=== PATIENT | female | born 1950 | race Caucasian/White ===

== ENCOUNTER 2022-08-17 15:47 | Emergency (ER) | payer MEDICARE, OTHER, SELFPAY ==
--- NOTE | 2022-08-17 15:49 | ED.RN ---
Pt accompanied by daughter to er triage. Pt repeating just listen to me. Got pt into computer system with assistance of daughter. Pt not willing to answer any questions or cooperate for any vitals. Pt daughter stating she has a history of this confusion and its usually the beginning of my mom being septic attempted to ask questions what pt was septic from and daughter was unsure. Pt taken back to right away and Dr. Amado notified. NNO
[2022-08-17 15:56] VITALS: TEMP 36.6; BMI 19.3
[2022-08-17 16:04] VITALS: BP 220/115; PULSE 81; RESP 12; O2SAT 98
--- NOTE | 2022-08-17 16:10 | CT_ITS ---
STUDY: CT BRAIN WITHOUT CONTRAST REASON FOR EXAM: Female, 72 years old. Confusion. RADIATION DOSAGE (If Supplied By Facility): CTDIvol = ( 44.99 ) mGy, DLP = ( 745.49 ) mGycm TECHNIQUE: Transaxial CT imaging of the brain was performed without administration of intravenous contrast material. Individualized dose optimization techniques were used for this CT. COMPARISON: No relevant priors. FINDINGS: Normal soft tissue structures. Normal calvarium. Normal size ventricles and extra-axial spaces for the patient''s age. There are areas of decreased attenuation within the white matter tracts of the supratentorial brain, consistent with microvascular disease changes. Normal basal ganglia and thalami. Normal brainstem. Normal cerebellum. There is no intracranial hemorrhage. There are no findings of an acute ischemic infarction. Normal visualized paranasal sinuses. CT/Brain/Head without Contrast IMPRESSION: Mild microvascular white matter disease without acute intracranial or calvarial abnormality. AIDOC was utilized to assist in identifying pertinent positive findings in this case. Electronically Signed: Barrera Moe DO at 17:09 EDT Reading Location ID and State: [address] [place] [address] Tel [phone], Service support ,
--- NOTE | 2022-08-17 16:10 | EKG12_ITS ---
Test Reason : CONFUSION Blood Pressure : / mmHG Vent. Rate : 078 BPM Atrial Rate : 078 BPM P-R Int : 164 ms QRS Dur : 090 ms QT Int : 410 ms P-R-T Axes : 061 049 083 degrees QTc Int : 467 ms Normal sinus rhythm Minimal voltage criteria for LVH, may be normal variant ( Sokolow-Hassan ) Nonspecific T wave abnormality Abnormal ECG Confirmed by ROXANA WYNN, SHALINI ([id number]), business editor MICHELE WELDON ([id number]) on 08/20/2022 10:55:03 A M Referred By: Confirmed By:JR SCHMIDT MD
--- NOTE | 2022-08-17 16:12 | EX.ED.DYSGE1 ---
HPI History of Present Illness Chief Complaint: Confusion Informant: patient and family Narrative Narrative: Patient's brought in by family because of concern for sepsis. History is really through daughter. Patient states she has no complaints but really cannot answer any questions for me. She tells me she is in the hospital but I cannot get any other details of her past medical history medications or anything from her. The daughter states that this patient is has sepsis several times before and every time she acts exactly like this. She will get confused quickly. She will get a little bit aggressive. She thinks she has had sepsis from urine infections but may be other items have caused this. Evidently the patient was pretty normal this morning about 930. She is now confused. We do not have a list of medications but the daughter is trying to get somebody to get that list from home. We know she has a history of high blood pressure and is on a list of medicines. Because of the patient unable to give a history and no medication history we are at somewhat of a limited at this time but are trying to gain more information. We have almost no information available in our system here. [facility] Medical History HTN (hypertension) Allergy/AdvReac Type Severity Reaction Status Date / Time No Known Allergies Allergy Verified 08/17/22 15:56 Social History Smoking Status: Never smoker ROS ROS ED ROS Narrative Extremely limited for the reasons stated in the history of present illness. Neurologic Neurologic: Reports other Details: Confusion EXAM Physical Exam Narrative Exam Narrative: Patient is awake and alert. She is coordinated. She does answer that she is in the hospital. She speaks clearly but does not give me any information. She looks comfortable. She is not having any dyspnea. I do note that her blood pressure is up a bit here bringing into question if she has been taking her meds. HEENT shows no trauma. Mucous membranes are minimally dry. Eyes show normal range of motion. Pupils are about 3 mm and reactive bilaterally and equal. Neck is supple without any meningismus. No JVD. Lungs are clear bilaterally and saturations are normal at 98% on room air showing no hypoxia. Her breathing is easy and unlabored. There is no coughing. Heart is regular with a rate about 80. It appears to be a normal sinus rhythm at 80 on the monitor in the room. I hear no murmur. Abdomen is thin soft and nontender No tenderness or pain with motion of her spine. Extremities show no edema cords or tenderness. Skin shows no rashes. She does not feel febrile or warm. Const Vital Signs: 08/17/22 15:56 08/17/22 16:04 08/17/22 18:28 Temperature 98 F 98 F Temperature Source Temporal Temporal Pulse Rate 81 75 Respiratory Rate 12 14 Blood Pressure 220/115 H 190/107 H Blood Pressure Mean 150 134 Pulse Ox 98 98 Oxygen Delivery Method Room Air Room Air MDM MDM MDM Narrative Medical decision making narrative: Patient CBC shows minimal anemia but normal white count. Platelets are normal. INR is normal. Electrolytes showed elevated creatinine but the BUN has not markedly abnormal for this level. I do not have any information that this is acute or not. She has been eating or drinking. We did give her some fluids also. Lactic acid is normal Liver function test are normal TSH is normal. My independent interpretation of the patient's chest x-ray shows no acute process or sign of infiltrate final is similar. Final reading by CT shows chronic changes but no acute. I talked with the patient and her daughter. Patient is back to normal now. They are thinking that this is due to lack of sleep and stress. Evidently there is a huge amount of family stress recently. They lost her grandmother. [place] room in town. She has not been sleeping well. She states she might have messed up some of her depression meds this morning but is not sure. This does not fit the picture of a temporary or transient global amnesia. This was not any expressive or receptive aphasia. No indication of strokes. They want to go home. Patient will be with her daughter and family continuously and if there is any further issues they will come back. Lab Data Attestation: I reviewed the patient's lab results. Labs: Laboratory Results - last 24 hr 08/17/22 08/17/22 08/17/22 16:08 16:15 16:15 WBC 6.8 RBC 3.75 L Hgb 11.8 L Hct 36.7 L MCV 97.9 MCH 31.5 MCHC 32.2 RDW Std Deviation 44.8 H RDW Coeff of [place] 12.4 Plt Count 159 MPV 11.2 Immature Gran % (Auto) 0.100 Neut % (Auto) 64.3 Lymph % (Auto) 29.0 [place] % (Auto) 5.3 Eos % (Auto) 1.0 Baso % (Auto) 0.3 Absolute Neuts (auto) 4.4 Absolute Lymphs (auto) 1.96 Nucleated RBC % 0 PT 12.4 INR 0.9 Sodium Potassium Chloride Carbon Dioxide Anion Gap BUN Creatinine Estim Creat Clear Calc Est GFR (MDRD) Af Amer Est GFR (MDRD) Non-Af BUN/Creatinine Ratio Glucose Lactic Acid Calcium Total Bilirubin AST ALT Alkaline Phosphatase Troponin I High Sens Total Protein Albumin Globulin Albumin/Globulin Ratio TSH Urine Color Urine Clarity Urine pH Ur Specific [place] Urine Protein Urine Glucose (UA) Urine Ketones Urine Occult Blood Urine Nitrite Urine Bilirubin Urine Urobilinogen Ur Leukocyte Esterase Urine RBC Urine WBC Ur Squamous Epith Cells Amorphous Sediment Urine Bacteria Urine Mucus POC Glucose 100 08/17/22 08/17/22 08/17/22 16:15 16:15 16:15 WBC RBC Hgb Hct MCV MCH MCHC RDW Std Deviation RDW Coeff of [place] Plt Count MPV Immature Gran % (Auto) Neut % (Auto) Lymph % (Auto) [place] % (Auto) Eos % (Auto) Baso % (Auto) Absolute Neuts (auto) Absolute Lymphs (auto) Nucleated RBC % PT INR Sodium 140 Potassium 4.5 Chloride 107 Carbon Dioxide 26.0 Anion Gap 7 BUN 27 H Creatinine 2.34 H Estim Creat Clear Calc 18.08 Est GFR (MDRD) Af Amer 26 L Est GFR (MDRD) Non-Af 22 L BUN/Creatinine Ratio 11.5 Glucose 99 Lactic Acid 0.7 Calcium 9.8 Total Bilirubin 0.30 AST 25 ALT 36 Alkaline Phosphatase 66 Troponin I High Sens 12 Total Protein 6.7 Albumin 3.2 Globulin 3.5 Albumin/Globulin Ratio 0.9 TSH 3.51 Urine Color Urine Clarity Urine pH Ur Specific [place] Urine Protein Urine Glucose (UA) Urine Ketones Urine Occult Blood Urine Nitrite Urine Bilirubin Urine Urobilinogen Ur Leukocyte Esterase Urine RBC Urine WBC Ur Squamous Epith Cells Amorphous Sediment Urine Bacteria Urine Mucus POC Glucose 08/17/22 20:00 WBC RBC Hgb Hct MCV MCH MCHC RDW Std Deviation RDW Coeff of [place] Plt Count MPV Immature Gran % (Auto) Neut % (Auto) Lymph % (Auto) [place] % (Auto) Eos % (Auto) Baso % (Auto) Absolute Neuts (auto) Absolute Lymphs (auto) Nucleated RBC % PT INR Sodium Potassium Chloride Carbon Dioxide Anion Gap BUN Creatinine Estim Creat Clear Calc Est GFR (MDRD) Af Amer Est GFR (MDRD) Non-Af BUN/Creatinine Ratio Glucose Lactic Acid Calcium Total Bilirubin AST ALT Alkaline Phosphatase Troponin I High Sens Total Protein Albumin Globulin Albumin/Globulin Ratio TSH Urine Color Yellow Urine Clarity Sl. Cloudy Urine pH 7.0 Ur Specific [place] 1.010 Urine Protein 500 H Urine Glucose (UA) Normal Urine Ketones Negative Urine Occult Blood 25 H Urine Nitrite Negative Urine Bilirubin Negative Urine Urobilinogen Normal Ur Leukocyte Esterase 25 H Urine RBC 0-5 SEEN Urine WBC 0-5 SEEN Ur Squamous Epith Cells 0-5 SEEN Amorphous Sediment 2+ PHOS Urine Bacteria 2+ Urine Mucus 0 SEEN POC Glucose Radiography Diagnostic Testing: Clinical Impression(s) from Imaging Studies Brain CT 08/17/22 16:10 IMPRESSION: Mild microvascular white matter disease without acute intracranial or calvarial abnormality. AIDOC was utilized to assist in identifying pertinent positive findings in this case. Electronically Signed: Barrera Moe DO at 17:09 EDT , Chest X-Ray 08/17/22 16:42 IMPRESSION: No acute cardiopulmonary disease. Electronically Signed: Barrera Moe DO at 17:10 EDT , Discharge Plan Triage Chief Complaint: Confusion ED Provider: Geraldo Amado Dx/Rx/DC Orders Clinical Impression: Transient confusion, Creatinine elevation Instructions: ED Confusion Primary Care Provider: Kody Fonseca Referrals: Kody Fonseca MD [Primary Care Provider] - 3-5 Days Disposition Disposition: Home, Self Care
[2022-08-17 16:26] LABS: Bedside Glucose 100 mg/dL (74-106)
--- NOTE | 2022-08-17 16:42 | RAD_ITS ---
STUDY: X-RAY CHEST REASON FOR EXAM: Female, 72 years old. Question pneumonia. TECHNIQUE: Single AP portable view of the chest. COMPARISON: None. FINDINGS: The lungs are clear and expanded. There is no demonstrated pleural abnormality. Normal size heart. Normal mediastinum and corinne. Normal visualized pulmonary arteries. There is atherosclerotic calcification of the aortic arch with tortuosity. Mild dextroscoliosis of the thoracic spine. 2 There is no demonstrated abnormality of the visualized soft tissue structures of the upper abdomen. RAD/Chest 1 View (Portable) IMPRESSION: No acute cardiopulmonary disease. Electronically Signed: Barrera Moe DO at 17:10 EDT ,
[2022-08-17 16:43] LABS: Absolute Lymphocyte Count 1.96 X10^3/uL (0.83-4.51); Absolute Neutrophil Count 4.4 X10^3/uL (2.0-7.7); Basophil# 0.02 X10^3/uL; Basophil% 0.3 % (0-1); Eosinophil# 0.07 X10^3/uL; Hematocrit 36.7 % (37-47); Hemoglobin 11.8 g/dL (12.0-15.0); Lymphocyte # 1.96 X10^3/ul (0.83-4.51); Mean Corp Hgb Conc 32.2 g/dL (32-36); Mean Corpuscular Hgb 31.5 pg (27.0-32.0); Mean Corpuscular Volume 97.9 fL (81-99); Mean Platelet Vol. 11.2 fl (6.2-12.0); Monocyte# 0.36 X10^3/uL; Monocyte% 5.3 % (0-10); NRBC Flagged by Analyzer 0 % (0-5); Neutrophil # 4.35 X10^3/uL (2.7-7.7); Neutrophil % 64.3 % (47-70); Platelet Count 159 K/mm3 (150-450); RBC Distribution Width CV 12.4 % (11.6-14.6); RBC Distribution Width SD 44.8 fl (35.1-43.9); Red Blood Count 3.75 M/mm3 (4.2-5.4); White Blood Count 6.8 K/mm3 (4.4-11.0)
[2022-08-17 17:00] LABS: International Normalized Ratio 0.9; Prothrombin Time (Protime)PT. 12.4 SECONDS (11.7-14.9)
[2022-08-17 17:13] LABS: ALB/GLOB Ratio 0.9 RATIO (0.9-2.4); AST(SGOT) 25 U/L (15-37); Alanine Aminotransfer ALT/SGPT 36 U/L (13-56); Albumin, Serum 3.2 g/dL (3.2-5.0); Alkaline Phosphatase 66 U/L (45-117); Anion Gap 7 (5-15); BUN 27 mg/dL (7-18); BUN/Creat Ratio 11.5 RATIO (10-20); Calcium,Total 9.8 mg/dL (8.5-10.1); Chloride 107 mmol/L (98-107); Creatinine, Serum 2.34 mg/dL (0.55-1.02); EST Glomerular Filtration Rate 22 mL/min (>60); Est Glom Filt Rate - Afr Amer 26 mL/min (>60); Estimated Creatinine Clearance 18.08 ml/min; Globulin 3.5 g/dL (2.2-4.2); Glucose 99 mg/dL (74-106); Potassium 4.5 mmol/L (3.5-5.1); Protein, Total 6.7 g/dL (6.4-8.2); Sodium Level 140 mmol/L (136-145); Troponin-I HS 12 pg/mL (3.0-54.0)
[2022-08-17 17:19] LABS: Lactic Acid 0.7 mmol/L (0.4-1.9)
[2022-08-17 18:28] VITALS: BP 190/107; PULSE 75; RESP 14; TEMP 36.6; O2SAT 98
[2022-08-17] MEDS: 0.9% Normal Saline 1,000 ML 999 ML IV (19:25)
[2022-08-17 20:14] LABS: Thyroid Stim Hormone (TSH) 3.51 uIU/mL (0.358-3.74)
[2022-08-17 20:17] LABS: Mucous, Urine 0 SEEN /hpf (<or=2+)
[2022-08-17 20:20] LABS: Color, Urine Yellow (Yellow); Glucose, Dipstick Normal (Normal); Ketone-Dipstick Negative (Negative); Leukocyte Esterase-Dipstick 25 /ul (Negative); Nitrite-Dipstick Negative (Negative); Occult Blood-Urine 25 /ul (Negative); Protein-Dipstick 500 mg/dl (Negative); Urine Bilirubin Dipstick Negative (Negative); Urine Clarity Sl. Cloudy (Clear); Urine Urobilinogen Normal (Normal)
--- NOTE | 2022-08-17 20:29 | ED.RN ---
physician's office never faxed med list. printed list from external med history for Dr. Amado
[2022-08-17 20:33] LABS: Red Blood Cells-Urine 0-5 SEEN /hpf (0-5); Squamous Epithelial Cells - UA 0-5 SEEN /hpf (5-10); White Blood Cells 0-5 SEEN /hpf (0-5)
[2022-08-17 20:34] LABS: Amorphous Sediment 2+ PHOS; Bacteria 2+ /hpf (None Seen)
== END 2022-08-17 21:17 | disposition home or self-care (01) ==
PROVIDERS: Emergency Provider Emergency Medicine; PCP Internal Medicine; Visit Provider Emergency Medicine
DX: R41.0 Disorientation, unspecified (principal); I10 Essential (primary) hypertension; R79.89 Other specified abnormal findings of blood chemistry
CPT/HCPCS: 70450; 71045; 80053; 81001; 82962; 83605; 84443; 84484; 85025; 85610; 87040; 87077; 87086; 87088; 87186; 93005; 96360; 99283; J7030; A4216

== ENCOUNTER → 2023-11-20 | Outpatient (CLI) | payer MEDICARE, OTHER, SELFPAY ==
--- NOTE | 2023-11-20 08:34 | ECHOD_ITS ---
Reason For Study: PERICARDIAL EFFUSION Procedure This was a 2D Doppler, Color Flow transthoracic echocardiogram. Exam performed in department. Left Ventricle Normal size and thickness. The left ventricular ejection fraction is 60 %. Diastolic function is indeterminate. Right Ventricle Normal right ventricle. Atria The left atrium is mildly enlarged. Normal right atrium. Mitral Valve Mild diffuse mitral valve thickening with mild calcification of the anterior leaflet. Mild (1+) mitral valve insufficiency. Tricuspid Valve Normal tricuspid valve. Aortic Valve Trisinus/trileaflet aortic valve. Pulmonic Valve The pulmonic valve is not well visualized. Pericardium/Pleural Small anterior pericardial effusion. No echo evidence of tamponade. MMode/2D Measurements & Calculations LVIDd: 4.3 cm IVSd: 0.84 cm Ao root diam: 2.8 cm LVIDs: 2.5 cm LVPWd: 0.99 cm RVDd: 2.5 cm FS: 42.3 % LAV(MOD-bp): 54.7 ml LVAd ap4: 24.8 cm2 LVAd ap2: 22.1 cm2 LAV(MOD-bp) Indexed: 34.3 ml/m2 LVLd ap4: 7.9 cm LVLd ap2: 7.2 cm LAV(MOD-sp2): 54.2 ml EDV(MOD-sp4): 65.1 ml EDV(MOD-sp2): 57.6 ml LAV(MOD-sp4): 53.4 ml EDV(sp4-el): 66.3 ml EDV(sp2-el): 57.4 ml LVAs ap4: 15.1 cm2 LVAs ap2: 13.7 cm2 LVLs ap4: 6.5 cm LVLs ap2: 6.0 cm ESV(MOD-sp4): 30.8 ml ESV(MOD-sp2): 27.5 ml ESV(sp4-el): 29.9 ml ESV(sp2-el): 26.5 ml EF(MOD-sp4): 52.7 % EF(MOD-sp2): 52.3 % EF(sp4-el): 54.8 % SV(MOD-sp4): 34.3 ml SV(MOD-sp2): 30.1 ml SV(sp4-el): 36.3 ml LA dimension(2D): 3.8 cm TAPSE: 2.3 cm LA A4 area: 17.5 cm2 Time Measurements MV dec time: 0.13 sec Doppler Measurements & Calculations MV E max kush: 114.8 cm/sec Lat Peak E' Kush: 7.3 cm/sec Med Peak E' Kush: 4.5 cm/sec MV A max kush: 136.9 cm/sec E/E' lat: 15.8 E/E' med: 25.5 MV E/A: 0.84 MV V2 max: 142.3 cm/sec MV P1/2t max kush: 107.1 cm/sec Ao V2 max: 147.9 cm/sec MV max P.1 mmHg MV P1/2t: 40.1 msec Ao max P.8 mmHg MV V2 mean: 82.2 cm/sec MV dec slope: 782.3 cm/sec2 Ao V2 mean: 106.6 cm/sec MV mean P.0 mmHg Ao mean P.9 mmHg MV V2 VTI: 22.8 cm MVA(P1/2t): 5.5 cm2 Ao V2 VTI: 35.5 cm AV (velocity ratio): 0.60 LV V1 max: 96.2 cm/sec PA V2 max: 119.0 cm/sec LV V1 max P.7 mmHg PA V2 mean: 77.9 cm/sec LV V1 mean P.1 mmHg LV V1 mean: 70.2 cm/sec LV V1 VTI: 21.2 cm ECHO/Echo Complete Interpretation Summary The left ventricular ejection fraction is 60 %. Diastolic function is indeterminate. The left atrium is mildly enlarged. Mild (1+) mitral valve insufficiency. Mild diffuse mitral valve thickening with mild calcification of the anterior le aflet. Small anterior pericardial effusion. No echo evidence of tamponade. Ordering Physician: GIOVANNA KAISER Referring Physician: Kody Fonseca Performed By: Shira Carson, ARAMCS, RVT
== END | disposition home or self-care (01) ==
LOC: CVS 08:32
PROVIDERS: PCP Internal Medicine
DX: I31.39 Other pericardial effusion (noninflammatory) (principal)
CPT/HCPCS: 93306

== ENCOUNTER → 2024-02-10 | Outpatient (CLI) | payer MEDICARE, OTHER, SELFPAY ==
--- NOTE | 2024-02-10 13:55 | VDUE_ITS ---
Reason For Study: Pre op Right Arm Left Arm Cephalic Vein at distal forearm measures Cephalic Vein at distal forearm measures 0.07 x 0.08 cm. 0.13 x 0.13 cm. Cephalic Vein at mid forearm measures 0.06 x Cephalic Vein at mid forearm measures 0.14 x 0.08 cm. 0.16 cm. Cephalic Vein proximal forearm measures 0.04 Cephalic Vein proximal forearm measures 0.12 x 0.05 cm. x 0.14 cm. Cephalic Vein distal upper arm measures 0.15 Cephalic Vein distal upper arm measures 0.06 x 0.16 cm. x 0.07 cm. Cephalic Vein at mid upper arm measures 0.23 Cephalic Vein at mid upper arm measures 0.09 x 0.22 cm. x 0.09 cm. Cephalic Vein at proximal upper arm measures Cephalic Vein at proximal upper arm measures 0.30 x 0.30 cm. 0.13 x 0.17 cm. Proximal Basilic vein measures 0.35 x 0.36 Proximal Basilic vein measures 0.40 x 0.40 cm. cm. Mid Basilic vein measures 0.30 x 0.30 cm. Mid Basilic vein measures 0.34 x 0.33 cm. Distal Basilic vein measures 0.28 x 0.27 cm. Distal Basilic vein measures 0.29 x 0.32 cm. Brachial artery 1 measures 0.39 x 0.39 cm Brachial artery measures 0.44 x 0.45 cm with with a velocity of 91.4 cm/sec. a velocity of 37 cm/sec. Brachial artery 2 measures 0.20 x 0.21 cm Radial artery measures 0.24 x 0.22 cm with a with a velocity of 67.2 cm/sec. velocity of 37 cm/sec. Radial artery measures 0.21 x 0.23 cm with a velocity of 38.8 cm/sec. VL/Dialysis Vein Map PRE-OP BILAT Interpretation Summary Bilateral upper extremity arteries patent with normal waveforms/velocities and measurements above. Bilateral upper extremity veins patent with measurements above. Ordering Physician: Ernie De Jesus Referring Physician: Kody Fonseca Performed By: Cecilia Nix [facility] ???
== END | disposition home or self-care (01) ==
LOC: CVS 13:48
PROVIDERS: PCP Internal Medicine; Referring Provider Surgery Trauma Surgery; Visit Provider Surgery Trauma Surgery
DX: Z01.818 Encounter for other preprocedural examination (principal); N18.6 End stage renal disease; Z99.2 Dependence on renal dialysis
CPT/HCPCS: 93985

== ENCOUNTER 2024-03-16 05:41 | Day surgery (SDC) | payer MEDICARE, OTHER, SELFPAY ==
[2024-03-09 16:16] LABS: Hematocrit 36.1 % (37-47); Hemoglobin 11.2 g/dL (12.0-15.0); Mean Corpuscular Hgb 30.9 pg (27.0-32.0); Mean Corpuscular Volume 99.7 fL (81-99); Mean Platelet Vol. 10.9 fl (6.2-12.0); Platelet Count 130 K/mm3 (150-450); RBC Distribution Width CV 14.1 % (11.6-14.6); RBC Distribution Width SD 51.6 fl (35.1-43.9); Red Blood Count 3.62 M/mm3 (4.2-5.4); White Blood Count 6.9 K/mm3 (4.4-11.0)
[2024-03-09 16:36] LABS: Anion Gap 7 (5-15); BUN 59 mg/dL (7-18); BUN/Creat Ratio 11.5 RATIO (10-20); Calcium,Total 9.9 mg/dL (8.5-10.1); Chloride 110 mmol/L (98-107); Creatinine, Serum 5.11 mg/dL (0.55-1.02); EST Glomerular Filtration Rate 9 mL/min (>60); Est Glom Filt Rate - Afr Amer 11 mL/min (>60); Glucose 75 mg/dL (74-106); Potassium 4.7 mmol/L (3.5-5.1); Sodium Level 142 mmol/L (136-145)
--- NOTE | 2024-03-10 19:35 | PAT.ANE_ITS ---
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 When Was Last Pacemaker Check QUESTION #4 FULL TEXT: You/Your Family Experience fever (hyperthermia) with Anesthesia Last Oral Intake Last Oral intake: Last Oral Intake NPO since Meds taken in AM with sips of water? 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 Female Yes 03/09/24 13:55 HX of Motion Sickness No 03/09/24 13:55 HX of N/V After Surgery No 03/09/24 13:55 Non-Smoker Yes 03/09/24 13:55 Duration of Surgery greater Yes 03/09/24 13:55 than 60 minutes Number of Risk Factors 3 03/09/24 13:55 PONV Score Moderate Risk 03/09/24 13:55 Height & Weight Height & Weight: Anesthesia: Height & Weight Height 5 ft 4 in 02/11/24 11:25 Respiratory Assessment Respiratory Assessment - carnallite plant operator: Respiratory Tract Infection Hx - 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 Has anyone observed you stop No 03/09/24 13:55 breathing during sleep? STOP Results Negative 03/09/24 13:55 QUESTION #5 FULL TEXT : Do you snore loudly (louder than talking or can be heard through closed doors)? 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 Specify any problems Hx of Preganancy in last 3 No 03/09/24 13:55 Months Nurse Filling Out Transfusion DSCHRIBER 03/09/24 13:55 & Questions: Date: 03/09/24 03/09/24 13:55 Time: 13:59 03/09/24 13:55 Patient unable to answer at this time (ie. 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 plant operator: /Reproductive Hx- carnallite plant operator Hx Now No 03/09/24 13:55 Gestational Age (in weeks): EDC: Hx Hx Para Hx Section SAB No 03/09/24 13:55 PFSH Medical History (Updated 03/09/24 @ 14:19 by Marquita Wright) Loss of hearing Wears glasses Hx of sepsis MRSA infection Depression Anxiety Thyroid disease History of renal dialysis Hemodialysis catheter malfunction History of renal disease Anemia High cholesterol Easy bruising Restless legs Injury of head and neck Syncope Dietary restriction Gastric reflux Former smoker Leg cramps History of pain when walking PVD (peripheral vascular disease) History of edema Typhoid fever History of rheumatic fever History of echocardiogram History of stress test Cardiology follow-up encounter History of cardiac murmur Seizures HTN (hypertension) Home Medications ?Medication ?Instructions ?Recorded ?Last Taken ?Type acetaminophen 500 mg capsule 500 mg PO Q6H PRN pain 02/03/24 Unknown History alendronate 70 mg tablet 70 mg PO QWEEK 02/03/24 Unknown History ascorbic acid 125 mg-collagen, 1 cap PO DAILY 02/03/24 Unknown History hydrolyzed 740 mg capsule (Collagen Plus Vitamin C) aspirin 81 mg tablet,delayed 81 mg PO QDAY 02/03/24 Unknown History release bupropion HCl 300 mg 24 hr tablet, 300 mg PO QAM 02/03/24 Unknown History extended release calcium 600 mg (as 1 tab PO BID 02/03/24 Unknown History carbonate)-vitamin D3 10 mcg (400 unit) tablet (Calcium 600 + D(3)) carvedilol 3.125 mg tablet 3.125 mg PO BID 02/03/24 Unknown History cholecalciferol (vitamin D3) 125 125 mcg PO QDAY 02/03/24 Unknown History mcg (5,000 unit) capsule cilostazol 50 mg tablet 100 mg PO BID 02/03/24 Unknown History evolocumab 140 mg/mL subcutaneous 140 mg subcut Q2W 02/03/24 Unknown History syringe ezetimibe 10 mg tablet 10 mg PO QDAY 02/03/24 Unknown History gabapentin 300 mg capsule 300 mg PO QHS PRN PRN restless 02/03/24 Unknown History leg(s) isosorbide mononitrate 30 mg 30 mg PO QDAY 02/03/24 Unknown History tablet,extended release 24 hr levetiracetam 500 mg tablet 500 mg PO BID 02/03/24 Unknown History levothyroxine 75 mcg capsule 75 mcg PO QDAY 02/03/24 Unknown History lisinopril 5 mg tablet 5 mg PO QDAY 02/03/24 Unknown History magnesium oxide 400 mg PO TID 02/03/24 Unknown History multivitamin (Daily Multi-Vitamin 1 tab PO QDAY 02/03/24 Unknown History tablet) omeprazole 20 mg capsule,delayed 20 mg PO QDAY 02/03/24 Unknown History release ondansetron HCl 4 mg tablet 4 mg PO Q8H PRN PRN nausea and 02/03/24 Unknown History vomiting rosuvastatin 40 mg tablet 40 mg PO QHS 02/03/24 Unknown History Allergy/AdvReac Type Severity Reaction Status Date / Time fentanyl Allergy Severe Other Verified 03/09/24 13:46 amlodipine (From Norvasc) Allergy Other Verified 03/09/24 13:46 hydromorphone (From Dilaudid) Allergy Other Verified 03/09/24 13:46 Family History Other CVA (cerebral vascular accident) Diabetes Heart disease Hypertension Thyroid disorder Surgical History (Updated 03/09/24 @ 14:19 by Marquita Wright) Hx of tonsillectomy Hx of arterial bypass of lower limb Hx of foot surgery Social History Smoking Status: Former smoker Tobacco: How many years used: 20 how long ago did patient quit smokin yrs ago Audit: Pertinent Findings Pertinent Findings EKG Perinent findings: August 17, 2022. Normal sinus rhythm. Minimal voltage criteria for LVH. Nonspecific T wave abnormality. Stress test pertinent findings: October 26, 2021. Ejection fraction 66%. No ischemia or infarct seen. Echo (EF%) pertinent findings: November 20, 2023. Ejection fraction is 60%. No aortic stenosis is noted. Consult pertinent findings: May 16, 2022. Dr. Ellington. 1. Coronary artery disease. Status post PCI in 2015. Stress test in 2021 showed no ischemia. Patient denies angina. Continue meds. 2. Hypertension controlled at home. Continue current meds. Has left ventricular hypertrophy on echo most likely blood pressure related. No edema or signs of heart failure noted. 3. Chronic kidney disease. Followed by renal - Dr. Reno. Recommendation Anesthesia Recommendation Anesthesia recommendation: OPTIMIZED for anesthesia
[2024-03-16] VITALS (9 sets, daily range): BP systolic 104–176; BP diastolic 66–115; PULSE 81–91; RESP 12–18; TEMP 36.1–36.8; O2SAT 95–100; BMI 22.3
--- NOTE | 2024-03-16 06:52 | SUR.PREOP ---
DR. SUAZO WAS MADE AWARE OF PATIENT'S HIGH BLOOD PRESSURES IN PREOP. LAST WAS 216/86. PER DR. SUAZO WE CAN PROCEED BECAUSE PATIENT IS A DIALYSIS PATIENT AND SINCE THE PATIENT IS GOING TO BE A MAC ANESTHESIA IT SHOULD BE FINE.
--- NOTE | 2024-03-16 07:39 | PCM.PRE.AN2 ---
ASA Classification* ASA Classification ASA Classification: 3 Assessment & Plan Anesthesia* Anesthesia Assessment Anesthesia Assessment: Discussed sedation and/or anesthesia options, risks, benefits, and alternatives with patient/parents/legal guardian/POA. Questions invited. The patient/parents/legal guardian/POA seems to understand and agrees to proceed with anesthesia plan. Reviewed the physical assessment, medical history, allergy history and patient home medications list prior to surgery/procedure/anesthetic and documented any changes. Performed airway and anesthesia risk assessments. Anesthesia Type Anesthesia Type: MAC Anesthesia Focused Assessment* Temperature: 98.0 F Pulse Rate: 81 Blood Pressure: 164/115 Respiratory Rate: 16 Pulse Ox: 97 Airway Assessment Mouth opens: >3 cm Mallampati Score: II Focused Labs Anesthesia Preop lab: CBC WBC 6.9 K/mm3 (4.4-11.0) 03/09/24 14:36 RBC 3.62 M/mm3 (4.2-5.4) L 03/09/24 14:36 Hgb 11.2 g/dL (12.0-15.0) L 03/09/24 14:36 Hct 36.1 % (37-47) L 03/09/24 14:36 Plt Count 130 K/mm3 (150-450) L 03/09/24 14:36 CHEMISTRY Potassium 4.7 mmol/L (3.5-5.1) 03/09/24 14:36 Sodium 142 mmol/L (136-145) 03/09/24 14:36 BUN 59 mg/dL (7-18) H 03/09/24 14:36 Creatinine 5.11 mg/dL (0.55-1.02) H 03/09/24 14:36 Glucose 75 mg/dL (74-106) 03/09/24 14:36 POC Glucose 100 mg/dL (74-106) 08/17/22 16:08 TSH 3.51 uIU/mL (0.358-3.74) 08/17/22 16:15 COAG PT 12.4 SECONDS (11.7-14.9) 08/17/22 16:15 Pre-Assessment Diagnosis/Proposed Procedure Planned Operative Procedure(s): LEFT UPPER EXTREMITY AVF CREATION Anesthesia History 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 When Was Last Pacemaker Check QUESTION #4 FULL TEXT: You/Your Family Experience fever (hyperthermia) with Anesthesia Last Oral Intake Last Oral intake: Last Oral Intake NPO since 20:00 03/16/24 06:31 Meds taken in AM with sips of Yes 03/16/24 06:31 water? 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 - olive grower: PONV - olive grower Female Yes 03/09/24 13:55 HX of Motion Sickness No 03/09/24 13:55 HX of N/V After Surgery No 03/09/24 13:55 Non-Smoker Yes 03/09/24 13:55 Duration of Surgery greater Yes 03/09/24 13:55 than 60 minutes Number of Risk Factors 3 03/09/24 13:55 PONV Score Moderate Risk 03/09/24 13:55 Height & Weight Height & Weight: Anesthesia: Height & Weight Height 5 ft 4 in 03/16/24 06:31 Weight: 59 kg 03/16/24 06:31 Body Mass Index (BMI) 22.3 03/16/24 06:31 Respiratory Assessment Respiratory Assessment - olive grower: Respiratory Tract Infection Hx - olive grower Hx Respiratory Tract Infection No 03/09/24 13:55 STOP Sleep Apnea STOP Sleep Apnea - olive grower: STOP Sleep Apnea - olive grower Hx Hypertension Yes: BP NOT ALWAYS WELL 03/09/24 13:55 CONTROLLED WITH MED Hx Sleep Apnea No 03/09/24 13:55 CPAP BIPAP Do you snore loudly (louder No 03/09/24 13:55 than talking or can be heard Do you often feel tired/ No 03/09/24 13:55 fatigued/ sleepy during daytime? Has anyone observed you stop No 03/09/24 13:55 breathing during sleep? STOP Results Negative 03/09/24 13:55 QUESTION #5 FULL TEXT : Do you snore loudly (louder than talking or can be heard through closed doors)? 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 Specify any problems Hx of Preganancy in last 3 No 03/09/24 13:55 Months Nurse Filling Out Transfusion DSCHRIBER 03/09/24 13:55 & Questions: Date: 03/09/24 03/09/24 13:55 Time: 13:59 03/09/24 13:55 Patient unable to answer at this time (ie. confused, unrespo /Reproduction History /Reproductive History - olive grower: /Reproductive Hx- olive grower Hx Now No 03/09/24 13:55 Gestational Age (in weeks): EDC: Hx Hx Para Hx Section SAB No 03/09/24 13:55 PFSH Medical History Loss of hearing Wears glasses Hx of sepsis MRSA infection Depression Anxiety Thyroid disease History of renal dialysis Hemodialysis catheter malfunction History of renal disease Anemia High cholesterol Easy bruising Restless legs Injury of head and neck Syncope Dietary restriction Gastric reflux Former smoker Leg cramps History of pain when walking PVD (peripheral vascular disease) History of edema Typhoid fever History of rheumatic fever History of echocardiogram History of stress test Cardiology follow-up encounter History of cardiac murmur Seizures HTN (hypertension) Home Medications ?Medication ?Instructions ?Recorded ?Last Taken ?Type acetaminophen 500 mg capsule 500 mg PO Q6H PRN pain 02/03/24 03/15/24 History alendronate 70 mg tablet 70 mg PO QWEEK 02/03/24 Unknown History ascorbic acid 125 mg-collagen, 1 cap PO DAILY 02/03/24 03/15/24 History hydrolyzed 740 mg capsule (Collagen Plus Vitamin C) aspirin 81 mg tablet,delayed 81 mg PO QDAY 02/03/24 03/15/24 History release bupropion HCl 300 mg 24 hr tablet, 300 mg PO QAM 02/03/24 03/16/24 History extended release calcium 600 mg (as 1 tab PO BID 02/03/24 03/15/24 History carbonate)-vitamin D3 10 mcg (400 unit) tablet (Calcium 600 + D(3)) carvedilol 3.125 mg tablet 3.125 mg PO BID 02/03/24 03/16/24 History cholecalciferol (vitamin D3) 125 125 mcg PO QDAY 02/03/24 03/15/24 History mcg (5,000 unit) capsule cilostazol 50 mg tablet 100 mg PO BID 02/03/24 03/15/24 History evolocumab 140 mg/mL subcutaneous 140 mg subcut Q2W 02/03/24 Unknown History syringe ezetimibe 10 mg tablet 10 mg PO QDAY 02/03/24 Unknown History gabapentin 300 mg capsule 300 mg PO QHS PRN PRN restless 02/03/24 Unknown History leg(s) isosorbide mononitrate 30 mg 30 mg PO QDAY 02/03/24 03/16/24 History tablet,extended release 24 hr levetiracetam 500 mg tablet 500 mg PO BID 02/03/24 Unknown History levothyroxine 75 mcg capsule 75 mcg PO QDAY 02/03/24 03/16/24 History lisinopril 5 mg tablet 5 mg PO QDAY 02/03/24 03/16/24 History magnesium oxide 400 mg PO TID 02/03/24 Unknown History multivitamin (Daily Multi-Vitamin 1 tab PO QDAY 02/03/24 Unknown History tablet) omeprazole 20 mg capsule,delayed 20 mg PO QDAY 02/03/24 03/16/24 History release ondansetron HCl 4 mg tablet 4 mg PO Q8H PRN PRN nausea and 02/03/24 Unknown History vomiting rosuvastatin 40 mg tablet 40 mg PO QHS 12/02/24 Unknown History Allergy/AdvReac Type Severity Reaction Status Date / Time fentanyl Allergy Severe Other Verified 03/16/24 06:27 amlodipine (From Norvasc) Allergy Other Verified 03/16/24 06:27 hydromorphone (From Dilaudid) Allergy Other Verified 03/16/24 06:27 Family History Other CVA (cerebral vascular accident) Diabetes Heart disease Hypertension Thyroid disorder Surgical History Hx of tonsillectomy Hx of arterial bypass of lower limb Hx of foot surgery Social History Smoking Status: Former smoker Tobacco: How many years used: 20 how long ago did patient quit smokin yrs ago Review of Systems (Anesthesia) ROS Narrative System reviewed and no additional complaints, except as documented.
--- NOTE | 2024-03-16 07:41 | HP.PCM_ITS ---
History and Physical Allergies fentanyl Allergy (Severe, Verified 03/09/24 13:02) Otheramlodipine (From Norvasc) Allergy (Verified 03/09/24 13:02) Otherhydromorphone (From Dilaudid) Allergy (Verified 03/09/24 13:02) Other Medications ?Medication ?Instructions ?Recorded ?Confirmed ?Type acetaminophen 500 mg capsule 500 mg PO Q6H PRN 02/03/24 03/09/24 History alendronate 70 mg tablet 70 mg PO QWEEK 02/03/24 03/09/24 History ascorbic acid 125 mg-collagen, cap PO 02/03/24 03/09/24 History hydrolyzed 740 mg capsule (Collagen Plus Vitamin C) aspirin 81 mg tablet,delayed 81 mg PO QDAY 02/03/24 03/09/24 History release bupropion HCl 300 mg 24 hr tablet, 300 mg PO QAM 02/03/24 03/09/24 History extended release calcium 600 mg (as 1 tab PO BID 02/03/24 03/09/24 History carbonate)-vitamin D3 10 mcg (400 unit) tablet (Calcium 600 + D(3)) carvedilol 3.125 mg tablet 3.125 mg PO BID 02/03/24 03/09/24 History cholecalciferol (vitamin D3) 125 125 mcg PO QDAY 02/03/24 03/09/24 History mcg (5,000 unit) capsule cilostazol 50 mg tablet 100 mg PO BID 02/03/24 03/09/24 History evolocumab 140 mg/mL subcutaneous 140 mg subcut Q2W 02/03/24 03/09/24 History syringe ezetimibe 10 mg tablet 10 mg PO QDAY 02/03/24 03/09/24 History gabapentin 300 mg capsule 300 mg PO QHS 02/03/24 03/09/24 History isosorbide mononitrate 30 mg 30 mg PO QDAY 02/03/24 03/09/24 History tablet,extended release 24 hr levetiracetam 500 mg tablet 500 mg PO BID 02/03/24 03/09/24 History levothyroxine 75 mcg capsule 75 mcg PO QDAY 02/03/24 03/09/24 History lisinopril 5 mg tablet 5 mg PO QDAY 02/03/24 03/09/24 History magnesium oxide 400 mg PO TID 02/03/24 03/09/24 History multivitamin (Daily Multi-Vitamin 1 tab PO QDAY 02/03/24 03/09/24 History tablet) omeprazole 20 mg capsule,delayed 20 mg PO QDAY 02/03/24 03/09/24 History release ondansetron HCl 4 mg tablet 4 mg PO Q8H 02/03/24 03/09/24 History rosuvastatin 40 mg tablet 40 mg PO QDAY 02/03/24 03/09/24 History Is last menstrual period known: No Post menopausal: Yes Patient : No Have you fallen in the past year?: No PFSH Medical History HTN (hypertension) Family History Other CVA (cerebral vascular accident) Diabetes Heart disease Hypertension Thyroid disorder Social History Smoking Status: Former smoker Tobacco: How many years used: 20 how long ago did patient quit smokin yrs ago HPI HPI HPI: ANGELA REID, is a 73 F who presents to the office today for further discussion of dialysis access. She had completed upper extremity mapping. Currently using right IJ catheter without issues. ROS General General: Yes weight change, appetite and weakness; No fatigue, colon cancer or breast cancer HEENT HEENT: No difficulty swallowing, eye injury, eye surgery, swollen glands or hoarseness Endo Endocrine: Yes thyroid disease; No diabetes mellitus, thyroid cancer, Hair loss, heat intolerance or cold in tolerance Skin Skin: No rash or changing moles Musc Musculoskeletal: No back problems, arthritis, rheumatoid arthritis, gout or joint pain Cardio Cardiovascular: Yes murmur, heart disease, high blood pressure, heart attack and heart stent; No pacemaker, atrial fibrillation, palpitations, shortness of breat with exertion or chest pain Psych Psychiatric: Yes anxiety; No depression or hearing voices Resp Respiratory: No shortness of breath, Yes sleep apnea, No cough, No COPD, No asthma, No emphysema and No wheezing Gastro Gastrointestinal: No abdominal pain, Yes nausea or vomiting, No diarrhea, No constipation, No blood in stool, Yes acid reflux, No hemorrhoids, No ulcers, No gallbladder problem and No black,tarry stools [place] Hematologic: Yes blood thinners, No blood disorders, No bleeding, Yes anemia and No blood clots Neuro Neurologic: No system reviewed and no additional complaints, except as documented, No as per HPI, No abnormal gait, Yes abnormal hearing, No abnormal movements, No abnormal speech, No behavioral changes, No burning sensations, No confusion, No convulsions, No disequilibrium, No dizziness, No localized weakness, No frequent falls, Yes headache(s), No lack of coordination, No loss of vision, No memory loss, No numbness, No other visual disturbances, No radicular pain, Yes restless legs, No sensory deficit, No syncope, No tingling, Yes tremor(s), Yes weakness and No other Exam Const General: cooperative, healthy appearing, comfortable, no acute distress and well developed Nutritional Appearance: well nourished Orientation: alert, awake and oriented x3 HENMT Head: normocephalic and atraumatic Ears: hearing grossly normal bilaterally Nose: external nose normal Eyes General: appearance normal, both eyes and all related structures EOM: EOM intact bilaterally Neck Neck: normal visual inspection, full ROM and trachea midline Resp Effort & Inspection: normal respiratory effort, able to speak in complete sentences, symmetric chest movement, no audible wheezes, not labored, no stridor and no use of accessory muscles Cardio Rate: regular rate Rhythm: regular rhythm Pulses: brachial pulses present and radial pulses present Skin General: no rashes or lesions noted and no erythema Wounds: no wounds Neuro Cranial Nerves: CN's II-XI intact bilaterally and EOM intact bilaterally Speech: speech normal Gait: normal gait Motor: strength 5/5 throughout Sensory Exam: no sensory deficits noted Psych Appearance: grossly normal and well kempt Mental Status: mental status grossly normal Mood: congruent mood Speech and Movement: speech and movement normal Thought Content: normal Judgment: judgment good Coding Level of Care Code Off vis,est,level 3 Diagnoses ESRD (end stage renal disease) on dialysis N18.6; Z99.2 Assessment and Plan Assessment and Plan (1) ESRD (end stage renal disease) on dialysis: Status: Chronic Plan: -left stage I basilic fistula
[2024-03-16] MEDS: Cefazolin 2 GM in Syringe IV (07:53)
[2024-03-16] MEDS: Bupivacaine 0.25% 30 ML Vial (09:31)
[2024-03-16] MEDS: Lidocaine 1% (30 ml sdv) 30 ML Vial (09:31)
--- NOTE | 2024-03-16 09:44 | DCINST_ITS ---
Discharge Instructions Diet Discharge Diet: No restrictions Activity Lifting Restrictions: do not lift > 20 lbs with left arm for 14 days Additional Activity Instructions:: do not submerge incision for 14 days Dressing / Incision Call your doctor if your incision/area has: Sudden Increased Bleeding, Increased Pain/ Swelling, Increased Redness and Foul Smelling Discharge Call your doctor if you observe: Fever of 101 or Higher, Coldness, Increased Pain and Numbness or Tingling Remove Dressing in: 2 days Cleanse incision/area with: Soap & Water Follow Up Care Test Results: Test results from this visit will be discussed in further detail at your follow- up appointment, if applicable. Discharge Plan Admission Attending Provider: Ernie De Jesus Primary Care Provider: Kody Fonseca Instructions Print Language: Maori Discharge Orders/Prescriptions Prescriptions: New oxycodone 5 mg tablet 5 mg PO Q8H PRN (Reason: pain) 1 Days Qty: 3 0RF Continued acetaminophen 500 mg capsule 500 mg PO Q6H PRN (Reason: pain) evolocumab 140 mg/mL syringe 140 mg subcut Q2W lisinopril 5 mg tablet 5 mg PO QDAY multivitamin [Daily Multi-Vitamin] Tablet 1 tab PO QDAY levothyroxine 75 mcg capsule 75 mcg PO QDAY aspirin 81 mg tablet,delayed release (DR/EC) 81 mg PO QDAY alendronate 70 mg tablet 70 mg PO QWEEK magnesium oxide 400 mg magnesium tablet 400 mg PO TID levetiracetam 500 mg tablet 500 mg PO BID calcium carbonate-vitamin D3 [Calcium 600 + D(3)] 600 mg-10 mcg (400 unit) tablet 1 tab PO BID isosorbide mononitrate 30 mg tablet extended release 24 hr 30 mg PO QDAY rosuvastatin 40 mg tablet 40 mg PO QHS omeprazole 20 mg capsule,delayed release(DR/EC) 20 mg PO QDAY gabapentin 300 mg capsule 300 mg PO QHS PRN PRN (Reason: restless leg(s)) ondansetron HCl 4 mg tablet 4 mg PO Q8H PRN PRN (Reason: nausea and vomiting) cilostazol 50 mg tablet 100 mg PO BID carvedilol 3.125 mg tablet 3.125 mg PO BID Rx Instructions: must administer with a meal/food bupropion HCl 300 mg tablet extended release 24 hr 300 mg PO QAM ezetimibe 10 mg tablet 10 mg PO QDAY cholecalciferol (vitamin D3) 125 mcg (5,000 unit) capsule 125 mcg PO QDAY Collagen Plus Vitamin C 125-740 mg capsule 1 cap PO DAILY Referrals / Follow Up: Kody Fonseca MD [Primary Care Provider] - Disposition Disposition (needs filled in before D/C Order can be placed): Home, Self Care
--- NOTE | 2024-03-16 10:20 | PCM.POST.ANE ---
Anesthesia: Postop Eval I Current Vital Signs Temperature: 97 F Pulse Rate: 82 Blood Pressure: 159/84 Respiratory Rate: 18 Pulse Ox: 100 Oxygen Delivery Method: Room Air Assessment Airway patent: Yes Spontaneous unlabored respirations: Yes Mental status: Awake nausea: No Vomiting: Yes Anesthesia Complication: No Fluid Hydration Crystalloid volume administer (ml): 20 Total IV fluid infused: 20 Progress Note Anesthesia document: Postop Eval 1 completed: Yes
--- NOTE | 2024-03-16 10:29 | PCM.POSTANE2 ---
Anesthesia Postop Eval I Sum Postop Eval Completion status Anesthesia document: Postop Eval 1 completed: Yes Anesthesia Postop Eval I Summary Anesthesia Postop Eval I Summary: Anesthesia Postop Eval I: Assessment Summary Airway patent Yes 03/16/24 10:29 Spontaneous unlabored Yes 03/16/24 10:29 respirations Mental status Awake 03/16/24 10:29 nausea No 03/16/24 10:29 Vomiting Yes 03/16/24 10:29 Anesthesia Postop Eval I: Fluid Summary Crystalloid volume administer 20 03/16/24 10:29 (ml) Colloids volume administered ( ml) Blood Product volume administered (ml) Total IV fluid infused 20 03/16/24 10:29 Anesthesia Postop Eval I: Summary Notes Anesthesia Complication No 03/16/24 10:29 Anesthesia Complication Comment: Post-operative progress note Anesthesia: Postop Eval II Evaluation Mental status: Awake Pain Level: 0 nausea: No Vomiting: No
--- NOTE | 2024-03-16 10:38 | PCM.POST.ANE ---
Anesthesia: Postop Eval I Current Vital Signs Temperature: 97 F Pulse Rate: 87 Blood Pressure: 117/71 Respiratory Rate: 18 Pulse Ox: 98 Oxygen Delivery Method: Room Air Assessment Airway patent: Yes Spontaneous unlabored respirations: Yes Mental status: Awake and Calm nausea: No Vomiting: No Anesthesia Complication: No Fluid Hydration Crystalloid volume administer (ml): 400 Total IV fluid infused: 400 Progress Note Anesthesia document: Postop Eval 1 completed: Yes
--- NOTE | 2024-03-16 11:08 | SUR.PHASEII ---
t/c to [facility] order dispatcher to dc iv fluid. He is tied up with another patient at this time and cannot come to ac.
[2024-03-16] MEDS: Heparin 10,000 UNITS/10 ML Vial 1600 UNITS IV (11:54)
--- NOTE | 2024-03-16 17:54 | PCM.OPRPT ---
Operative Report (Standard) Operative Information Date of Procedure: 03/16/24 Pre-Operative Diagnosis: End-stage renal disease Post-Operative Diagnosis: Same Surgery/Procedure Performed: Left stage I basilic fistula creation design director: Yes Certified Composites Technician: Mc Sen Tasks completed by volleyball assistant coach: Opening, Closing, Opening & closing, Altering tissue, Hemostasis: Tie, Hemostasis: Electrocautery and Retracting Type of Anesthesia: Local MAC, Local and MAC RN Documented Start/Stop Times: Operation Date: 03/16/24 07:30 Case Time Into Pre-Op 03/16/24 06:05 Out of Pre-Op 03/16/24 07:42 Anesthesia Start 03/16/24 07:46 Into Room 03/16/24 07:46 Procedure Start 03/16/24 08:14 Procedure End 03/16/24 09:40 Anesthesia End 03/16/24 09:46 Out of Room 03/16/24 09:46 Into Recovery 03/16/24 09:53 Into Phase II Recovery 03/16/24 10:24 Out of Recovery 03/16/24 10:24 Out of Phase II 03/16/24 12:22 Procedure Start Time: 08:15 Procedure Stop Time: 09:45 Select all DRAINS/GRAFTS/IMPLANTS that apply: None Estimated Blood Loss: 6 Specimen collected: No Description of surgery: HPI: Patient is a 73-year-old female with end-stage renal disease currently on dialysis. She had vein mapping which revealed adequate left upper arm basilic vein. She presents now for stage I fistula creation. Description of procedure: Upon obtaining form consent and verification correct patient procedure site the patient was taken to the operating where she was positioned prepped and draped in usual sterile fashion. Timeout was performed and moderate sedation administered by anesthesia. Ultrasound used to evaluate the basilic vein and its proximity to the brachial artery. There was no median cubital branch of adequate size for fistula creation in the basilic vein diverged from the brachial artery as it approaches the antecubital crease. It was felt that an oblique incision originating over the brachial artery more proximally in the basilic vein at the antecubital crease would give us adequate exposure to obtain basilic vein distal enough to reach the brachial artery. Skin overlying was anesthetized with 1% lidocaine with half percent Marcaine and an oblique incision made with a 15 blade. Bovie electrocautery was dissect down through subcutaneous tissue and self-retaining retractors put in position. Sharp dissection used to dissect down until the basilic vein was identified. This was then dissected free with sidebranches ligated with silk ties and divided. Once the vein was mobilized distal enough and the incision to obtain adequate length we then turned our attention to the brachial artery. Both electrocautery was dissect down to the level the fascia and self-retaining retractors were repositioned. Once the brachial artery was visualized sharp dissection used to dissect free proximal and distal with care taken to identify and protect adjacent nerve and vein structures. Writing was used to place vessel proximal and distal and the patient was in heparinized allowed to circulate for 3 minutes. The basilic vein was then ligated distally in the field and divided. It was marked to maintain orientation and the brachial artery was then occluded with Vesseloops. A longitudinal arteriotomy was created with 11 blade and extended with Wall scissors. The vein was then beveled to match the arteriotomy and anastomosis performed with a 6-0 Prolene in a running fashion. Prior to completing suture line vessels were backbled and the lumen flushed with heparinized saline. After completing the suture line clamps removed and satisfactory stasis was noted. There is a palpable thrill in the fistula to the mid upper arm and low resistant Doppler signal. The radial artery was not palpable prior to the case and when assessed with Doppler it did not significantly augment with compression of the fistula. Heparin was then reversed with protamine and incision inspected for hemostasis. The incision was then closed with 3-0 Vicryl followed by 4 Monocryl and Dermabond for the skin. The patient was then taken the recovery room with plan discharged to home Surgical Findings: See above Complications Complications: No
== END 2024-03-16 12:22 | disposition home or self-care (01) ==
LOC: SDC 05:41 → AC 05:41
PROVIDERS: PCP Internal Medicine; Referring Provider Surgery Trauma Surgery; Visit Provider Surgery Trauma Surgery
PROC: (CPT 36821; principal; 2024-03-16 07:15)
DX: I12.0 Hypertensive chronic kidney disease with stage 5 chronic kidney disease or end stage renal disease (principal); N18.6 End stage renal disease; Z82.3 Family history of stroke; Z99.2 Dependence on renal dialysis; Z87.891 Personal history of nicotine dependence
CPT/HCPCS: 36821; 01844; 36415; 80048; 85027; 86850; 86900; 86901; A4648; A4216; J2405

== ENCOUNTER 2024-03-26 11:20 | Day surgery (SDC) | payer MEDICARE, OTHER, SELFPAY ==
--- NOTE | 2024-03-25 12:08 | PAT.ANE_ITS ---
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 When Was Last Pacemaker Check QUESTION #4 FULL TEXT: You/Your Family Experience fever (hyperthermia) with Anesthesia Last Oral Intake Last Oral intake: Last Oral Intake NPO since Meds taken in AM with sips of water? 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 professor Female Yes 03/25/24 11:32 HX of Motion Sickness No 03/25/24 11:32 HX of N/V After Surgery No 03/25/24 11:32 Non-Smoker Yes 03/25/24 11:32 Duration of Surgery greater Yes 03/25/24 11:32 than 60 minutes Number of Risk Factors 3 03/25/24 11:32 PONV Score Moderate Risk 03/25/24 11:32 Height & Weight Height & Weight: Anesthesia: Height & Weight Height 5 ft 4 in 03/24/24 14:47 Respiratory Assessment Respiratory Assessment - spanish literature professor: Respiratory Tract Infection Hx - spanish literature professor Hx Respiratory Tract Infection No 03/25/24 11:32 STOP Sleep Apnea STOP Sleep Apnea - spanish literature professor: STOP Sleep Apnea - spanish literature professor Hx Hypertension Yes: UP AND DOWN 03/25/24 11:32 Hx Sleep Apnea No 03/25/24 11:32 CPAP BIPAP Do you snore loudly (louder No 03/25/24 11:32 than talking or can be heard Do you often feel tired/ No 03/25/24 11:32 fatigued/ sleepy during daytime? Has anyone observed you stop No 03/25/24 11:32 breathing during sleep? STOP Results Negative 03/25/24 11:32 QUESTION #5 FULL TEXT : Do you snore loudly (louder than talking or can be heard through closed doors)? 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 Specify any problems Hx of Preganancy in last 3 No 03/25/24 11:32 Months Nurse Filling Out Transfusion DSCHRIBER 03/25/24 11:32 & Questions: Date: 03/25/24 03/25/24 11:32 Time: 11:34 03/25/24 11:32 Patient unable to answer at this time (ie. confused, unrespo /Reproduction History /Reproductive History - spanish literature professor: /Reproductive Hx- spanish literature professor Hx Now Gestational Age (in weeks): EDC: Hx Hx Para Hx Section SAB No 03/25/24 11:32 PFSH Medical History (Updated 03/25/24 @ 11:41 by Marquita Wright) Loss of hearing Wears glasses Hx of sepsis MRSA infection Depression Anxiety Thyroid disease History of renal dialysis Hemodialysis catheter malfunction History of renal disease Anemia High cholesterol Easy bruising Restless legs Injury of head and neck Syncope Dietary restriction Gastric reflux Former smoker Leg cramps History of pain when walking PVD (peripheral vascular disease) History of edema Typhoid fever History of rheumatic fever History of echocardiogram History of stress test Cardiology follow-up encounter History of cardiac murmur Seizures HTN (hypertension) Home Medications ?Medication ?Instructions ?Recorded ?Last Taken ?Type acetaminophen 500 mg capsule 500 mg PO Q6H PRN pain 02/03/24 03/15/24 History alendronate 70 mg tablet 70 mg PO QWEEK 02/03/24 Unknown History ascorbic acid 125 mg-collagen, 1 cap PO DAILY 02/03/24 03/15/24 History hydrolyzed 740 mg capsule (Collagen Plus Vitamin C) aspirin 81 mg tablet,delayed 81 mg PO QDAY 02/03/24 03/15/24 History release bupropion HCl 300 mg 24 hr tablet, 300 mg PO QAM 02/03/24 03/16/24 History extended release calcium 600 mg (as 1 tab PO BID 02/03/24 03/15/24 History carbonate)-vitamin D3 10 mcg (400 unit) tablet (Calcium 600 + D(3)) carvedilol 3.125 mg tablet 3.125 mg PO BID 02/03/24 03/16/24 History cholecalciferol (vitamin D3) 125 125 mcg PO QDAY 02/03/24 03/15/24 History mcg (5,000 unit) capsule cilostazol 50 mg tablet 100 mg PO BID 02/03/24 03/15/24 History evolocumab 140 mg/mL subcutaneous 140 mg subcut Q2W 02/03/24 Unknown History syringe ezetimibe 10 mg tablet 10 mg PO QDAY 02/03/24 Unknown History gabapentin 300 mg capsule 300 mg PO QHS PRN PRN restless 02/03/24 Unknown History leg(s) isosorbide mononitrate 30 mg 30 mg PO QDAY 02/03/24 03/16/24 History tablet,extended release 24 hr levetiracetam 500 mg tablet 500 mg PO BID 02/03/24 Unknown History levothyroxine 75 mcg capsule 75 mcg PO QDAY 02/03/24 03/16/24 History lisinopril 5 mg tablet 5 mg PO QDAY 02/03/24 03/16/24 History magnesium oxide 400 mg PO TID 02/03/24 Unknown History multivitamin (Daily Multi-Vitamin 1 tab PO QDAY 02/03/24 Unknown History tablet) omeprazole 20 mg capsule,delayed 20 mg PO QDAY 02/03/24 03/16/24 History release ondansetron HCl 4 mg tablet 4 mg PO Q8H PRN PRN nausea and 02/03/24 Unknown History vomiting rosuvastatin 40 mg tablet 40 mg PO QHS 02/03/24 Unknown History oxycodone 5 mg tablet 5 mg PO Q8H PRN pain 1 day #3 tabs 03/16/24 Unknown Rx nitroglycerin 2 % transdermal 1 inch transdermal BID #30 grams 03/18/24 Unknown Rx ointment (Nitro-Bid) Allergy/AdvReac Type Severity Reaction Status Date / Time fentanyl Allergy Severe Other Verified 03/25/24 11:26 amlodipine (From Norvasc) Allergy Other Verified 03/25/24 11:26 hydromorphone (From Dilaudid) Allergy Other Verified 03/25/24 11:26 Family History Other CVA (cerebral vascular accident) Diabetes Heart disease Hypertension Thyroid disorder Surgical History (Updated 03/25/24 @ 11:41 by Marquita Wright) Hx of vascular surgery Hx of tonsillectomy Hx of arterial bypass of lower limb Hx of foot surgery Social History Smoking Status: Former smoker Tobacco: How many years used: 20 how long ago did patient quit smokin yrs ago Prior Cardiac Testing/Procedures Prior Cardiac Testing/Procedures: Echocardiogram (EF 55-60%; Mild MR; 11/25) Addt'l Information Additional Findings: Patient is able to preform 4 METS Audit: Pertinent Findings Pertinent Findings EKG Perinent findings: NSR Echo (EF%) pertinent findings: EF 60 % Mild MR Recommendation Anesthesia Recommendation Anesthesia recommendation: OPTIMIZED for anesthesia (Patient Appears to be on Dialysis. Should undergo routine dialysis the day prior to surgery with repeat labs. Able to preform 4 METS. Can proceed)
[2024-03-26] VITALS (9 sets, daily range): BP systolic 123–215; BP diastolic 61–96; PULSE 74–85; RESP 16–20; TEMP 36.1–36.9; O2SAT 94–98; BMI 21.5
--- NOTE | 2024-03-26 12:37 | PRE.ANES_ITS ---
ASA Classification* ASA Classification ASA Classification: 3 Assessment & Plan Anesthesia* Anesthesia Assessment Anesthesia Assessment: Discussed sedation and/or anesthesia options, risks, benefits, and alternatives with patient/parents/legal guardian/POA. Questions invited. The patient/parents/legal guardian/POA seems to understand and agrees to proceed with anesthesia plan. Reviewed the physical assessment, medical history, allergy history and patient home medications list prior to surgery/procedure/anesthetic and documented any changes. Performed airway and anesthesia risk assessments. Anesthesia Type Anesthesia Type: MAC History Source History Obtained from:: Patient and Chart Anesthesia Focused Assessment* Temperature: 98.5 F Pulse Rate: 85 Blood Pressure: 205/95 Respiratory Rate: 16 Pulse Ox: 98 Oxygen Delivery Method: Room Air Airway Assessment Mouth opens: >3 cm Mallampati Score: IV Teeth Condition: Missing (Patient has several missing teeth. Rest are tight.) Neck Range of motion (ROM): Limited ROM (Slight decrease in extension) Focused Labs Anesthesia Preop lab: CBC WBC 6.9 K/mm3 (4.4-11.0) 03/09/24 14:36 RBC 3.62 M/mm3 (4.2-5.4) L 03/09/24 14:36 Hgb 11.2 g/dL (12.0-15.0) L 03/09/24 14:36 Hct 36.1 % (37-47) L 03/09/24 14:36 Plt Count 130 K/mm3 (150-450) L 03/09/24 14:36 CHEMISTRY Potassium 4.7 mmol/L (3.5-5.1) 03/09/24 14:36 Sodium 142 mmol/L (136-145) 03/09/24 14:36 BUN 59 mg/dL (7-18) H 03/09/24 14:36 Creatinine 5.11 mg/dL (0.55-1.02) H 03/09/24 14:36 Glucose 75 mg/dL (74-106) 03/09/24 14:36 POC Glucose 100 mg/dL (74-106) 08/17/22 16:08 TSH 3.51 uIU/mL (0.358-3.74) 08/17/22 16:15 COAG PT 12.4 SECONDS (11.7-14.9) 08/17/22 16:15 Pre-Assessment Diagnosis/Proposed Procedure Planned Operative Procedure(s): AV FISTULA LIGATION LUE Anesthesia History 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 When Was Last Pacemaker Check QUESTION #4 FULL TEXT: You/Your Family Experience fever (hyperthermia) with Anesthesia Last Oral Intake Last Oral intake: Last Oral Intake NPO since 00:00 03/26/24 12:08 Meds taken in AM with sips of Yes 03/26/24 12:08 water? 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 Female Yes 03/25/24 11:32 HX of Motion Sickness No 03/25/24 11:32 HX of N/V After Surgery No 03/25/24 11:32 Non-Smoker Yes 03/25/24 11:32 Duration of Surgery greater Yes 03/25/24 11:32 than 60 minutes Number of Risk Factors 3 03/25/24 11:32 PONV Score Moderate Risk 03/25/24 11:32 Height & Weight Height & Weight: Anesthesia: Height & Weight Height 5 ft 4 in 03/26/24 12:08 Weight: 57 kg 03/26/24 12:08 Body Mass Index (BMI) 21.5 03/26/24 12:08 Respiratory Assessment Respiratory Assessment - liquid waste treatment plant operator: Respiratory Tract Infection Hx - 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 Has anyone observed you stop No 03/25/24 11:32 breathing during sleep? STOP Results Negative 03/25/24 11:32 QUESTION #5 FULL TEXT : Do you snore loudly (louder than talking or can be heard through closed doors)? 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 Specify any problems Hx of Preganancy in last 3 No 03/25/24 11:32 Months Nurse Filling Out Transfusion DSCHRIBER 03/25/24 11:32 & Questions: Date: 03/25/24 03/25/24 11:32 Time: 11:34 03/25/24 11:32 Patient unable to answer at this time (ie. 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 Hx Now Gestational Age (in weeks): EDC: Hx Hx Para Hx Section SAB No 03/25/24 11:32 PFSH Medical History Loss of hearing Wears glasses Hx of sepsis MRSA infection Depression Anxiety Thyroid disease History of renal dialysis Hemodialysis catheter malfunction History of renal disease Anemia High cholesterol Easy bruising Restless legs Injury of head and neck Syncope Dietary restriction Gastric reflux Former smoker Leg cramps History of pain when walking PVD (peripheral vascular disease) History of edema Typhoid fever History of rheumatic fever History of echocardiogram History of stress test Cardiology follow-up encounter History of cardiac murmur Seizures HTN (hypertension) Home Medications ?Medication ?Instructions ?Recorded ?Last Taken ?Type acetaminophen 500 mg capsule 500 mg PO Q6H PRN pain 02/03/24 03/15/24 History alendronate 70 mg tablet 70 mg PO QWEEK 02/03/24 Unknown History ascorbic acid 125 mg-collagen, 1 cap PO DAILY 02/03/24 03/15/24 History hydrolyzed 740 mg capsule (Collagen Plus Vitamin C) aspirin 81 mg tablet,delayed 81 mg PO QDAY 02/03/24 03/25/24 History release bupropion HCl 300 mg 24 hr tablet, 300 mg PO QAM 02/03/24 03/26/24 History extended release calcium 600 mg (as 1 tab PO BID 02/03/24 03/15/24 History carbonate)-vitamin D3 10 mcg (400 unit) tablet (Calcium 600 + D(3)) carvedilol 3.125 mg tablet 3.125 mg PO BID 02/03/24 03/26/24 History cholecalciferol (vitamin D3) 125 125 mcg PO QDAY 02/03/24 03/15/24 History mcg (5,000 unit) capsule cilostazol 50 mg tablet 100 mg PO BID 02/03/24 03/15/24 History evolocumab 140 mg/mL subcutaneous 140 mg subcut Q2W 02/03/24 Unknown History syringe ezetimibe 10 mg tablet 10 mg PO QDAY 02/03/24 Unknown History gabapentin 300 mg capsule 300 mg PO QHS PRN PRN restless 02/03/24 Unknown History leg(s) isosorbide mononitrate 30 mg 30 mg PO QDAY 02/03/24 03/26/24 History tablet,extended release 24 hr levetiracetam 500 mg tablet 500 mg PO BID 02/03/24 03/26/24 History levothyroxine 75 mcg capsule 75 mcg PO QDAY 02/03/24 03/26/24 History lisinopril 5 mg tablet 5 mg PO QDAY 02/03/24 03/16/24 History magnesium oxide 400 mg PO TID 02/03/24 Unknown History multivitamin (Daily Multi-Vitamin 1 tab PO QDAY 02/03/24 Unknown History tablet) omeprazole 20 mg capsule,delayed 20 mg PO QDAY 02/03/24 03/26/24 History release ondansetron HCl 4 mg tablet 4 mg PO Q8H PRN PRN nausea and 02/03/24 Unknown History vomiting rosuvastatin 40 mg tablet 40 mg PO QHS 02/03/24 Unknown History oxycodone 5 mg tablet 5 mg PO Q8H PRN pain 1 day #3 tabs 03/16/24 Unknown Rx nitroglycerin 2 % transdermal 1 inch transdermal BID #30 grams 03/18/24 Unknown Rx ointment (Nitro-Bid) Allergy/AdvReac Type Severity Reaction Status Date / Time fentanyl Allergy Severe Other Verified 03/26/24 11:45 amlodipine (From Norvasc) Allergy Other Verified 03/26/24 11:45 hydromorphone (From Dilaudid) Allergy Other Verified 03/26/24 11:45 Family History Other CVA (cerebral vascular accident) Diabetes Heart disease Hypertension Thyroid disorder Surgical History Hx of vascular surgery Hx of tonsillectomy Hx of arterial bypass of lower limb Hx of foot surgery Social History Smoking Status: Former smoker Tobacco: How many years used: 20 how long ago did patient quit smokin yrs ago Review of Systems (Anesthesia) ROS Narrative System reviewed and no additional complaints, except as documented.
--- NOTE | 2024-03-26 12:55 | HP.PCM_ITS ---
History and Physical Allergies fentanyl Allergy (Severe, Verified 03/18/24 13:08) Otheramlodipine (From Norvasc) Allergy (Verified 03/18/24 13:08) Otherhydromorphone (From Dilaudid) Allergy (Verified 03/18/24 13:08) Other Medications ?Medication ?Instructions ?Recorded ?Confirmed ?Type acetaminophen 500 mg capsule 500 mg PO Q6H PRN pain 02/03/24 03/24/24 History alendronate 70 mg tablet 70 mg PO QWEEK 02/03/24 03/24/24 History ascorbic acid 125 mg-collagen, 1 cap PO DAILY 02/03/24 03/24/24 History hydrolyzed 740 mg capsule (Collagen Plus Vitamin C) aspirin 81 mg tablet,delayed 81 mg PO QDAY 02/03/24 03/24/24 History release bupropion HCl 300 mg 24 hr tablet, 300 mg PO QAM 02/03/24 03/24/24 History extended release calcium 600 mg (as 1 tab PO BID 02/03/24 03/24/24 History carbonate)-vitamin D3 10 mcg (400 unit) tablet (Calcium 600 + D(3)) carvedilol 3.125 mg tablet 3.125 mg PO BID 02/03/24 03/24/24 History cholecalciferol (vitamin D3) 125 125 mcg PO QDAY 02/03/24 03/24/24 History mcg (5,000 unit) capsule cilostazol 50 mg tablet 100 mg PO BID 02/03/24 03/24/24 History evolocumab 140 mg/mL subcutaneous 140 mg subcut Q2W 02/03/24 03/24/24 History syringe ezetimibe 10 mg tablet 10 mg PO QDAY 02/03/24 03/24/24 History gabapentin 300 mg capsule 300 mg PO QHS PRN PRN restless 02/03/24 03/24/24 History leg(s) isosorbide mononitrate 30 mg 30 mg PO QDAY 02/03/24 03/24/24 History tablet,extended release 24 hr levetiracetam 500 mg tablet 500 mg PO BID 02/03/24 03/24/24 History levothyroxine 75 mcg capsule 75 mcg PO QDAY 02/03/24 03/24/24 History lisinopril 5 mg tablet 5 mg PO QDAY 02/03/24 03/24/24 History magnesium oxide 400 mg PO TID 02/03/24 03/24/24 History multivitamin (Daily Multi-Vitamin 1 tab PO QDAY 02/03/24 03/24/24 History tablet) omeprazole 20 mg capsule,delayed 20 mg PO QDAY 02/03/24 03/24/24 History release ondansetron HCl 4 mg tablet 4 mg PO Q8H PRN PRN nausea and 02/03/24 03/24/24 History vomiting rosuvastatin 40 mg tablet 40 mg PO QHS 02/03/24 03/24/24 History oxycodone 5 mg tablet 5 mg PO Q8H PRN pain 1 day #3 tabs 03/16/24 03/24/24 Rx nitroglycerin 2 % transdermal 1 inch transdermal BID #30 grams 03/18/24 03/24/24 Rx ointment (Nitro-Bid) Is last menstrual period known: No Post menopausal: Yes Patient : No Have you fallen in the past year?: No Subjective Details: Iliana Gutierrez is a 73 y/o female who returns today for re-evaluation s/p L stage I basilic fistula creation on 03/16/24 with progressively worsening L forearm/hand pain, particularly worse with dialysis today to the point of barely being able to tolerate to completion and she does not think she could tolerate again. She reports increasing numbness and now noticing some weakness in her L hand as well. She does not have any wounds or areas of skin breakdown/necrosis. Objective Details: Left fingers are noticeable cool compared to R hand, more cyanotic discoloration, sluggish cap refill; reporting numbness, some weakness in surgical asst strength compared to the R hand. No wounds, skin integrity intact throughout. L radial pulse able to be auscultated, but nonpalpable (stable from prior). Coding Level of Care Code Global Post Op Diagnoses Steal syndrome as complication of dialysis access T82.898A S/P arteriovenous (AV) fistula creation Z98.890 [facility] Medical History Loss of hearing Wears glasses Hx of sepsis MRSA infection Depression Anxiety Thyroid disease History of renal dialysis Hemodialysis catheter malfunction History of renal disease Anemia High cholesterol Easy bruising Restless legs Injury of head and neck Syncope Dietary restriction Gastric reflux Former smoker Leg cramps History of pain when walking PVD (peripheral vascular disease) History of edema Typhoid fever History of rheumatic fever History of echocardiogram History of stress test Cardiology follow-up encounter History of cardiac murmur Seizures HTN (hypertension) Surgical History Hx of tonsillectomy Hx of arterial bypass of lower limb Hx of foot surgery Family History Other CVA (cerebral vascular accident) Diabetes Heart disease Hypertension Thyroid disorder Social History Smoking Status: Former smoker Tobacco: How many years used: 20 how long ago did patient quit smokin yrs ago Assessment and Plan (No Qualifiers) Assessment and Plan (1) Steal syndrome as complication of dialysis access: Status: Acute (2) S/P arteriovenous (AV) fistula creation: Status: Acute Plan- ligate fistula
[2024-03-26] MEDS: Cefazolin 2 GM in Syringe IV (13:10)
[2024-03-26] MEDS: Bupivacaine 0.25% 30 ML Vial (13:30)
[2024-03-26] MEDS: Lidocaine 1% (30 ml sdv) 30 ML Vial (13:30)
--- NOTE | 2024-03-26 14:08 | PCM.POST.ANE ---
Anesthesia: Postop Eval I Current Vital Signs Temperature: 97.7 F Pulse Rate: 80 Blood Pressure: 123/61 Respiratory Rate: 20 Pulse Ox: 95 Assessment Airway patent: Yes Spontaneous unlabored respirations: Yes nausea: No Vomiting: No Anesthesia Complication: No Fluid Hydration Crystalloid volume administer (ml): 100 Total IV fluid infused: 100 Progress Note Anesthesia document: Postop Eval 1 completed: Yes
[2024-03-26] MEDS: oxyCODONE 5 MG Tablet PO (14:36)
--- NOTE | 2024-03-26 14:51 | EX.PCM.DISCH ---
Discharge Instructions Diet Discharge Diet: No restrictions Activity Lifting Restrictions: do not lift > 20 lbs with left arm for 3 weeks Additional Activity Instructions:: do not submerge incision for 3 weeks Dressing / Incision Call your doctor if your incision/area has: Sudden Increased Bleeding, Increased Pain/ Swelling, Increased Redness and Foul Smelling Discharge Call your doctor if you observe: Fever of 101 or Higher, Coldness, Increased Pain and Numbness or Tingling Remove Dressing in: 2 days Follow Up Care Test Results: Test results from this visit will be discussed in further detail at your follow-up appointment, if applicable. Discharge Plan Admission Attending Provider: Ernie De Jesus Primary Care Provider: Kody Fonseca Instructions Print Language: Albanian Discharge Orders/Prescriptions Prescriptions: New oxycodone 5 mg tablet 5 mg PO Q8H PRN (Reason: pain) 1 Days Qty: 3 0RF Continued acetaminophen 500 mg capsule 500 mg PO Q6H PRN (Reason: pain) evolocumab 140 mg/mL syringe 140 mg subcut Q2W lisinopril 5 mg tablet 5 mg PO QDAY multivitamin [Daily Multi-Vitamin] Tablet 1 tab PO QDAY levothyroxine 75 mcg capsule 75 mcg PO QDAY aspirin 81 mg tablet,delayed release (DR/EC) 81 mg PO QDAY alendronate 70 mg tablet 70 mg PO QWEEK magnesium oxide 400 mg magnesium tablet 400 mg PO TID levetiracetam 500 mg tablet 500 mg PO BID calcium carbonate-vitamin D3 [Calcium 600 + D(3)] 600 mg-10 mcg (400 unit) tablet 1 tab PO BID isosorbide mononitrate 30 mg tablet extended release 24 hr 30 mg PO QDAY rosuvastatin 40 mg tablet 40 mg PO QHS omeprazole 20 mg capsule,delayed release(DR/EC) 20 mg PO QDAY gabapentin 300 mg capsule 300 mg PO QHS PRN PRN (Reason: restless leg(s)) ondansetron HCl 4 mg tablet 4 mg PO Q8H PRN PRN (Reason: nausea and vomiting) cilostazol 50 mg tablet 100 mg PO BID carvedilol 3.125 mg tablet 3.125 mg PO BID Rx Instructions: must administer with a meal/food bupropion HCl 300 mg tablet extended release 24 hr 300 mg PO QAM ezetimibe 10 mg tablet 10 mg PO QDAY cholecalciferol (vitamin D3) 125 mcg (5,000 unit) capsule 125 mcg PO QDAY Collagen Plus Vitamin C 125-740 mg capsule 1 cap PO DAILY Discontinued Nitro-Bid 2 % ointment 1 inch transdermal BID Qty: 30 0RF Patient Comments: PT HAS NOT STARTED Rx Instructions: You may administer 2 doses/day (approx. 6 hrs apart); remove for 10-12 hrs per 24 hours. Apply only to the symptomatic area. oxycodone 5 mg tablet 5 mg PO Q8H PRN (Reason: pain) 1 Days Qty: 3 0RF Referrals / Follow Up: Kody Fonseca MD [Primary Care Provider] - Disposition Disposition (needs filled in before D/C Order can be placed): Home, Self Care
--- NOTE | 2024-03-26 15:18 | PCM.OPRPT ---
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 as complication of a recent AV fistula creation Post-Operative Diagnosis: Same Surgery/Procedure Performed: Ligation of left brachial basilic fistula shipping clerk/admin: Yes Visual Design Lead: Elbert Rosario Tasks completed by studio assistant: Opening, Closing, Opening & closing, Hemostasis: Tie and Retracting Type of Anesthesia: Local MAC, Local and MAC RN Documented Start/Stop Times: Operation Date: 03/26/24 13:00 Case Time Into Pre-Op 03/26/24 11:34 Out of Pre-Op 03/26/24 13:02 Anesthesia Start 03/26/24 13:03 Into Room 03/26/24 13:03 Procedure Start 03/26/24 13:30 Procedure End 03/26/24 14:00 Anesthesia End 03/26/24 14:03 Out of Room 03/26/24 14:03 Into Recovery 03/26/24 14:05 Into Phase II Recovery 03/26/24 14:22 Out of Recovery 03/26/24 14:22 Procedure Start Time: 13:30 Procedure Stop Time: 14:00 Select all DRAINS/GRAFTS/IMPLANTS that apply: None Estimated Blood Loss: 2 Specimen collected: No Description of surgery: HPI: Patient is a 73-year-old female who previously underwent a left brachiobasilic stage I fistula creation. Within a couple of days of her procedure she began to have increasingly cool fingers of the left upper extremity and pain initially only during dialysis sessions through this progress to be continuous even while not on dialysis. She presents now for fistula ligation. Description of procedure: Upon obtaining form consent and verification correct patient procedure site patient was taken to the operating where she was positioned prepped and draped in usual sterile fashion. Timeouts performed and sedation ministered by anesthesia. Ultrasound used to aicha the basilic vein fistula superior to the previous incision. Doppler was then used to evaluate to the radial and ulnar arteries at the wrist; the radial artery had a very weak monophasic signal and the ulnar artery was not detectable. Skin was anesthetized 1% lidocaine over the basilic fistula in the distal upper arm and longitudinal incision created. Bovie cautery was used to dissect down through subcutaneous tissue and self-retaining retractors put in position. Further dissection was carried down until the vein was visualized at which point sharp dissection was dissect free proximal and distal with care taken identify and protect adjacent nerves. A right angle was used to circumferentially mobilized the vein and it was then ligated with a pair of 2-0 silk ties. Evaluation of the radial and ulnar arteries at the wrist showed marked improvement in the radial artery signal and there was now an ulnar signal present. The hand was pink with improved, normal capillary refill. The incision was then inspected for hemostasis and closed with 3-0 Vicryl followed by 4 Monocryl and Dermabond for the skin. The patient was then were taken the recovery room with plan discharged to home. Surgical Findings: Radial artery Doppler signal improved post ligation. Ulnar artery Doppler signal had not been present prior to ligation, now monophasic. Complications Complications: No
--- NOTE | 2024-03-26 15:56 | SUR.PHASEII ---
THIS NURSE ASKED DR. MENDOZA REGARDING PATIENT'S BLOOD PRESSURE. PATIENT WAS 210/[address] MENDOZA RECOMENDED THAT PATIENT GET HER DIALYSIS TODAY OR TOMORROW D/T RISK OF BP INCREASING MORE PRIOR TO HER DIALYSIS ON SATURDAY. PATIENT STATES I CAN GET IN BUT I DON'T WANT TO. THIS NURSE EDUCATED PATIENT ON THE RISK OF INCREASING BLOOD PRESSURE AND PUTTING HER AT RISK FOR STROKE. I ALSO INSTRUCTED HER TO WATCH FOR SIGNS OF SYMPTOMS OF STROKE, HEADACHED, BLURRED VISION, DROPPING FACE OR ONE SIDE OF THE BODY. I TOLD HER TO CHECK HER BLOOD PRESSURE AT HOME AND GET TO THE EMERGENCY ROOM IF SHE HAS ANY STROKE SYMPTOMS. PATIENT UNDERSTANDS AND IS RECEPTIVE TO THIS. DR. MENDOZA IS AWARE.
--- NOTE | 2024-03-26 16:20 | POSTOPAN2_ITS ---
Anesthesia Postop Eval I Sum Postop Eval Completion status Anesthesia document: Postop Eval 1 completed: Yes Anesthesia Postop Eval I Summary Anesthesia Postop Eval I Summary: Anesthesia Postop Eval I: Assessment Summary Airway patent Yes 03/26/24 14:08 INTERNAL CONTROL [email or web address] Spontaneous unlabored Yes 03/26/24 14:08 INTERNAL CONTROL [email or web address] respirations Mental status nausea No 03/26/24 14:08 INTERNAL CONTROL [email or web address] Vomiting No 03/26/24 14:08 INTERNAL CONTROL [email or web address] Anesthesia Postop Eval I: Fluid Summary Crystalloid volume administer 100 03/26/24 14:08 INTERNAL CONTROL [email or web address] (ml) Colloids volume administered ( ml) Blood Product volume administered (ml) Total IV fluid infused 100 03/26/24 14:08 INTERNAL CONTROL [email or web address] Anesthesia Postop Eval I: Summary Notes Anesthesia Complication No 03/26/24 14:08 INTERNAL CONTROL [email or web address] Anesthesia Complication Comment: Post-operative progress note Anesthesia: Postop Eval II Evaluation Mental status: Awake and Calm Pain Level: 1 nausea: No Vomiting: No Progress Note Post-operative progress note: Of note: Patient returns to blood pressures of 200 over 90s. This is similar to her preop blood pressures. She states that this is how her blood pressure is usually prior to dialysis. She was supposed to get dialysis today, but missed it. Her next appointment is Saturday. We have encouraged her to call and perhaps do dialysis later this evening, so she does not go so long between dialysis. Complications Anesthesia Complication: No
== END 2024-03-26 16:03 | disposition home or self-care (01) ==
LOC: SDC 11:21 → AC 11:23
PROVIDERS: PCP Internal Medicine; Referring Provider Surgery Trauma Surgery; Visit Provider Surgery Trauma Surgery
PROC: (CPT 37607; principal; 2024-03-26 12:45)
DX: T82.898A Other specified complication of vascular prosthetic devices, implants and grafts, initial encounter (principal); K21.9 Gastro-esophageal reflux disease without esophagitis; I10 Essential (primary) hypertension; Z87.891 Personal history of nicotine dependence; E78.00 Pure hypercholesterolemia, unspecified; Z98.890 Other specified postprocedural states; Z79.82 Long term (current) use of aspirin
CPT/HCPCS: 37607; 01840; A4216

== ENCOUNTER → 2024-05-13 | Outpatient (CLI) | payer MEDICARE, OTHER, SELFPAY ==
--- NOTE | 2024-05-13 09:11 | RAD_ITS ---
EXAM: XR Chest, 2 Views CLINICAL INDICATION: COUGH WITH EXPECTORATION TECHNIQUE: Frontal and lateral views of the chest. COMPARISON: No relevant prior studies available. FINDINGS: LUNGS AND PLEURAL SPACES: Unremarkable. No consolidation. No pneumothorax. HEART: Cardiomegaly without overt failure. MEDIASTINUM: Unremarkable. Normal mediastinal contour. BONES/JOINTS: Unremarkable. No acute fracture. TUBES, LINES AND DEVICES: Right internal jugular central venous catheter tip in the superior vena cava. RAD/Chest PA and Lateral IMPRESSION: Cardiomegaly without overt failure. [facility]
== END | disposition home or self-care (01) ==
PROVIDERS: PCP Internal Medicine; Referring Provider Internal Medicine; Visit Provider Internal Medicine
DX: R05.8 Other specified cough (principal)
CPT/HCPCS: 71046

== ENCOUNTER → 2024-07-29 | Outpatient (CLI) | payer MEDICARE, OTHER, SELFPAY ==
--- NOTE | 2024-07-29 09:47 | ART_ITS ---
Reason For Study Reason For Study: Hand ischemia Procedure A bilateral upper extremity continuous wave Doppler with analog waveform analysis and segmental pressures. Left Segmental Pressures Left brachial= 193mmHg. Left ulnar= 200mmHg. Left radial= 190mmHg. Left digit = 174 mmHg. The left brachial waveforms are triphasic. The left radial waveforms are biphasic. The left ulnar waveforms are biphasic. Right Segmental Pressures Right brachial= 199mmHg. Right ulnar= 208mmHg. Right radial= 212mmHg. Right digit = 175 mmHg. The right brachial waveforms are triphasic. The right radial waveforms are triphasic. The right ulnar waveforms are triphasic. Indices The right wrist-brachial index by the radial artery is 1.07. The right wrist- brachial index by the ulnar artery is 1.05. The right digital-brachial index is 0.88. The left wrist-brachial index by the radial artery is 0.95. The left wrist- brachial index by the ulnar artery is 1.01. The left digital-brachial index is 0.87. VL/Upper Extremity Arterial Study Interpretation Summary Right wrist-brachial index 1.07, normal. Digit index diminished. Left wrist-brachial index 1.01, normal. Digit index diminished. Ordering Physician: Ernie De Jesus Referring Physician: Kody Fonseca Performed By: Cecilia Nix RVT
== END | disposition home or self-care (01) ==
LOC: CVS 09:47
PROVIDERS: PCP Internal Medicine; Referring Provider Surgery Trauma Surgery; Visit Provider Surgery Trauma Surgery
DX: G45.8 Other transient cerebral ischemic attacks and related syndromes (principal)
CPT/HCPCS: 93923

== ENCOUNTER → 2024-12-31 | Outpatient (CLI) | payer MEDICARE, OTHER, SELFPAY ==
[2024-12-31 13:19] LABS: Anion Gap 15 (5-15); BUN 38 mg/dL (4-19); BUN/Creat Ratio 6.9 RATIO (10-20); Calcium,Total 9.3 mg/dL (7.6-11.0); Carbon Dioxide 22.6 mmol/L (21.0-32.0); Chloride 102 mmol/L (98-108); Cholesterol 163 mg/dL (<=200); Free T3 1.7 pg/mL (2.18-3.98); Glucose 83 mg/dL (70-99); Low Density Lipoprotein Calc. 84 mg/dL; Potassium 5.1 mmol/L (3.3-5.1); Triglycerides 77 mg/dL; Very Low Density Lipoprotein 15 mg/dL (5-40); cholesterol:hdl ratio screen 2.53
== END | disposition home or self-care (01) ==
LOC: MFPLAB 09:31
PROVIDERS: PCP Internal Medicine; Visit Provider Family Medicine
DX: Z00.00 Encounter for general adult medical examination without abnormal findings (principal); E03.9 Hypothyroidism, unspecified; E78.5 Hyperlipidemia, unspecified
CPT/HCPCS: 36415; 80048; 80061; 84439; 84443; 84481

== ENCOUNTER 2025-02-11 04:49 | Inpatient (IN) | payer MEDICARE, OTHER, SELFPAY ==
[2025-02-11] VITALS (27 sets, daily range): BP systolic 80–231; BP diastolic 66–146; PULSE 77–110; RESP 12–24; TEMP 36.1–37.1; O2SAT 75–100; BMI 21.7; BMI 21.6; BMI 21.4; BMI 20.8
--- NOTE | 2025-02-11 05:16 | EKG12_ITS ---
Test Reason : SOB Blood Pressure : */* mmHG Vent. Rate : 103 BPM Atrial Rate : 103 BPM P-R Int : 156 ms QRS Dur : 88 ms QT Int : 382 ms P-R-T Axes : 57 60 60 degrees QTcB Int : 500 ms Sinus tachycardia Otherwise normal ECG Confirmed by ROXANA WYNN, SHALINI ([id number]), book or script editor DOMINIC ANSARI ([id number]) on 02/15/2025 6:25:26 AM Referred By: Confirmed By: SHALINI SCHMIDT MD
--- NOTE | 2025-02-11 05:30 | EX.ED.DYSGE1 ---
HPI History of Present Illness Chief Complaint: Shortness of Breath Informant: patient and EMS Narrative Narrative: Patient is a 74-year-old female with past medical history of hypertension and end-stage renal disease on dialysis for which she receives dialysis on Saturday and Saturday. She states she receive dialysis on Saturday as directed. She states that beginning Saturday she noticed some mild shortness of breath. She states that she went to bed and awoke with lower midsternal chest pressure and shortness of breath. She states she has a remote history of smoking but no diagnosis of COPD or emphysema and states she does not have a need for supplemental oxygen. With the mild chest discomfort and shortness of breath she was unsure if this could be infection such as pneumonia or cardiac event and therefore she called EMS. EMS states when they arrived the patient was awake and alert but showing signs of distress and her pulse ox was 84% on room air. Of note upon arrival to the ER and transitioning to our oxygen supply the patient downtrended to 75% PFSH PFSH Medical History Loss of hearing Wears glasses Hx of sepsis MRSA infection Depression Anxiety Thyroid disease History of renal dialysis Hemodialysis catheter malfunction History of renal disease Anemia High cholesterol Easy bruising Restless legs Injury of head and neck Syncope Dietary restriction Gastric reflux Former smoker Leg cramps History of pain when walking PVD (peripheral vascular disease) History of edema Typhoid fever History of rheumatic fever History of echocardiogram History of stress test Cardiology follow-up encounter History of cardiac murmur Seizures HTN (hypertension) Home Medications ?Medication ?Instructions ?Recorded ?Last Taken ?Type acetaminophen 500 mg capsule 500 mg PO Q6H PRN pain 02/03/24 03/15/24 History alendronate 70 mg tablet 70 mg PO QWEEK 02/03/24 Unknown History ascorbic acid 125 mg-collagen, 1 cap PO DAILY 02/03/24 03/15/24 History hydrolyzed 740 mg capsule (Collagen Plus Vitamin C) aspirin 81 mg tablet,delayed 81 mg PO QODAY 02/03/24 03/25/24 History release bupropion HCl 300 mg 24 hr tablet, 300 mg PO QAM 02/03/24 03/26/24 History extended release calcium 600 mg (as 1 tab PO BID 02/03/24 03/15/24 History carbonate)-vitamin D3 10 mcg (400 unit) tablet (Calcium 600 + D(3)) carvedilol 3.125 mg tablet 3.125 mg PO BID 02/03/24 03/26/24 History cholecalciferol (vitamin D3) 125 125 mcg PO QDAY 02/03/24 03/15/24 History mcg (5,000 unit) capsule cilostazol 50 mg tablet 100 mg PO BID 02/03/24 03/15/24 History evolocumab 140 mg/mL subcutaneous 140 mg subcut Q2W 02/03/24 Unknown History syringe ezetimibe 10 mg tablet 10 mg PO QDAY 02/03/24 Unknown History gabapentin 300 mg capsule 300 mg PO QHS PRN PRN restless 02/03/24 Unknown History leg(s) isosorbide mononitrate 30 mg 30 mg PO QDAY 02/03/24 03/26/24 History tablet,extended release 24 hr levetiracetam 500 mg tablet 500 mg PO BID 02/03/24 03/26/24 History levothyroxine 75 mcg capsule 75 mcg PO QDAY 02/03/24 03/26/24 History lisinopril 5 mg tablet 5 mg PO QDAY 02/03/24 03/16/24 History magnesium oxide 400 mg PO TID 02/03/24 Unknown History multivitamin (Daily Multi-Vitamin 1 tab PO QDAY 02/03/24 Unknown History tablet) omeprazole 20 mg capsule,delayed 20 mg PO QDAY 02/03/24 03/26/24 History release ondansetron HCl 4 mg tablet 4 mg PO Q8H PRN PRN nausea and 02/03/24 Unknown History vomiting rosuvastatin 40 mg tablet 40 mg PO QHS 02/03/24 Unknown History oxycodone 5 mg tablet 5 mg PO Q8H PRN pain 1 day #3 tabs 03/26/24 Unknown Rx Allergy/AdvReac Type Severity Reaction Status Date / Time fentanyl Allergy Severe Other Verified 02/11/25 04:50 amlodipine (From Norvasc) Allergy Other Verified 02/11/25 04:50 hydromorphone (From Dilaudid) Allergy Other Verified 02/11/25 04:50 Family History Other CVA (cerebral vascular accident) Diabetes Heart disease Hypertension Thyroid disorder Surgical History Hx of vascular surgery Hx of tonsillectomy Hx of arterial bypass of lower limb Hx of foot surgery Social History Smoking Status: Current every day smoker tobacco type: cigarettes Tobacco: How many years used: 20 how long ago did patient quit smokin yrs ago ROS ROS ED Constitutional Constitutional ED: Denies chills or fever(s) Eyes Eyes: Denies change in vision ENT ENT ED: Denies rhinorrhea or sore throat Cardiovascular Cardiovascular: Reports orthopnea and racing heartbeat; Denies chest pain or palpitations Respiratory/Chest Respiratory/Chest: Reports cough, dyspnea, dyspnea on exertion and orthopnea Gastrointestinal Gastrointestinal: Denies abdominal pain, diarrhea, nausea or vomiting Musculoskeletal Musculoskeletal: Denies myalgias Integumentary Denies rash Neurologic Neurologic: Denies headache(s) Psychiatric Psychiatric: Reports anxiety Hematologic/Lymphatic Hematologic/Lymphatic: Denies easy bleeding or easy bruising Allergic/Immunologic Allergic/Immunologic ED: Denies mouth swelling or tongue swelling EXAM Physical Exam Const Vital Signs: 02/11/25 04:50 02/11/25 04:53 02/11/25 04:56 Temperature 97.7 F L 97.7 F L Temperature Source Oral Oral Pulse Rate 109 H 110 H Respiratory Rate 24 H 22 H Respiratory Effort Respiratory Depth Respiratory Pattern Blood Pressure 230/146 H 231/141 H Blood Pressure Mean 174 171 Pulse Ox 75 85 90 Oxygen Delivery Method Room Air Nasal Cannula Nasal Cannula Oxygen Flow Rate (L/min) 2 4 02/11/25 05:39 02/11/25 05:41 02/11/25 06:00 Temperature 98.8 F 98.4 F Temperature Source Oral Oral Pulse Rate 105 H 102 H Respiratory Rate 24 H 20 H Respiratory Effort Short of Breath Respiratory Depth Normal Respiratory Pattern Tachypnea Blood Pressure 216/146 H 217/132 H Blood Pressure Mean 169 160 Pulse Ox 91 95 Oxygen Delivery Method Nasal Cannula Nasal Cannula Nasal Cannula Oxygen Flow Rate (L/min) 4 4 Positive well nourished and well developed Constitutional Narrative: Patient is in mild respiratory distress with tachypnea and slight accessory muscle use General Appearance ED: well developed; Negative for pallor HEENT HEENT Narrative: Normocephalic atraumatic No tongue or lip swelling no oral lesions no airway edema or compromise Mild cobblestoning is noted in the posterior pharynx consistent with sinus drainage but no secondary findings to suggest infection Eyes PERRL and EOMs intact bilaterally General Eye ED: Negative for pale conjunctiva or scleral icterus Neck supple and no JVD Chest Wall Chest Narrative: Dialysis catheter in place in the right anterior chest wall without secondary soft tissue skin changes to suggest infection Resp Resp Narrative: Patient is in mild respiratory distress with tachypnea and slight accessory muscle use Breath sounds are diminished throughout with diffuse crackles concerning for volume overload Cardio regular rhythm Rate: tachycardic GI normal to inspection, nondistended, normoactive bowel sounds, non-tender, non-distended and no masses GI Narrative: No voluntary guarding or rigidity or pulsatile mass No peritoneal signs No fluid wave Auscultation: normoactive bowel sounds Palpation: soft Extremity Extremity Narrative: Trace to +1 pitting edema to the bilateral lower extremities that is equal and symmetric Negative Homans' sign bilaterally Neuro oriented x3, CN's II-XII intact bilaterally and no sensory deficits noted Sensorium / Orientation: alert Motor Exam: strength 5/5 throughout Psych mental status grossly normal Skin no rashes or lesions noted General Skin Exam: Negative for jaundice or pallor MDM MDM MDM Narrative Medical decision making narrative: Patient arrived to the ER hypertensive but has a past medical history of this. She was demonstrating increased work of breathing and was hypoxic. She states she does not require oxygen at baseline and does not have oxygen at home. With the patient having history of renal failure on dialysis and now hypoxic there is high likelihood for pulmonary vascular congestion. In order to confirm this a chest x-ray was performed. X-ray did show pulmonary vas congestion without any obvious infiltrate or pneumothorax. In order to assess for acute blood loss anemia as a cause of CBC was ordered and to assess for potential hyperkalemia or hyperphosphatemia electrolytes were obtained as well. In order to ensure that her hypoxia and shortness of breath was not due to infectious process such as COVID influenza or RSV a viral swab was ordered. The patient's x-ray confirmed pulmonary vascular congestion and with her history of end-stage renal disease she will require dialysis to help remove fluid out of the lung tissue. She is also now requiring 2 to 4 L of nasal cannula oxygen to keep her sats greater than 90%. As she does not have access to oxygen at home she will need to be admitted to the hospital to continue oxygen therapy as well as receive dialysis and secondary to this the case was discussed with the hospitalist. He agrees to accept the patient to his service for continued care. History & Record Review Discussion w/independent historian: EMS personnel and Patient Lab Data Attestation: I reviewed the patient's lab results. Labs: Laboratory Results - last 24 hr 02/11/25 05:30 WBC 9.7 RBC 3.84 L Hgb 12.1 Hct 38.2 MCV 99.5 H MCH 31.5 MCHC 31.7 L RDW Std Deviation 55.8 H RDW Coeff of [place] 15.4 H Plt Count 140 L MPV 11.8 Immature Gran % (Auto) 0.400 Neut % (Auto) 78.5 H Lymph % (Auto) 15.3 L Collier % (Auto) 4.5 Eos % (Auto) 0.8 Baso % (Auto) 0.5 Absolute Neuts (auto) 7.6 Absolute Lymphs (auto) 1.48 Nucleated RBC % 0 Sodium Cancelled Potassium Cancelled Chloride Cancelled Carbon Dioxide Cancelled Anion Gap Cancelled BUN Cancelled Creatinine Cancelled Estim Creat Clear Calc Cancelled Est GFR (MDRD) Non-Af Cancelled BUN/Creatinine Ratio Cancelled Glucose Cancelled Calcium Cancelled Phosphorus Cancelled Magnesium Cancelled Radiography Diagnostic Testing: Clinical Impression(s) from Imaging Studies Chest X-Ray 02/11/25 05:50 IMPRESSION: Right internal jugular double-lumen central catheter is in good position with its tip in the superior vena cava. Interval appearance of alveolar pulmonary edema. Interval appearance of interstitial pulmonary edema. Reading Location: [place] [id number] Chest x-ray as interpreted by the emergency medicine physician reveals cardiomegaly with pulmonary vascular congestion but no acute infiltrate Management Discussion w/another healthcare provider: Hospitalist Discharge Plan Dx/Rx/DC Orders Clinical Impression: ESRD (end stage renal disease) on dialysis, Pulmonary vascular congestion, Acute respiratory failure with hypoxia, Hypertension, Hyperlipidemia Disposition Disposition: [facility]
[2025-02-11 05:46] LABS: Hematocrit 38.2 % (37-47); Hemoglobin 12.1 g/dL (12.0-15.0); Immature Granulocytes Count 0.040 X10^3/uL (0.0-0.0); Mean Corp Hgb Conc 31.7 g/dL (32-36); Mean Corpuscular Volume 99.5 fL (81-99); Mean Platelet Vol. 11.8 fl (6.2-12.0); NRBC Flagged by Analyzer 0 % (0-5); POSITIVE COUNT YES; Platelet Count 140 K/mm3 (150-450); RBC Distribution Width CV 15.4 % (11.6-14.6); RBC Distribution Width SD 55.8 fl (35.1-43.9); Red Blood Count 3.84 M/mm3 (4.2-5.4); White Blood Count 9.7 K/mm3 (4.4-11.0)
--- NOTE | 2025-02-11 05:50 | RAD_ITS ---
PROCEDURE: CHEST 1 VIEW (PORTABLE) 02/11/2025 REASON FOR EXAM: Dyspnea. TECHNIQUE: Frontal view of the chest. COMPARISON: 05/13/2024. FINDINGS: Right internal jugular double-lumen central catheter is in good position with its tip in the superior vena cava. Interval appearance of alveolar pulmonary edema. Interval appearance of interstitial pulmonary edema. There is no demonstrated pleural abnormality. Enlarged cardiac silhouette. Normal mediastinum and corinne. Normal visualized pulmonary arteries. Atheromatous plaques of the visualized aortic arch and descending thoracic aorta. Diffuse spondylosis of the visualized thoracic spine. Unchanged chronic deformity of the right clavicle. Normal visualized ribs, left clavicle. Degenerative joint disease. There is no demonstrated abnormality of the visualized soft tissue structures of the upper abdomen. RAD/Chest 1 View (Portable) IMPRESSION: Right internal jugular double-lumen central catheter is in good position with i ts tip in the superior vena cava. Interval appearance of alveolar pulmonary edema. Interval appearance of interstitial pulmonary edema. Reading Location[facility]
--- OUTSIDE RECORDS SUMMARY | 2025-02-11 05:54 | XMS RPT_ITS | CCD ---
Author Organization [facility] CliniSyde Care Team Providers Care Legal Manager Name Role Phone Marcell Pichardo Unavailable [phone] Ely Juarez Unavailable Wolfgang Matias Unavailable Matt De León Unavailable Unavailab le Unavailable Unavailable Unavailable Matt De León Unavailable MARCELL BERNAL Unavailable Unavailable Gorenflo, Hien Babs Unavailable Unavailab le Gorenflo, Hien Babs Unavailable Unavailab le Loraine, Dionne L Unavailable Unavailable Proctor, Dionne L Unavailable Unavailable Proctor, Dionne L Unavailable Unavailable Loraine, Dionne L Unavailable Unavailable Proctor, Dionne L Unavailable Unavailable Loraine, Dionne L Unavailable Unavailable Proctor, Dionne L Unavailable Unavailable Loraine, Dionne L Unavailable Unavailable Loraine, Dionne L Unavailable Unavailable Proctor, Dionne L Unavailable Unavailable Pedro, Wolfgang K Unavailable Unavailable Pedro, Wolfgang K Unavailable Unavailable Proctor, Dionne L Unavailable Unavailable Proctor, Dionne L Unavailable Unavailable Marcell Pichardo Unavailable Unavailable Marcell Pichardo Unavailable Unavailable Sujey Fonseca Unavailable Marcell Pichardo Unavailable Wolfgang Matias Unavailable Matt De León Unavailable Unavailab le David Fonsecaros Primary Care Provider [phone] Unavailable Primary Care Provider Unavailmello e Marcell Pichardo Unavailable Matt De León Unavailable Marcell Pichardo Unavailable Wolfgang Matias Unavailable Matt De León Unavailable Unavailab le Latouf, Butros Primary Care Provider [phone] Reinaldo Lerma Unavailable [phone] Fauser, Nyoka Nguyen Unavailable Marcell Pichardo MD Unavailable Wolfgang Matias MD Unavailable [phone] Matt De León DO Unavailable Kurt Fonseca MD, Sujey Primary Care Provider Reinaldo Lerma MD Unavailable Fauser PLUGGER MAN, Nyoka Nguyen Unavailable SUJEY FONSECA MD Admitting Unavailable LATOUF, SUJEY WYNN Attending Unavailable LATOUF, SUJEY WYNN Consulting Unavailable LATOUF, SUJEY WYNN Primary Care Unavailable PROVIDER, UNKNOWN Consulting Unavailable PROVIDER, UNKNOWN Consulting Unavailable PROVIDER, UNKNOWN Consulting Unavailable LATOUKarlene, SUJEY WYNN Primary Care Unavailable LATOUF, SUJEY WYNN Admitting Unavailable LATOUF, SUJEY WYNN Attending Unavailable LATOUF, SUJEY WNYN Consulting Unavailable PROVIDER, UNKNOWN Consulting Unavailable PROVIDER, UNKNOWN Consulting Unavailable PROVIDER, UNKNOWN Consulting Unavailable LATOUKarlene, SUJEY WYNN Primary Care Unavailable LATOUF, SUJEY WYNN Admitting Unavailable LATOUF, SUJEY WYNN Attending Unavailable LATOUF, SUJEY WYNN Consulting Unavailable PROVIDER, UNKNOWN Consulting Unavailable PROVIDER, UNKNOWN Consulting Unavailable PROVIDER, UNKNOWN Consulting Unavailable LATOUKarlene, SUJEY WYNN Primary Care Unavailable LATOUF, SUJEY WYNN Admitting Unavailable LATOUF, SUJEY WYNN Attending Unavailable LATOUF, SUJEY WYNN Consulting Unavailable PROVIDER, UNKNOWN Consulting Unavailable PROVIDER, UNKNOWN Consulting Unavailable PROVIDER, UNKNOWN Consulting Unavailable Fauser PLUGGER MAN, Nyoka Nguyen Unavailable RICHARD VILLAGRAN Admitting Unavailab le TARIK SMITH Consulting Unavailable VIANEY BERMUDEZ Attending Unavailable LATOUF, BUTROS Primary Care Unavailable KAMADANA, PORTER VERDUZCO Referring Unavailable LEIDY, TAQUERIA Consulting Unavailable CORA KLINE Attending Unavailable LATOUF, BUTROS Primary Care Unavailable Larry WYNN, [facility] Primary Care Provider [phone] Unavailable Primary Care Provider Unavailabl e Larry WYNN, [facility] Primary Care Provider [phone] Raymundo WYNN, Dr. Gates Primary Care Provider Raymundo WYNN, Dr. Gates Referring Provider Liza WYNN, Dr. Klein Attending Provider [phone] Liza WYNN, Dr. Klein Referring Provider [phone] Liza WYNN, Dr. Klein Other Provider [phone] Jennie PA, Bárbara Attending Provider [phone] Raymundo WYNN, Dr. Gates Attending Provider Raymundo WYNN, Dr. Gates Primary Care Provider Raymundo WYNN, Dr. Gates Referring Provider Jennie PA, Bárbara Attending Provider [phone] Liza WYNN, Dr. Klein Attending Provider [phone] Liza WYNN, Dr. Klein Referring Provider [phone] Liza WYNN, Dr. Klein Other Provider [phone] Raymundo WYNN, Dr. Gates Primary Care Provider [phone] Raymundo WYNN, Dr. Gates Referring Provider Jennie PA, Bárbara Attending Provider [phone] Liza WYNN, Dr. Klein Attending Provider [phone] Liza WYNN, Dr. Klein Referring Provider [phone] Beaverdale, Ernie Attending Unavailable Beaverdale, Ernie Consulting Unavailable Liza, Ernie Referring Unavailable Latouf, Butros Primary Care Unavailable Beaverdale, Ernie Attending Unavailable Beaverdale, Ernie Consulting Unavailable Liza, Ernie Referring Unavailable Latouf, Butros Primary Care Unavailable Beaverdale, Ernie Attending Unavailable Beaverdale, Ernie Referring Unavailable Latouf, Butros Primary Care Unavailable Latouf, Butros Referring Unavailable Latouf, Butros Primary Care Unavailable Latouf, Butros Attending Unavailable Beaverdale, Ernie Attending Unavailable Liza, Ernie Referring Unavailable Latouf, Butros Primary Care Unavailable Beaverdale, Ernie Attending Unavailable Beaverdale, Ernie Referring Unavailable Latouf, Butros Primary Care Unavailable Beaverdale, Ernie Attending Unavailable Beaverdale, Ernie Referring Unavailable Latouf, Butros Primary Care Unavailable Liza, Ernie Attending Unavailable Latouf, Butros Primary Care Unavailable Beaverdale, Ernie Referring Unavailable Fajardo, Pradeep Attending Unavailable Latouf, Butros Primary Care Unavailable Beaverdale, Ernie Referring Unavailable Liza, Ernie Attending Unavailable Latouf, Butros Primary Care Unavailable Latouf, Butros Referring Unavailable Liza, Ernie Attending Unavailable Latouf, Butros Primary Care Unavailable Latouf, Butros Referring Unavailable Latouf, Butros Primary Care Unavailable Schneider, Bárbara Attending Unavailable Latouf, Butros Referring Unavailable Latouf, Butros Primary Care Unavailable Schneider, Bárbara Attending Unavailable Latouf, Butros Referring Unavailable Latouf, Butros Primary Care Unavailable Schneider, Bárbara Attending Unavailable Latouf, Butros Referring Unavailable Liza, Ernie Attending Unavailable Latouf, Butros Primary Care Unavailable Latouf, Butros Referring Unavailable Beaverdale, Ernie Attending Unavailable Latouf, Butros Primary Care Unavailable Allergies Allergy Classification Reported Allergen(s) Allergy Type Date of Onset Reaction(s) Facility (20 sources) amLODIPine; Translations: [AMLODIPINE BESYLATE] Propensity to adverse reactions to drug 7 Other (See Comments), Intolerance [facility] Work Phone: (20 sources) HYDROmorphone; Translations: [HYDROMORPHONE] Propensity to adverse reactions to drug 7 Other [facility] Work Phone: (20 sources) fentaNYL; Translations: [FENTANYL] Drug Allergy 8 Other [facility] Comment on above: seizure (1 source) amLODIPine Drug Allergy [facility] Repository (1 source) fentaNYL Drug Allergy [facility] Rep[facility] (1 source) HYDROmorphone Drug Allergy [facility] Repository (1 source) 11/10/17 (-) MRSA SCREEN Drug allergy (disorder) [facility] Repository (3 sources) amLODIPine Drug Allergy 5 Other [facility] (1 source) amLODIPine Drug Allergy 5 [facility] Repository (1 source) fentaNYL Drug Allergy 5 [facility] Repository (1 source) HYDROmorphone Drug Allergy 5 [facility] Repository Medications Current Medications Medication Drug Class(es) Dates Sig (Normalized) Sig (Original) acetaminophen 500 mg oral capsule (20 sources) Start: 02-03-2024 take 1 capsule by mouth every six hours as needed for pain Acetaminophen 500 mg capsule Active 500 mg PO EVERY 6 HOURS as needed for pain February 03, 2024 1:00am take 2 tablets by mo uth every six hours as needed for pain acetaminophen (TYLENOL) 325 MG tablet Take 2 (two) tablets (650 mg total) by mouth every 6 (six) hours as needed for pain . Suspended End: 10-05-2016 take 2 tablets by mouth every six hours acetaminophen (TYLENOL) 500 MG tablet Take 1,000 mg by mouth every 6 (six) hours as needed for pain. 10/05/2016 Discontinued alendronic acid 70 mg oral tablet (4 sources) Bisphosphonate Start: 02-03-2024 take 1 tablet by mouth every week Alendronate 70 mg tablet Active 70 mg PO EVERY WEEK February 03, 2024 1:00am take 1 tablet by mouth every wee k alendronate (FOSAMAX) 70 MG tablet Take 1 (one) tablet (70 mg total) by mouth once a week . Suspended allopurinol 100 mg oral tablet (9 sources) Xanthine Oxidase Inhibitor allop urinol (ZYLOPRIM) 100 mg tablet Take by mouth once daily. Active End: 10-05-2016 take 1 tablet by mouth twice daily as needed allopurinol (ZYLOPRIM) 100 MG tablet Take 100 mg by mouth 2 (two) times a day as needed. 10/05/2016 Discontinued amitriptyline hydrochloride 75 mg oral tablet (20 sources) Tricyclic Antidepressant Start: 03-14-2017 take 1 tablet by mouth once daily amitriptyline (ELAVIL) 75 MG tablet Take 75 mg by mouth nightly . 0 03/14/2017 Active End: 05-20-2017 take 1 tablet by mouth once amitriptyline (ELAVIL) 50 MG tablet Take 50 mg by mouth nightly. 05/20/2017 Discontinued ascorbic acid 125 mg / collagen, hydrolyzed 740 mg oral capsule (3 sources) Vitamin C Start: 02-03-2024 Ascorbic Acid-Collagen (Collagen Plus Vitamin C) 125-740 mg capsule Active 1 NMA PO DAILY February 03, 2024 1:00am aspirin 81 mg delayed release oral tablet (20 sources) Nonsteroidal Anti-inflammatory Drug Start: 02-03-2024 take 1 tablet by mouth once daily Aspirin 81 mg tablet,delayed release (DR/EC) Active 81 mg PO daily February 03, 2024 1:00am atorvastatin 10 mg oral tablet (20 sources) HMG-CoA Reductase Inhibitor take 1 tablet by mouth once daily atorvastatin (LIPITOR) 10 mg tablet Take 10 mg by mouth once daily. Active End: 06-23-2018 take 1 tablet by mouth once daily atorvastatin (LIPITOR) 40 MG tablet Take 40 mg by mouth daily . 0 Active bisacodyl 5 mg delayed release oral tablet (1 source) Stimulant Laxative bisacodyL 5 m g Tab Take by mouth as needed . 0 Active 24 hr buPROPion hydrochloride 300 mg extended release oral tablet (20 sources) Aminoketone Start: take 1 tablet by mouth once daily in the morning Bupropion Hcl 300 mg tablet extended release 24 hr Active 300 mg PO EVERY MORNING February 03, 2024 1:00am Start: 03-19-2017 take 1 tablet by thaddeus th once daily buPROPion (WELLBUTRIN SR) 150 MG 12 hr tablet Take 1 (one) tablet (150 mg total) by mouth daily . 03/19/2017 Suspended Start: 03-19-2017 take 1 tablet by thaddeus th once daily buPROPion (WELLBUTRIN SR) 150 MG 12 hr tablet Take 300 mg by mouth daily . 0 03/19/2017 Active Start: 03-19-2017 take 1 tablet by thaddeus th twice daily buPROPion (WELLBUTRIN SR) 150 MG 12 hr tablet Take 150 mg by mouth 2 (two) times a day . 0 03/19/2017 Active Start: 03-19-2017 buPROPion (WEL LBUTRIN SR) 150 MG 12 hr tablet take 1 tablet by thaddeus th once daily buPROPion (WELLBUTRIN XL) 300 MG 24 hr tablet Take 1 (one) tablet (300 mg total) by mouth daily . Suspended calcium carbonate 1500 mg / cholecalciferol 0.01 mg oral tablet (3 sources) Vitamin D Start: 02-03-2024 Calcium Carbonate-Vitamin D3 (Calcium 600 + D(3)) 600 mg-10 mcg (400 unit) tablet Active 1 {tbl} PO TWICE A DAY February 03, 2024 1:00am carvedilol 3.125 mg oral tablet (20 sources) alpha-Adrener gic Lea, beta-Adrenerg ic Lea Start: 02-03-2024 take 1 tablet by mouth twice daily at mealtime Carvedilol 3.125 mg tablet Active 3.125 mg PO TWICE A DAY February 03, 2024 1:00am must administer with a meal/food Start: 12-25-2017 End: 12-16-2018 take 1 tablet by mouth twice daily at mealtime carvedilol (COREG) 25 MG tablet Take 1 (one) tablet (25 mg total) by mouth 2 (two) times a day with meals . 60 tablet 11 12/16/2018 Suspended take 1 tablet by thaddeus th twice daily carvediloL (COREG) 3.125 MG tablet Take 1 (one) tablet (3.125 mg total) by mouth 2 (two) times a day . Suspended take 12.5 mg by mout h twice daily at mealtime carvedilol (COREG) 25 MG tablet Take 12.5 mg by mouth 2 (two) times a day with meals . Active cholecalciferol 0.125 mg oral capsule (5 sources) Vitamin D Start: 02-03-2024 take 1 capsule by mouth once daily Cholecalciferol (Vitamin D3) 125 mcg (5,000 unit) capsule Active 125 ug PO daily February 03, 2024 1:00am End: 10-05-2016 take 1 tablet by mouth once daily cholecalciferol, vitamin D3, 1,000 unit tablet Take 1,000 Units by mouth daily. 10/05/2016 Discontinued cilostazol 50 mg oral tablet (20 sources) Phosphodiesterase 3 Inhibitor Start: 02-03-2024 take 1 tablet by mouth twice daily Cilostazol 50 mg tablet Active 100 mg PO TWICE A DAY February 03, 2024 1:00am take 1 tablet by mouth twice marilu ly cilostazol (PLETAL) 100 mg tablet Take 100 mg by mouth twice daily. Active clopidogrel 75 mg oral tablet (7 sources) P2Y12 Platelet Inhibitor take 1 tablet by mouth once daily clopidogrel (PLAVIX) 75 mg tablet Take 75 mg by mouth once daily. Active 1 ml evolocumab 140 mg/ml prefilled syringe (3 sources) PCSK9 Inhibitor Start: Evolocumab 140 mg/mL syringe Active 140 mg SC every 2 weeks February 03, 2024 1:00am ezetimibe 10 mg oral tablet (3 sources) Dietary Cholesterol Absorption Inhibitor Start: take 1 tablet by mouth once daily Ezetimibe 10 mg tablet Active 10 mg PO daily February 03, 2024 1:00am fenofibrate 145 mg oral tablet (9 sources) Peroxisome Proliferator Receptor alpha Agonist End: take 1 tablet by mouth once daily fenofibrate nanocrystallized (TRICOR) 145 mg tablet Take 145 mg by mouth once daily. Active Fluzone Quad (Pf) 60 McG(15 McGx4)/0.5 Ml Intramuscular Syringe (2 sources) Start: FLUZONE QUAD , PF, syringe To be injected by Pharmacist 0 12/06/2017 Active gabapentin 300 mg oral capsule (16 sources) Anti-epileptic Agent Start: take 1 capsule by mouth at bedtime as needed Gabapentin 300 mg capsule Active 300 mg PO AT BEDTIME NEEDED as needed for restless leg(s) February 03, 2024 1:00am take 3 capsules by m out once daily gabapentin (NEURONTIN) 100 MG capsule Take 3 (three) capsules (300 mg total) by mouth nightly . Suspended take 1 capsule by mo [facility] once daily gabapentin (NEURONTIN) 300 MG capsule Take 1 (one) capsule (300 mg total) by mouth nightly . Suspended take 1 capsule by mo [facility] once daily gabapentin (NEURONTIN) 100 MG capsule Take 100 mg by mouth nightly . 0 Active End: 10-05-2016 take 1 capsule by mouth three times daily gabapentin (NEURONTIN) 100 MG capsule Take 100 mg by mouth 3 (three) times a day 2 tablets. 10/05/2016 Discontinued 24 hr isosorbide mononitrate 30 mg extended release oral tablet (20 sources) Start: 02-03-2024 take 1 tablet by thaddeus once daily, then take 1 tablet by mouth every twenty-four hours Isosorbide Mononitrate 30 mg tablet extended release 24 hr Active 30 mg PO daily February 03, 2024 1:00am Start: 01-03-2018 take 1 tablet by thaddeus th once daily isosorbide mononitrate (IMDUR) 30 MG 24 hr tablet Take 1 (one) tablet (30 mg total) by mouth daily. 30 tablet 11 01/03/2018 Suspended Start: 05-05-2015 take 1 tablet by thaddeus th once daily isosorbide mononitrate (IMDUR) 30 MG 24 hr tablet Take 1 tablet (30 mg total) by mouth daily. 30 tablet 05/05/2015 Active levETIRAcetam 500 mg oral tablet (3 sources) Start: 02-03-2024 take 1 tablet by mouth twice daily Levetiracetam 500 mg tablet Active 500 mg PO TWICE A DAY February 03, 2024 1:00am levothyroxine sodium 0.075 mg oral capsule (6 sources) l-Thyroxi ne Start: 02-03-2024 take 1 capsule by mouth once daily Levothyroxine 75 mcg capsule Active 75 ug PO daily February 03, 2024 1:00am Start: 08-08-2023 take 1 tablet by thaddeus th once daily levothyroxine (SYNTHROID, LEVOTHROID) 75 MCG tablet Take 1 (one) tablet (75 mcg total) by mouth daily . 08/08/2023 Suspended take 1 tablet by thaddeus th once daily levothyroxine (SYNTHROID, LEVOTHROID) 25 MCG tablet Take 1 (one) tablet (25 mcg total) by mouth once daily . Suspended lisinopril 5 mg oral tablet (18 sources) Angiotensin Converting Enzyme Inhibitor Start: 02-03-2024 take 1 tablet by mouth once daily Lisinopril 5 mg tablet Active 5 mg PO daily February 03, 2024 1:00am Start: 09-18-2016 End: 05-20-2017 take 5 mg by mouth once daily, then take 1 tablet by mouth lisinopril (PRINIVIL,ZESTRIL) 10 MG tablet Take 5 mg by mouth daily . 3 09/18/2016 05/20/2017 Discontinued Start: 09-18-2016 take 1 tablet by thaddeus th once daily, then take 1 tablet by mouth lisinopril (PRINIVIL,ZESTRIL) 10 MG tablet Take 10 mg by mouth daily. 3 09/18/2016 Active take 1 tablet by thaddeus once daily lisinopril (ZESTRIL) 20 mg tablet Take 20 mg by mouth once daily. Active magnesium oxide 400 mg oral tablet (12 sources) Start: 02-03-2024 take 1 tablet by mouth three times daily Magnesium Oxide 400 mg magnesium tablet Active 400 mg PO THREE TIMES A DAY February 03, 2024 1:00am magnesium oxide 400 mg cap Take by mouth. Active take 1 tablet by mouth twice marilu ly magnesium oxide (MAG-OX) 400 mg (241.3 mg magnesium) tablet Take 1 (one) tablet (400 mg total) by mouth 2 (two) times a day . Suspended meclizine hydrochloride 25 mg chewable tablet (7 sources) Antiemetic take 1 tablet by mouth three times daily as needed Meclizine HCl 25 mg Chew Tab Take by mouth three times daily as needed. Active Multivitamin (Daily Multi-Vitamin) tablet (3 sources) Start: 4 Multivitamin (Daily Multi-Vitamin) tablet Active 1 {tbl} PO daily February 03, 2024 1:00am omeprazole 20 mg delayed release oral capsule (20 sources) Proton Pump Inhibitor Start: take 1 capsule by mouth once daily Omeprazole 20 mg capsule,delayed release(DR/EC) Active 20 mg PO daily February 03, 2024 1:00am Start: 02-03-2024 End: 10-05-2016 take 1 capsule by mouth once daily Omeprazole 20 mg capsule,delayed release(DR/EC) Active 20 mg PO daily February 03, 2024 1:00am ondansetron 4 mg oral tablet (11 sources) Serotonin-3 Receptor Antagonist Start: 02-03-2024 take 1 tablet by mouth every eight hours as needed for nausea and vomiting Ondansetron Hcl 4 mg tablet Active 4 mg PO EVERY 8 HOURS NEEDED as needed for nausea and vomiting February 03, 2024 1:00am Start: 12-23-2018 End: 03-29-2020 take 1 tablet by mouth every six hours as needed for nausea ondansetron (Zofran) 4 MG tablet Indications: Vomiting without nausea, intractability of vomiting not specified, unspecified vomiting type Take 1 (one) tablet (4 mg total) by mouth every 6 (six) hours as needed for nausea . 30 tablet 3 03/29/2020 Suspended oxyCODONE hydrochloride 5 mg oral tablet (6 sources) Opioid Agonist Start: 03-16-2024 End: 03-26-2024 take 1 tablet by mouth every eight hours as needed for pain Oxycodone 5 mg tablet Active 5 mg PO Q8H as needed for pain 3 March 26, 2024 rosuvastatin calcium 40 mg oral tablet (16 sources) HMG-CoA Reductase Inhibitor Start: 02-03-2024 take 1 tablet by mouth at bedtime Rosuvastatin 40 mg tablet Active 40 mg PO AT BEDTIME February 03, 2024 1:00am take 1 tablet by mouth once cy y rosuvastatin (CRESTOR) 20 MG tablet Take 1 (one) tablet (20 mg total) by mouth nightly . Suspended take 2 tablets by mouth once marilu ly rosuvastatin (CRESTOR) 20 MG tablet Take 40 mg by mouth nightly . 0 Active vitamin b12 1 mg oral tablet (9 sources) Vitamin B12 take 1 tablet by mouth once daily cyanocobalamin (VITAMIN B-12) 1,000 mcg tab Take 1,000 mcg by mouth once daily. Active Completed/Discontinued Medications Medication Drug Class(es) Dates Sig (Normalized) Sig (Original) acetaminophen 500 mg / diphenhydrAMINE hydrochloride 25 mg oral tablet (1 source) Histamine-1 Receptor Antagonist take 1 tablet by mouth once daily as needed diphenhydrAMINE-ac etaminophen (TYLENOL PM) 25-500 mg Tab Take 1 (one) tablet by mouth nightly as needed . Suspended amLODIPine 5 mg oral tablet (2 sources) Dihydropyridine Calcium Channel Lea End: 10-05-2016 AMLODIPINE BESYLATE, BULK, MISC 5 mg by Miscellaneous route 2 (two) times a day. 10/05/2016 Discontinued 168 hr cloNIDine 0.0125 mg/hr transdermal system (20 sources) Central alpha-2 Adrenergic Agonist Start: 02-21-2017 End: 06-23-2018 cloNIDine (CATAPRES-TTS) 0.3 mg/24 hr Start: 02-21-2017 cloNIDine (CAT APRES-TTS) 0.3 mg/24 hr Start: 12-31-2016 take 1 tablet by thaddeus th twice daily cloNIDine HCl (CATAPRES) 0.2 MG tablet Take 0.2 mg by mouth 2 (two) times a day . 0 12/31/2016 Active Start: 12-31-2016 End: 11-07-2018 apply 1 tablet transdermal route every week cloNIDine HCl (CATAPRES) 0.2 MG tablet Indications: patch weekly 0.1 mg Reasons: patch weekly. 0 12/31/2016 11/07/2018 Discontinued Start: 09-26-2016 End: 03-21-2017 cloNIDine (CATAPRES-TTS) 0.2 mg/24 hr USE ONE PATCH TRANSDERMALLY every SEVEN DAYS 0 09/26/2016 03/21/2017 Discontinued cloNIDine (CATAP RES-TTS) 0.1 mg/[address] 1 (one) patch on the skin once a week . Suspended colchicine 0.6 mg oral tablet (2 sources) End: 10-05-2016 take 2 tablets by mouth once daily colchicine 0.6 mg tablet Take 1.2 mg by mouth daily. 10/05/2016 Discontinued doxazosin 4 mg oral tablet (20 sources) alpha-Adrenergic Lea Start: 03-08-2017 take 1 tablet by mouth once daily doxazosin (CARDURA) 4 MG tablet Take 1 (one) tablet (4 mg total) by mouth daily . 03/08/2017 Suspended furosemide 40 mg oral tablet (2 sources) Loop Diuretic End: 10-05-2016 take 1 tablet by mouth twice daily furosemide (LASIX) 40 MG tablet Take 40 mg by mouth 2 (two) times a day. 10/05/2016 Discontinued hydrALAZINE hydrochloride 50 mg oral tablet (20 sources) Arteriolar Vasodilator take 1 tablet by mouth three times daily hydrALAZINE (APRESOLINE) 50 MG tablet Take 1 (one) tablet (50 mg total) by mouth 3 (three) times a day . Suspended HYDROmorphone hydrochloride 2 mg oral tablet (2 sources) Opioid Agonist End: 10-05-2016 take 1 tablet by mouth every four hours HYDROmorphone (DILAUDID) 2 MG tablet Take 2 mg by mouth every 4 (four) hours as needed for pain. 10/05/2016 Discontinued losartan potassium 100 mg oral tablet (20 sources) Angiotensin 2 Receptor Lea Start: 02-14-2017 take 1 tablet by mouth once daily losartan (COZAAR) 100 MG tablet Take 1 (one) tablet (100 mg total) by mouth daily . 02/14/2017 Suspended Start: 02-14-2017 losartan (COZA AR) 100 MG tablet Take 50 mg by mouth daily . 0 02/14/2017 Active End: 10-05-2016 take 1 tablet by mouth once daily losartan (COZAAR) 100 MG tablet Take 100 mg by mouth daily. 10/05/2016 Discontinued magnesium hydroxide 400 mg chewable tablet (5 sources) End: 03-21-2017 magnesium hydroxide (PEDIA-LAX) 400 mg (170 mg) Chew mupirocin 0.02 mg/mg topical ointment (4 sources) RNA Synthetase Inhibitor Antibacterial Start: 01-25-2017 End: 05-20-2017 mupirocin (BACTROBAN) 2 % ointment nitroglycerin 0.02 mg/mg topical ointment (3 sources) Nitrate Vasodilator Start: 03-18-2024 End: 03-26-2024 Nitroglycerin (Nitro-Bid) 2 % ointment Discontinued 1 [in_us] TD TWICE A DAY March 18, 2024 1:00am March 26, 2024 3:53pm On Hold: PT HAS NOT PICKED UP SCRIPT You may administer 2 doses/day (approx. 6 hrs apart); remove for 10-12 hrs per 24 hours. Apply only to the symptomatic area. promethazine hydrochloride 12.5 mg oral tablet (20 sources) Phenothiazine Start: 09-14-2016 take 1 tablet by mouth three times daily as needed promethazine (PHENERGAN) 12.5 MG tablet take 1 (one) Tablet, Oral, three times daily, as needed before meals 0 09/14/2016 Suspended 72 hr scopolamine 0.0139 mg/hr transdermal system (4 sources) Anticholinergic Start: 04-22-2018 End: 04-22-2019 scopolamine (TRANSDERM-SCOP) 1 mg over 3 days patch Indications: Vomiting without nausea, intractability of vomiting not specified, unspecified vomiting type Place 1 (one) patch on the skin every 72 hours . 10 patch 12 04/22/2018 06/23/2018 Discontinued Problems Active Problems Problem Classification Problem Date Documented Da te Episodic/Chronic Acute and unspecified renal failure (3 sources) Acute renal failure syndrome; Translations: [Acute kidney failure, unspecified] Onset: 4 10-04-2023 Episodic Acute myocardial infarction (20 sources) Myocardial infarction; Translations: [Acute myocardial infarction, unspecified] Onset: 7 10-07-2016 Chronic Chronic kidney disease (13 sources) Chronic kidney disease stage 3; Translations: [Chronic kidney disease, stage 5] Onset: 4 Chronic Complication of device; implant or graft (9 sources) Arterial steal syndrome; Translations: [Other specified complication of vascular prosthetic devices, implants and grafts, initial encounter] Onset: 5 03-24-2024 Chronic Coronary atherosclerosis and other heart disease (20 sources) Coronary arteriosclerosis; Translations: [Coronary arteriosclerosis in [place] artery] 10-08-2016 Chronic Disorders of lipid metabolism (20 sources) Hyperlipidemia; Translations: [Hyperlipidemia, unspecified] Onset: 3 05-05-2015 Chronic Essential hypertension (20 sources) Hypertensive disorder; Translations: [Essential hypertension] 05-05-2015 Chronic Fluid and electrolyte disorders (3 sources) Hyperosmolality and hypernatremia; Translations: [Hyperosmolality and hypernatremia] Onset: 4 Episodic Headache, including migraine (1 source) Cyclical vomiting syndrome Episodic Nausea and vomiting (7 sources) Vomiting without nausea; Translations: [Vomiting without nausea] Onset: 9 04-22-2018 Nutritional deficiencies (1 source) Vitamin D deficiency, unspecified; Translations: [Vitamin D deficiency, unspecified] Onset: 3 Chronic Occlusion or stenosis of precerebral arteries (12 sources) Carotid artery stenosis; Translations: [Occlusion and stenosis of bilateral carotid arteries] Onset: 9 11-07-2018 Chronic Other circulatory disease (1 source) Peripheral arterial occlusive disease Chronic Other circulatory disease (4 sources) Stenosis of brachiocephalic artery; Translations: [Stricture of artery] Onset: 0 12-28-2019 Chronic Other circulatory disease (1 source) Arteriovenous fistula, acquired; Translations: [Arteriovenous fistula, acquired] Onset: 5 Chronic Other gastrointestinal disorders (20 sources) Intestinal malabsorption; Translations: [Intestinal malabsorption, unspecified] Onset: 8 03-21-2017 Chronic Other nutritional; endocrine; and metabolic disorders (20 sources) Monoclonal gammopathy (clinical); Translations: [Monoclonal gammopathy] Onset: 8 03-21-2017 Chronic Other screening for suspected conditions (not mental disorders or infectious disease) (7 sources) Creatinine level - finding; Translations: [Other specified abnormal findings of blood chemistry] Onset: 3 08-17-2022 Episodic Bing-; endo-; and myocarditis; cardiomyopathy (except that caused by tuberculosis or sexually transmitted disease) (1 source) Pericardial effusion; Translations: [Pericardial effusion] 10-07-2023 Episodic Peripheral and visceral atherosclerosis (20 sources) Atherosclerosis of [place] arteries of extremities with rest pain, left leg; Translations: [Peripheral vascular disease] Onset: 6 Resolved: 6 06-08-2015 Chronic Residual codes; unclassified (4 sources) Transient altered mental status; Translations: [Disorientation, unspecified] 08-17-2022 Episodic Residual codes; unclassified (9 sources) History of cardiovascular surgery; Translations: [Other specified postprocedural states] 03-18-2024 Episodic Syncope (1 source) Syncope and collapse; Translations: [Syncope and collapse] Episodic Thyroid disorders (1 source) Hypothyroidism, unspecified; Translations: [Hypothyroidism, unspecified] Onset: 3 Chronic Transient cerebral ischemia (5 sources) Other transient cerebral ischemic attacks and related syndromes; 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] Onset: 0 12-28-2019 Chronic Unclassified (1 source) Other specified cough; Translations: [Other specified cough] Onset: 5 Past or Other Problems Problem Classification Problem Date Documented Da te Episodic/Chronic Chronic ulcer of skin (20 sources) Pressure ulcer of heel; Translations: [Pressure ulcer of unspecified heel, stage 3] Onset: 05-25-2015 Resolved: 10-07-2016 10-07-2016 Chronic Deficiency and other anemia (20 sources) Anemia; Translations: [Anemia, unspecified] Onset: 03-21-2017 03-21-2017 Episodic Heart valve disorders (20 sources) Heart murmur; Translations: [Cardiac murmur, unspecified] Onset: 05-05-2015 Resolved: 10-07-2016 10-07-2016 Episodic Medical examination/evaluation (9 sources) Preoperative state; Translations: [Encounter for general adult medical examination without abnormal findings] Onset: 05-05-2015 Resolved: 10-07-2016 10-07-2016 Episodic Nausea and vomiting (14 sources) Nausea and vomiting; Translations: [Vomiting without nausea] Onset: 04-22-2018 04-22-2018 Episodic Other circulatory disease (20 sources) Carotid bruit; Translations: [Abdominal bruit] Onset: 05-05-2015 Resolved: 10-07-2016 10-07-2016 Episodic Other gastrointestinal disorders (20 sources) Abdominal bruit; Translations: [Other specified symptoms and signs involving the circulatory and respiratory systems] Onset: 05-05-2015 Resolved: 10-07-2016 10-07-2016 Episodic Other lower respiratory disease (20 sources) Solitary nodule of lung; Translations: [Solitary pulmonary nodule] Onset: 03-21-2017 03-21-2017 Episodic Residual codes; unclassified (11 sources) Tobacco user; Translations: [Tobacco use] Resolved: 10-05-2016 10-05-2016 Chronic Residual codes; unclassified (2 sources) Tobacco use and exposure - finding; Translations: [Tobacco use] Resolved: 10-05-2016 10-05-2016 Episodic Screening or history of mental health and substance abuse (18 sources) Tobacco use and exposure - finding; Translations: [Tobacco user] Resolved: 10-05-2016 10-05-2016 Chronic Unclassified (20 sources) Patient encounter status; Translations: [Preop cardiovascular exam] Onset: 05-05-2015 Resolved: 10-07-2016 10-07-2016 Results Test Name Value Interpretation Reference Range Facility Basic Metabolic Profile (BMP )on 12-31-2024 BUN/CRE 6.9 RATIO Low 12-21 [facility] Comment on above: Performed By: #### L 500.2500, L500.4100, L501.9520, L501.92600, L506.0400 ####[facility] [address] [place], [address] Calcium [Mass/Vol] 9.3 mg/dL Normal 7.6-11.0 [facility] Comment on above: Performed By: #### L 500.2500, L500.4100, L501.9520, L501.45318, L506.0400 ####[facility] [address] [place], [address] Chloride [Moles/Vol] 102 mmol/L Normal 98-108 [facility] Comment on above: Performed By: #### L 500.2500, L500.4100, L501.9520, L501.88770, L506.0400 ####[facility] [address] [place], [address] CO2 [Moles/Vol] 22.6 mmol/L Normal 21.0-32.0 [facility] Comment on above: Performed By: #### L 500.2500, L500.4100, L501.9520, L501.40539, L506.0400 ####[facility] [address] [place], [address] Creatinine [Mass/Vol] 5.47 mg/dL High 0.70-1.20 [facility] Comment on above: Performed By: #### L 500.2500, L500.4100, L501.9520, L501.42800, L506.0400 ####[facility] [address] [place], [address] GAP 15 Normal 5-15 [facility] Comment on above: Performed By: #### L 500.2500, L500.4100, L501.9520, L501.18694, L506.0400 ####[facility] [address] [place], [address] GFR/1.73 sq M.predicted among non-blacks MDRD (S/P/Bld) [Vol rate/Area] 8 mL/min/{1.73_m2} Low >60 [facility] Comment on above: Result Comment: mL/m in/1.73m2 CKD-EPI Creatinine Equation (2020) Performed By: #### L 500.2500, L500.4100, L501.9520, L501.65545, L506.0400 ####[facility] [address] [place], [address] Glucose [Mass/Vol] 83 mg/dL Normal 70-99 [facility] Comment on above: Performed By: #### L 500.2500, L500.4100, L501.9520, L501.15793, L506.0400 ####[facility] [address] [place], [address] Potassium [Moles/Vol] 5.1 mmol/L Normal 3.3-5.1 [facility] Comment on above: Performed By: #### L 500.2500, L500.4100, L501.9520, L501.02223, L506.0400 ####[facility] [address] [place], [address] Sodium [Moles/Vol] 140 mmol/L Normal 133-145 [facility] Comment on above: Performed By: #### L 500.2500, L500.4100, L501.9520, L501.90256, L506.0400 ####[facility] [address] [place], [address] Urea nitrogen [Mass/Vol] 38 mg/dL High 4-19 [facility] Comment on above: Performed By: #### L 500.2500, L500.4100, L501.9520, L501.54589, L506.0400 ####[facility] [address] [place], [address] Free T3on 12-31-2024 Free T3 [Mass/Vol] 1.7 pg/mL Low 2.18-3.98 [facility] Comment on above: Performed By: #### L 500.2500, L500.4100, L501.9520, L501.82511, L506.0400 ####[facility] [address] [place], [address] Lipid Profileon 12-31-2024 CHOL:HDL 2.53 Normal [facility] Comment on above: Performed By: #### L 500.2500, L500.4100, L501.9520, L501.17707, L506.0400 ####[facility] [address] [place], [address] Cholesterol [Mass/Vol] 163 mg/dL Normal <=200 [facility] Comment on above: Result Comment: Chol esterol level, Desirable <200 mg/dL Borderline high cholesterol 200-239 mg/dL High cholesterol >=240 mg/dL Recommendations of the NCEP Adult Treatment Panel for the following risk-cutoff thresholds for the [place] population. Performed By: #### L 500.2500, L500.4100, L501.9520, L501.92270, L506.0400 ####[facility] [address] [place], [address] Cholesterol in HDL [Mass/Vol] 64 mg/dL Normal [facility] Comment on above: Result Comment: Nikki onal Cholesterol Education Program (NCEP) guidelines: <40 mg/dL: Low HDL-cholesterol (major risk factor for CHD) >= 60 mg/dL: High HDL-cholesterol (negative risk factor for CHD) HDL-cholesterol is affected by a number of factors, e.g. smoking, exercise, hormones, sex and age. Performed By: #### L 500.2500, L500.4100, L501.9520, L501.02426, L506.0400 ####[facility] [address] [place], [address] Cholesterol in LDL [Mass/Vol] 84 mg/dL Normal [facility] Comment on above: Result Comment: Bord rehncn=999-962 mg/dL Higher Fqcd=174 mg/dL or greater Ty Equation 2020 for LDL-C Performed By: #### L 500.2500, L500.4100, L501.9520, L501.43597, L506.0400 ####[facility] [address] [place], [address] Cholesterol in VLDL [Mass/Vol] 15 mg/dL Normal 5-40 [facility] Comment on above: Performed By: #### L 500.2500, L500.4100, L501.9520, L501.05058, L506.0400 ####[facility] [address] [place], [address] Triglyceride [Mass/Vol] 77 mg/dL Normal [facility] Comment on above: Result Comment: The drugs N-Acetylcysteine and Metamizole may falsely depress this assay. Normal range: <150 mg/dL Borderline High: 150-199 mg/dL High: 200-499 mg/dL Very High: >500 mg/dL Performed By: #### L 500.2500, L500.4100, L501.9520, L501.30161, L506.0400 ####[facility] [address] [place], [address] T4 Free Directon 12-31-2024 T4 FREE DIRECT 1.10 ng/dL Normal 0.76-1.46 [facility] Comment on above: Performed By: #### L 500.2500, L500.4100, L501.9520, L501.75314, L506.0400 ####[facility] [address] [place], [address] Thyroid Stim Hormone (TSH)on 12-31-2024 TSH 1.530 uIU/mL Normal 0.300-4.20 0 [facility] Comment on above: Performed By: #### L 500.2500, L500.4100, L501.9520, L501.75463, L506.0400 ####[facility] [address] [place], [address] Arterial study reportOrdered By: Ernie De Jesus on 07-29-2024 Noninvasive arteriosclerosis study report [facility] [address] [place] [address] Upper Extremity Arterial Study 07/29/24 0949 MR#: [id number] Acct: [id number] Name: ILIANA REID Rep #:[id number] : 1950 74 From: Ernie Bhaena Attending Dr: MD Komal Bass tatus: ELIZABET DIALLO Ordering Dr: Ernie De Jesus MD Date: Location: [facility] Sex: F C Admitted: Reason For Study Reason For Study: Hand ischemia Procedure A bilateral upper extremity continuous wave Doppler with analog waveform analysis and segmental pressures. Left Segmental Pressures Left brachial= 193mmHg. Left ulnar= 200mmHg. Left radial= 190mmHg. Left digit = 174 mmHg. The left brachial waveforms are triphasic. The left radial waveforms are biphasic. The left ulnar waveforms are biphasic. Right Segmental Pressures Right brachial= 199mmHg. Right ulnar= 208mmHg. Right radial= 212mmHg. Right digit = 175 mmHg. The right brachial waveforms are triphasic. The right radial waveforms are triphasic. The right ulnar waveforms are triphasic. Indices The right wrist-brachial index by the radial artery is 1.07. The right wrist-brachial index by the ulnar artery is 1.05. The right digital-brachial index is 0.88. The left wrist-brachial index by the radial artery is 0.95. The left wrist- brachial index by the ulnar artery is 1.01. The left digital-brachial index is 0.87. VL/Upper Extremity Arterial Study Interpretation Summary Right wrist-brachial index 1.07, normal. Digit index diminished. Left wrist-brachial index 1.01, normal. Digit index diminished. Ordering Physician: Ernie De Jesus Referring Physician: Sujey Fonseca Performed By: Cecilia Nix RVT 07/29/24 1713 Date _ Ernie De Jesus MD CC: Dr. Sujey Fonseca MD; Dr. Ernie eD Jesus MD ~ Date Dictated: 07/29/24948 Date Transcribed: 07/29/241712 Family Coach: Signed [facility] Work Phone: Upper Extremity Arterial Jaron dyon 07-29-2024 Upper Extremity Arterial Study [facility] [address] [place] [address] Upper Extremity Arterial Study 07/29/24948 MR#: [id number] Acct: [id number] Name: ILIANA REID Rep #: [id number] : 1950 74 From: Ernie De Jesus MD Attending Dr: Dr. Ernie De Jesus MD Status: REG C Ordering Dr: Ernie De Jesus MD Date: 07/29/24 Location: [facility] Sex: F C Admitted: Reason For Study Reason For Study: Hand ischemia Procedure A bilateral upper extremity continuous wave Doppler with analog waveform analysis and segmental pressures. Left Segmental Pressures Left brachial= 193mmHg. Left ulnar= 200mmHg. Left radial= 190mmHg. Left digit = 174 mmHg. The left brachial waveforms are triphasic. The left radial waveforms are biphasic. The left ulnar waveforms are biphasic. Right Segmental Pressures Right brachial= 199mmHg. Right ulnar= 208mmHg. Right radial= 212mmHg. Right digit = 175 mmHg. The right brachial waveforms are triphasic. The right radial waveforms are triphasic. The right ulnar waveforms are triphasic. Indices The right wrist-brachial index by the radial artery is 1.07. The right wrist-brachial index by the ulnar artery is 1.05. The right digital-brachial index is 0.88. The left wrist-brachial index by the radial artery is 0.95. The left wrist- brachial index by the ulnar artery is 1.01. The left digital-brachial index is 0.87. VL/Upper Extremity Arterial Study Interpretation Summary Right wrist-brachial index 1.07, normal. Digit index diminished. Left wrist-brachial index 1.01, normal. Digit index diminished. Ordering Physician: Ernie De Jesus Referring Physician: Sujey Fonseca Performed By: Cecilia Nix, RVT 07/29/241712 Date Ernie De Jesus MD CC: Dr. Sujey Fonseca MD; Dr. Ernie De Jesus MD Date Dictated: 07/29/2449 Date Transcribed: 07/29/241712 Family Coach: Signed [facility] MR/BMS.Son 07-20-2024 /BMS.[facility] [address] [place] [address] OFFICE VISIT Date of Service: 07/20/24 MR#: [id number] Acct: [id number] Name: ILIANA REID Rep #: [id number] : 1950 Provider: Dr. Ernie De Jesus MD Age/Sex: 74/F Location: [facility] Status: Signed Intake Vital Signs 03/26/24 12:08 07/20/24 13:17 Height 5 ft 4 in 5 ft 4 in Weight: 123 lb BMI 21.1 BP 183/99 H Blood Pressure Location Rt brachial Position Sitting Respiration 16 Pulse 81 Pulse Source Monitor Temp 98.4 F Temp Source Temporal Pulse Oximetry (%) 98 Oxygen Delivery Method room air Intake Visit Reasons: Discuss AVF Creation Options [employer] Required: No Accompanied by: Self Is patient in pain?: No Allergies fentanyl Allergy (Severe, Verified 07/20/24 13:17) Other amlodipine (From Norvasc) Allergy (Verified 07/20/24 13:17) Other hydromorphone (From Dilaudid) Allergy (Verified 07/20/24 13:17) Other Medications ???Medication ???Instructions ???Recorded ???Confirmed ???Type acetaminophen 500 mg capsule 500 mg PO Q6H PRN pain 02/03/24 History alendronate 70 mg tablet 70 mg PO QWEEK 02/03/24 07/20/24 H istory ascorbic acid 125 mg-collagen, 1 cap PO DAILY 02/03/24 07/20/24 H istory hydrolyzed 740 mg capsule (Collagen Plus Vitamin C) aspirin 81 mg tablet,delayed 81 mg PO QDAY 02/03/24 07/20/24 Hi story release bupropion HCl 300 mg 24 hr tablet, 300 mg PO QAM 02/03/24 07/20/24 History extended release calcium 600 mg (as 1 tab PO BID 02/03/24 07/20/24 His tory carbonate)-vitamin D3 10 mcg (400 unit) tablet (Calcium 600 + D(3)) carvedilol 3.125 mg tablet 3.125 mg PO BID 02/03/24 07/20/24 History cholecalciferol (vitamin D3) 125 125 mcg PO QDAY 02/03/24 07/20/24 History mcg (5,000 unit) capsule cilostazol 50 mg tablet 100 mg PO BID 02/03/24 07/20/24 Hi story evolocumab 140 mg/mL subcutaneous 140 mg subcut Q2W 02/03/24 History syringe ezetimibe 10 mg tablet 10 mg PO QDAY 02/03/24 07/20/24 Hi story gabapentin 300 mg capsule 300 mg PO QHS PRN PRN restless 04/2707/20/24 History leg(s) isosorbide mononitrate 30 mg 30 mg PO QDAY 02/03/24 07/20/24 Hi story tablet,extended release 24 hr levetiracetam 500 mg tablet 500 mg PO BID 02/03/24 07/20/24 Hi story levothyroxine 75 mcg capsule 75 mcg PO QDAY 02/03/24 07/20/24 H istory lisinopril 5 mg tablet 5 mg PO QDAY 02/03/24 07/20/24 His tory magnesium oxide 400 mg PO TID 02/03/24 07/20/24 Hi story multivitamin (Daily Multi-Vitamin 1 tab PO QDAY 02/03/24 07/20/24 H istory tablet) omeprazole 20 mg capsule,delayed 20 mg PO QDAY 02/03/24 07/20/24 Hi story release ondansetron HCl 4 mg tablet 4 mg PO Q8H PRN PRN nausea and 04/2707/20/24 History vomiting rosuvastatin 40 mg tablet 40 mg PO QHS 02/03/24 07/20/24 His tory oxycodone 5 mg tablet 5 mg PO Q8H PRN pain 1 day #3 tabs 03/26/24 07/20/24 Rx Have you fallen in the past year?: No PFSH Medical History Loss of hearing Wears glasses Hx of sepsis MRSA infection Depression Anxiety Thyroid disease History of renal dialysis Hemodialysis catheter malfunction History of renal disease Anemia High cholesterol Easy bruising Restless legs Injury of head and neck Syncope Dietary restriction Gastric reflux Former smoker Leg cramps History of pain when walking PVD (peripheral vascular disease) History of edema Typhoid fever History of rheumatic fever History of echocardiogram History of stress test Cardiology follow-up encounter History of cardiac murmur Seizures HTN (hypertension) Surgical History Hx of vascular surgery Hx of tonsillectomy Hx of arterial bypass of lower limb Hx of foot surgery Family History Other CVA (cerebral vascular accident) Diabetes Heart disease Hypertension Thyroid disorder Social History Smoking Status: Former smoker Tobacco: How many years used: 20 how long ago did patient quit smokin yrs ago HPI HPI HPI: ILIANA REID, is a 74 F who presents to the office today for follow up of dialysis access efforts. Had prior left stage I basilic fistula that caused delayed steal and was ultimately ligated. Her symptoms had improved at last office visit though some pain persisted; this has now resolved and only minimal numbness of digits 1,2,3 remain. Her right IJ catheter functions without concerns. ROS General General: Yes weight change, appetite and weakness; No fatigue, colon cance (more content not included)... Normal [facility]AR[facility]qu[facility] ILIA[facility]ID ([id number]) 1950 F Date Time Provider Department 06/05/24 ZACHARY MONROE TXCTGL During your visit today, we recorded the following information about you: Allergies As of Date: 06/05/2024 Noted Allergy Reaction NORVASC (AMLODIPINE BESYLATE) 03/27/2016 5 - Intolerance Date Reviewed: 03/27/2016 Reviewed by: Lisa Babin ([facility]) - Fully Assessed Reason for Visit: Referral - Kidney Txp [[id number]] Cmt: Pt choice to close referral Prescriptions as of 06/05/2024 - omeprazole (PRILOSEC) 20 mg capsule Take 20 mg by mouth once daily. - clopidogrel (PLAVIX) 75 mg tablet Take 75 mg by mouth once daily. - magnesium oxide 400 mg cap Take by mouth. - cyanocobalamin (VITAMIN B-12) 1,000 mcg tab Take 1,000 mcg by mouth once daily. - aspirin, enteric coated (ASPIRIN, ENTERIC COATED) 81 mg EC tablet Take 81 mg by mouth once daily. - atorvastatin (LIPITOR) 10 mg tablet Take 10 mg by mouth once daily. - Meclizine HCl 25 mg Chew Tab Take by mouth three times daily as needed. - carvedilol (COREG) 25 mg tablet Take 25 mg by mouth twice daily with meals. - allopurinol (ZYLOPRIM) 100 mg tablet Take by mouth once daily. - fenofibrate nanocrystallized (TRICOR) 145 mg tablet Take 145 mg by mouth once daily. - cilostazol (PLETAL) 100 mg tablet Take 100 mg by mouth twice daily. - lisinopril (ZESTRIL) 20 mg tablet Take 20 mg by mouth once daily. - cloNIDine HCl (CATAPRES) 0.2 mg tablet Take 0.2 mg by mouth twice daily. Problem List As Of Date: 06/05/2024 (None) Encounter Status:Closed by ZACHARY MONROE on 06/05/24 [facility] CNOVon 06-03-2024 CNOV Office Visit (TXCTGL ) MEKHI REIDA ([id number]) 1950 F Date Time Provider Department 06/03/24 3:00 PM NEPHROLOGY [facility] TXCTGL During your visit today, we recorded the following information about you: Referring Provider: JEFFERSON CHAPMAN [[id number]] Allergies As of Date: 06/03/2024 Noted Allergy Reaction NORVASC (AMLODIPINE BESYLATE) 03/27/2016 5 - Intolerance Date Reviewed: 03/27/2016 Reviewed by: Lisa Babin ([employer]) - Fully Assessed Primary Visit Diagnosis:Kidney replaced by transplant ([facility]) [Z94.0] Order(s):UA DIP, URINE (POC) [3565615] Order #: [id number] FUTURE PROTEIN / CREATININE RATIO [SQPRATIO] Order #: [id number] Prescriptions as of 06/08/2024 - omeprazole (PRILOSEC) 20 mg capsule Take 20 mg by mouth once daily. - clopidogrel (PLAVIX) 75 mg tablet Take 75 mg by mouth once daily. - magnesium oxide 400 mg cap Take by mouth. - cyanocobalamin (VITAMIN B-12) 1,000 mcg tab Take 1,000 mcg by mouth once daily. - aspirin, enteric coated (ASPIRIN, ENTERIC COATED) 81 mg EC tablet Take 81 mg by mouth once daily. - atorvastatin (LIPITOR) 10 mg tablet Take 10 mg by mouth once daily. - Meclizine HCl 25 mg Chew Tab Take by mouth three times daily as needed. - carvedilol (COREG) 25 mg tablet Take 25 mg by mouth twice daily with meals. - allopurinol (ZYLOPRIM) 100 mg tablet Take by mouth once daily. - fenofibrate nanocrystallized (TRICOR) 145 mg tablet Take 145 mg by mouth once daily. - cilostazol (PLETAL) 100 mg tablet Take 100 mg by mouth twice daily. - lisinopril (ZESTRIL) 20 mg tablet Take 20 mg by mouth once daily. - cloNIDine HCl (CATAPRES) 0.2 mg tablet Take 0.2 mg by mouth twice daily. Problem List As Of Date: 06/03/2024 (None) Encounter Status:Closed by BRANDIE JI on 06/08/24 Normal [facility] Chest PA and Lateralon 05-13 Chest PA and Lateral [facility] Imaging Services [address] [place] [address] Chest PA and Lateral MR#: [id number] Acct: [id number] Name: ILIANA REID Rep #: [id number] : 1950 F 74 From: Jaden Stern MD PCP: Dr. Sujey Fonseca MD Status: REG CLI Study: Chest PA and Lateral Date of Exam: 05/13/24 Exam# [id number] Ordering Dr: Sujey Fonseca MD EXAM: XR Chest, 2 Views CLINICAL INDICATION: COUGH WITH EXPECTORATION TECHNIQUE: Frontal and lateral views of the chest. COMPARISON: No relevant prior studies available. FINDINGS: LUNGS AND PLEURAL SPACES: Unremarkable. No consolidation. No pneumothorax. HEART: Cardiomegaly without overt failure. MEDIASTINUM: Unremarkable. Normal mediastinal contour. BONES/JOINTS: Unremarkable. No acute fracture. TUBES, LINES AND DEVICES: Right internal jugular central venous catheter tip in the superior vena cava. RAD/Chest PA and Lateral IMPRESSION: Cardiomegaly without overt failure. Reading Location: [facility] CC: Dr. Sujey Fonseca MD Family Coach: Signed Normal [facility] Surgery Visit Reporton 04-08 Surgery Visit Report [facility] [address] [place], [place] [address] OFFICE VISIT Date of Service: 04/08/24 MR#: [id number] Acct: [id number] Name: ILIANA REID Rep #: [id number] : 1950 Provider: RICA Peralta Age/Sex: 73/F Location: [facility] Status: Signed Intake Vital Signs 02/11/24 11:25 03/26/24 12:08 04/08/24 13:57 Height 5 ft 4 in 5 ft 4 in Weight: 130 lb BP 190/100 H Blood Pressure Location Rt brachial Respiration 16 Pulse 92 Pulse Source Monitor Temp 97.8 F Temp Source Temporal Pulse Oximetry (%) 98 Oxygen Delivery Method room air Intake Visit Reasons: Post Fistula Ligation 2-3 WK FU Chief Complaint: post op Is patient in pain?: Yes Allergies fentanyl Allergy (Severe, Verified 04/08/24 13:58) Other amlodipine (From Norvasc) Allergy (Verified 04/08/24 13:58) Other hydromorphone (From Dilaudid) Allergy (Verified 04/08/24 13:58) Other Medications ???Medication ???Instructions ???Recorded ???Confirmed ???Type acetaminophen 500 mg capsule 500 mg PO Q6H PRN pain 02/03/24 History alendronate 70 mg tablet 70 mg PO QWEEK 02/03/24 04/08/24 H istory ascorbic acid 125 mg-collagen, 1 cap PO DAILY 02/03/24 04/08/24 H istory hydrolyzed 740 mg capsule (Collagen Plus Vitamin C) aspirin 81 mg tablet,delayed 81 mg PO QDAY 02/03/24 04/08/24 Hi story release bupropion HCl 300 mg 24 hr tablet, 300 mg PO QAM 02/03/24 04/08/24 History extended release calcium 600 mg (as 1 tab PO BID 02/03/24 04/08/24 His tory carbonate)-vitamin D3 10 mcg (400 unit) tablet (Calcium 600 + D(3)) carvedilol 3.125 mg tablet 3.125 mg PO BID 02/03/24 04/08/24 History cholecalciferol (vitamin D3) 125 125 mcg PO QDAY 02/03/24 04/08/24 History mcg (5,000 unit) capsule cilostazol 50 mg tablet 100 mg PO BID 02/03/24 04/08/24 Hi story evolocumab 140 mg/mL subcutaneous 140 mg subcut Q2W 02/03/24 History syringe ezetimibe 10 mg tablet 10 mg PO QDAY 02/03/24 04/08/24 Hi story gabapentin 300 mg capsule 300 mg PO QHS PRN PRN restless 04/2704/08/24 History leg(s) isosorbide mononitrate 30 mg 30 mg PO QDAY 02/03/24 04/08/24 Hi story tablet,extended release 24 hr levetiracetam 500 mg tablet 500 mg PO BID 02/03/24 04/08/24 Hi story levothyroxine 75 mcg capsule 75 mcg PO QDAY 02/03/24 04/08/24 H istory lisinopril 5 mg tablet 5 mg PO QDAY 02/03/24 04/08/24 His tory magnesium oxide 400 mg PO TID 02/03/24 04/08/24 Hi story multivitamin (Daily Multi-Vitamin 1 tab PO QDAY 02/03/24 04/08/24 H istory tablet) omeprazole 20 mg capsule,delayed 20 mg PO QDAY 02/03/24 04/08/24 Hi story release ondansetron HCl 4 mg tablet 4 mg PO Q8H PRN PRN nausea and 04/2704/08/24 History vomiting rosuvastatin 40 mg tablet 40 mg PO QHS 02/03/24 04/08/24 His tory oxycodone 5 mg tablet 5 mg PO Q8H PRN pain 1 day #3 tabs 03/26/24 04/08/24 Rx Is last menstrual period known: No Post menopausal: Yes Patient : No Have you fallen in the past year?: No Subjective Details: Iliana Reid is a 73 y/o female who presents today for f/u s/p LUE AVF ligation 03/26/24 performed secondary to steal syndrome. The coloring in her L hand has improved significantly, it is now feeling warm again. She notices that she is regaining strength as well. However, the numbness into her fingers persists and still seems worse when she is on dialysis. She still also reports an intermittent sharp pain from her wrist up her forearm which is worse with dialysis. No pain at the incision site, but has some mild edema in this area. She is not excited about pursuing another dialysis access creation right now, would like to wait a while before considering. She is notably hypertensive in the office, she was initially 237/117 and it somewhat improved to 190/100 at the end of the appointment. She reports she has been even more hypertensive (up to 240 systolic) at dialysis and other appointments this week, but reports when she checks it at home she is systolic 130s. She does get anxious with dialysis and appointments. She denies any CP, AMADO, vision changes, SOB. Objective Details: A Ox3, NAD RRR Nonlabored respirations LUE incision site well-healed, there is mild surrounding edema which is soft to palpation. L hand/fingers are appropriately pink and warm, cap refill intact; ROM and strength intact; improved from last OV L radial pulse remains nonpalpable which is her baseline Coding Level of Care Code Global Post Op Diagnoses Steal syndrome as complication of dialysis access T82.898A S/P arteriovenous (AV) fistula creation Z98.890 COUNTS INCLUDE 234 BEDS AT THE [facility] Medical History Loss of (more content not included)... [facility] (TXCTGL) ILIANA REID ([id number]) 1950 F Date Time Provider Department 04/01/24 ZACHARY MONROE TXCTGL During your visit today, we recorded the following information about you: Allergies As of Date: 04/01/2024 Noted Allergy Reaction NORVASC (AMLODIPINE BESYLATE) 03/27/2016 5 - Intolerance Date Reviewed: 03/27/2016 Reviewed by: Lisa Babin ([facility]) - Fully Assessed Reason for Visit: Referral - Kidney Txp [[id number]] Advice Only [[id number]] Prescriptions as of 04/01/2024 - omeprazole (PRILOSEC) 20 mg capsule Take 20 mg by mouth once daily. - clopidogrel (PLAVIX) 75 mg tablet Take 75 mg by mouth once daily. - magnesium oxide 400 mg cap Take by mouth. - cyanocobalamin (VITAMIN B-12) 1,000 mcg tab Take 1,000 mcg by mouth once daily. - aspirin, enteric coated (ASPIRIN, ENTERIC COATED) 81 mg EC tablet Take 81 mg by mouth once daily. - atorvastatin (LIPITOR) 10 mg tablet Take 10 mg by mouth once daily. - Meclizine HCl 25 mg Chew Tab Take by mouth three times daily as needed. - carvedilol (COREG) 25 mg tablet Take 25 mg by mouth twice daily with meals. - allopurinol (ZYLOPRIM) 100 mg tablet Take by mouth once daily. - fenofibrate nanocrystallized (TRICOR) 145 mg tablet Take 145 mg by mouth once daily. - cilostazol (PLETAL) 100 mg tablet Take 100 mg by mouth twice daily. - lisinopril (ZESTRIL) 20 mg tablet Take 20 mg by mouth once daily. - cloNIDine HCl (CATAPRES) 0.2 mg tablet Take 0.2 mg by mouth twice daily. Problem List As Of Date: 04/01/2024 (None) Encounter Status:Closed by ZACHARY MONROE on 04/01/24 Normal [facility] Discharge Instructionon 03-05 Discharge Instruction [facility] Medical Records Department [address] [place] [address] Instructions for Home/Discharge Instructions 03/26/24 1451 MR#: [id number] Acct: [id number] Name: ROLYONEIDAILIANA Josef Rep #: [id number] : 1950 73 From: Ernie De Jesus MD PCP: Dr. Sujey Fonseca MD Status:REG [facility] Discharge Instructions Diet Discharge Diet: No restrictions Activity Lifting Restrictions: do not lift > 20 lbs with left arm for 3 weeks Additional Activity Instructions:: do not submerge incision for 3 weeks Dressing / Incision Call your doctor if your incision/area has: Sudden Increased Bleeding, Increased Pain/ Swelling, Increased Redness and Foul Smelling Discharge Call your doctor if you observe: Fever of 101 or Higher, Coldness, Increased Pain and Numbness or Tingling Remove Dressing in: 2 days Follow Up Care Test Results: Test results from this visit will be discussed in further detail at your follow-up appointment, if applicable. Discharge Plan Admission Attending Provider: Ernie De Jesus Primary Care Provider: Sujey Fonseca Instructions Print Language: Solomon Islander Discharge Orders/Prescriptions Prescriptions: New oxycodone 5 mg tablet 5 mg PO Q8H PRN (Reason: pain) 1 Days Qty: 3 0RF Continued acetaminophen 500 mg capsule 500 mg PO Q6H PRN (Reason: pain) evolocumab 140 mg/mL syringe 140 mg subcut Q2W lisinopril 5 mg tablet 5 mg PO QDAY multivitamin [Daily Multi-Vitamin] Tablet 1 tab PO QDAY levothyroxine 75 mcg capsule 75 mcg PO QDAY aspirin 81 mg tablet,delayed release (DR/EC) 81 mg PO QDAY alendronate 70 mg tablet 70 mg PO QWEEK magnesium oxide 400 mg magnesium tablet 400 mg PO TID levetiracetam 500 mg tablet 500 mg PO BID calcium carbonate-vitamin D3 [Calcium 600 + D(3)] 600 mg-10 mcg (400 unit) tablet 1 tab PO BID isosorbide mononitrate 30 mg tablet extended release 24 hr 30 mg PO QDAY rosuvastatin 40 mg tablet 40 mg PO QHS omeprazole 20 mg capsule,delayed release(DR/EC) 20 mg PO QDAY gabapentin 300 mg capsule 300 mg PO QHS PRN PRN (Reason: restless leg(s)) ondansetron HCl 4 mg tablet 4 mg PO Q8H PRN PRN (Reason: nausea and vomiting) cilostazol 50 mg tablet 100 mg PO BID carvedilol 3.125 mg tablet 3.125 mg PO BID Rx Instructions: must administer with a meal/food bupropion HCl 300 mg tablet extended release 24 hr 300 mg PO QAM ezetimibe 10 mg tablet 10 mg PO QDAY cholecalciferol (vitamin D3) 125 mcg (5,000 unit) capsule 125 mcg PO QDAY Collagen Plus Vitamin C 125-740 mg capsule 1 cap PO DAILY Discontinued Nitro-Bid 2 % ointment 1 inch transdermal BID Qty: 30 0RF Patient Comments: PT HAS NOT STARTED Rx Instructions: You may administer 2 doses/day (approx. 6 hrs apart); remove for 10-12 hrs per 24 hours. Apply only to the symptomatic area. oxycodone 5 mg tablet 5 mg PO Q8H PRN (Reason: pain) 1 Days Qty: 3 0RF Referrals / Follow Up: Sujey Fonseca MD [Primary Care Provider] - Disposition Disposition (needs filled in before D/C Order can be placed): Home, Self Care 03/26/24 1456 Ernie De Jesus MD CC: Dr. Sujey Fonseca MD Signed [facility] MR/POSTOP.ANEon 03-26-2024 MR/POSTOP.[facility] Medical Records Department [address] [place] [address] Anesthesia Postop Eval I 03/26/24 1408 MR#: [id number] Acct: [id number] Name: ILIANA REID Rep #: [id number] : 1950 73 From: Que Cali CRNA PCP: Dr. Sujey Fonseca MD Status:REG [facility] Y Race: C Location: [place] [address] Anesthesia: Postop Eval I Current Vital Signs Temperature: 97.7 F Pulse Rate: 80 Blood Pressure: 123/61 Respiratory Rate: 20 Pulse Ox: 95 Assessment Airway patent: Yes Spontaneous unlabored respirations: Yes nausea: No Vomiting: No Anesthesia Complication: No Fluid Hydration Crystalloid volume administer (ml): 100 Total IV fluid infused: 100 Progress Note Anesthesia document: Postop Eval 1 completed: Yes 03/26/24 140 Date Que Cali CRNA Cosigner Signature: Date CC: Signed [facility] MR/[id number] 03-26-2024 MR/POSTOPAN2 [facility] Medical Records Department [address] [place] [address] Anesthesia Postop Eval II 03/26/24 1620 MR#: [id number] Acct: [id number] Name: ILIANA REID Rep #: [id number] : 1950 73 From: Jim Lundberg MD PCP: Dr. Sujey Fonseca MD Status:DEP [facility] Y Race: C Location: [facility] Anesthesia Postop Eval I Sum Postop Eval Completion status Anesthesia document: Postop Eval 1 completed: Yes Anesthesia Postop Eval I Summary Anesthesia Postop Eval I Summary: Anesthesia Postop Eval I: Assessment Summary Airway patent Yes 03/26/24 14:08 [email or web address] Spontaneous unlabored Yes 03/26/24 14:08 [email or web address] [email or web address] respirations Mental status nausea No 03/26/24 14:08 [email or web address] Vomiting No 03/26/24 14:08 [email or web address] [email or web address] Anesthesia Postop Eval I: Fluid Summary Crystalloid volume administer 100 03/26/24 14:08 CHEF DE [email or web address] (ml) Colloids volume administered ( ml) Blood Product volume administered (ml) Total IV fluid infused 100 03/26/24 14:08 CHEF [email or web address] Anesthesia Postop Eval I: Summary Notes Anesthesia Complication No 03/26/24 14:08 [email or web address] Anesthesia Complication Comment: Post-operative progress note Anesthesia: Postop Eval II Evaluation Mental status: Awake and Calm Pain Level: 1 nausea: No Vomiting: No Progress Note Post-operative progress note: Of note: Patient returns to blood pressures of 200 over 90s. This is similar to her preop blood pressures. She states that this is how her blood pressure is usually prior to dialysis. She was supposed to get dialysis today, but missed it. Her next appointment is Saturday. We have encouraged her to call and perhaps do dialysis later this evening, so she does not go so long between dialysis. Complications Anesthesia Complication: No 03/26/24 1623 Date Jim Lundberg MD Cosigner Signature: Date CC: Signed Normal [facility] Operative Reporton 5 Operative Report [facility] Medical Records Department [address] [place] [address] Operative Report 03/26/24 1518 MR#: [id number] Acct: [id number] Name: ILIANA REID Rep #: [id number] : 1950 73 From: Ernie De Jesus MD PCP: Dr. 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: Yes Metallurgical Analyst: Elbert Rosario Tasks completed by procurement assistant: Opening, Closing, Opening closing, Hemostasis: Tie and Retracting Type of Anesthesia: Local MAC, Local and MAC RN Documented Start/Stop Times: Operation Date: 03/26/24 13:00 Case Time Into Pre-Op 03/26/24 11:34 Out of Pre-Op 03/26/24 13:02 Anesthesia Start 03/26/24 13:03 Into Room 03/26/24 13:03 Procedure Start 03/26/24 13:30 Procedure End 03/26/24 14:00 Anesthesia End 03/26/24 14:03 Out of Room 03/26/24 14:03 Into Recovery 03/26/24 14:05 Into Phase II Recovery 03/26/24 14:22 Out of Recovery 03/26/24 14:22 Procedure Start Time: 13:30 Procedure Stop Time: 14:00 Select all DRAINS/GRAFTS/IMPLANTS that apply: None Estimated Blood Loss: 2 Specimen collected: No Description of surgery: HPI: Patient is a 73-year-old female who previously underwent a left brachiobasilic stage I fistula creation. Within a couple of days of her procedure she began to have increasingly cool fingers of the left upper extremity and pain initially only during dialysis sessions through this progress to be continuous even while not on dialysis. She presents now for fistula ligation. Description of procedure: Upon obtaining form consent and verification correct patient procedure site patient was taken to the operating where she was positioned prepped and draped in usual sterile fashion. Timeouts performed and sedation ministered by anesthesia. Ultrasound used to jaden the basilic vein fistula superior to the previous incision. Doppler was then used to evaluate to the radial and ulnar arteries at the wrist; the radial artery had a very weak monophasic signal and the ulnar artery was not detectable. Skin was anesthetized 1% lidocaine over the basilic fistula in the distal upper arm and longitudinal incision created. Bovie cautery was used to dissect down through subcutaneous tissue and self-retaining retractors put in position. Further dissection was carried down until the vein was visualized at which point sharp dissection was dissect free proximal and distal with care taken identify and protect adjacent nerves. A right angle was used to circumferentially mobilized the vein and it was then ligated with a pair of 2-0 silk ties. Evaluation of the radial and ulnar arteries at the wrist showed marked improvement in the radial artery signal and there was now an ulnar signal present. The hand was pink with improved, normal capillary refill. The incision was then inspected for hemostasis and closed with 3-0 Vicryl followed by 4 Monocryl and Dermabond for the skin. The patient was then were taken the recovery room with plan discharged to home. Surgical Findings: Radial artery Doppler signal improved post ligation. Ulnar artery Doppler signal had not been present prior to ligation, now monophasic. Complications Complications: No 03/26/24 1526 Cosigner Signature (if applicable): CC: Dr. Sujey Fonseca MD; Dr. Ernie De Jesus MD Signed [facility] MR/PAT.CHRISTAon 03-25-2024 MR/PAT.[facility] Medical Records Department [address] [place] [address] PAT - Anesthesia 03/25/24 1208 MR#: [id number] Acct: [id number] Name: ILIANA REID Rep #: [id number] : 1950 73 From: Gabriele Euceda MD PCP: Dr. 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 When Was Last Pacemaker Check QUESTION #4 FULL TEXT: You/Your Family Experience fever (hyperthermia) with Anesthesia Last Oral Intake Last Oral intake: Last Oral Intake NPO since Meds taken in AM with sips of water? 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 instructor Female Yes 03/25/24 11:32 HX of Motion Sickness No 03/25/24 11:32 HX of N/V After Surgery No 03/25/24 11:32 Non-Smoker Yes 03/25/24 11:32 Duration of Surgery greater Yes 03/25/24 11:32 than 60 minutes Number of Risk Factors 3 03/25/24 11:32 PONV Score Moderate Risk 03/25/24 11:32 Height Weight Height Weight: Anesthesia: Height Weight Height 5 ft 4 in 03/24/24 14:47 Respiratory Assessment Respiratory Assessment - gardening instructor: Respiratory Tract Infection Hx - gardening instructor Hx Respiratory Tract Infection No 03/25/24 11:32 STOP Sleep Apnea STOP Sleep Apnea - gardening instructor: STOP Sleep Apnea - gardening instructor Hx Hypertension Yes: UP AND DOWN 03/25/24 11:32 Hx Sleep Apnea No 03/25/24 11:32 CPAP BIPAP Do you snore loudly (louder No 03/25/24 11:32 than talking or can be heard Do you often feel tired/ No 03/25/24 11:32 fatigued/ sleepy during daytime? Has anyone observed you stop No 03/25/24 11:32 breathing during sleep? STOP Results Negative 03/25/24 11:32 QUESTION #5 FULL TEXT : Do you snore loudly (louder than talking or can be heard through closed doors)? 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 Specify any problems Hx of Preganancy in last 3 No 03/25/24 11:32 Months Nurse Filling Out Transfusion DSCHRIBER 03/25/24 11:32 Questions: Date: 03/25/24 03/25/24 11:32 Time: 11:34 03/25/24 11:32 Patient unable to answer at this time (ie. confused, unrespo /Reproduction History /Reproductive History - gardening instructor: /Reproductive Hx- gardening instructor Hx Now Gestational Age (in weeks): EDC: Hx Hx Para Hx Section SAB No 03/25/24 11:32 PFSH Medical History (Updated 03/25/24 @ 11:41 by Marquita Wright) Loss of hearing Wears glasses Hx of sepsis MRSA infection Depression Anxiety Thyroid disease History of renal dialysis Hemodialysis catheter malfunction History of renal disease Anemia High cholesterol Easy bruising Restless legs Injury of head and neck Syncope Dietary restriction Gastric reflux Former smoker Leg cramps History of pain when walking PVD (peripheral vascular disease) History of edema Typhoid fever History of rheumatic fever History of echocardiogram History of stress test Cardiology follow-up encounter History of cardiac murmur Seizures HTN (hypertension) Home Medications ???Medication ???Instructions ???Recorded ???Last Taken ???Type acetaminophen 500 mg capsule 500 mg PO Q6H PRN pain 02/03/24 03/15/24 History alendronate 70 mg tab (more content not included)... Normal [facility] Surgery Visit Reporton 03-24 Surgery Visit Report [facility] [address] [place], [place] [address]. [address] [place] [address] OFFICE VISIT Date of Service: 03/24/24 MR#: [id number] Acct: [id number] Name: ILIANA REID Rep #: [id number] : 1950 Provider: RICA Peralta Age/Sex: 73/F Location: [facility] Status: Signed Intake Vital Signs 03/24/24 14:47 03/24/24 15:45 Height 5 ft 4 in BP 161/93 H Blood Pressure Location Rt brachial Position Sitting Respiration 16 Pulse 90 Pulse Source Monitor Temp 98.1 F Temp Source Temporal Pulse Oximetry (%) 97 Oxygen Delivery Method room air Intake Visit Reasons: Pain in arm where fistula is Is patient in pain?: Yes Allergies fentanyl Allergy (Severe, Verified 03/18/24 13:08) Other amlodipine (From Norvasc) Allergy (Verified 03/18/24 13:08) Other hydromorphone (From Dilaudid) Allergy (Verified 03/18/24 13:08) Other Medications ???Medication ???Instructions ???Recorded ???Confirmed ???Type acetaminophen 500 mg capsule 500 mg PO Q6H PRN pain 02/03/24 03/24/24 History alendronate 70 mg tablet 70 mg PO QWEEK 02/03/24 03/24/24 History ascorbic acid 125 mg-collagen, 1 cap PO DAILY 02/03/24 03/24/24 History hydrolyzed 740 mg capsule (Collagen Plus Vitamin C) aspirin 81 mg tablet,delayed 81 mg PO QDAY 02/03/24 03/24/24 History release bupropion HCl 300 mg 24 hr tablet, 300 mg PO QAM 02/03/24 03/24/24 History extended release calcium 600 mg (as 1 tab PO BID 02/03/24 03/24/24 History carbonate)-vitamin D3 10 mcg (400 unit) tablet (Calcium 600 + D(3)) carvedilol 3.125 mg tablet 3.125 mg PO BID 02/03/24 03/24/24 History cholecalciferol (vitamin D3) 125 125 mcg PO QDAY 02/03/24 03/24/24 History mcg (5,000 unit) capsule cilostazol 50 mg tablet 100 mg PO BID 02/03/24 03/24/24 History evolocumab 140 mg/mL subcutaneous 140 mg subcut Q2W 02/03/24 03/24/24 History syringe ezetimibe 10 mg tablet 10 mg PO QDAY 02/03/24 03/24/24 History gabapentin 300 mg capsule 300 mg PO QHS PRN PRN restless 02/03/24 03/24/24 History leg(s) isosorbide mononitrate 30 mg 30 mg PO QDAY 02/03/24 03/24/24 History tablet,extended release 24 hr levetiracetam 500 mg tablet 500 mg PO BID 02/03/24 03/24/24 History levothyroxine 75 mcg capsule 75 mcg PO QDAY 02/03/24 03/24/24 History lisinopril 5 mg tablet 5 mg PO QDAY 02/03/24 03/24/24 History magnesium oxide 400 mg PO TID 02/03/24 03/24/24 History multivitamin (Daily Multi-Vitamin 1 tab PO QDAY 02/03/24 03/24/24 History tablet) omeprazole 20 mg capsule,delayed 20 mg PO QDAY 02/03/24 03/24/24 History release ondansetron HCl 4 mg tablet 4 mg PO Q8H PRN PRN nausea and 02/03/24 03/24/24 History vomiting rosuvastatin 40 mg tablet 40 mg PO QHS 02/03/24 03/24/24 History oxycodone 5 mg tablet 5 mg PO Q8H PRN pain 1 day #3 tabs 03/16/24 03/24/24 Rx nitroglycerin 2 % transdermal 1 inch transdermal BID #30 grams 03/18/24 03/24/24 Rx ointment (Nitro-Bid) Is last menstrual period known: No Post menopausal: Yes Patient : No Have you fallen in the past year?: No Subjective Details: Iliana Reid is a 73 y/o female who returns today for re-evaluation s/p L stage I basilic fistula creation on 03/16/24 with progressively worsening L forearm/hand pain, particularly worse with dialysis today to the point of barely being able to tolerate to completion and she does not think she could tolerate again. She reports increasing numbness and now noticing some weakness in her L hand as well. She does not have any wounds or areas of skin breakdown/necrosis. Objective Details: Left fingers are noticeable cool compared to R hand, more cyanotic discoloration, sluggish cap refill; reporting numbness, some weakness in box toe stitcher strength compared to the R hand. No wounds, skin integrity intact throughout. L radial pulse able to be auscultated, but nonpalpable (stable from prior). Coding Level of Care Code Global Post Op Diagnoses Steal syndrome as complication of dialysis access T82.898A S/P arteriovenous (AV) fistula creation Z98.890 COUNTS INCLUDE 234 BEDS AT THE [facility] Medical History Loss of hearing Wears glasses Hx of sepsis MRSA infection Depression Anxiety Thyroid disease History of renal dialysis Hemodialysis catheter malfunction History of renal disease Anemia High cholesterol Easy bruising Restless legs Injury of head and neck Syncope Dietary restriction Gastric reflux Former smoker Leg cramps History of pain when walking PVD (peripheral vascular disease) History of edema Typhoid fever History of rheumatic fever History of echocardiogram History of stress test Cardiology follow-up encounter History of cardiac murmur Seizures HTN (hypertension) Surgical (more content not included)... [facility] (TXCTGL) ILIANA REID ([id number]) 1950 F Date Time Provider Department 03/18/24 MARI ADRIAN TXCTGL During your visit today, we recorded the following information about you: Mari Adrian 03/18/2024 9:23 AM Signed First call regarding kidney transplant evaluation. Patient is unable to speak at this time, pt will call to start kidney intake process. Allergies As of Date: 03/18/2024 (Not on File) Date Reviewed: Never Reviewed Reason for Visit: Referral - Kidney Txp [[id number]] Problem List As Of Date: 03/18/2024 (None) Encounter Status:Closed by MARI ADRIAN on 03/18/24 Normal [facility] Surgery Visit Reporton 03-18 Surgery Visit Report [facility] [address] [place] [address] OFFICE VISIT Date of Service: 03/18/24 MR#: [id number] Acct: [id number] Name: ILIANA REID Rep #: [id number] : 1950 Provider: RICA Peralta Age/Sex: 73/F Location: [facility] Status: Signed Intake Vital Signs 03/16/24 06:31 03/18/24 09:31 Height 5 ft 4 in 5 ft 4 in Weight: 130 lb BMI 22.3 BP 188/88 H Blood Pressure Location Rt brachial Position Sitting Respiration 16 Pulse 71 Pulse Source Monitor Temp 97.8 F Temp Source Temporal Pulse Oximetry (%) 98 Oxygen Delivery Method room air Intake Visit Reasons: FU fistula having pain Is patient in pain?: Yes Allergies fentanyl Allergy (Severe, Verified 03/18/24 13:08) Other amlodipine (From Norvasc) Allergy (Verified 03/18/24 13:08) Other hydromorphone (From Dilaudid) Allergy (Verified 03/18/24 13:08) Other Medications ???Medication ???Instructions ???Recorded ???Confirmed ???Type acetaminophen 500 mg capsule 500 mg PO Q6H PRN pain 02/03/24 03/18/24 History alendronate 70 mg tablet 70 mg PO QWEEK 02/03/24 03/18/24 History ascorbic acid 125 mg-collagen, 1 cap PO DAILY 02/03/24 03/18/24 History hydrolyzed 740 mg capsule (Collagen Plus Vitamin C) aspirin 81 mg tablet,delayed 81 mg PO QDAY 02/03/24 03/18/24 History release bupropion HCl 300 mg 24 hr tablet, 300 mg PO QAM 02/03/24 03/18/24 History extended release calcium 600 mg (as 1 tab PO BID 02/03/24 03/18/24 History carbonate)-vitamin D3 10 mcg (400 unit) tablet (Calcium 600 + D(3)) carvedilol 3.125 mg tablet 3.125 mg PO BID 02/03/24 03/18/24 History cholecalciferol (vitamin D3) 125 125 mcg PO QDAY 02/03/24 03/18/24 History mcg (5,000 unit) capsule cilostazol 50 mg tablet 100 mg PO BID 02/03/24 03/18/24 History evolocumab 140 mg/mL subcutaneous 140 mg subcut Q2W 02/03/24 03/18/24 History syringe ezetimibe 10 mg tablet 10 mg PO QDAY 02/03/24 03/18/24 History gabapentin 300 mg capsule 300 mg PO QHS PRN PRN restless 02/03/24 03/18/24 History leg(s) isosorbide mononitrate 30 mg 30 mg PO QDAY 02/03/24 03/18/24 History tablet,extended release 24 hr levetiracetam 500 mg tablet 500 mg PO BID 02/03/24 03/18/24 History levothyroxine 75 mcg capsule 75 mcg PO QDAY 02/03/24 03/18/24 History lisinopril 5 mg tablet 5 mg PO QDAY 02/03/24 03/18/24 History magnesium oxide 400 mg PO TID 02/03/24 03/18/24 History multivitamin (Daily Multi-Vitamin 1 tab PO QDAY 02/03/24 03/18/24 History tablet) omeprazole 20 mg capsule,delayed 20 mg PO QDAY 02/03/24 03/18/24 History release ondansetron HCl 4 mg tablet 4 mg PO Q8H PRN PRN nausea and 02/03/24 03/18/24 History vomiting rosuvastatin 40 mg tablet 40 mg PO QHS 02/03/24 03/18/24 History oxycodone 5 mg tablet 5 mg PO Q8H PRN pain 1 day #3 tabs 03/16/24 03/18/24 Rx nitroglycerin 2 % transdermal 1 inch transdermal BID #30 grams 03/18/24 03/18/24 Rx ointment (Nitro-Bid) Is last menstrual period known: No Post menopausal: Yes Patient : No Have you fallen in the past year?: No Subjective Details: Iliana Reid is a 73 y/o female who presents to the office today for evaluation after calling in to the office this morning with complaints of LUE pain/numbness/weakness after her recent L stage I basilic fistula creation on 03/16/24. She reports that the first night after fistula creation she had a very sharp, shooting pain down her arm like lightning. By the morning this type of pain had resolved but then she had an aching/burning pain through her forearm and into her fingers along with numbness in her L hand which remains today as well. During her dialysis session yesterday, she developed LUE cramping and reportedly inability to move her L hand during dialysis. These symptoms readily improved when she finished her dialysis session. Her L hand does not feel particularly cool. She is able to move and use her hand, though she cannot make a strong fist. She does not have any discoloration of her fingers or hand. She also noticed some pink/purple discoloration around the incision site which worries her. She has R IJ catheter which she is using for dialysis without issue. Objective Details: A Ox3, in no apparent distress RRR Nonlabored respirations, able to speak in complete sentences LUE incision site is well-approximated with skin glue intact, no dehiscence/drainage; there is surrounding ecchymosis and mild edema which is soft to palpation There is a palpable thrill and audible bruit L radial pulse is nonpalpable, but able to doppler strong radial and ulnar signal; radial doppler signal does get louder with fistula compression but the quality of the signal does not change L capillary refill slightly s (more content not included)... Normal [facility] Discharge Instructionon 03-04 Discharge Instruction [facility] Medical Records Department [address] [place] [address] Instructions for Home/Discharge Instructions 03/16/24 0944 MR#: [id number] Acct: [id number] Name: ILIANA REID Rep #: [id number] : 1950 73 From: Ernie De Jesus MD PCP: Dr. Sujey Fonseca MD Status:REG [facility] Discharge Instructions Diet Discharge Diet: No restrictions Activity Lifting Restrictions: do not lift > 20 lbs with left arm for 14 days Additional Activity Instructions:: do not submerge incision for 14 days Dressing / Incision Call your doctor if your incision/area has: Sudden Increased Bleeding, Increased Pain/ Swelling, Increased Redness and Foul Smelling Discharge Call your doctor if you observe: Fever of 101 or Higher, Coldness, Increased Pain and Numbness or Tingling Remove Dressing in: 2 days Cleanse incision/area with: Soap Water Follow Up Care Test Results: Test results from this visit will be discussed in further detail at your follow-up appointment, if applicable. Discharge Plan Admission Attending Provider: Ernie De Jesus Primary Care Provider: Sujey Fonseca Instructions Print Language: Solomon Islander Discharge Orders/Prescriptions Prescriptions: New oxycodone 5 mg tablet 5 mg PO Q8H PRN (Reason: pain) 1 Days Qty: 3 0RF Continued acetaminophen 500 mg capsule 500 mg PO Q6H PRN (Reason: pain) evolocumab 140 mg/mL syringe 140 mg subcut Q2W lisinopril 5 mg tablet 5 mg PO QDAY multivitamin [Daily Multi-Vitamin] Tablet 1 tab PO QDAY levothyroxine 75 mcg capsule 75 mcg PO QDAY aspirin 81 mg tablet,delayed release (DR/EC) 81 mg PO QDAY alendronate 70 mg tablet 70 mg PO QWEEK magnesium oxide 400 mg magnesium tablet 400 mg PO TID levetiracetam 500 mg tablet 500 mg PO BID calcium carbonate-vitamin D3 [Calcium 600 + D(3)] 600 mg-10 mcg (400 unit) tablet 1 tab PO BID isosorbide mononitrate 30 mg tablet extended release 24 hr 30 mg PO QDAY rosuvastatin 40 mg tablet 40 mg PO QHS omeprazole 20 mg capsule,delayed release(DR/EC) 20 mg PO QDAY gabapentin 300 mg capsule 300 mg PO QHS PRN PRN (Reason: restless leg(s)) ondansetron HCl 4 mg tablet 4 mg PO Q8H PRN PRN (Reason: nausea and vomiting) cilostazol 50 mg tablet 100 mg PO BID carvedilol 3.125 mg tablet 3.125 mg PO BID Rx Instructions: must administer with a meal/food bupropion HCl 300 mg tablet extended release 24 hr 300 mg PO QAM ezetimibe 10 mg tablet 10 mg PO QDAY cholecalciferol (vitamin D3) 125 mcg (5,000 unit) capsule 125 mcg PO QDAY Collagen Plus Vitamin C 125-740 mg capsule 1 cap PO DAILY Referrals / Follow Up: Sujey Fonseca MD [Primary Care Provider] - Disposition Disposition (needs filled in before D/C Order can be placed): Home, Self Care 03/16/24 9079 Ernie De Jesus MD CC: Dr. Sujey Fonseca MD Signed [facility] MR/POSTOP.CHRISTAcristian 03-16-2024 MR/POSTOP.[facility] Medical Records Department [address] [place] [address] Anesthesia Postop Eval I 03/16/24 1038 MR#: [id number] Acct: [id number] Name: ILIANA REID Rep #: [id number] : 1950 73 From: Marcell Francis CRNA PCP: Dr. Sujey Fonseca MD Status:REG [facility] Y Race: C Location: [place] [address] Anesthesia: Postop Eval I Current Vital Signs Temperature: 97 F Pulse Rate: 87 Blood Pressure: 117/71 Respiratory Rate: 18 Pulse Ox: 98 Oxygen Delivery Method: Room Air Assessment Airway patent: Yes Spontaneous unlabored respirations: Yes Mental status: Awake and Calm nausea: No Vomiting: No Anesthesia Complication: No Fluid Hydration Crystalloid volume administer (ml): 400 Total IV fluid infused: 400 Progress Note Anesthesia document: Postop Eval 1 completed: Yes 03/16/24 1039 Date Marcell Francis CRNA Cosigner Signature: Date CC: Signed [facility] MR/POSTOP.[facility] Medical Records Department [address] [place] [address] Anesthesia Postop Eval I 03/16/24 1020 MR#: [id number] Acct: [id number] Name: ILIANA REID Rep #: [id number] : 1950 73 From: Willian Medina MD PCP: Dr. Sujey Fonseca MD Status:REG [facility] Y Race: C Location: [place] [address] Anesthesia: Postop Eval I Current Vital Signs Temperature: 97 F Pulse Rate: 82 Blood Pressure: 159/84 Respiratory Rate: 18 Pulse Ox: 100 Oxygen Delivery Method: Room Air Assessment Airway patent: Yes Spontaneous unlabored respirations: Yes Mental status: Awake nausea: No Vomiting: Yes Anesthesia Complication: No Fluid Hydration Crystalloid volume administer (ml): 20 Total IV fluid infused: 20 Progress Note Anesthesia document: Postop Eval 1 completed: Yes 03/16/24 1029 Date Willian Medina MD Cosigner Signature: Date CC: Signed Normal [facility] MR/[id number] 03-16-2024 MR/POSTOPAN2 [facility] Medical Records Department [address] [place] [address] Anesthesia Postop Eval II 03/16/24 1029 MR#: [id number] Acct: [id number] Name: ILIANA REID Rep #: [id number] : 1950 73 From: Willian Medina MD PCP: Dr. Sujey Fonseca MD Status:REG [facility] Y Race: C Location: [place] [address] Anesthesia Postop Eval I Sum Postop Eval Completion status Anesthesia document: Postop Eval 1 completed: Yes Anesthesia Postop Eval I Summary Anesthesia Postop Eval I Summary: Anesthesia Postop Eval I: Assessment Summary Airway patent Yes 03/16/24 10:29 Spontaneous unlabored Yes 03/16/24 10:29 respirations Mental status Awake 03/16/24 10:29 nausea No 03/16/24 10:29 Vomiting Yes 03/16/24 10:29 Anesthesia Postop Eval I: Fluid Summary Crystalloid volume administer 20 03/16/24 10:29 (ml) Colloids volume administered ( ml) Blood Product volume administered (ml) Total IV fluid infused 03/16/24 10:29 Anesthesia Postop Eval I: Summary Notes Anesthesia Complication No 03/16/24 10:29 Anesthesia Complication Comment: Post-operative progress note Anesthesia: Postop Eval II Evaluation Mental status: Awake Pain Level: 0 nausea: No Vomiting: No 03/16/24 1029 Date Willian Constantino Signature: Date CC: Signed Normal [facility] Operative Reporton 5 Operative Report [facility] Medical Records Department [address] [place] [address] Operative Report 03/16/24 1754 MR#: [id number] Acct: [id number] Name: ILIANA REID Rep #: [id number] : 1950 73 From: Ernie De Jesus MD PCP: Dr. 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 Metallurgical Analyst: Mc Sen Tasks completed by procurement assistant: Opening, Closing, Opening closing, Altering tissue, Hemostasis: Tie, Hemostasis: Electrocautery and Retracting Type of Anesthesia: Local MAC, Local and MAC RN Documented Start/Stop Times: Operation Date: 03/16/24 07:30 Case Time Into Pre-Op 03/16/24 06:05 Out of Pre-Op 03/16/24 07:42 Anesthesia Start 03/16/24 07:46 Into Room 03/16/24 07:46 Procedure Start 03/16/24 08:14 Procedure End 03/16/24 09:40 Anesthesia End 03/16/24 09:46 Out of Room 03/16/24 09:46 Into Recovery 03/16/24 09:53 Into Phase II Recovery 03/16/24 10:24 Out of Recovery 03/16/24 10:24 Out of Phase II 03/16/24 12:22 Procedure Start Time: 08:15 Procedure Stop Time: 09:45 Select all DRAINS/GRAFTS/IMPLANTS that apply: None Estimated Blood Loss: 6 Specimen collected: No Description of surgery: HPI: Patient is a 73-year-old female with end-stage renal disease currently on dialysis. She had vein mapping which revealed adequate left upper arm basilic vein. She presents now for stage I fistula creation. Description of procedure: Upon obtaining form consent and verification correct patient procedure site the patient was taken to the operating where she was positioned prepped and draped in usual sterile fashion. Timeout was performed and moderate sedation administered by anesthesia. Ultrasound used to evaluate the basilic vein and its proximity to the brachial artery. There was no median cubital branch of adequate size for fistula creation in the basilic vein diverged from the brachial artery as it approaches the antecubital crease. It was felt that an oblique incision originating over the brachial artery more proximally in the basilic vein at the antecubital crease would give us adequate exposure to obtain basilic vein distal enough to reach the brachial artery. Skin overlying was anesthetized with 1% lidocaine with half percent Marcaine and an oblique incision made with a 15 blade. Bovie electrocautery was dissect down through subcutaneous tissue and self- retaining retractors put in position. Sharp dissection used to dissect down until the basilic vein was identified. This was then dissected free with sidebranches ligated with silk ties and divided. Once the vein was mobilized distal enough and the incision to obtain adequate length we then turned our attention to the brachial artery. Both electrocautery was dissect down to the level the fascia and self-retaining retractors were repositioned. Once the brachial artery was visualized sharp dissection used to dissect free proximal and distal with care taken to identify and protect adjacent nerve and vein structures. Writing was used to place vessel proximal and distal and the patient was in heparinized allowed to circulate for 3 minutes. The basilic vein was then ligated distally in the field and divided. It was marked to maintain orientation and the brachial artery was then occluded with Vesseloops. A longitudinal arteriotomy was created with 11 blade and extended with Wall scissors. The vein was then beveled to match the arteriotomy and anastomosis performed with a 6-0 Prolene in a running fashion. Prior to completing suture line vessels were backbled and the lumen flushed with heparinized saline. After completing the suture line clamps removed and satisfactory stasis was noted. There is a palpable thrill in the fistula to the mid upper arm and low resistant Doppler signal. The radial artery was not palpable prior to the case and when assessed with Doppler it did not significantly augment with compression of the fistula. Heparin was then reversed with protamine and incision inspected for hemostasis. The incision was then closed with 3-0 Vicryl followed by 4 Monocryl and Dermabond for the skin. The patient was then taken the recovery room with plan discharged to home Surgical Findings: See above Complications Complications: No 03/16/24 1801 Cosigner Signature (if applicable): CC: Dr. Sujey Fonseca MD; Dr. Ernie De Jseus MD Signed [facility] MR/PAT.ANEon 03-10-2024 MR/PAT.[facility] Medical Records Department [address] [place] [address] PAT - Anesthesia 03/10/241934 MR#: [id number] Acct: [id number] Name: ILIANA REID Rep #: [id number] : 1950 73 From: Jim Lundberg MD PCP: Dr. 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 When Was Last Pacemaker Check QUESTION #4 FULL TEXT: You/Your Family Experience fever (hyperthermia) with Anesthesia Last Oral Intake Last Oral intake: Last Oral Intake NPO since Meds taken in AM with sips of water? 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 instructor Female Yes 03/09/24 13:55 HX of Motion Sickness No 03/09/24 13:55 HX of N/V After Surgery No 03/09/24 13:55 Non-Smoker Yes 03/09/24 13:55 Duration of Surgery greater Yes 03/09/24 13:55 than 60 minutes Number of Risk Factors 3 03/09/24 13:55 PONV Score Moderate Risk 03/09/24 13:55 Height Weight Height Weight: Anesthesia: Height Weight Height 5 ft 4 in 02/11/24 11:25 Respiratory Assessment Respiratory Assessment - gardening instructor: Respiratory Tract Infection Hx - gardening instructor Hx Respiratory Tract Infection No 03/09/24 13:55 STOP Sleep Apnea STOP Sleep Apnea - gardening instructor: STOP Sleep Apnea - gardening instructor Hx Hypertension Yes: BP NOT ALWAYS WELL 03/09/24 13:55 CONTROLLED WITH MED Hx Sleep Apnea No 03/09/24 13:55 CPAP BIPAP Do you snore loudly (louder No 03/09/24 13:55 than talking or can be heard Do you often feel tired/ No 03/09/24 13:55 fatigued/ sleepy during daytime? Has anyone observed you stop No 03/09/24 13:55 breathing during sleep? STOP Results Negative 03/09/24 13:55 QUESTION #5 FULL TEXT : Do you snore loudly (louder than talking or can be heard through closed doors)? 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 Specify any problems Hx of Preganancy in last 3 No 03/09/24 13:55 Months Nurse Filling Out Transfusion DSCHRIBER 03/09/24 13:55 Questions: Date: 03/09/24 03/09/24 13:55 Time: 13:59 03/09/24 13:55 Patient unable to answer at this time (ie. confused, unrespo /Reproduction History /Reproductive History - gardening instructor: /Reproductive Hx- gardening instructor Hx Now No 03/09/24 13:55 Gestational Age (in weeks): EDC: Hx Hx Para Hx Section SAB No 03/09/24 13:55 COUNTS INCLUDE 234 BEDS AT [facility] Medical History (Updated 03/09/24 @ 14:19 by Marquita Wright) Loss of hearing Wears glasses Hx of sepsis MRSA infection Depression Anxiety Thyroid disease History of renal dialysis Hemodialysis catheter malfunction History of renal disease Anemia High cholesterol Easy bruising Restless legs Injury of head and neck Syncope Dietary restriction Gastric reflux Former smoker Leg cramps History of pain when walking PVD (peripheral vascular disease) History of edema Typhoid fever History of rheumatic fever History of echocardiogram History of stress test Cardiology follow-up encounter History of cardiac murmur Seizures HTN (hypertension) Home Medications ???Medication ???Instructions ???Recorded ???Last Taken ???Type acetaminophen 500 mg capsule 500 mg PO Q6H PRN pain 02/03/24 Unknown History alendrona (more content not included)... Normal [facility] Basic Metabolic Profile (BMP )on 03-09-2024 BUN/CRE 11.5 RATIO Normal 10-20 [facility] Comment on above: Performed By: #### L 100.0500, BTSPAT, L500.2500 ####[facility] [id number] [place], [address] CA,Total 9.9 mg/dL Normal 8.5-10.1 [facility] Comment on above: Performed By: #### L 100.0500, BTSPAT, L500.2500 ####[facility] [id number] [facility] [place], [address] Chloride [Moles/Vol] 110 mmol/L High 98-107 [facility] Comment on above: Performed By: #### L 100.0500, BTSPAT, L500.2500 ####[facility] [address] [place], [address] CO2 [Moles/Vol] 25.0 mmol/L Normal 21.0-32.0 [facility] Comment on above: Performed By: #### L 100.0500, BTSPAT, L500.2500 ####[facility] [address] [place], [address] Creatinine [Mass/Vol] 5.11 mg/dL High 0.55-1.02 [facility] Comment on above: Result Comment: The validity of the calculated GFR GFRAA in patients over 70 years has not been determined. Clinical correlation is essential. Performed By: #### L 100.0500, BTSPAT, L500.2500 ####[facility] [address] [place], [address] EST GFR - AA 11 mL/min Low >60 [facility] Comment on above: Result Comment: Afri can Mauritian GFR Calc Performed By: #### L 100.0500, BTSPAT, L500.2500 ####[facility] [address] [place], [address] GAP 7 Normal 5-15 [facility] Comment on above: Performed By: #### L 100.0500, BTSPAT, L500.2500 ####[facility] [address] [place], [address] GFR/1.73 sq M.predicted among non-blacks MDRD (S/P/Bld) [Vol rate/Area] 9 mL/min/{1.73_m2} Low >60 [facility] Comment on above: Result Comment: Non- GFR Calc Performed By: #### L 100.0500, BTSPAT, L500.2500 ####[facility] [address] [place], [address] Glucose [Mass/Vol] 75 mg/dL Normal 74-106 [facility] Comment on above: Performed By: #### L 100.0500, BTSPAT, L500.2500 ####[facility] [address] [place], [address] Potassium [Moles/Vol] 4.7 mmol/L Normal 3.5-5.1 [facility] Comment on above: Performed By: #### L 100.0500, BTSPAT, L500.2500 ####[facility] [address] [place], [address] Sodium [Moles/Vol] 142 mmol/L Normal 136-145 [facility] Comment on above: Performed By: #### L 100.0500, BTSPAT, L500.2500 ####[facility] [address] [place], [address] Urea nitrogen [Mass/Vol] 59 mg/dL High 7-18 [facility] Comment on above: Performed By: #### L 100.0500, BTSPAT, L500.2500 ####[facility] [address] [place], [address] Blood urea nitrogen (BUN)/cr eatinine ratioOrdered By: Ernie De Jesus on 03-09-2024 Urea nitrogen/Creatinine [Mass ratio] 11.5 mg/mg 10-20 [facility] CBC-Complete Blood Cnt No Di ffon 03-09-2024 Erythrocyte distribution width (RBC) [Ratio] 14.1 % Normal 11.6-14.6 [facility] Comment on above: Performed By: #### L 100.0500, BTSPAT, L500.2500 ####[facility] [address] [place], [address] Hematocrit (Bld) [Volume fraction] 36.1 % Low 37-47 [facility] Comment on above: Performed By: #### L 100.0500, BTSPAT, L500.2500 ####[facility] [address] [place], [address] Hemoglobin (Bld) [Mass/Vol] 11.2 g/dL Low 12.0-15.0 [facility] Comment on above: Performed By: #### L 100.0500, BTSPAT, L500.2500 ####[facility] [address] [place], [address] MCH (RBC) [Entitic mass] 30.9 pg Normal 27.0-32.0 [facility] Comment on above: Performed By: #### L 100.0500, BTSPAT, L500.2500 ####[facility] [address] [place], [address] MCHC (RBC) [Mass/Vol] 31.0 g/dL Low 32-36 [facility] Comment on above: Performed By: #### L 100.0500, BTSPAT, L500.2500 ####[facility] [address] [place], [address] MCV (RBC) [Entitic vol] 99.7 fL High 81-99 [facility] Comment on above: Performed By: #### L 100.0500, BTSPAT, L500.2500 ####[facility] [address] [place], [address] Platelet mean volume (Bld) [Entitic vol] 10.9 fL Normal 6.2-12.0 [facility] Comment on above: Performed By: #### L 100.0500, BTSPAT, L500.2500 ####[facility] [address] [place], [address] Platelets (Bld) [#/Vol] 130 10*3/uL Low 150-450 [facility] Comment on above: Performed By: #### L 100.0500, BTSPAT, L500.2500 ####[facility] [address] [place], [address] RBC (Bld) [#/Vol] 3.62 10*6/uL Low 4.2-5.4 [facility] Comment on above: Performed By: #### L 100.0500, BTSPAT, L500.2500 ####[facility] [address] [place], [address] RDW SD 51.6 fl High 35.1-43.9 [facility] Comment on above: Performed By: #### L 100.0500, BTSPAT, L500.2500 ####[facility] [address] [place], [address] WBC (Bld) [#/Vol] 6.9 10*3/uL Normal 4.4-11.0 [facility] Comment on above: Performed By: #### L 100.0500, BTSPAT, L500.2500 ####[facility] [address] [place], [address] Carbon dioxide measurementOr dered By: Ernie De Jesus on 03-09-2024 CO2 [Moles/Vol] 25.0 mmol/L 21.0-32.0 [facility] Chloride measurementOrdered By: Ernie De Jesus on 03-09-2024 Chloride [Moles/Vol] 110 mmol/L High 98-107 [facility] Erythrocyte distribution wid th ratioOrdered By: Ernie De Jesus on 03-09-2024 Erythrocyte distribution width (RBC) [Ratio] 14.1 % 11.6-14.6 [facility] Erythrocyte distribution wid th standard deviationOrdered By: Ernie De Jesus on 03-09-2024 Erythrocyte distribution width (RBC) [Entitic vol] 51.6 fL High 35.1-43.9 [facility] Estimated glomerular filtrat ion rate (GFR) AmericanOrdered By: Ernie De Jesus on 03-09-2024 Estimated GFR (MDRD) Amer 11 mL/min Low >60 [facility] Comment on above: GFR Calc Glomerular filtration rate ( GFR) estimationOrdered By: Ernie De Jesus on 03-09-2024 Estimated GFR (MDRD) Non-Af Amer 9 mL/min Low >60 [facility] Comment on above: Non- GFR Calc Glucose measurementOrdered B y: Ernie De Jesus on 03-09-2024 Glucose [Mass/Vol] 75 mg/dL 74-106 [facility] Hematocrit Auto (Bld) [Volum e fraction]Ordered By: Ernie De Jesus on 03-09-2024 Hematocrit (Bld) [Volume fraction] 36.1 % Low 37-47 [facility] Hemoglobin measurementOrdere d By: Erniepeace De Jesus on 03-09-2024 Hemoglobin (Bld) [Mass/Vol] 11.2 g/dL Low 12.0-15.0 [facility] MCV (mean corpuscular volume ) determinationOrdered By: Ernie De Jesus on 03-09-2024 MCV (RBC) [Entitic vol] 99.7 fL High 81-99 [facility] MR/BMS.BVSon 03-09-2024 MR/BMS.BVS [facility] [address] [place] [address] OFFICE VISIT Date of Service: 03/09/24 MR#: [id number] Acct: [id number] Name: ILIANA REID Rep #: [id number] : 1950 Provider: Dr. Ernie De Jesus MD Age/Sex: 73/F Location: [facility] Status: Signed Intake Vital Signs 02/11/24 11:25 03/09/24 12:57 Height 5 ft 4 in Weight: 132 lb BP 188/100 H Blood Pressure Location Rt brachial Position Sitting Respiration 16 Pulse 82 Pulse Source Monitor Temp 97.7 F L Temp Source Temporal Pulse Oximetry (%) 95 Oxygen Delivery Method room air Intake Visit Reasons: Discuss procedure prior to surgery Is patient in pain?: No Allergies fentanyl Allergy (Severe, Verified 03/09/24 13:02) Other amlodipine (From Norvasc) Allergy (Verified 03/09/24 13:02) Other hydromorphone (From Dilaudid) Allergy (Verified 03/09/24 13:02) Other Medications ???Medication ???Instructions ???Recorded ???Confirmed ???Type acetaminophen 500 mg capsule 500 mg PO Q6H PRN 02/03/24 03/09/24 History alendronate 70 mg tablet 70 mg PO QWEEK 02/03/24 03/09/24 History ascorbic acid 125 mg-collagen, cap PO 02/03/24 03/09/24 History hydrolyzed 740 mg capsule (Collagen Plus Vitamin C) aspirin 81 mg tablet,delayed 81 mg PO QDAY 02/03/24 03/09/24 History release bupropion HCl 300 mg 24 hr tablet, 300 mg PO QAM 02/03/24 03/09/24 History extended release calcium 600 mg (as 1 tab PO BID 02/03/24 03/09/24 History carbonate)-vitamin D3 10 mcg (400 unit) tablet (Calcium 600 + D(3)) carvedilol 3.125 mg tablet 3.125 mg PO BID 02/03/24 03/09/24 History cholecalciferol (vitamin D3) 125 125 mcg PO QDAY 02/03/24 03/09/24 History mcg (5,000 unit) capsule cilostazol 50 mg tablet 100 mg PO BID 02/03/24 03/09/24 History evolocumab 140 mg/mL subcutaneous 140 mg subcut Q2W 02/03/24 03/09/24 History syringe ezetimibe 10 mg tablet 10 mg PO QDAY 02/03/24 03/09/24 History gabapentin 300 mg capsule 300 mg PO QHS 02/03/24 03/09/24 History isosorbide mononitrate 30 mg 30 mg PO QDAY 02/03/24 03/09/24 History tablet,extended release 24 hr levetiracetam 500 mg tablet 500 mg PO BID 02/03/24 03/09/24 History levothyroxine 75 mcg capsule 75 mcg PO QDAY 02/03/24 03/09/24 History lisinopril 5 mg tablet 5 mg PO QDAY 02/03/24 03/09/24 History magnesium oxide 400 mg PO TID 02/03/24 03/09/24 History multivitamin (Daily Multi-Vitamin 1 tab PO QDAY 02/03/24 03/09/24 History tablet) omeprazole 20 mg capsule,delayed 20 mg PO QDAY 02/03/24 03/09/24 History release ondansetron HCl 4 mg tablet 4 mg PO Q8H 02/03/24 03/09/24 History rosuvastatin 40 mg tablet 40 mg PO QDAY 02/03/24 03/09/24 History Is last menstrual period known: No Post menopausal: Yes Patient : No Have you fallen in the past year?: No PFSH Medical History HTN (hypertension) Family History Other CVA (cerebral vascular accident) Diabetes Heart disease Hypertension Thyroid disorder Social History Smoking Status: Former smoker Tobacco: How many years used: 20 how long ago did patient quit smokin yrs ago HPI HPI HPI: ILIANA REID, is a 73 F who presents to the office today for further discussion of dialysis access. She had completed upper extremity mapping. Currently using right IJ catheter without issues. ROS General General: Yes weight change, appetite and weakness; No fatigue, colon cancer or breast cancer HEENT HEENT: No difficulty swallowing, eye injury, eye surgery, swollen glands or hoarseness Endo Endocrine: Yes thyroid disease; No diabetes mellitus, thyroid cancer, Hair loss, heat intolerance or cold intolerance Skin Skin: No rash or changing moles Musc Musculoskeletal: No back problems, arthritis, rheumatoid arthritis, gout or joint pain Cardio Cardiovascular: Yes murmur, heart disease, high blood pressure, heart attack and heart stent; No pacemaker, atrial fibrillation, palpitations, shortness of breat with exertion or chest pain Psych Psychiatric: Yes anxiety; No depression or hearing voices Resp Respiratory: No shortness of breath, Yes sleep apnea, No cough, No COPD, No asthma, No emphysema and No wheezing Gastro Gastrointestinal: No abdominal pain, Yes nausea or vomiting, No diarrhea, No constipation, No blood in stool, Yes acid reflux, No hemorrhoids, No ulcers, No gallbladder problem and No black,tarry stools Everardo Hematologic: Yes blood thinners, No blood disorders, No bleeding, Yes anemia and No blood clots Neuro Neurologic: No system reviewed and no additional complaints, except as documented, No (more content not included)... Normal [facility] Mean corpuscular hemoglobin (MCH) determinationOrdered By: Ernie De Jesus on 03-09-2024 MCH (RBC) [Entitic mass] 30.9 pg 27.0-32.0 [facility] Mean corpuscular hemoglobin concentration (MCHC) determinationOrdered By: Ernie De Jesus on 03-09-2024 MCHC (RBC) [Mass/Vol] 31.0 g/dL Low 32-36 [facility] Mean platelet volume determi nationOrdered By: Ernie De Jesus on 03-09-2024 Platelet mean volume (Bld) [Entitic vol] 10.9 fL 6.2-12.0 [facility] Platelet countOrdered By: Marcus De Jesus on 03-09-2024 Platelets (Bld) [#/Vol] 130 10*3/uL Low 150-450 [facility] Potassium measurementOrdered By: Ernie De Jesus on 03-09-2024 Potassium [Moles/Vol] 4.7 mmol/L 3.5-5.1 [facility] RBC Auto (Bld) [#/Vol]Ordere d By: Ernie De Jesus on 03-09-2024 RBC (Bld) [#/Vol] 3.62 10*6/uL Low 4.2-5.4 [facility] Serum anion gap measurementO rdered By: Ernie De Jesus on 03-09-2024 Anion gap [Moles/Vol] 7 mmol/L 5-15 [facility] Serum or plasma calcium km urement (mass/volume)Ordered By: Ernie De Jesus on 03-09-2024 Calcium [Mass/Vol] 9.9 mg/dL 8.5-10.1 [facility] Serum or plasma creatinine m easurement (mass/volume)Ordered By: Ernie De Jesus on 03-09-2024 Creatinine [Mass/Vol] 5.11 mg/dL High 0.55-1.02 [facility] Comment on above: The validity of the calculated GFR & GFRAA in patients over 70 years has not been determined. Clinical correlation is essential. Serum or plasma urea nitroge n measurement (mass/volume)Ordered By: Ernie De Jesus on 03-09-2024 Urea nitrogen [Mass/Vol] 59 mg/dL High 7-18 [facility] Sodium levelOrdered By: Ernie De Jesus on 03-09-2024 Sodium [Moles/Vol] 142 mmol/L 136-145 [facility] Type AND Screen - PAT ONLYon 03-09-2024 Ab SCREEN GEL Negative Normal [facility] Comment on above: Order Comment: Surge ry Date: 03/17/24Reason for Laboratory Test [id number] CREATION LUE Performed By: #### L 100.0500, BTSPAT, L500.2500 ####[facility] [address] [place], [address] ABO and Rh group Nom (Bld) Blood group A Rh(D) positive Normal [facility] Comment on above: Order Comment: Surge ry Date: 03/17/24Re for Laboratory Test [id number] CREATION LUE Performed By: #### L 100.0500, BTSPAT, L500.2500 ####[facility] [address] [place], [place], [address] White blood cell (WBC) count Ordered By: Ernie De Jesus on 03-09-2024 WBC (Bld) [#/Vol] 6.9 10*3/uL 4.4-11.0 [facility] Dialysis Vein Map PRE-OP SWATI ATon 02-10-2024 Dialysis Vein Map PRE-OP BILAT [facility] [address] [place] [address] Dialysis Vein Map PRE-OP BILAT 02/10/24 1355 MR#: [id number] Acct: [id number] Name: ILIANA REID Rep #: [id number] : 1950 73 From: Ernie De Jesus MD Attending Dr: Dr. Ernie De Jesus MD Status: ELIZABET ARCE Ordering Dr: Ernie De Jesus MD Date: 02/10/24 Location: [facility] Sex: F C Admitted: Reason For Study: Pre op Right Arm Left Arm Cephalic Vein at distal forearm measures Cephalic Vein at distal forearm measures 0.07 x 0.08 cm. 0.13 x 0.13 cm. Cephalic Vein at mid forearm measures 0.06 x Cephalic Vein at mid forearm measures 0.14 x 0.08 cm. 0.16 cm. Cephalic Vein proximal forearm measures 0.04 Cephalic Vein proximal forearm measures 0.12 x 0.05 cm. x 0.14 cm. Cephalic Vein distal upper arm measures 0.15 Cephalic Vein distal upper arm measures 0.06 x 0.16 cm. x 0.07 cm. Cephalic Vein at mid upper arm measures 0.23 Cephalic Vein at mid upper arm measures 0.09 x 0.22 cm. x 0.09 cm. Cephalic Vein at proximal upper arm measures Cephalic Vein at proximal upper arm measures 0.30 x 0.30 cm. 0.13 x 0.17 cm. Proximal Basilic vein measures 0.35 x 0.36 Proximal Basilic vein measures 0.40 x 0.40 cm. cm. Mid Basilic vein measures 0.30 x 0.30 cm. Mid Basilic vein measures 0.34 x 0.33 cm. Distal Basilic vein measures 0.28 x 0.27 cm. Distal Basilic vein measures 0.29 x 0.32 cm. Brachial artery 1 measures 0.39 x 0.39 cm Brachial artery measures 0.44 x 0.45 cm with with a velocity of 91.4 cm/sec. a velocity of 37 cm/sec. Brachial artery 2 measures 0.20 x 0.21 cm Radial artery measures 0.24 x 0.22 cm with a with a velocity of 67.2 cm/sec. velocity of 37 cm/sec. Radial artery measures 0.21 x 0.23 cm with a velocity of 38.8 cm/sec. VL/Dialysis Vein Map PRE-OP BILAT Interpretation Summary Bilateral upper extremity arteries patent with normal waveforms/velocities and measurements above. Bilateral upper extremity veins patent with measurements above. Ordering Physician: Ernie De Jesus Referring Physician: Sujey Fonseca Performed By: Cecilia Nix RVT ??? 02/10/24 1628 Date Ernie De Jesus MD CC: Dr. Sujey Fonseca MD; Dr. Ernie De Jesus MD Date Dictated: 02/10/24 1355 Date Transcribed: 02/10/241627 Family Coach: Signed Normal [facility] MR/BMS.BVSon 02-03-2024 MR/BMS.BVS [facility] Surgery [address] [place] [address] OFFICE VISIT Date of Service: 02/03/24 MR#: [id number] Acct: [id number] Name: ILIANA REID Rep #: [id number] : 1950 Provider: Dr. Ernie De Jesus MD Age/Sex: 73/F Location: [facility] Status: Signed Intake Vital Signs 08/17/22 15:56 02/03/24 16:02 Height 5 ft 4 in Weight: 133 lb BP 146/98 H Blood Pressure Location Lt brachial Position Sitting Respiration 16 Pulse 93 Pulse Source Monitor Temp 97.8 F Temp Source Temporal Pulse Oximetry (%) 96 Oxygen Delivery Method room air Intake Visit Reasons: [facility]ialysis [facility] Chief Complaint: establish care Is patient in pain?: No Allergies fentanyl Allergy (Severe, Verified 02/03/24 16:06) Other amlodipine (From Norvasc) Allergy (Verified 02/03/24 16:06) Other hydromorphone (From Dilaudid) Allergy (Verified 02/03/24 15:46) Other Medications ???Medication ???Instructions ???Recorded ???Confirmed ???Type acetaminophen 500 mg capsule 500 mg PO Q6H PRN 02/03/24 02/03/24 History alendronate 70 mg tablet 70 mg PO QWEEK 02/03/24 02/03/24 History ascorbic acid 125 mg-collagen, cap PO 02/03/24 02/03/24 History hydrolyzed 740 mg capsule (Collagen Plus Vitamin C) aspirin 81 mg tablet,delayed 81 mg PO QDAY 02/03/24 02/03/24 History release bupropion HCl 300 mg 24 hr tablet, 300 mg PO QAM 02/03/24 02/03/24 History extended release calcium 600 mg (as 1 tab PO BID 02/03/24 02/03/24 History carbonate)-vitamin D3 10 mcg (400 unit) tablet (Calcium 600 + D(3)) carvedilol 3.125 mg tablet 3.125 mg PO BID 02/03/24 02/03/24 History cholecalciferol (vitamin D3) 125 125 mcg PO QDAY 02/03/24 02/03/24 History mcg (5,000 unit) capsule cilostazol 50 mg tablet 100 mg PO BID 02/03/24 02/03/24 History evolocumab 140 mg/mL subcutaneous 140 mg subcut Q2W 02/03/24 02/03/24 History syringe ezetimibe 10 mg tablet 10 mg PO QDAY 02/03/24 02/03/24 History gabapentin 300 mg capsule 300 mg PO QHS 02/03/24 02/03/24 History isosorbide mononitrate 30 mg 30 mg PO QDAY 02/03/24 02/03/24 History tablet,extended release 24 hr levetiracetam 500 mg tablet 500 mg PO BID 02/03/24 02/03/24 History levothyroxine 75 mcg capsule 75 mcg PO QDAY 02/03/24 02/03/24 History lisinopril 5 mg tablet 5 mg PO QDAY 02/03/24 02/03/24 History magnesium oxide 400 mg PO TID 02/03/24 02/03/24 History multivitamin (Daily Multi-Vitamin 1 tab PO QDAY 02/03/24 02/03/24 History tablet) omeprazole 20 mg capsule,delayed 20 mg PO QDAY 02/03/24 02/03/24 History release ondansetron HCl 4 mg tablet 4 mg PO Q8H 02/03/24 02/03/24 History rosuvastatin 40 mg tablet 40 mg PO QDAY 02/03/24 02/03/24 History Is last menstrual period known: No Post menopausal: Yes Patient : No Have you fallen in the past year?: No PFSH Medical History HTN (hypertension) Family History Other CVA (cerebral vascular accident) Diabetes Heart disease Hypertension Thyroid disorder Social History Smoking Status: Former smoker Tobacco: How many years used: 20 how long ago did patient quit smokin yrs ago HPI HPI HPI: ILIANA REID, is a 73 F who presents to the office today for evaluation for dialysis access creation. She was followed for many years for CKD secondary to prior rheumatic fever with abrupt decline about 3 months ago. She had a right IJ catheter placed at that time with 1 replacement due to occlusion, no infection concerns. She denies arm or clavicle fracture/pacer/node dissection/PICC. She did have some sort of left chest wall port about 10 years ago, does not recall details. She is right hand dominant. She would like to consider PD catheter at some point in future, but wants to get moved to [place] first. Prior left fem-pop with vein for gangrenous foot wound ROS General General: Yes weight change, appetite and weakness; No fatigue, colon cancer or breast cancer HEENT HEENT: No difficulty swallowing, eye injury, eye surgery, swollen glands or hoarseness Endo Endocrine: Yes thyroid disease; No diabetes mellitus, thyroid cancer, Hair loss, heat intolerance or cold intolerance Skin Skin: No rash or changing moles Musc Musculoskeletal: No back problems, arthritis, rheumatoid arthritis, gout or joint pain Cardio Cardiovascular: Yes murmur, heart disease, high blood pressure, heart attack and heart stent; No pacemaker, atrial fibrillation, palpitations, shortness of breat with exertion or chest pain Psych Psychiatric: Yes anxiety; No depression or hearing voices Resp Respiratory (more content not included)... Normal [facility] 01-28-2024 [facility] Telephone (AGGENS3) ILIANA REID Josef ([id number]) 1950 F Date Time Provider Department 01/28/24 Marylou STILL AGGENS3 During your visit today, we recorded the following information about you: RiazSergo burnhama 01/28/2024 8:44 AM Signed Unable to lm toschedule pd cath consult with Dr. Still, mailbox is full. Crystal Whitaker January 28, 2024 8:43 AM Allergies As of Date: 01/28/2024 Noted Allergy Reaction NORVASC (AMLODIPINE BESYLATE) 03/27/2016 5 - Intolerance Date Reviewed: 03/27/2016 Reviewed by: Lisa Babin ([facility]) - Fully Assessed Prescriptions as of 01/28/2024 - omeprazole (PRILOSEC) 20 mg capsule Take 20 mg by mouth once daily. - clopidogrel (PLAVIX) 75 mg tablet Take 75 mg by mouth once daily. - magnesium oxide 400 mg cap Take by mouth. - cyanocobalamin (VITAMIN B-12) 1,000 mcg tab Take 1,000 mcg by mouth once daily. - aspirin, enteric coated (ASPIRIN, ENTERIC COATED) 81 mg EC tablet Take 81 mg by mouth once daily. - atorvastatin (LIPITOR) 10 mg tablet Take 10 mg by mouth once daily. - Meclizine HCl 25 mg Chew Tab Take by mouth three times daily as needed. - carvedilol (COREG) 25 mg tablet Take 25 mg by mouth twice daily with meals. - allopurinol (ZYLOPRIM) 100 mg tablet Take by mouth once daily. - fenofibrate nanocrystallized (TRICOR) 145 mg tablet Take 145 mg by mouth once daily. - cilostazol (PLETAL) 100 mg tablet Take 100 mg by mouth twice daily. - lisinopril (ZESTRIL) 20 mg tablet Take 20 mg by mouth once daily. - cloNIDine HCl (CATAPRES) 0.2 mg tablet Take 0.2 mg by mouth twice daily. Problem List As Of Date: 01/28/2024 (None) Encounter Status:Closed by [facility] Telephone (AGGENS3) ILIANA REID ([id number]) 1950 F Date Time Provider Department 01/21/24 Marylou STILL3 During your visit today, we recorded the following information about you: Crystal Whitaker 01/21/2024 9:36 AM Signed Called to schedule pd cath consult with Dr. Still. No answer and unable to leave message. Crystal Whitaker January 21, 2024 9:36 AM Allergies As of Date: 01/21/2024 Noted Allergy Reaction NORVASC (AMLODIPINE BESYLATE) 03/27/2016 5 - Intolerance Date Reviewed: 03/27/2016 Reviewed by: Lisa Babin ([facility]) - Fully Assessed Prescriptions as of 01/21/2024 - omeprazole (PRILOSEC) 20 mg capsule Take 20 mg by mouth once daily. - clopidogrel (PLAVIX) 75 mg tablet Take 75 mg by mouth once daily. - magnesium oxide 400 mg cap Take by mouth. - cyanocobalamin (VITAMIN B-12) 1,000 mcg tab Take 1,000 mcg by mouth once daily. - aspirin, enteric coated (ASPIRIN, ENTERIC COATED) 81 mg EC tablet Take 81 mg by mouth once daily. - atorvastatin (LIPITOR) 10 mg tablet Take 10 mg by mouth once daily. - Meclizine HCl 25 mg Chew Tab Take by mouth three times daily as needed. - carvedilol (COREG) 25 mg tablet Take 25 mg by mouth twice daily with meals. - allopurinol (ZYLOPRIM) 100 mg tablet Take by mouth once daily. - fenofibrate nanocrystallized (TRICOR) 145 mg tablet Take 145 mg by mouth once daily. - cilostazol (PLETAL) 100 mg tablet Take 100 mg by mouth twice daily. - lisinopril (ZESTRIL) 20 mg tablet Take 20 mg by mouth once daily. - cloNIDine HCl (CATAPRES) 0.2 mg tablet Take 0.2 mg by mouth twice daily. Problem List As Of Date: 01/21/2024 (None) Encounter Status:Closed by CRYSTAL WHITAKER on 01/21/24 Normal [facility] CBCon 10-09-2023 AUTO NRBC 0.0 % Normal [facility] Comment on above: Performed By: #### 4 [id number] #### LAB [address] [address] Mina Yates M.D. [id number] AUTO NRBC ABS COUNT 0.00 K/mcL Normal 0.00-0.00 [facility] Comment on above: Performed By: #### 4 [id number] #### LAB [address] [address] Mina Yates M.D. [id number] Erythrocyte distribution width (RBC) [Ratio] 14.0 % Normal 11.6-14.8 [facility] Comment on above: Performed By: #### 4 [id number] #### LAB [address] [address] Mina Yates M.D. [id number] Hematocrit (Bld) [Volume fraction] 24.1 % Low 36.0-46.0 [facility] Comment on above: Performed By: #### 4 [id number] #### LAB [address] [address] Mina Yates M.D. [id number] Hemoglobin (Bld) [Mass/Vol] 7.6 g/dL Low 12.0-16.0 [facility] Comment on above: Performed By: #### 4 [id number] #### LAB [address] [address] Mina Yates M.D. [id number] MCH (RBC) [Entitic mass] 31.5 pg Normal 26.0-34.0 [facility] Comment on above: Performed By: #### 4 [id number] #### LAB [address] [address] Mina Yates M.D. [id number] MCV (RBC) [Entitic vol] 100.0 fL Normal 80.0-100.0 [facility] Comment on above: Performed By: #### 4 [id number] #### LAB [address] [place], [place] [address] Mina Yates M.D. [id number] MEAN CORPUSCULAR HEMOGLOBIN CONC 31.5 g/dL Normal 31.0-37.0 [facility] Comment on above: Performed By: #### 4 [id number] #### LAB [address] [address] Mina Yates M.D. [id number] Platelet mean volume (Bld) [Entitic vol] 10.9 fL Normal 9.4-12.4 [facility] Comment on above: Performed By: #### 4 [id number] ####[facility] LAB [address] [address] Mina Yates M.D. [id number] Platelets (Bld) [#/Vol] 148 10*3/uL Low 150-400 [facility] Comment on above: Performed By: #### 4 [id number] ####[facility] LAB [address] [address] Mina Yates M.D. [id number] RBC (Bld) [#/Vol] 2.41 10*6/uL Low 4.00-5.20 [facility] Comment on above: Performed By: #### 4 [id number] ####[facility] LAB [address] [address] Mina Yates M.D. [id number] WBC (Bld) [#/Vol] 5.34 10*3/uL Normal 4.50-11.00 [facility] Comment on above: Performed By: #### 4 [id number] #### LAB [address] [address] Mina Yates M.D. [id number] RENAL FUNCTION PANELon 10-08 Albumin [Mass/Vol] 3.1 g/dL Low 3.2-5.2 [facility] Comment on above: Order Comment: [facility] has implemented the eGFR calculation approach that does not have a coefficient for race that conforms to the NKF-ASN Task Force Recommendations. Performed By: #### 4 [id number] ####[facility] LAB [address] [address] Mina Yates M.D. [id number] Anion gap [Moles/Vol] 15 mmol/L Normal 10-20 [facility] Comment on above: Order Comment: [facility] has implemented the eGFR calculation approach that does not have a coefficient for race that conforms to the NKF-ASN Task Force Recommendations. Performed By: #### 4 [id number] #### LAB [address] [address] Mina Yates M.D. [id number] Calcium [Mass/Vol] 8.6 mg/dL Normal 8.4-10.2 [facility] Comment on above: Order Comment: [facility] has implemented the eGFR calculation approach that does not have a coefficient for race that conforms to the NKF-ASN Task Force Recommendations. Performed By: #### 4 [id number] #### LAB [address] [address] Mina Yates M.D. [id number] Chloride [Moles/Vol] 107 mmol/L Normal 98-108 [facility] Comment on above: Order Comment: [facility] has implemented the eGFR calculation approach that does not have a coefficient for race that conforms to the NKF-ASN Task Force Recommendations. Performed By: #### 4 [id number] #### LAB [address] [address] Mina Yates M.D. [id number] Creatinine [Mass/Vol] 4.23 mg/dL High 0.60-1.10 [facility] Comment on above: Order Comment: [facility] has implemented the eGFR calculation approach that does not have a coefficient for race that conforms to the NKF-ASN Task Force Recommendations. Performed By: #### 4 [id number] #### LAB [address] [address] Mina Yates M.D. [id number] EGFR 11 mL/min/1.73 m2 Low >=60 [facility] Comment on above: Order Comment: [facility] has implemented the eGFR calculation approach that does not have a coefficient for race that conforms to the NKF-ASN Task Force Recommendations. Result Comment: Maddy mated GFR was calculated using the 2020 CKD-EPI creatinine equation. Performed By: #### 4 [id number] #### LAB [address] [address] Mina Yates M.D. [id number] Glucose [Mass/Vol] 76 mg/dL Normal 65-99 [facility] Comment on above: Order Comment: [facility] has implemented the eGFR calculation approach that does not have a coefficient for race that conforms to the NKF-ASN Task Force Recommendations. Performed By: #### 4 [id number] #### LAB [address] [address] Mina Yates M.D. [id number] HCO3 (Bld) [Moles/Vol] 23 mmol/L Normal 21-32 [facility] Comment on above: Order Comment: [facility] has implemented the eGFR calculation approach that does not have a coefficient for race that conforms to the NKF-ASN Task Force Recommendations. Performed By: #### 4 [id number] #### LAB [address] [address] Mina Yates M.D. [id number] Phosphate [Mass/Vol] 3.7 mg/dL Normal 2.8-4.1 [facility] Comment on above: Order Comment: [facility] has implemented the eGFR calculation approach that does not have a coefficient for race that conforms to the NKF-ASN Task Force Recommendations. Performed By: #### 4 6449 #### LAB [address] [address] Mina Yates M.D. [id number] Potassium [Moles/Vol] 3.9 mmol/L Normal 3.5-5.1 [facility] Comment on above: Order Comment: [facility] has implemented the eGFR calculation approach that does not have a coefficient for race that conforms to the NKF-ASN Task Force Recommendations. Performed By: #### 4 [id number] #### LAB [address] [address] Mnia Yates M.D. [id number] Sodium [Moles/Vol] 141 mmol/L Normal 135-145 [facility] Comment on above: Order Comment: [facility] has implemented the eGFR calculation approach that does not have a coefficient for race that conforms to the NKF-ASN Task Force Recommendations. Performed By: #### 4 [id number] #### LAB [address] [place], [place] [address] Mina Yates M.D. [id number] Urea nitrogen [Mass/Vol] 38 mg/dL High 8-25 [facility] Comment on above: Order Comment: [facility] has implemented the eGFR calculation approach that does not have a coefficient for race that conforms to the NKF-ASN Task Force Recommendations. Performed By: #### 4 [id number] #### LAB [address] [place], [place] [address] Mina Yates M.D. [id number] Urea nitrogen/Creatinine [Mass ratio] 9.0 mg/mg Low 10.0-20.0 [facility] Comment on above: Order Comment: [facility] has implemented the eGFR calculation approach that does not have a coefficient for race that conforms to the NKF-ASN Task Force Recommendations. Performed By: #### 4 [id number] #### LAB [address] [place], [place] [address] Mina Yates M.D. [id number] CBCon 10-08-2023 AUTO NRBC 0.0 % Normal [facility] Comment on above: Performed By: #### 4 [id number] #### LAB [address] [place], [place] [address] Mina Yates M.D. [id number] AUTO NRBC ABS COUNT 0.00 K/mcL Normal 0.00-0.00 [facility] Comment on above: Performed By: #### 4 [id number] #### LAB [address] [place], [place] [address] Mina Yates M.D. [id number] Erythrocyte distribution width (RBC) [Ratio] 13.8 % Normal 11.6-14.8 [facility] Comment on above: Performed By: #### 4 [id number] #### LAB [address] [address] Mina Yates M.D. [id number] Hematocrit (Bld) [Volume fraction] 23.3 % Low 36.0-46.0 [facility] Comment on above: Performed By: #### 4 [id number] #### LAB [address] [address] Mina Yates M.D. [id number] Hemoglobin (Bld) [Mass/Vol] 7.6 g/dL Low 12.0-16.0 [facility] Comment on above: Performed By: #### 4 [id number] #### LAB [address] [address] Mina Yates M.D. [id number] MCH (RBC) [Entitic mass] 31.5 pg Normal 26.0-34.0 [facility] Comment on above: Performed By: #### 4 [id number] #### LAB [address] [address] Mina Yates M.D. [id number] MCV (RBC) [Entitic vol] 96.7 fL Normal 80.0-100.0 [facility] Comment on above: Performed By: #### 4 [id number] #### LAB [address] [address] Mina Yates M.D. [id number] MEAN CORPUSCULAR HEMOGLOBIN CONC 32.6 g/dL Normal 31.0-37.0 [facility] Comment on above: Performed By: #### 4 [id number] #### LAB [address] [address] Mina Yates M.D. [id number] Platelet mean volume (Bld) [Entitic vol] 10.9 fL Normal 9.4-12.4 [facility] Comment on above: Performed By: #### 4 [id number] #### LAB [address] [address] Mina Yates M.D. [id number] Platelets (Bld) [#/Vol] 131 10*3/uL Low 150-400 [facility] Comment on above: Performed By: #### 4 [id number] #### LAB [address] [address] Mina Yates M.D. [id number] RBC (Bld) [#/Vol] 2.41 10*6/uL Low 4.00-5.20 [facility] Comment on above: Performed By: #### 4 [id number] #### LAB [address] [address] Mina Yates M.D. [id number] WBC (Bld) [#/Vol] 5.32 10*3/uL Normal 4.50-11.00 [facility] Comment on above: Performed By: #### 4 [id number] #### LAB [address] [place], [place] [address] Mina Yates M.D. [id number] RENAL FUNCTION PANELon 10-07 Albumin [Mass/Vol] 3.2 g/dL Normal 3.2-5.2 [facility] Comment on above: Order Comment: [facility] has implemented the eGFR calculation approach that does not have a coefficient for race that conforms to the NKF-ASN Task Force Recommendations. Performed By: #### 4 [id number] #### LAB [address] [place], [place] [address] Mina Yates M.D. [id number] Anion gap [Moles/Vol] 15 mmol/L Normal 10-20 [facility] Comment on above: Order Comment: [facility] has implemented the eGFR calculation approach that does not have a coefficient for race that conforms to the NKF-ASN Task Force Recommendations. Performed By: #### 4 6449 #### LAB [address] [place], [place] [address] Mina Yates M.D. [id number] Calcium [Mass/Vol] 8.1 mg/dL Low 8.4-10.2 [facility] Comment on above: Order Comment: [facility] has implemented the eGFR calculation approach that does not have a coefficient for race that conforms to the NKF-ASN Task Force Recommendations. Performed By: #### 4 [id number] #### LAB [address] [place], [place] [address] Mina Yates M.D. [id number] Chloride [Moles/Vol] 105 mmol/L Normal 98-108 [facility] Comment on above: Order Comment: [facility] has implemented the eGFR calculation approach that does not have a coefficient for race that conforms to the NKF-ASN Task Force Recommendations. Performed By: #### 4 6449 ####[facility] LAB [address] [address] Mina Yates M.D. [id number] Creatinine [Mass/Vol] 3.76 mg/dL High 0.60-1.10 [facility] Comment on above: Order Comment: [facility] has implemented the eGFR calculation approach that does not have a coefficient for race that conforms to the NKF-ASN Task Force Recommendations. Performed By: #### 4 6449 #### LAB [address] [address] Mina Yates M.D. [id number] EGFR 12 mL/min/1.73 m2 Low >=60 [facility] Comment on above: Order Comment: [facility] has implemented the eGFR calculation approach that does not have a coefficient for race that conforms to the NKF-ASN Task Force Recommendations. Result Comment: Maddy mated GFR was calculated using the 2020 CKD-EPI creatinine equation. Performed By: #### 4 [id number] #### LAB [address] [place], [place] [address] Mina Yates M.D. [id number] Glucose [Mass/Vol] 74 mg/dL Normal 65-99 [facility] Comment on above: Order Comment: [facility] has implemented the eGFR calculation approach that does not have a coefficient for race that conforms to the NKF-ASN Task Force Recommendations. Performed By: #### 4 6449 #### LAB [address] [address] Mina Yates M.D. [id number] HCO3 (Bld) [Moles/Vol] 23 mmol/L Normal 21-32 [facility] Comment on above: Order Comment: [facility] has implemented the eGFR calculation approach that does not have a coefficient for race that conforms to the NKF-ASN Task Force Recommendations. Performed By: #### 4 6449 #### LAB [address] [place], [place] [address] Mina Yates M.D. [id number] Phosphate [Mass/Vol] 3.7 mg/dL Normal 2.8-4.1 [facility] Comment on above: Order Comment: [facility] has implemented the eGFR calculation approach that does not have a coefficient for race that conforms to the NKF-ASN Task Force Recommendations. Performed By: #### 4 6449 #### LAB [address] [place], [place] [address] Mina Yates M.D. [id number] Potassium [Moles/Vol] 4.0 mmol/L Normal 3.5-5.1 [facility] Comment on above: Order Comment: [facility] has implemented the eGFR calculation approach that does not have a coefficient for race that conforms to the NKF-ASN Task Force Recommendations. Performed By: #### 4 6449 #### LAB [address] [address] Mina Yates M.D. [id number] Sodium [Moles/Vol] 139 mmol/L Normal 135-145 [facility] Comment on above: Order Comment: [facility] has implemented the eGFR calculation approach that does not have a coefficient for race that conforms to the NKF-ASN Task Force Recommendations. Performed By: #### 4 6449 #### LAB [address] [address] Mina Yates M.D. [id number] Urea nitrogen [Mass/Vol] 34 mg/dL High 8-25 [facility] Comment on above: Order Comment: [facility] has implemented the eGFR calculation approach that does not have a coefficient for race that conforms to the NKF-ASN Task Force Recommendations. Performed By: #### 4 6449 #### LAB [address] [address] Mina Yates M.D. [id number] Urea nitrogen/Creatinine [Mass ratio] 9.0 mg/mg Low 10.0-20.0 [facility] Comment on above: Order Comment: [facility] has implemented the eGFR calculation approach that does not have a coefficient for race that conforms to the NKF-ASN Task Force Recommendations. Performed By: #### 4 [id number] #### LAB [address] [address] Mina Yates M.D. [id number] CBCon 10-07-2023 AUTO NRBC 0.0 % Normal [facility] Comment on above: Performed By: #### 4 [id number] #### LAB [address] [address] Mina Yates M.D. [id number] AUTO NRBC ABS COUNT 0.00 K/mcL Normal 0.00-0.00 [facility] Comment on above: Performed By: #### 4 [id number] #### LAB [address] [address] Mina Yates M.D. [id number] Erythrocyte distribution width (RBC) [Ratio] 14.0 % Normal 11.6-14.8 [facility] Comment on above: Performed By: #### 4 [id number] #### LAB [address] [address] Mina Yates M.D. [id number] Hematocrit (Bld) [Volume fraction] 23.8 % Low 36.0-46.0 [facility] Comment on above: Performed By: #### 4 [id number] #### LAB [address] [address] Mina Yates M.D. [id number] Hemoglobin (Bld) [Mass/Vol] 7.4 g/dL Low 12.0-16.0 [facility] Comment on above: Performed By: #### 4 [id number] #### LAB [address] [address] Mina Yates M.D. [id number] MCH (RBC) [Entitic mass] 31.2 pg Normal 26.0-34.0 [facility] Comment on above: Performed By: #### 4 [id number] #### LAB [address] [address] Mina Yates M.D. [id number] MCV (RBC) [Entitic vol] 100.4 fL High 80.0-100.0 [facility] Comment on above: Performed By: #### 4 [id number] #### LAB [address] [address] Mina Yates M.D. [id number] MEAN CORPUSCULAR HEMOGLOBIN CONC 31.1 g/dL Normal 31.0-37.0 [facility] Comment on above: Performed By: #### 4 [id number] #### LAB [address] [address] Mina Yates M.D. [id number] Platelet mean volume (Bld) [Entitic vol] 10.7 fL Normal 9.4-12.4 [facility] Comment on above: Performed By: #### 4 [id number] #### LAB [address] [address] Mina Yates M.D. [id number] Platelets (Bld) [#/Vol] 138 10*3/uL Low 150-400 [facility] Comment on above: Performed By: #### 4 [id number] #### LAB [address] [address] Mina Yates M.D. [id number] RBC (Bld) [#/Vol] 2.37 10*6/uL Low 4.00-5.20 [facility] Comment on above: Performed By: #### 4 [id number] #### LAB [address] [address] Mina Yates M.D. [id number] WBC (Bld) [#/Vol] 4.91 10*3/uL Normal 4.50-11.00 [facility] Comment on above: Performed By: #### 4 [id number] #### LAB [address] [place] [address] Mina Yates M.D. [id number] CONSULTon 10-07-2023 CONSULT Vascular & Intervent ional Radiology Provided By [facility] (Diagnostic Radiology, Interventional and Neurointerventional Radiology and Vascular Medicine) Interventional Radiology Department @ : [phone] 24/09 VIR physician contact: [phone]) Weekday VIR DRE contact @ ON [facility] OF [facility]: [phone] [facility]: [phone] [email or web address] The consult was reviewed. The patient's chart was reviewed. The patient's H&P was reviewed. Iliana Reid is a 73 y.o. female history of chronic kidney disease stage IIIb, MGUS, hypertension, peripheral vascular disease who presented to the emergency room per our request for evaluation of acute kidney injury. Acute kidney injury on CKD stage IV She is sent to our facility for nephrology consultation workup. Renal ultrasound ordered in the emergency room did not show obstructive uropathy Nephrology input appreciated. It seems Patient had a significant rise in her baseline creatinine from 2.62 in 02/23 to 4.56. Urinalysis for protein and creatinine Held IRLNADA and ARB Avoid NSAIDs CK normal in the context of statin use for rhabdo. Initially gentle hydration given but did not improve the renal function. Nephrology consulted and advised patient hemodialysis after tunneled hemodialysis catheter placement on 10/07/23. Hypertension VIR consulted for a tunneled HD catheter. NPO ordered placed. INR pending. WBC stable. Patient on ASA and Heparin. We will attempt the procedure today as schedule permits. The patient will be scheduled for the requested tunneled HD catheter procedure. Procedure date and time TBD by the VIR control desk @ [phone], once pertinent labs and anticoagulant medications have been reviewed, per guidelines below. Please refer to the procedure note section for preliminary procedure details as well as the imaging section for the final procedure report. Pertinent image (if applicable): Pertinent labs are as follows: No results found for: PTT Lab Results Component Value Date PLT 138 (L) 10/07/2023 Lab Results Component Value Date BUN 70 (H) 10/07/2023 Lab Results Component Value Date CREATININE 5.56 (H) 10/07/2023 Patient's allergies are as follows: Allergies as of 10/04/2023 - Reviewed 10/04/2023 Allergen Reaction Noted Amlodipine besylate Other (See Comments) 03/27/2016 Dilaudid [hydromorphone] 10/08/2016 Fentanyl 11/26/2017 VIR Bing-procedure lab value guideline (pending P&T review 03/2020): Table 1. LOW Bleeding Risk Laboratory Guidelines Low Bleeding Risk Procedures Target Laboratory Values3 Bone Marrow Biopsy [Platelet Count - N/A] Catheter exchanges (gastrostomy, biliary, nephrostomy, abscess, including gastrostomy/gastrojejunostom y conversions) CVC tunneled >/= 8 Fr* Diagnostic venography and select venous interventions: pelvis and extremities Dialysis shunt interventions IVC filter placement and removal Non-tunneled chest tube placement for pleural effusion Non-tunneled venous access and removal (including PICC placement) and Tunneled venous access Paracentesis Peripheral nerve blocks, joint, and musculoskeletal injections Sacroiliac joint injection and sacral lateral branch blocks Superficial abscess drainage or biopsy (palpable lesion, lymph node, soft tissue, breast, thyroid) Thoracentesis Trans jugular liver biopsy Trigger point injections including piriformis Tunneled drainage catheter placement* PT/INR < 2.0 - 3.0 Platelets > 20,000/mcL (Consider transfusing platelets if <20,000/mcL) If patient with Chronic Liver Disease (based on expert opinion): PT/INR < 3.0 (Consider Vitamin K infusion if INR >3.0) Platelets > 20,000/mcL (Transfuse platelets if <20,000/mcL in patients with a large spleen) Fibrinogen > 100mg/dL (Consider cryoprecipitate if <100mg/dL) *If on Direct Oral Anticoagulant (DOAC), follow HIGH Bleeding Risk recommendations in Table 2 and Table 3 Table 2. HIGH Bleeding Risk Laboratory Guidelines: HIGH Bleeding Risk Procedures Target Laboratory Values3 Ablations: solid organs, bone, soft tissue, lung Arterial diagnostic interventions: aortic, pelvic, mesenteric, peripheral Biliary interventions (including cholecystostomy tube placement) Catheter directed thrombolysis/thrombectomy- DVT, PE, portal vein (Highly case dependent) Deep abscess drainage (e.g., lung parenchyma, abdominal, pelvic, retroperitoneal) Deep non organ biopsies (e.g., spine, soft tissue in intra-abdominal, retroperitoneal, pelvic compartments) Gastrostomy/gastrojejunostom y placement IVC filter removal complex Lumbar puncture Lymphangiography Portal vein interventions Solid organ biopsies Spine procedures with risk of spinal or epidural hematoma (e.g., kyphoplasty, vertebroplasty, epidural injections, facet blocks) Trans jugular intrahepat (more content not included)... Normal [facility] ECHOCARDIOGRAM COMPLETEon ECHOCARDIOGRAM COMPLETE Patient Info Name: ILIANA REID Age: 73 years : 1950 Gender: Female Ht: 163 cm Wt: 54 kg BSA: 1.57 m2 HR: 82 bpm BP: 134 / 70 mmHg Heart Rhythm: Sinus Rhythm Technical Quality: Excellent Exam Date: 10/05/2023 10:31 AM Patient Status: Inpatient Eeler: [facility] Exam Type: ECHOCARDIOGRAM COMPLETE Study Info Indications - Other - Evaluate LV function R07.9 - Chest pain, unspecified Referring Physician: CYRIL SMITH ; [id number] BMI: 20.60 kg/m2 Summary 1. Normal left ventricular size and systolic function with LVEF by biplane measurement 67%. 2. Impaired LV relaxation. 3. Normal right ventricular size and systolic function. 4. Mild left atrial enlargement. 5. No hemodynamically significant valvular disease. Estimated RVSP 27 mmHg. 6. Warpb-ws-[id number] circumferential pericardial effusion with no echocardiographic evidence of tamponade physiology. History/Risk Factors Hypertension: Yes Dyslipidemia: Yes Myocardial Infarction (IA): Yes Renal Disease: Yes Tobacco Use: Former History/Risk Factors Pt to start dialysis soon. Procedure(s): Complete two-dimensional, color flow and Doppler transthoracic echocardiogram is performed. Left Ventricle Left ventricular chamber dimension is normal. Left ventricular systolic function is normal with an ejection fraction by Biplane Method of Discs of 67 %. Normal left ventricular mass. Left ventricular segmental wall motion is normal. The left ventricular diastolic function is grade I diastolic dysfunction, consistent with low or normal atrial pressures. Right Ventricle Right ventricular size and systolic function are normal. Left Atria Left atrial chamber is mildly enlarged with a left atrial volume index of 33 ml/m2 by BP MOD. Right Atria Right atrial chamber dimension is normal. Aortic Valve Mildly thickened/calcified trileaflet aortic valve. There is no aortic valve stenosis. There is no aortic valve regurgitation. Pulmonic Valve The pulmonic valve is not well visualized. There is no pulmonic valve stenosis. There is trace pulmonic regurgitation. Mitral Valve The mitral valve has normal leaflets. There is no mitral valve stenosis. There is trace mitral valve regurgitation. Tricuspid Valve The tricuspid valve leaflets are normal. There is no significant tricuspid valve stenosis. There is trace tricuspid valve regurgitation. There is no pulmonary hypertension, estimated right ventricle systolic pressure is 27 mmHg. Pericardium/Pleural There is a small circumferential pericardial effusion. Inferior Vena Cava Normal inferior vena cava with >50% collapse upon inspiration consistent with normal right atrial pressure. Aorta The aortic measurements are indexed to age and body surface area. The aortic root is normal measuring 2.5 cm with an index of 1.6 cm/m2. Left Ventricular Outflow Tract Name Value Normal LVOT 2D LVOT Diameter 1.8 cm LVOT Doppler LVOT Peak Velocity 1.2 m/s LVOT Peak Gradient 5 mmHg LVOT Mean Gradient 2 mmHg LVOT VTI 22 cm LVOT VTI/AV VTI Ratio 0.9 LVOT Stroke Volume 55 ml LVOT Stroke Index 35.35 ml/m2 Pulmonic Valve Name Value Normal RVOT Doppler RVOT Peak Velocity 94 cm/s RVOT Peak Gradient 3 mmHg RVOT Mean Gradient 2 mmHg RVOT VTI 19 cm Mitral Valve Name Value Normal MV Doppler MV Peak Velocity 1.30 m/s MV Peak Gradient 6 mmHg MV Mean Gradient 2 mmHg MV VTI 28 cm MV Decel [place] 396 cm/s2 MV PHT 60 ms MV Area (PHT) 3.6 cm2 4.0-5.0 MV Area (Cont Eq VTI) 1.9 cm2 MV Area Index (Cont Eq VTI) 1.24 cm2/m2 MV DVI 1.30 MV Diastolic Function MV E Peak Velocity 0.82 m/s MV A Peak Velocity 1.17 m/s MV E/A 0.7 MV Decel Time 208 ms MV Annular TDI MV Septal e' Velocity 3.0 cm/s >=8.0 MV E/e' (Septal) 27.1 <=8.0 MV Lateral e' Velocity 2.9 cm/s >=9.5 MV E/e' (Lateral) 28.0 <=8.0 MV e' Average 2.99 cm/s MV E/e' (Average) 27.5 <=13.5 Tricuspid Valve (more content not included)... [facility] H AND Denis 10-07-2023 H AND P Vascular & Intervent ional Radiology Provided By [facility] (Diagnostic Radiology, Interventional and Neurointerventional Radiology and Vascular Medicine) Interventional Radiology Department @ : [phone] 24/09 VIR physician contact: [phone]) Weekday VIR DRE contact @ : [phone] [facility]: [phone] [email or web address] [facility] SPEAR FISHER DIRECTORY PRE PROCEDURE INTERVAL HISTORY AND PHYSICAL Procedure: tunneled HD catheter procedure Indication: New end stage kidney disease -From CKD progression. 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 -UA showed small amount of blood, moderate amount of leukocytes, WBC 58 without symptoms of urinary tract infection (10/04/23) -Heavy proteinuria noted on urine protein creatinine ratio at 9.9 (10/04/23) -CPK 29 After long discussion, patient is agreeable to start HD. VIR team spoke with patient. She has been NPO. Agrees to the tunneled HD catheter. Allergies: Amlodipine besylate, Dilaudid [hydromorphone], and Fentanyl Review of Symptoms: General: denies excessive fatigue, weight loss Cardiopulmonary: denies SOB, chest pain, palpitations Abdomen: denies abdominal pain, melena, hematochezia : denies dysuria, hematuria Derm: denies rash or lesion Neuro: denies headache, visual or speech changes Exam: CV: Pulse is regular Lungs: No respiratory distress. No accessory muscle use. No audible wheeze. Neuro: Alert to person and place. PACU Vitals 10/07/23 0714 BP: 132/71 Pulse: 84 Resp: 16 Temp: 97.9 degrees F (36.6 degrees C) SpO2: 96% Mallampati Airway Classification: Class 2. Faucial pillars, soft palate visible Laboratory: Lab Results Component Value Date WBC 4.91 10/07/2023 HGB 7.4 (L) 10/07/2023 HCT 23.8 (L) 10/07/2023 MCV 100.4 (H) 10/07/2023 PLT 138 (L) 10/07/2023 Lab Results Component Value Date GLUCOSE 82 10/07/2023 CALCIUM 8.7 10/07/2023 NA 142 10/07/2023 K 4.6 10/07/2023 CL 114 (H) 10/07/2023 BUN 70 (H) 10/07/2023 CREATININE 5.56 (H) 10/07/2023 . Protime (PT) Date Value Ref Range Status 10/07/2023 13.4 11.8 - 14.3 seconds Final INR Date Value Ref Range Status 10/07/2023 1.0 0.8 - 1.1 Final Preprocedural ASA: B II (Mild systemic disease) Assessment: The comprehensive, admission History & Physical was reviewed and the patient examined. To proceed with planned procedure. Other: N/A AUTHENTICATED BY LANDEN HERRERA, ON 10/07/2023 10:10:43 Normal [facility] PT/INRon 10-07-2023 INR Coag (PPP) [Relative time] 1.0 {INR} Normal 0.8-1.1 [facility] Comment on above: Order Comment: Jaden collins the induction phase of oral anticoagulation, the INR may not reflect the anticoagulation status of the patient. Therapeutic ranges for INR's are:Most clinical situations: INR 2.0-3.0Mechanical Prosthetic Valve: INR 2.5-3.5Critical: INR >5.0 Performed By: #### [id number] #### LAB [address] [place] [address] Mina Yates M.D. [id number] PT Coag (PPP) [Time] 13.4 s Normal 11.8-14.3 [facility] Comment on above: Order Comment: Jaden collins the induction phase of oral anticoagulation, the INR may not reflect the anticoagulation status of the patient. Therapeutic ranges for INR's are:Most clinical situations: INR 2.0-3.0Mechanical Prosthetic Valve: INR 2.5-3.5Critical: INR >5.0 Performed By: #### 4 [id number] #### LAB [address] [address] Mina Yates M.D. [id number] RENAL FUNCTION PANELon 10-06 Albumin [Mass/Vol] 2.9 g/dL Low 3.2-5.2 [facility] Comment on above: Order Comment: [facility] has implemented the eGFR calculation approach that does not have a coefficient for race that conforms to the NKF-ASN Task Force Recommendations. Performed By: #### 4 [id number] #### LAB [address] [place], [place] [address] Mina Yates M.D. [id number] Anion gap [Moles/Vol] 17 mmol/L Normal 10-20 [facility] Comment on above: Order Comment: [facility] has implemented the eGFR calculation approach that does not have a coefficient for race that conforms to the NKF-ASN Task Force Recommendations. Performed By: #### 4 [id number] #### LAB [address] [place], [place] [address] Mina Yates M.D. [id number] Calcium [Mass/Vol] 8.7 mg/dL Normal 8.4-10.2 [facility] Comment on above: Order Comment: [facility] has implemented the eGFR calculation approach that does not have a coefficient for race that conforms to the NKF-ASN Task Force Recommendations. Performed By: #### 4 [id number] #### LAB [address] [place], [place] [address] Mina Yates M.D. [id number] Chloride [Moles/Vol] 114 mmol/L High 98-108 [facility] Comment on above: Order Comment: [facility] has implemented the eGFR calculation approach that does not have a coefficient for race that conforms to the NKF-ASN Task Force Recommendations. Performed By: #### 4 [id number] #### LAB [address] [place], [place] [address] Mina Yates M.D. [id number] Creatinine [Mass/Vol] 5.56 mg/dL High 0.60-1.10 [facility] Comment on above: Order Comment: [facility] has implemented the eGFR calculation approach that does not have a coefficient for race that conforms to the NKF-ASN Task Force Recommendations. Performed By: #### 4 [id number] #### LAB [address] [address] Mina Yates M.D. [id number] EGFR 8 mL/min/1.73 m2 Low >=60 [facility] Comment on above: Order Comment: [facility] has implemented the eGFR calculation approach that does not have a coefficient for race that conforms to the NKF-ASN Task Force Recommendations. Result Comment: Maddy mated GFR was calculated using the 2020 CKD-EPI creatinine equation. Performed By: #### 4 [id number] #### LAB [address] [address] Mina Yates M.D. [id number] Glucose [Mass/Vol] 82 mg/dL Normal 65-99 [facility] Comment on above: Order Comment: [facility] has implemented the eGFR calculation approach that does not have a coefficient for race that conforms to the NKF-ASN Task Force Recommendations. Performed By: #### 4 [id number] #### LAB [address] [place] [address] Mina Yates M.D. [id number] HCO3 (Bld) [Moles/Vol] 16 mmol/L Low 21-32 [facility] Comment on above: Order Comment: [facility] has implemented the eGFR calculation approach that does not have a coefficient for race that conforms to the NKF-ASN Task Force Recommendations. Performed By: #### 4 [id number] #### LAB [address] [place] [address] Mina Yates M.D. [id number] Phosphate [Mass/Vol] 4.8 mg/dL High 2.8-4.1 [facility] Comment on above: Order Comment: [facility] has implemented the eGFR calculation approach that does not have a coefficient for race that conforms to the NKF-ASN Task Force Recommendations. Performed By: #### 4 [id number] #### LAB [address] [place] [address] Mina Yates M.D. [id number] Potassium [Moles/Vol] 4.6 mmol/L Normal 3.5-5.1 [facility] Comment on above: Order Comment: [facility] has implemented the eGFR calculation approach that does not have a coefficient for race that conforms to the NKF-ASN Task Force Recommendations. Performed By: #### 4 [id number] #### LAB [address] [place], [place] [address] Mina Yates M.D. [id number] Sodium [Moles/Vol] 142 mmol/L Normal 135-145 [facility] Comment on above: Order Comment: [facility] has implemented the eGFR calculation approach that does not have a coefficient for race that conforms to the NKF-ASN Task Force Recommendations. Performed By: #### 4 [id number] #### LAB [address] [place], [place] [address] Mina Yates M.D. [id number] Urea nitrogen [Mass/Vol] 70 mg/dL High 8-25 [facility] Comment on above: Order Comment: [facility] has implemented the eGFR calculation approach that does not have a coefficient for race that conforms to the NKF-ASN Task Force Recommendations. Performed By: #### 4 [id number] #### LAB [address] [place], [place] [address] Mina Yates M.D. [id number] Urea nitrogen/Creatinine [Mass ratio] 12.6 mg/mg Normal 10.0-20.0 [facility] Comment on above: Order Comment: [facility] has implemented the eGFR calculation approach that does not have a coefficient for race that conforms to the NKF-ASN Task Force Recommendations. Performed By: #### 4 [id number] #### LAB [address] [place], [place] [address] Mina Yates M.D. [id number] US DOPPLER CAROTIDon 024 US DOPPLER CAROTID Patient Info Name: ILIANA REID Age: 73 years : 1950 Gender: Female Exam Date: 10/07/2023 7:21 AM Patient Status: Inpatient [place]: Shoshana Wolf, RVT, RVS Referring Physician: CYRIL SMITH ; Indications - carotid bruit I65.23 - Occlusion and stenosis of bilateral carotid arteries Procedure Description 21440 Duplex examination using B-mode, color and spectral Doppler of extracranial arteries; complete bilateral study. NASCET criteria is used when performing imaging correlation with carotid duplex interpretation. Conclusions * Right. * 50-69% stenosis in the right internal carotid artery. * Right vertebral artery is patent with antegrade flow. * Elevated velocity suggestive of stenosis in the right external carotid and subclavian arteries. * No evidence of hemodynamically significant stenosis in the right common carotid artery. * Left. * Less than 50% stenosis in the left internal carotid artery. Due to strict lab criteria. * Percent stenosis may be underestimated due to calcific shadowing. * Left vertebral artery is patent with bidirectional flow. * Elevated velocity suggestive of stenosis in the left external carotid and subclavian arteries. * No evidence of hemodynamically significant stenosis in the left common carotid artery. Measurements Name Value Right PSV Right Prox CCA PSV 118 cm/s Right Mid CCA PSV 99 cm/s Right Distal CCA PSV 121 cm/s Right Prox ICA PSV 237 cm/s Right Mid ICA PSV 137 cm/s Right Distal ICA PSV 128 cm/s Right ECA PSV 435 cm/s Right Vert PSV 54 cm/s Right Prox SCA PSV 293 cm/s Rt ICA/CCA Ratio 2.0 Measurements Name Value Right EDV Right Prox CCA EDV 18 cm/s Right Mid CCA EDV 17 cm/s Right Distal CCA EDV 27 cm/s Right Prox ICA EDV 50 cm/s Right Mid ICA EDV 39 cm/s Right Distal ICA EDV 34 cm/s Right ECA EDV 0 cm/s Right Vert EDV 13 cm/s Right Prox SCA EDV 0 cm/s Measurements Name Value Left PSV Left Prox CCA PSV 132 cm/s Left Mid CCA PSV 104 cm/s Left Distal CCA PSV 151 cm/s Left Prox ICA PSV 187 cm/s Left Mid ICA PSV 132 cm/s Left Distal ICA PSV 103 cm/s Left ECA PSV 328 cm/s Left Prox SCA PSV 210 cm/s Lt ICA/CCA Ratio 1.2 Measurements Name Value Left EDV Left Prox CCA EDV 16 cm/s Left Mid CCA EDV 12 cm/s Left Distal CCA EDV 26 cm/s Left Prox ICA EDV 45 cm/s Left Mid ICA EDV 32 cm/s Left Distal ICA EDV 24 cm/s Left ECA EDV 0 cm/s Left Prox SCA EDV 0 cm/s Right Findings * Heterogeneous plaque noted in the right common carotid artery. * Calcific plaque noted in the right internal carotid artery. * Calcific plaque noted in the right external carotid artery. * Heterogeneous plaque noted in the right subclavian artery. Left Findings * Heterogeneous plaque noted in the left internal carotid artery. * Calcific plaque noted in the left external carotid artery. * Calcific plaque noted in the left subclavian artery. * No plaque noted in the left common carotid artery. Prior Study Date: 12/28/2019 Risk Factors Patient has a history of hypertension, hyperlipidemia, CAD, PAD and tobacco use-previous. . Report Signatures Finalized by Marcell Pichardo MD, RPVI on 10/07/2023 11:21 AM Normal [facility] CBCon 10-06-2023 AUTO NRBC 0.0 % Normal [facility] Comment on above: Performed By: #### [id number] #### LAB [address] [place] [address] Mina Yates M.D. [id number] AUTO NRBC ABS COUNT 0.00 K/mcL Normal 0.00-0.00 [facility] Comment on above: Performed By: #### 4 [id number] #### LAB [address] [address] Mina Yates M.D. [id number] Erythrocyte distribution width (RBC) [Ratio] 13.9 % Normal 11.6-14.8 [facility] Comment on above: Performed By: #### 4 [id number] #### LAB [address] [address] Mina Yates M.D. [id number] Hematocrit (Bld) [Volume fraction] 23.7 % Low 36.0-46.0 [facility] Comment on above: Performed By: #### 4 [id number] #### LAB [address] [address] Mina Yates M.D. [id number] Hemoglobin (Bld) [Mass/Vol] 7.4 g/dL Low 12.0-16.0 [facility] Comment on above: Performed By: #### 4 [id number] #### LAB [address] [place] [address] Mina Yates M.D. [id number] MCH (RBC) [Entitic mass] 31.4 pg Normal 26.0-34.0 [facility] Comment on above: Performed By: #### 4 [id number] #### LAB [address] [place] [address] Mina Yates M.D. [id number] MCV (RBC) [Entitic vol] 100.4 fL High 80.0-100.0 [facility] Comment on above: Performed By: #### 4 [id number] #### LAB [address] [place] [address] Mina Yates M.D. [id number] MEAN CORPUSCULAR HEMOGLOBIN CONC 31.2 g/dL Normal 31.0-37.0 [facility] Comment on above: Performed By: #### 4 [id number] #### LAB [address] [address] Mina Yates M.D. [id number] Platelet mean volume (Bld) [Entitic vol] 10.8 fL Normal 9.4-12.4 [facility] Comment on above: Performed By: #### 4 [id number] ####[facility] [address] [address] Mina Yates M.D. [id number] Platelets (Bld) [#/Vol] 135 10*3/uL Low 150-400 [facility] Comment on above: Performed By: #### 4 [id number] #### LAB [address] [place] [address] Mina Yates M.D. [id number] RBC (Bld) [#/Vol] 2.36 10*6/uL Low 4.00-5.20 [facility] Comment on above: Performed By: #### 4 [id number] #### LAB [address] [place] [address] Mina Yates M.D. [id number] WBC (Bld) [#/Vol] 4.69 10*3/uL Normal 4.50-11.00 [facility] Comment on above: Performed By: #### 4 [id number] #### LAB [address] [place] [address] Mina Yates M.D. [id number] RENAL FUNCTION PANELon 10-05 Albumin [Mass/Vol] 3.0 g/dL Low 3.2-5.2 [facility] Comment on above: Order Comment: [facility] has implemented the eGFR calculation approach that does not have a coefficient for race that conforms to the NKF-ASN Task Force Recommendations. Performed By: #### 4 [id number] #### LAB [address] [place] [address] Mina Yates M.D. [id number] Anion gap [Moles/Vol] 14 mmol/L Normal 10-20 [facility] Comment on above: Order Comment: [facility] has implemented the eGFR calculation approach that does not have a coefficient for race that conforms to the NKF-ASN Task Force Recommendations. Performed By: #### 4 [id number] #### LAB [address] [place] [address] Mina Yates M.D. [id number] Calcium [Mass/Vol] 8.6 mg/dL Normal 8.4-10.2 [facility] Comment on above: Order Comment: [facility] has implemented the eGFR calculation approach that does not have a coefficient for race that conforms to the NKF-ASN Task Force Recommendations. Performed By: #### 4 [id number] #### LAB [address] [place] [address] Mina Yates M.D. [id number] Chloride [Moles/Vol] 112 mmol/L High 98-108 [facility] Comment on above: Order Comment: [facility] has implemented the eGFR calculation approach that does not have a coefficient for race that conforms to the NKF-ASN Task Force Recommendations. Performed By: #### 4 [id number] #### LAB [address] [place] [address] Mina Yates M.D. [id number] Creatinine [Mass/Vol] 5.76 mg/dL High 0.60-1.10 [facility] Comment on above: Order Comment: [facility] has implemented the eGFR calculation approach that does not have a coefficient for race that conforms to the NKF-ASN Task Force Recommendations. Performed By: #### 4 [id number] #### LAB [address] [place] [address] Mina Yates M.D. [id number] EGFR 7 mL/min/1.73 m2 Low >=60 [facility] Comment on above: Order Comment: [facility] has implemented the eGFR calculation approach that does not have a coefficient for race that conforms to the NKF-ASN Task Force Recommendations. Result Comment: Maddy mated GFR was calculated using the 2020 CKD-EPI creatinine equation. Performed By: #### 4 [id number] #### LAB [address] [address] Mina Yates M.D. [id number] Glucose [Mass/Vol] 81 mg/dL Normal 65-99 [facility] Comment on above: Order Comment: [facility] has implemented the eGFR calculation approach that does not have a coefficient for race that conforms to the NKF-ASN Task Force Recommendations. Performed By: #### 4 [id number] #### LAB [address] [place], [place] [address] Mina Yates M.D. [id number] HCO3 (Bld) [Moles/Vol] 18 mmol/L Low 21-32 [facility] Comment on above: Order Comment: [facility] has implemented the eGFR calculation approach that does not have a coefficient for race that conforms to the NKF-ASN Task Force Recommendations. Performed By: #### 4 [id number] #### LAB [address] [place], [place] [address] Mina Yates M.D. [id number] Phosphate [Mass/Vol] 4.2 mg/dL High 2.8-4.1 [facility] Comment on above: Order Comment: [facility] has implemented the eGFR calculation approach that does not have a coefficient for race that conforms to the NKF-ASN Task Force Recommendations. Performed By: #### 4 [id number] #### LAB [address] [place], [place] [address] Mina Yates M.D. [id number] Potassium [Moles/Vol] 4.5 mmol/L Normal 3.5-5.1 [facility] Comment on above: Order Comment: [facility] has implemented the eGFR calculation approach that does not have a coefficient for race that conforms to the NKF-ASN Task Force Recommendations. Performed By: #### 4 [id number] #### LAB [address] [place] [address] Mina Yates M.D. [id number] Sodium [Moles/Vol] 139 mmol/L Normal 135-145 [facility] Comment on above: Order Comment: [facility] has implemented the eGFR calculation approach that does not have a coefficient for race that conforms to the NKF-ASN Task Force Recommendations. Performed By: #### 4 [id number] #### LAB [address] [place] [address] Mina Yates M.D. [id number] Urea nitrogen [Mass/Vol] 76 mg/dL High 8- [facility] Comment on above: Order Comment: [facility] has implemented the eGFR calculation approach that does not have a coefficient for race that conforms to the NKF-ASN Task Force Recommendations. Performed By: #### 4 [id number] #### LAB [address] [place] [address] Mina aYtes M.D. [id number] Urea nitrogen/Creatinine [Mass ratio] 13.2 mg/mg Normal 10.0-20.0 [facility] Comment on above: Order Comment: [facility] has implemented the eGFR calculation approach that does not have a coefficient for race that conforms to the NKF-ASN Task Force Recommendations. Performed By: #### 4 [id number] #### LAB [address] [place] [address] Mina Yates M.D. [id number] CBC WITH AUTO DIFFERENTIALon 10-05-2023 AUTO NRBC 0.0 % Normal [facility] Comment on above: Performed By: #### L [id number] ####[facility] [address] [place], [place] [address] Mina Yates M.D. [id number] AUTO NRBC ABS COUNT 0.00 K/mcL Normal 0.00-0.00 [facility] Comment on above: Performed By: #### L [id number] #### LAB [address] [place] [address] Mina Yates M.D. [id number] BASOPHILS ABSOLUTE COUNT 0.04 K/mcL Normal 0.00-0.30 [facility] Comment on above: Performed By: #### L [id number] #### LAB [address] [place] [address] Mina Yates M.D. [id number] Basophils/100 WBC (Bld) 0.6 % Normal [facility] Comment on above: Performed By: #### L [id number] #### LAB [address] [place] [address] Mina Yates M.D. [id number] Eosinophils (Bld) [#/Vol] 0.09 10*3/uL Normal 0.00-0.50 [facility] Comment on above: Performed By: #### L [id number] #### LAB [address] [place] [address] Mina Yates M.D. [id number] Eosinophils/100 WBC (Bld) 1.4 % Normal [facility] Comment on above: Performed By: #### L [id number] #### LAB [address] [place] [address] Mina Yates M.D. [id number] Erythrocyte distribution width (RBC) [Ratio] 14.0 % Normal 11.6-14.8 [facility] Comment on above: Performed By: #### L [id number] #### LAB [address] [place] [address] Mina Yates M.D. [id number] Hematocrit (Bld) [Volume fraction] 25.6 % Low 36.0-46.0 [facility] Comment on above: Performed By: #### L [id number] #### LAB [address] [place] [address] Mina Yates M.D. [id number] Hemoglobin (Bld) [Mass/Vol] 8.3 g/dL Low 12.0-16.0 [facility] Comment on above: Performed By: #### L [id number] #### LAB [address] [place] [address] Mina Yates M.D. [id number] IG ABSOLUTE 0.01 K/mcL Normal 0.00-0.30 [facility] Comment on above: Performed By: #### L [id number] #### LAB [address] [place] [address] Mina Yates M.D. [id number] IG PERCENT 0.20 % Normal [facility] Comment on above: Result Comment: The IG parameter is the percentage of metamyelocytes, myelocytes and promyelocytes. An immature granulocyte count (IG) of 1% or more suggests the possibility of infection, an IG count of 3% is very likely related to an infection. Performed By: #### L [id number] #### LAB [address] [place] [address] Mina Yates M.D. [id number] Lymphocytes (Bld) [#/Vol] 1.84 10*3/uL Normal 0.90-4.00 [facility] Comment on above: Performed By: #### L [id number] #### LAB [address] [place] [address] Mina Yates M.D. [id number] Lymphocytes/100 WBC (Bld) 29.0 % Normal [facility] Comment on above: Performed By: #### L [id number] #### LAB [address] [place] [address] Mina Yates M.D. [id number] MCH (RBC) [Entitic mass] 31.2 pg Normal 26.0-34.0 [facility] Comment on above: Performed By: #### L [id number] #### LAB [address] [place] [address] Mina Yates M.D. [id number] MCV (RBC) [Entitic vol] 96.2 fL Normal 80.0-100.0 [facility] Comment on above: Performed By: #### L [id number] #### LAB [address] [place] [address] Mina Yates M.D. [id number] MEAN CORPUSCULAR HEMOGLOBIN CONC 32.4 g/dL Normal 31.0-37.0 [facility] Comment on above: Performed By: #### L [id number] #### LAB [address] [address] Mina Yates M.D. [id number] Monocytes (Bld) [#/Vol] 0.39 10*3/uL Normal 0.30-0.90 [facility] Comment on above: Performed By: #### L [id number] #### LAB [address] [address] Mina Yates M.D. [id number] Monocytes/100 WBC (Bld) 6.2 % Normal [facility] Comment on above: Performed By: #### L [id number] #### LAB [address] [address] Mina Yates M.D. [id number] NEUTROPHILS ABSOLUTE COUNT 3.97 K/mcL Normal 1.70-7.00 [facility] Comment on above: Performed By: #### L [id number] #### LAB [address] [address] Mina Yates M.D. [id number] Neutrophils/100 WBC (Bld) 62.6 % Normal [facility] Comment on above: Result Comment: Bing pheral smear reviewed manually Performed By: #### L [id number] #### LAB [address] [address] Mina Yates M.D. [id number] Platelet mean volume (Bld) [Entitic vol] 11.7 fL Normal 9.4-12.4 [facility] Comment on above: Performed By: #### L [id number] #### LAB [address] [address] Mina Yates M.D. [id number] Platelets (Bld) [#/Vol] 149 10*3/uL Low 150-400 [facility] Comment on above: Performed By: #### L [id number] ####[facility] [address] [place], [place] [address] Mina Yates M.D. [id number] RBC (Bld) [#/Vol] 2.66 10*6/uL Low 4.00-5.20 [facility] Comment on above: Performed By: #### L [id number] ####[facility] LAB [address] [place], [place] [address] Mina Yates M.D. [id number] WBC (Bld) [#/Vol] 6.34 10*3/uL Normal 4.50-11.00 [facility] Comment on above: Performed By: #### L [id number] ####[facility] LAB [address] [place], [place] [address] Mina Yates M.D. [id number] CONSULTon 10-05-2023 CONSULT General Cardiology I npatient Consult Heart & Vascular [facility] 10/05/2023 Taqueria Prater MD [facility] Patient: Iliana Reid Date of : 1950 (73 y.o.) Referring Provider: Refer to consult order in electronic medical record PCP: Sujey Fonseca MD Assessment/Plan: 1. Troponin elevation not due to myocardial infarction 2. Known coronary artery disease 3. Known peripheral arterial disease 4. Acute on chronic renal insufficiency Problem List: Mild troponin elevation not cardiac Acute on chronic renal insufficiency Coronary artery disease Peripheral vascular disease Hypertension Hypothyroidism Plan: 1. Since patient has no angina and electrocardiogram is completely normal, mild troponin elevation in patient with renal insufficiency is not unexpected. 2. If she has any angina please consult us, once she is stable from the renal standpoint, she can be worked up for ischemia with stress testing as an outpatient. Admitted with these risk variables:Acute Kidney Injury and Chronic Kidney Disease. Please see assessment and plan for further details. Taqueria Prater MD Non-Invasive Cardiology [facility] Heart and Vascular Subjective Reason for Consultation: Troponin elevation History of Present Illness: Iliana Reid is a 73 y.o. female came in with worsening of renal failure and troponin level was slightly elevated. EKG does not show any ischemic changes. Patient denies any chest discomfort. She does have a history of coronary artery disease and peripheral vascular disease. She has history of hypertension. She also denies any dizziness, lightheadedness, palpitations or syncope. Imaging: I independently reviewed the EKG and agree with the interpretation(s) with the following comments. ECG shows normal sinus rhythm, normal ECG. Review of Systems: Constitution: Negative. HENT: Negative. Cardiovascular: As above. Respiratory: As above. Endocrine: Negative. Skin: Negative. Musculoskeletal: Negative. Gastrointestinal: Negative. Genitourinary: Negative. Neurological: Negative. Psychiatric/Behavioral: Negative. Past Medical History: Diagnosis Date Anemia Anxiety Back pain Coronary artery disease GERD (gastroesophageal reflux disease) Gout Hyperlipidemia Hypertension Iron deficiency Leg weakness, bilateral Myocardial infarction (HCC) 01/2016 Nephrotic syndrome PVD (peripheral vascular disease) ([facility]) L>R consistant, worse with walking Thrombocytopenia ([facility]) Past Surgical History: Procedure Laterality Date BYPASS FEMOROTIBIAL REPAIR/GRAFT Left 05/09/2015 in situ fem anterior tibial CARDIAC CATHETERIZATION COLONOSCOPY CORONARY STENT PLACEMENT [facility] TONSILLECTOMY UPPER GASTROINTESTINAL ENDOSCOPY Family History Problem Relation Age of Onset Heart disease Mother Hypertension Mother Hyperlipidemia Mother Varicose veins Mother Diabetes Mother Heart disease Father Hypertension Father Hyperlipidemia Father Diabetes Father Aneurysm Father brain Social History Tobacco Use Smoking Status Former Current packs/day: 0.00 Average packs/day: 0.5 packs/day for 25.0 years (12.5 ttl pk-yrs) Types: Cigarettes Start date: 03/04/1990 Quit date: 03/04/2015 Years since quittin.5 Smokeless Tobacco Never Allergies: Amlodipine besylate, Dilaudid [hydromorphone], and Fentanyl Current Facility-Administered Medications Medication Dose Route Frequency Provider Last Rate Last Admin aluminum-magnesium hydroxide-simethicone (MAALOX PLUS) 200-200-20 mg/5 mL suspension 30 mL 30 mL Oral Q4H PRN Richard Villagran MD aspirin EC tablet 81 mg 81 mg Oral Daily Richard Villagran MD 81 mg at 10/05/23 0850 atorvastatin (LIPITOR) tablet 40 mg 40 mg Oral Nightly Richard Villagran MD 40 mg at 10/04/232001 buPROPion (WELLBUTRIN XL) 24 hr tablet 300 mg 300 mg Oral Daily Richard Villagran MD 300 mg at 10/05/23 0850 carvediloL (COREG) tablet 3.125 mg 3.125 mg Oral BID Richard Villagran MD 3.125 mg at 10/05/23 0850 cilostazoL (PLETAL) tablet 100 mg 100 mg Oral BID Richard Villagran MD 100 mg at 10/05/23 0850 cyanocobalamin (B-12) tablet 1,000 mcg 1,000 mcg Oral Daily Richard Villagran MD 1,000 mcg at 10/05/23 0850 docusate sodium (COLACE) capsule 100 mg 100 mg Oral Daily Richard Villagran MD 100 mg at 10/05/23 0850 doxazosin (CARDURA) tablet 4 mg 4 mg Oral Daily Richard Villagran MD 4 mg at 10/05/23 0850 gabapentin (NEURONTIN) capsule 300 mg 300 mg Oral Nightly Richard Villagran MD 300 mg at 10/04/232001 heparin (porcine) injection 5,000 Units 5,000 Units Subcutaneous Q8H [facility] Richard Villagran MD 5,000 Units at 10/05/23 0554 hydrALAZINE (APRESOLINE) injection 20 mg 20 mg Intravenous Q4H PRN Mik Quintero MD 20 mg at 10/04/23 1814 isosorbide mononitrate (IMDUR) 24 hr tablet 30 mg 30 mg Oral Da (more content not included)... Normal [facility] CPKon 10-05-2023 CPK 29 U/L Low 40-170 [facility] Comment on above: Performed By: #### 4 [id number] ####[facility] LAB [address] [id number] Mina Yates M.D. [id number] MORPHOLOGYon 10-05-2023 PLATELET ESTIMATE Normal Normal Normal [facility] Comment on above: Performed By: #### L [id number] ####[facility] [address] [place], [place] [address] Mina Yates M.D. [id number] RBC MORPH SCAN Normal Normal [facility] Comment on above: Result Comment: RBC Indices confirmed with manual peripheral smear review. Performed By: #### L [id number] ####[facility] [address] [place], [place] [address] Mina Yates M.D. [id number] RENAL FUNCTION PANELon 10-04 Albumin [Mass/Vol] 2.9 g/dL Low 3.2-5.2 [facility] Comment on above: Order Comment: [facility] has implemented the eGFR calculation approach that does not have a coefficient for race that conforms to the NKF-ASN Task Force Recommendations. Performed By: #### 4 [id number] #### LAB [address] [address] Mina Yates M.D. [id number] Anion gap [Moles/Vol] 15 mmol/L Normal 10-20 [facility] Comment on above: Order Comment: [facility] has implemented the eGFR calculation approach that does not have a coefficient for race that conforms to the NKF-ASN Task Force Recommendations. Performed By: #### 4 6449 #### LAB [address], [place] [address] Mina Yates M.D. [id number] Calcium [Mass/Vol] 8.5 mg/dL Normal 8.4-10.2 [facility] Comment on above: Order Comment: [facility] has implemented the eGFR calculation approach that does not have a coefficient for race that conforms to the NKF-ASN Task Force Recommendations. Performed By: #### 4 [id number] #### LAB [address] [address] Mina Yates M.D. [id number] Chloride [Moles/Vol] 111 mmol/L High 98-108 [facility] Comment on above: Order Comment: [facility] has implemented the eGFR calculation approach that does not have a coefficient for race that conforms to the NKF-ASN Task Force Recommendations. Performed By: #### 4 [id number] #### LAB [address], [place] [address] Mina Yates M.D. [id number] Creatinine [Mass/Vol] 5.13 mg/dL High 0.60-1.10 [facility] Comment on above: Order Comment: [facility] has implemented the eGFR calculation approach that does not have a coefficient for race that conforms to the NKF-ASN Task Force Recommendations. Performed By: #### 4 [id number] #### LAB [address] [place], [place] [address] Mina Yates M.D. [id number] EGFR 8 mL/min/1.73 m2 Low >=60 [facility] Comment on above: Order Comment: [facility] has implemented the eGFR calculation approach that does not have a coefficient for race that conforms to the NKF-ASN Task Force Recommendations. Result Comment: Maddy mated GFR was calculated using the 2020 CKD-EPI creatinine equation. Performed By: #### 4 [id number] #### LAB [address] [place], [place] [address] Mina Yates M.D. [id number] Glucose [Mass/Vol] 72 mg/dL Normal 65-99 [facility] Comment on above: Order Comment: [facility] has implemented the eGFR calculation approach that does not have a coefficient for race that conforms to the NKF-ASN Task Force Recommendations. Performed By: #### 4 [id number] #### LAB [address] [place], [place] [address] Mina Yates M.D. [id number] HCO3 (Bld) [Moles/Vol] 16 mmol/L Low 21-32 [facility] Comment on above: Order Comment: [facility] has implemented the eGFR calculation approach that does not have a coefficient for race that conforms to the NKF-ASN Task Force Recommendations. Performed By: #### 4 6449 ####[facility] [address] [place], [place] [address] Mina Yates M.D. [id number] Phosphate [Mass/Vol] 3.9 mg/dL Normal 2.8-4.1 [facility] Comment on above: Order Comment: [facility] has implemented the eGFR calculation approach that does not have a coefficient for race that conforms to the NKF-ASN Task Force Recommendations. Performed By: #### 4 6449 ####[facility] [address] [place], [place] [address] Mina Yates M.D. [id number] Potassium [Moles/Vol] 5.4 mmol/L High 3.5-5.1 [facility] Comment on above: Order Comment: [facility] has implemented the eGFR calculation approach that does not have a coefficient for race that conforms to the NKF-ASN Task Force Recommendations. Performed By: #### 4 6449 #### LAB [address] [address] Mina Yates M.D. [id number] Sodium [Moles/Vol] 137 mmol/L Normal 135-145 [facility] Comment on above: Order Comment: [facility] has implemented the eGFR calculation approach that does not have a coefficient for race that conforms to the NKF-ASN Task Force Recommendations. Performed By: #### 4 6449 #### LAB [address] [address] Mina Yates M.D. [id number] Urea nitrogen [Mass/Vol] 71 mg/dL High 8-25 [facility] Comment on above: Order Comment: [facility] has implemented the eGFR calculation approach that does not have a coefficient for race that conforms to the NKF-ASN Task Force Recommendations. Performed By: #### 4 6449 #### LAB [address] [place], [place] [address] Mina Yates M.D. [id number] Urea nitrogen/Creatinine [Mass ratio] 13.8 mg/mg Normal 10.0-20.0 [facility] Comment on above: Order Comment: [facility] has implemented the eGFR calculation approach that does not have a coefficient for race that conforms to the NKF-ASN Task Force Recommendations. Performed By: #### 4 6449 #### LAB [address] [address] Mina Yates M.D. [id number] TROPONINon 10-05-2023 BASELINE TROPONIN T NG/L 40 ng/L Off scale high <=14 [facility] Comment on above: Performed By: #### 4 6608 #### LAB [address] [place], [place] [address] Mina Yates M.D. [id number] TROPONIN T INTERPRETATION Possible acute cardiac injury. [facility] Comment on above: Performed By: #### 4 6608 #### LAB [address] [place], [place] [address] Mina Yates M.D. [id number] XR CHEST PA/APon 10-05-2023 XR CHEST PA/AP EXAMINATION: XR CHEST PA/AP HISTORY: ORDERING SYSTEM PROVIDED HISTORY: chf, TECHNOLOGIST PROVIDED HISTORY: Illness/Other Reason for exam: chf Cancer History: . Surgery, RadiationHistory: . Encounter Type: Initial Additional signs and symptoms: . ORDERING SYSTEM PROVIDED DIAGNOSIS CODES: N17.9 Acute renal failure superimposed on chronic kidney disease, unspecified acute renal failure type, unspecified CKD stage (HCC) N18.9 Acute renal failure superimposed on chronic kidney disease, unspecified acute renal failure type, unspecified CKD stage (HCC) COMPARISON: 10/05/2023 FINDINGS: One-view chest x-ray. No pneumothorax, pleural effusion or focal airspace consolidation. Heart is normal in size. Deformity of the clavicle consistent with trauma, this may be acute or subacute with the horizontal fracture line extending through the distal aspect of the clavicle. Extensive vascular calcifications are seen. IMPRESSION: No acute cardiopulmonary process. Irregular appearance of the distal right clavicle likely posttraumatic. Workstation ID: [id number] Dictated by: EDIL THOMPSON on [facility] Oct 05, 2023 4:22:24 PM EDT Transcribed by: EDIL THOMPSON on [facility] Oct 05, 2023 4:22:24 PM EDT Finalized by: EDIL THOMPSON on [facility] Oct 05, 2023 4:22:24 PM EDT [facility] Comment on above: Order Comment: Injur y/Trauma or Illness?:Illness/OtherHow long have you had these symptoms (acute/chronic)?:AcuteReason for exam?:chfHistory of cancer?:.Surgeries, chemotherapy, or radiation?:.Type of Exam?:InitialAdditional signs and symptoms?:. BASIC METABOLIC PANELon 08-0 Anion gap [Moles/Vol] 17 mmol/L Normal 10-20 [facility] Comment on above: Order Comment: [facility] has implemented the eGFR calculation approach that does not have a coefficient for race that conforms to the NKF-ASN Task Force Recommendations. Performed By: #### 4 6124 #### LAB [address], [place] [address] Mina Yates M.D. [id number] Calcium [Mass/Vol] 9.3 mg/dL Normal 8.4-10.2 [facility] Comment on above: Order Comment: [facility] has implemented the eGFR calculation approach that does not have a coefficient for race that conforms to the NKF-ASN Task Force Recommendations. Performed By: #### 4 6124 #### LAB [address] [place], [place] [address] Mina Yates M.D. [id number] Chloride [Moles/Vol] 110 mmol/L High 98-108 [facility] Comment on above: Order Comment: [facility] has implemented the eGFR calculation approach that does not have a coefficient for race that conforms to the NKF-ASN Task Force Recommendations. Performed By: #### 4 6124 #### LAB [address] [place], [place] [address] Mina Yates M.D. [id number] Creatinine [Mass/Vol] 5.01 mg/dL High 0.60-1.10 [facility] Comment on above: Order Comment: [facility] has implemented the eGFR calculation approach that does not have a coefficient for race that conforms to the NKF-ASN Task Force Recommendations. Performed By: #### 4 6124 #### LAB [address], [place] [address] Mina Yates M.D. [id number] EGFR 9 mL/min/1.73 m2 Low >=60 [facility] Comment on above: Order Comment: [facility] has implemented the eGFR calculation approach that does not have a coefficient for race that conforms to the NKF-ASN Task Force Recommendations. Result Comment: Maddy mated GFR was calculated using the 2020 CKD-EPI creatinine equation. Performed By: #### 4 6155 #### LAB [address] [address] Mina Yates M.D. [id number] Glucose [Mass/Vol] 75 mg/dL Normal 65-99 [facility] Comment on above: Order Comment: [facility] has implemented the eGFR calculation approach that does not have a coefficient for race that conforms to the NKF-ASN Task Force Recommendations. Performed By: #### 4 6124 #### LAB [address] [address] Mian Yates M.D. [id number] HCO3 (Bld) [Moles/Vol] 21 mmol/L Normal 21-32 [facility] Comment on above: Order Comment: [facility] has implemented the eGFR calculation approach that does not have a coefficient for race that conforms to the NKF-ASN Task Force Recommendations. Performed By: #### 4 6124 #### LAB [address] [address] Mina Yates M.D. [id number] Potassium [Moles/Vol] 5.2 mmol/L High 3.5-5.1 [facility] Comment on above: Order Comment: [facility] has implemented the eGFR calculation approach that does not have a coefficient for race that conforms to the NKF-ASN Task Force Recommendations. Performed By: #### 4 6124 #### LAB [address] [address] Mina Yates M.D. [id number] Sodium [Moles/Vol] 143 mmol/L Normal 135-145 [facility] Comment on above: Order Comment: [facility] has implemented the eGFR calculation approach that does not have a coefficient for race that conforms to the NKF-ASN Task Force Recommendations. Performed By: #### 4 6124 ####[facility] [address] [address] Mina Yates M.D. [id number] Urea nitrogen [Mass/Vol] 71 mg/dL High 8-25 [facility] Comment on above: Order Comment: [facility] has implemented the eGFR calculation approach that does not have a coefficient for race that conforms to the NKF-ASN Task Force Recommendations. Performed By: #### 4 6124 #### LAB [address] [address] Mina Yates M.D. [id number] Urea nitrogen/Creatinine [Mass ratio] 14.2 mg/mg Normal 10.0-20.0 [facility] Comment on above: Order Comment: [facility] has implemented the eGFR calculation approach that does not have a coefficient for race that conforms to the NKF-ASN Task Force Recommendations. Performed By: #### 4 6124 #### LAB [address] [address] Mina Yates M.D. [id number] CBC WITH AUTO DIFFERENTIALon 10-04-2023 AUTO NRBC 0.0 % [facility] Comment on above: Performed By: #### L [id number] #### LAB [address] [address] Mina Yates M.D. [id number] AUTO NRBC ABS COUNT 0.00 K/mcL Normal 0.00-0.00 [facility] Comment on above: Performed By: #### L [id number] #### LAB [address] [address] Mina Yates M.D. [id number] BASOPHILS ABSOLUTE COUNT 0.04 K/mcL Normal 0.00-0.30 [facility] Comment on above: Performed By: #### L [id number] #### LAB [address] [address] Mina Yates M.D. [id number] Basophils/100 WBC (Bld) 0.6 % [facility] Comment on above: Performed By: #### L [id number] #### LAB [address] [address] Mina Yates M.D. [id number] Eosinophils (Bld) [#/Vol] 0.14 10*3/uL Normal 0.00-0.50 [facility] Comment on above: Performed By: #### L [id number] #### LAB [address] [address] Mina Yates M.D. [id number] Eosinophils/100 WBC (Bld) 2.1 % Normal [facility] Comment on above: Performed By: #### L [id number] #### LAB [address] [address] Mina Yates M.D. [id number] Erythrocyte distribution width (RBC) [Ratio] 13.8 % Normal 11.6-14.8 [facility] Comment on above: Performed By: #### L [id number] #### LAB [address] [address] Mina Yates M.D. [id number] Hematocrit (Bld) [Volume fraction] 30.0 % Low 36.0-46.0 [facility] Comment on above: Performed By: #### L [id number] #### LAB [address] [address] Mina Yates M.D. [id number] Hemoglobin (Bld) [Mass/Vol] 9.6 g/dL Low 12.0-16.0 [facility] Comment on above: Performed By: #### L [id number] #### LAB [address] [address] Mina Yates M.D. [id number] IG ABSOLUTE 0.01 K/mcL Normal 0.00-0.30 [facility] Comment on above: Performed By: #### L [id number] #### LAB [address] [address] Mina Yates M.D. [id number] IG PERCENT 0.10 % Normal [facility] Comment on above: Result Comment: The IG parameter is the percentage of metamyelocytes, myelocytes and promyelocytes. An immature granulocyte count (IG) of 1% or more suggests the possibility of infection, an IG count of 3% is very likely related to an infection. Performed By: #### L [id number] #### LAB [address] [place] [address] Mina Yates M.D. [id number] Lymphocytes (Bld) [#/Vol] 2.56 10*3/uL Normal 0.90-4.00 [facility] Comment on above: Performed By: #### L [id number] #### LAB [address] [address] Mina Yates M.D. [id number] Lymphocytes/100 WBC (Bld) 38.0 % Normal [facility] Comment on above: Performed By: #### L [id number] #### LAB [address] [address] Mina Yates M.D. [id number] MCH (RBC) [Entitic mass] 32.0 pg Normal 26.0-34.0 [facility] Comment on above: Performed By: #### L [id number] #### LAB [address] [address] Mina Yates M.D. [id number] MCV (RBC) [Entitic vol] 100.0 fL Normal 80.0-100.0 [facility] Comment on above: Performed By: #### L [id number] #### LAB [address] [address] Mina Yates M.D. [id number] MEAN CORPUSCULAR HEMOGLOBIN CONC 32.0 g/dL Normal 31.0-37.0 [facility] Comment on above: Performed By: #### L [id number] #### LAB [address] [address] Mina Yates M.D. [id number] Monocytes (Bld) [#/Vol] 0.43 10*3/uL Normal 0.30-0.90 [facility] Comment on above: Performed By: #### L [id number] #### LAB [address] [place] [address] Mina Yates M.D. [id number] Monocytes/100 WBC (Bld) 6.4 % Normal [facility] Comment on above: Performed By: #### L [id number] #### LAB [address] [address] Mina Yates M.D. [id number] NEUTROPHILS ABSOLUTE COUNT 3.56 K/mcL Normal 1.70-7.00 [facility] Comment on above: Performed By: #### L [id number] ####[facility] [address] [address] Mina Yates M.D. [id number] Neutrophils/100 WBC (Bld) 52.8 % Normal [facility] Comment on above: Performed By: #### L [id number] ####[facility] [address] [address] Mina Yates M.D. [id number] Platelet mean volume (Bld) [Entitic vol] 11.1 fL Normal 9.4-12.4 [facility] Comment on above: Performed By: #### L [id number] #### LAB [address] [address] Mina Yates M.D. [id number] Platelets (Bld) [#/Vol] 182 10*3/uL Normal 150-400 [facility] Comment on above: Performed By: #### L [id number] ####[facility] [address] [address] Mina Yates M.D. [id number] RBC (Bld) [#/Vol] 3.00 10*6/uL Low 4.00-5.20 [facility] Comment on above: Performed By: #### L [id number] ####[facility] [address] [address] Mina Yates M.D. [id number] WBC (Bld) [#/Vol] 6.74 10*3/uL Normal 4.50-11.00 [facility] Comment on above: Performed By: #### L [id number] ####[facility] [address] [address] Mina Yates M.D. [id number] ED Prov Noteon 10-04-2023 ED Prov Note ED PROVIDER NOTE [facility] EM[facility]GENCY [facility] NAME: Iliana Reid AGE: 73 y.o. : 1950 VISIT DATE: 10/04/[address] 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 Patient denies any chest pain or abdominal pain. No nausea no vomiting, no difficulty breathing no complaints whatsoever. Past Medical History: Diagnosis Date Anemia Anxiety Back pain Coronary artery disease GERD (gastroesophageal reflux disease) Gout Hyperlipidemia Hypertension Iron deficiency Leg weakness, bilateral Myocardial infarction (HCC) 01/2016 Nephrotic syndrome PVD (peripheral vascular disease) ([facility]) L>R consistant, worse with walking Thrombocytopenia (HCC) Past Surgical History: Procedure Laterality Date BYPASS FEMOROTIBIAL REPAIR/GRAFT Left 05/09/2015 in situ fem anterior tibial CARDIAC CATHETERIZATION COLONOSCOPY CORONARY STENT PLACEMENT [facility] TONSILLECTOMY UPPER GASTROINTESTINAL ENDOSCOPY Family History Problem Relation Age of Onset Heart disease Mother Hypertension Mother Hyperlipidemia Mother Varicose veins Mother Diabetes Mother Heart disease Father Hypertension Father Hyperlipidemia Father Diabetes Father Aneurysm Father brain Social History Socioeconomic History Marital status: Tobacco Use Smoking status: Former Current packs/day: 0.00 Average packs/day: 0.5 packs/day for 25.0 years (12.5 ttl pk-yrs) Types: Cigarettes Start date: 03/04/1990 Quit date: 03/04/2015 Years since quittin.5 Smokeless tobacco: Never Vaping Use Vaping status: Never Used Substance and Sexual Activity Alcohol use: No Drug use: No Previous Medications Medication Sig acetaminophen (TYLENOL) 325 MG tablet Take 650 mg by mouth every 6 (six) hours as needed for pain. amitriptyline (ELAVIL) 75 MG tablet Take 75 mg by mouth nightly . aspirin 81 MG EC tablet Take 81 mg by mouth daily. bisacodyL 5 mg Tab Take by mouth as needed . buPROPion (WELLBUTRIN SR) 150 MG 12 hr tablet Take 150 mg by mouth daily . carvedilol (COREG) 25 MG tablet Take 1 (one) tablet (25 mg total) by mouth 2 (two) times a day with meals . cilostazol (PLETAL) 100 MG tablet Take 100 mg by mouth 2 (two) times a day. cloNIDine (CATAPRES-TTS) 0.1 mg/[address] 1 patch on the skin once a week . cyanocobalamin (vitamin B-12) 1000 MCG tablet Take 1,000 mcg by mouth daily . doxazosin (CARDURA) 4 MG tablet Take 4 mg by mouth daily . gabapentin (NEURONTIN) 100 MG capsule Take 300 mg by mouth nightly . hydrALAZINE (APRESOLINE) 50 MG tablet Take 50 mg by mouth 3 (three) times a day . isosorbide mononitrate (IMDUR) 30 MG 24 hr tablet Take 1 (one) tablet (30 mg total) by mouth daily. levothyroxine (SYNTHROID, LEVOTHROID) 25 MCG tablet Take 25 mcg by mouth once daily . losartan (COZAAR) 100 MG tablet Take 100 mg by mouth daily . magnesium oxide (MAG-OX) 400 mg (241.3 mg magnesium) tablet Take 400 mg by mouth 2 (two) times a day . omeprazole (PRILOSEC) 20 MG capsule Take 20 mg by mouth daily. ondansetron (ZOFRAN) 4 MG tablet TAKE 1 TABLET BY MOUTH EVERY 6 HOURS NEEDED FOR NAUSEA ondansetron (Zofran) 4 MG tablet Take 1 (one) tablet (4 mg total) by mouth every 6 (six) hours as needed for nausea . promethazine (PHENERGAN) 12.5 MG tablet take 1 (one) Tablet, Oral, three times daily, as needed before meals rosuvastatin (CRESTOR) 20 MG tablet Take 20 mg by mouth nightly . Allergies Allergen Reactions Amlodipine Besylate Other (See Comments) Dilaudid [Hydromorphone] Fentanyl Review of Systems All other systems reviewed and are negative. Patient Vitals for the past 24 hrs: BP Temp Pulse Resp SpO2 10/04/23 1008 (!) 203/97 98.2 degrees F (36.8 degrees C) 69 16 97 % Physical Exam Vitals and nursing note reviewed. Constitutional: General: She is not in acute distress. Appearance: Normal appearance. She is not ill-appearing, toxic-appearing or diaphoretic. HENT: Head: Normocephalic and atraumatic. Mouth/Throat: Mouth: Mucous membranes are moist. Eyes: General: Right eye: No discharge. Left eye: No discharge. Conjunctiva/sclera: Conjunctivae normal. Cardiovascular: Rate and Rhythm: Normal rate and regular rhythm. Musculoskeletal: Cervical back: Normal range of motion and neck supple. Right lower leg: No edema. Left lower leg: No edema. Pulmonary: Effort: Pulmonary effort is normal. No respiratory distress. Breath sounds: Normal breath sounds. No stridor. Abdominal: General: There is no distension. Palpations: Abdomen is soft. Tenderness: There is no abdominal tenderness. Skin: General: Skin is warm. Capillary Refill: Capillary refill takes less than 2 seconds. (more content not included)... Normal [facility] HEPATIC FUNCTION PANELon Albumin [Mass/Vol] 3.8 g/dL Normal 3.2-5.2 [facility] Comment on above: Performed By: #### 4 5866 #### LAB [address] [address] Mina Yates M.D. [id number] ALP [Catalytic activity/Vol] 51 U/L Normal 40-150 [facility] Comment on above: Performed By: #### 4 5866 #### LAB [address] [address] Mina Yates M.D. [id number] ALT [Catalytic activity/Vol] 11 U/L Normal 0-35 U/L [facility] Comment on above: Performed By: #### 4 5866 #### LAB [address] [address] Mina Yates M.D. [id number] AST [Catalytic activity/Vol] 18 U/L Normal 0-35 U/L [facility] Comment on above: Performed By: #### 4 5866 #### LAB [address] [address] Mina Yates M.D. [id number] BILIRUBIN TOTAL < Normal 0.0-1.3 [facility] Comment on above: Performed By: #### 4 5866 #### LAB [address] [address] Mina Yates M.D. [id number] BILIRUBIN, DIRECT < Normal 0.0-0.4 [facility] Comment on above: Performed By: #### 4 5866 #### LAB [address] [place], [place] [address] Mina Yates M.D. [id number] Protein [Mass/Vol] 5.9 g/dL Low 6.0-8.0 [facility] Comment on above: Performed By: #### 4 5866 #### LAB [address] [id number] Mina Yates M.D. [id number] HEPATITIS B SURFACE ANTIGENo n 10-04-2023 HEPATITIS B SURFACE ANTIGEN Negative Normal Negative [facility] Comment on above: Order Comment: Test performed using [employer] immunoassay system Performed By: #### 4 4081 ####[facility] [address] [place] [address] Irvin Ahumada M.D. [id number] IMMUNOFIXATION, SERUMon IMMUNOFIXATION, SERUM Normal Normal [facility] Comment on above: Performed By: #### 4 6015 ####[facility] [address] [place] [address] Irvin Ahumada M.D. [id number] SIFIX INTERPRETATION No definitive parap roteins detected. A negative serum immunofixation and/or serum protein electrophoresis is insufficient to rule out a monoclonal protein. Recommend serum free light chains if clinically indicated. Reviewed by Pathologist: Jv Luther MD. Normal [facility] Comment on above: Performed By: #### 4 6015 ####[facility] [address] [place] [address] Irvin Ahumada M.D. [id number] IMMUNOFIXATION, URINEon IMMUNOFIXATION, URINE Normal Normal Normal [facility] Comment on above: Performed By: #### 4 6016 ####[facility] [address] [place] [address] Irvin Ahumada M.D. [id number] UIFIX COMMENT No paraproteins dete cted. Reviewed by Pathologist: Jv Luther MD. Normal [facility] Comment on above: Performed By: #### 4 6016 ####[facility] [address] [place], [place] [id number] Irvin Ahumada M.D. [id number] IMMUNOGLOBULIN FREE LT CHAIN S, BLOODon 10-04-2023 IG KAPPA FREE LIGHT CHAIN 84.82 mg/L High 3.30-19.40 [facility] Comment on above: Performed By: #### 4 6197 ####[facility] [address] [place] [address] Irvin Ahumada M.D. [id number] IG LAMBDA FREE LIGHT CHAIN 39.92 mg/L High 5.71-26.30 [facility] Comment on above: Performed By: #### 4 6197 ####[facility] [address] [place], [place] [id number] Irvin Ahumada M.D. [id number] KAPPA/LAMBDA RATIO 2.12 High 0.26-1.65 [facility] Comment on above: Performed By: #### 4 6197 ####[facility] [address] [place], [place] [id number] Irvin Ahumada M.D. [id number] IRON STUDY WITH FERRITINon 0 10-04-2023 Ferritin [Mass/Vol] 134 ng/mL Normal 13-150 [facility] Comment on above: Performed By: #### 4 7645 #### LAB [address] [address] Mina Yates M.D. [id number] Iron [Mass/Vol] 83 ug/dL Normal 30-160 [facility] Comment on above: Performed By: #### 4 7645 #### LAB [address] [address] Mina Yates M.D. [id number] IRON SATURATION 31 % Normal 20-50 [facility] Comment on above: Performed By: #### 4 7618 #### LAB [address] [address] Mina Yates M.D. [id number] TIBC (CALCULATED) 270 mcg/dL Normal 225-430 [facility] Comment on above: Performed By: #### 4 7645 #### LAB [address] [address] Mina Yates M.D. [id number] MAGNESIUM LEVELon 10-04-2023 Magnesium [Mass/Vol] 1.8 mg/dL Normal 1.6-2.4 [facility] Comment on above: Performed By: #### 4 6109 ####[facility] [address] [address] Mina Yates M.D. [id number] PHOSPHORUSon 10-04-2023 Phosphate [Mass/Vol] 4.5 mg/dL High 2.8-4.1 [facility] Comment on above: Performed By: #### 4 6299 ####[facility] [address] [address] Mina Yates M.D. [id number] PROTEIN / CREATININE RATIO, URINEon 10-04-2023 CREATININE,UR 20.4 mg/dL Normal [facility] Comment on above: Performed By: #### 4 7136 ####[facility] [address] [address] Mina Yates M.D. [id number] Protein (U) [Mass/Vol] 202.0 mg/dL Normal [facility] Comment on above: Performed By: #### 4 7136 ####[facility] [address] [address] Mina Yates M.D. [id number] PROTEIN CREATININE RATIO 9.9 ratio High 0.0-0.2 [facility] Comment on above: Performed By: #### 4 7136 ####[facility] [address] [address] Mina Yates M.D. [id number] TROPONINon 10-04-2023 BASELINE TROPONIN T NG/L 42 ng/L Off scale high <=14 [facility] Comment on above: Performed By: #### 4 6608 #### LAB [address] [address] Mina Yates M.D. [id number] TROPONIN T INTERPRETATION Possible acute cardiac injury. Normal [facility] Comment on above: Performed By: #### 4 6608 #### LAB [address] [address] Mina Yates M.D. [id number] TSH WITH REFLEX FREE T4on TSH Qn 0.95 m[IU]/L Normal 0.27-4.20 [facility] Comment on above: Performed By: #### 4 6612 #### LAB [address] [address] Mina Yates M.D. [id number] URINALYSISon 10-04-2023 BACTERIA, URINE Rare Abnormal None Seen [facility] Comment on above: Order Comment: Micro scopic examination is performed on all urinalysis samples and only positive findings are reported. The test for blood on the chemical analytic portion of urinalysis may also be positive due to hemoglobinuria and myoglobinuria and if red blood cells are present they are quantified by microscopic examination. Performed By: #### 4 6625 #### LAB [address] [address] Mina Yates M.D. [id number] BILIRUBIN, URINE Negative Normal Negative [facility] Comment on above: Order Comment: Micro scopic examination is performed on all urinalysis samples and only positive findings are reported. The test for blood on the chemical analytic portion of urinalysis may also be positive due to hemoglobinuria and myoglobinuria and if red blood cells are present they are quantified by microscopic examination. Performed By: #### 4 6625 #### LAB [address] [address] Mina Yates M.D. [id number] BLOOD, URINE Small Abnormal Negative [facility] Comment on above: Order Comment: Micro scopic examination is performed on all urinalysis samples and only positive findings are reported. The test for blood on the chemical analytic portion of urinalysis may also be positive due to hemoglobinuria and myoglobinuria and if red blood cells are present they are quantified by microscopic examination. Performed By: #### 4 6625 #### LAB [address] [address] Mina Yates M.D. [id number] Clarity (U) Clear Normal Clear [facility] Comment on above: Order Comment: Micro scopic examination is performed on all urinalysis samples and only positive findings are reported. The test for blood on the chemical analytic portion of urinalysis may also be positive due to hemoglobinuria and myoglobinuria and if red blood cells are present they are quantified by microscopic examination. Performed By: #### 4 6625 #### LAB [address] [address] Mina Yates M.D. [id number] Color (U) Yellow Normal Colorless, Yellow [facility] Comment on above: Order Comment: Micro scopic examination is performed on all urinalysis samples and only positive findings are reported. The test for blood on the chemical analytic portion of urinalysis may also be positive due to hemoglobinuria and myoglobinuria and if red blood cells are present they are quantified by microscopic examination. Performed By: #### 4 6625 #### LAB [address] [address] Mina Yates M.D. [id number] Glucose Ql (U) Negative Normal Negative [facility] Comment on above: Order Comment: Micro scopic examination is performed on all urinalysis samples and only positive findings are reported. The test for blood on the chemical analytic portion of urinalysis may also be positive due to hemoglobinuria and myoglobinuria and if red blood cells are present they are quantified by microscopic examination. Performed By: #### 4 6625 #### LAB [address] [address] Mina Yates M.D. [id number] Ketones Ql (U) Negative Normal Negative [facility] Comment on above: Order Comment: Micro scopic examination is performed on all urinalysis samples and only positive findings are reported. The test for blood on the chemical analytic portion of urinalysis may also be positive due to hemoglobinuria and myoglobinuria and if red blood cells are present they are quantified by microscopic examination. Performed By: #### 4 6625 #### LAB [address] [address] Mina Yates M.D. [id number] Leukocyte esterase Test strip Ql (U) Moderate Abnormal Negative [facility] Comment on above: Order Comment: Micro scopic examination is performed on all urinalysis samples and only positive findings are reported. The test for blood on the chemical analytic portion of urinalysis may also be positive due to hemoglobinuria and myoglobinuria and if red blood cells are present they are quantified by microscopic examination. Performed By: #### 4 6625 #### LAB [address] [address] Mina Yates M.D. [id number] MUCUS, URINE Rare Normal None Seen, Rare [facility] Comment on above: Order Comment: Micro scopic examination is performed on all urinalysis samples and only positive findings are reported. The test for blood on the chemical analytic portion of urinalysis may also be positive due to hemoglobinuria and myoglobinuria and if red blood cells are present they are quantified by microscopic examination. Performed By: #### 4 6625 #### LAB [address] [address] Mina Yates M.D. [id number] NITRITE, URINE Negative Normal Negative [facility] Comment on above: Order Comment: Micro scopic examination is performed on all urinalysis samples and only positive findings are reported. The test for blood on the chemical analytic portion of urinalysis may also be positive due to hemoglobinuria and myoglobinuria and if red blood cells are present they are quantified by microscopic examination. Performed By: #### 4 6625 #### LAB [address] [address] Mina Yates M.D. [id number] pH (U) 6.5 [pH] Normal 5.0-7.0 [facility] Comment on above: Order Comment: Micro scopic examination is performed on all urinalysis samples and only positive findings are reported. The test for blood on the chemical analytic portion of urinalysis may also be positive due to hemoglobinuria and myoglobinuria and if red blood cells are present they are quantified by microscopic examination. Performed By: #### 4 6625 #### LAB [address] [address] Mina Yates M.D. [id number] Protein (U) [Mass/Vol] 100 mg/dL Abnormal Negative [facility] Comment on above: Order Comment: Micro scopic examination is performed on all urinalysis samples and only positive findings are reported. The test for blood on the chemical analytic portion of urinalysis may also be positive due to hemoglobinuria and myoglobinuria and if red blood cells are present they are quantified by microscopic examination. Performed By: #### 4 6625 #### LAB [address] [place] [address] Mina Yates M.D. [id number] RBC LM.HPF (Urine sed) [#/Area] 3 /[HPF] Normal 0-3 [facility] Comment on above: Order Comment: Micro scopic examination is performed on all urinalysis samples and only positive findings are reported. The test for blood on the chemical analytic portion of urinalysis may also be positive due to hemoglobinuria and myoglobinuria and if red blood cells are present they are quantified by microscopic examination. Performed By: #### 4 6625 ####[facility] [address] [address] Mina Yates M.D. [id number] Specific gravity (U) [Rel density] 1.008 Normal 1.005-1.02 5 [facility] Comment on above: Order Comment: Micro scopic examination is performed on all urinalysis samples and only positive findings are reported. The test for blood on the chemical analytic portion of urinalysis may also be positive due to hemoglobinuria and myoglobinuria and if red blood cells are present they are quantified by microscopic examination. Performed By: #### 4 6625 #### LAB [address] [address] Mina Yates M.D. [id number] SQUAMOUS EPITHELIAL 1 /hpf Normal 0-4 [facility] Comment on above: Order Comment: Micro scopic examination is performed on all urinalysis samples and only positive findings are reported. The test for blood on the chemical analytic portion of urinalysis may also be positive due to hemoglobinuria and myoglobinuria and if red blood cells are present they are quantified by microscopic examination. Performed By: #### 4 6625 #### LAB [address] [id number] Mina Yates M.D. [id number] UROBILINOGEN, URINE <2.0 Normal <2.0 [facility] Comment on above: Order Comment: Micro scopic examination is performed on all urinalysis samples and only positive findings are reported. The test for blood on the chemical analytic portion of urinalysis may also be positive due to hemoglobinuria and myoglobinuria and if red blood cells are present they are quantified by microscopic examination. Performed By: #### 4 6625 #### LAB [address] [place] [address] Mina Yates M.D. [id number] WBC CLUMPS, URINE Rare Abnormal None Seen [facility] Comment on above: Order Comment: Micro scopic examination is performed on all urinalysis samples and only positive findings are reported. The test for blood on the chemical analytic portion of urinalysis may also be positive due to hemoglobinuria and myoglobinuria and if red blood cells are present they are quantified by microscopic examination. Performed By: #### 4 6625 #### LAB [address] [address] Mina Yates M.D. [id number] WBC LM.HPF (Urine sed) [#/Area] 58 /[HPF] High 0-5 [facility] Comment on above: Order Comment: Micro scopic examination is performed on all urinalysis samples and only positive findings are reported. The test for blood on the chemical analytic portion of urinalysis may also be positive due to hemoglobinuria and myoglobinuria and if red blood cells are present they are quantified by microscopic examination. Performed By: #### 4 6625 #### LAB [address] [address] Mina Yates M.D. [id number] US RENAL AND BLADDERon 10-03 US RENAL AND BLADDER EXAMINATION: US RENAL AND BLADDER HISTORY: ORDERING SYSTEM PROVIDED HISTORY: Renal failure, TECHNOLOGIST PROVIDED HISTORY: Illness/Other Reason for exam: Renal failure; abnormal creatinine Cancer History: . Surgery, RadiationHistory: . Encounter Type: Initial Additional signs and symptoms: None ORDERING SYSTEM PROVIDED DIAGNOSIS CODES: N17.9 Acute renal failure superimposed on chronic kidney disease, unspecified acute renal failure type, unspecified CKD stage (HCC) N18.9 Acute renal failure superimposed on chronic kidney disease, unspecified acute renal failure type, unspecified CKD stage (HCC) COMPARISON: 08/21/2016 TECHNIQUE: Ultrasound of the kidneys and bladder. FINDINGS: The right kidney measures 7.8 cm. Mild renal cortical thinning noted. Mildly increased renal cortical echogenicity. 7.7 mm simple cyst within the mid right kidney. No solid renal mass or hydronephrosis. Normal color Doppler flow. The left kidney measures 9.0 cm and is of normal echogenicity and echotexture. No renal mass or hydronephrosis. Normal color Doppler flow. Prior to voiding the bladder volume measures 360 mL. The postvoid residual volume measures 36 mL. Bilateral ureteral jets are present. IMPRESSION: Mild asymmetric atrophy of the right kidney, similar to the prior examination. Right-sided simple renal cyst. No evidence of obstructive uropathy. Workstation ID: [id number] Dictated by: TRISTIN FREIRE on SatOct 04, 2023 12:50:47 PM EDT Transcribed by: TRISTIN FREIRE on SatOct 04, 2023 12:50:47 PM EDT Finalized by: TRISTIN FREIRE on SatOct 04, 2023 12:50:47 PM EDT [facility] Comment on above: Order Comment: Injur y/Trauma or Illness?:Illness/OtherHow long have you had these symptoms (acute/chronic)?:UnknownReason for exam?:Renal failure; abnormal creatinineHistory of cancer?:.Surgeries, chemotherapy, or radiation?:.Type of Exam?:InitialAdditional signs and symptoms?:None BMP with eGFRon 09-27-2023 AGE 73 years Normal [facility] Comment on above: Performed By: #### 2 [id number] #### [facility],[address] [place] [address] Anion gap [Moles/Vol] 15 mmol/L Normal 10 - 20 [facility] Comment on above: Performed By: #### 2 78236 #### [facility],[address] [place] [address] BMP with eGFR Normal [facility] Comment on above: Result Comment: BASI C METABOLIC PANEL Performed By: #### 2 39304 #### [facility],[address] [place] [address] Calcium [Mass/Vol] 8.7 mg/dL Normal 8.5 - 10.1 [facility] Comment on above: Performed By: #### 2 62597 #### [facility],[address] [place], [place] [id number] Chloride [Moles/Vol] 110 mmol/L High 98 - 107 [facility] Comment on above: Performed By: #### 2 08564 #### [facility],[address] [place], [place] [id number] CO2 [Moles/Vol] 22.8 mmol/L Normal 21.0 - 32.0 [facility] Comment on above: Performed By: #### 2 45427 #### [facility],[address] [place] [address] Creatinine [Mass/Vol] 4.56 mg/dL High 0.55 - 1.02 [facility] Comment on above: Performed By: #### 2 15950 #### [facility],[address] [place] [address]146 eGFR 9 ML/MINUTE Low 60 - 999 [facility] Comment on above: Performed By: #### 2 70043 #### [facility],[address] [place] [address]858 eGFR(AA) 11 ML/MINUTE Low 60 - 999 [facility] Comment on above: Result Comment: ACCO RDING TO THE NATIONAL KIDNEY DISEASE EDUCATION PROGRAM(NKDE), A NORMAL eGFR IS A VALUE GREATER THAN OR EQUAL TO 60 ML/MIN/1.73 SQ METERS. CHRONIC KIDNEY DISEASE: <60mL/MIN/1.73 SQ METERS KIDNEY FAILURE: <15mL/MIN/1.73 SQ METERS THIS TEST SHOULD ONLY BE USED FOR PATIENTS 18 YEARS OF AGE AND OLDER. Performed By: #### 2 57104 #### [facility],[address] [place] [address]25 Glucose [Mass/Vol] 67 mg/dL Low 74 - 106 [facility] Comment on above: Performed By: #### 2 10603 #### [facility],[address] [place] [address] 92921 Potassium [Moles/Vol] 5.0 mmol/L Normal 3.5 - 5.1 [facility] Comment on above: Performed By: #### 2 07846 #### [facility],[address] [place] [address] 33791 Sodium [Moles/Vol] 143 mmol/L Normal 136 - 145 [facility] Comment on above: Performed By: #### 2 85813 #### [facility],[address] [place] [address] 47092 Urea nitrogen [Mass/Vol] 60 mg/dL High 7 - 18 [facility] Comment on above: Performed By: #### 2 96701 #### [facility],[address] [place] [address] 88146 CBC + DIFFon 09-27-2023 Baso # 0.03 x10EE3/UL Normal 0.00 - 0.10 [facility] Comment on above: Performed By: #### 2 58410 #### [facility],[address] [place] [address] 32183 Basophils/100 WBC (Bld) 0.3 % Normal 0.0 - 2.0 [facility] Comment on above: Performed By: #### 2 94015 #### [facility],[address] [place] [address] 81172 CBC + DIFF Normal [facility] Comment on above: Result Comment: CBC- COMPLETE BLOOD COUNT Performed By: #### 2 17861 #### [facility],[address] [place] [address] 99587 EO # 0.12 x10EE3/UL Normal 0.00 - 0.50 [facility] Comment on above: Performed By: #### 2 37177 #### [facility],[address] [place] [address] 83815 Eosinophils/100 WBC (Bld) 1.4 % Normal 0.0 - 7.0 [facility] Comment on above: Performed By: #### 2 38151 #### [facility],[address] [place] [address] Erythrocyte distribution width (RBC) [Ratio] 13.5 % Normal 12.0 - 15.6 [facility] Comment on above: Performed By: #### 2 50959 #### [facility],[address] [place] [address] Hematocrit (Bld) [Volume fraction] 29.7 % Low 34.0 - 46.0 [facility] Comment on above: Performed By: #### 2 20056 #### [facility],[address] [place] [address] Hemoglobin (Bld) [Mass/Vol] 9.8 g/dL Low 12.0 - 16.0 [facility] Comment on above: Performed By: #### 2 04879 #### [facility],[address] [place] [address] 71808 Lymph # 2.18 x10EE3/UL Normal 0.80 - 2.80 [facility] Comment on above: Performed By: #### 2 91654 #### [facility],[address] [place] [address] 11751 Lymphocytes/100 WBC (Bld) 24.9 % Normal 20.0 - 45.0 [facility] Comment on above: Performed By: #### 2 48989 #### [facility],[address] [place], [place] [address] MANUAL DIFF N/A Normal [facility] Comment on above: Performed By: #### 2 02890 #### [facility],[address] [place] [address] 82197 MCH (RBC) [Entitic mass] 31 pg Normal 27 - 33 [facility] Comment on above: Performed By: #### 2 03715 #### [facility],[address] [place] [address] 57196 MCHC 33 X10 3 Normal 32 - 36 [facility] Comment on above: Performed By: #### 2 93592 #### [facility],[address] [place] [address] 58417 MCV (RBC) [Entitic vol] 95 fL Normal 80 - 99 [facility] Comment on above: Performed By: #### 2 53626 #### [facility],[address] [place], [place] [address] Atkinson # 0.49 x10EE3/UL Normal 0.20 - 1.00 [facility] Comment on above: Performed By: #### 2 50610 #### [facility],[address] [place] [address] 38528 MONOS % 5.6 % Normal 0.0 - 10.0 [facility] Comment on above: Performed By: #### 2 52492 #### [facility],[address] [place] [address] 89873 Morphology David (Bld) [Interp] N/A Normal [facility] Comment on above: Performed By: #### 2 26163 #### [facility],[address] [place] [address] 31867 Neut # 5.92 x10EE3/UL Normal 1.50 - 7.10 [facility] Comment on above: Performed By: #### 2 10267 #### [facility],[address] [place] [address] 09592 Neutrophils/100 WBC (Bld) 67.8 % Normal 46.0 - 76.0 [facility] Comment on above: Performed By: #### 2 59948 #### [facility],[address] [place] [address] 47199 PLATELET 164 x10EE3/UL Normal 150 - 450 [facility] Comment on above: Performed By: #### 2 33485 #### [facility],[address] [place] [address] 01881 Platelet mean volume (Bld) [Entitic vol] 8.6 fL Normal 6.6 - 10.5 [facility] Comment on above: Result Comment: AUTO MATED DIFFERENTIAL Performed By: #### 2 51584 #### [facility],[address] [place] [address] 64083 RBC 3.12 x 10EE6/UL Low 4.10 - 5.30 [facility] Comment on above: Performed By: #### 2 06982 #### [facility],[address] [place] [address] 85976 WBC 8.7 x 10EE3/UL Normal 4.5 - 10.8 [facility] Comment on above: Performed By: #### 2 14927 #### [facility],[address] [place] [address] 33240 BMP with eGFRon 09-04-2023 AGE 73 years Normal [facility] Comment on above: Performed By: #### 2 57150 #### [facility],[address] [place] [address] 77381 Anion gap [Moles/Vol] 16 mmol/L Normal 10 - 20 [facility] Comment on above: Performed By: #### 2 01728 #### [facility],[address] [place] [address] 20971 BMP with eGFR Normal [facility] Comment on above: Result Comment: BASI C METABOLIC PANEL Performed By: #### 2 81186 #### [facility],[address] [place] [address] 35120 Calcium [Mass/Vol] 8.3 mg/dL Low 8.5 - 10.1 [facility] Comment on above: Performed By: #### 2 30619 #### [facility],[address] [place] [address] 54547 Chloride [Moles/Vol] 111 mmol/L High 98 - 107 [facility] Comment on above: Performed By: #### 2 35298 #### [facility],[address] [place], [place] [address] CO2 [Moles/Vol] 20.4 mmol/L Low 21.0 - 32.0 [facility] Comment on above: Performed By: #### 2 39024 #### [facility],[address] [place], [place] [address] Creatinine [Mass/Vol] 4.54 mg/dL High 0.55 - 1.02 [facility] Comment on above: Performed By: #### 2 72177 #### [facility],[address] [place], [place] [address] eGFR 10 ML/MINUTE Low 60 - 999 [facility] Comment on above: Performed By: #### 2 14877 #### [place] [id number] eGFR(AA) 12 ML/MINUTE Low 60 - 999 [facility] Comment on above: Result Comment: ACCO RDING TO THE NATIONAL KIDNEY DISEASE EDUCATION PROGRAM(NKDE), A NORMAL eGFR IS A VALUE GREATER THAN OR EQUAL TO 60 ML/MIN/1.73 SQ METERS. CHRONIC KIDNEY DISEASE: <60mL/MIN/1.73 SQ METERS KIDNEY FAILURE: <15mL/MIN/1.73 SQ METERS THIS TEST SHOULD ONLY BE USED FOR PATIENTS 18 YEARS OF AGE AND OLDER. Performed By: #### 2 06798 #### [facility],[address] [place], [place] [address] Glucose [Mass/Vol] 73 mg/dL Low 74 - 106 [facility] Comment on above: Performed By: #### 2 80896 #### [facility],[address] [place] [address] 38923 Potassium [Moles/Vol] 5.0 mmol/L Normal 3.5 - 5.1 [facility] Comment on above: Performed By: #### 2 86921 #### [facility],[address] [place] [address] 84890 Sodium [Moles/Vol] 142 mmol/L Normal 136 - 145 [facility] Comment on above: Performed By: #### 2 71955 #### [facility],[address] [place] [address] 48231 Urea nitrogen [Mass/Vol] 84 mg/dL High 7 - 18 [facility] Comment on above: Performed By: #### 2 26770 #### [facility],[address] [place] [address] 70248 CMP with eGFRon 01-16-2023 AGE 72 years Normal [facility] Comment on above: Performed By: #### 2 35733 #### [facility],[address] [place] [address] 76173 Albumin [Mass/Vol] 3.1 g/dL Low 3.4 - 5.0 [facility] Comment on above: Performed By: #### 2 75760 #### [facility],[address] [place] [address] 90529 Albumin/Globulin [Mass ratio] 1.1 {ratio} Normal 0.9 - 1.6 [facility] Comment on above: Performed By: #### 2 16393 #### [facility],[address] [place] [address] 82243 ALK PHOS 69 U/L Normal 46 - 116 [facility] Comment on above: Performed By: #### 2 11929 #### [facility],[address] [place] [address] 83905 ALT [Catalytic activity/Vol] 35 U/L Normal 14 - 59 [facility] Comment on above: Performed By: #### 2 22117 #### [facility],[address] [place] [address] 59731 Anion gap [Moles/Vol] 17 mmol/L Normal 10 - 20 [facility] Comment on above: Performed By: #### 2 38738 #### [facility],[address] [place] [address] 24029 AST [Catalytic activity/Vol] 23 U/L Normal 13 - 39 [facility] Comment on above: Performed By: #### 2 01474 #### [facility],[address] [place] [address] 87904 B/C RATIO 24 ratio Normal 0 - 30 [facility] Comment on above: Performed By: #### 2 24603 #### [facility],[address] [place] [address] 43445 Bilirubin [Mass/Vol] 0.2 mg/dL Normal 0.2 - 1.0 [facility] Comment on above: Performed By: #### 2 02555 #### [facility],[address] [place] [address] 95327 Calcium [Mass/Vol] 8.7 mg/dL Normal 8.5 - 10.1 [facility] Comment on above: Performed By: #### 2 61813 #### [facility],[address] [place] [address] 98067 Chloride [Moles/Vol] 114 mmol/L High 98 - 107 [facility] Comment on above: Performed By: #### 2 38748 #### [facility],[address] [place] [address] 05362 CMP with eGFR Normal [facility] Comment on above: Result Comment: COMP REHENSIVE METABOLIC PANEL Performed By: #### 2 15909 #### [facility],[address] [place] [address] 72378 CO2 [Moles/Vol] 20.8 mmol/L Low 21.0 - 32.0 [facility] Comment on above: Performed By: #### 2 05662 #### [facility],[address] [place] [address] 96809 Creatinine [Mass/Vol] 2.62 mg/dL High 0.55 - 1.02 [facility] Comment on above: Performed By: #### 2 21530 #### [facility],[address] [place] [address] 68244 eGFR 18 ML/MINUTE Low 60 - 999 [facility] Comment on above: Performed By: #### 2 45678 #### [facility],[address] [place] [address] 56355 eGFR(AA) 22 ML/MINUTE Low 60 - 999 [facility] Comment on above: Result Comment: ACCO RDING TO THE NATIONAL KIDNEY DISEASE EDUCATION PROGRAM(NKDE), A NORMAL eGFR IS A VALUE GREATER THAN OR EQUAL TO 60 ML/MIN/1.73 SQ METERS. CHRONIC KIDNEY DISEASE: <60mL/MIN/1.73 SQ METERS KIDNEY FAILURE: <15mL/MIN/1.73 SQ METERS THIS TEST SHOULD ONLY BE USED FOR PATIENTS 18 YEARS OF AGE AND OLDER. Performed By: #### 2 26802 #### [facility],[address] [place] [address] 18231 Globulin (S) [Mass/Vol] 2.7 g/dL Normal 1.5 - 3.8 [facility] Comment on above: Performed By: #### 2 15191 #### [facility],[address] [place] [address] 01964 Glucose [Mass/Vol] 75 mg/dL Normal 74 - 106 [facility] Comment on above: Performed By: #### 2 38364 #### [facility],[address] [place] [address] 35136 Potassium [Moles/Vol] 4.3 mmol/L Normal 3.5 - 5.1 [facility] Comment on above: Performed By: #### 2 58399 #### [facility],[address] [place] [address] 10002 Protein [Mass/Vol] 5.8 g/dL Low 6.4 - 8.2 [facility] Comment on above: Performed By: #### 2 18522 #### [facility],[address] [place] [address] 49437 Sodium [Moles/Vol] 147 mmol/L High 136 - 145 [facility] Comment on above: Performed By: #### 2 36408 #### [facility],[address] [place] [address] 35293 Urea nitrogen [Mass/Vol] 64 mg/dL High 7 - 18 [facility] Comment on above: Performed By: #### 2 60274 #### [facility],[address] [place] [address] 00036 ALBon 01-15-2023 Albumin Level 3.1 G/dL Low 3.2-4.8 [facility] ([place] Comment on above: Performed By: #### A LB #### [place] [address] T4-FREE (FREE THYROXINE)on 03-17-2022 Free T4 [Mass/Vol] 0.76 ng/dL Normal 0.76 - 1.46 [facility] Comment on above: Result Comment: P otential of falsely elevated results when biotin concentrations are > 10 ng/mL. Performed By: #### 2 81663 #### [facility],[address] [place] [address] 66279 TSHon 01-15-2023 TSH Qn 2.86 m[IU]/L Normal 0.35 - 3.74 [facility] Comment on above: Performed By: #### 2 03042 #### [facility],[address] [place] [address] 64594 CMP with eGFRon 12-14-2022 AGE 72 years Normal [facility] Comment on above: Performed By: #### 2 12784 #### [facility],[address] [place] [address] 13183 Albumin [Mass/Vol] 2.8 g/dL Low 3.4 - 5.0 [facility] Comment on above: Performed By: #### 2 41164 #### [facility],[address] [place] [address] 67541 Albumin/Globulin [Mass ratio] 0.9 {ratio} Normal 0.9 - 1.6 [facility] Comment on above: Performed By: #### 2 86370 #### [facility],[address] [place] [address] 67339 ALK PHOS 71 U/L Normal 46 - 116 [facility] Comment on above: Performed By: #### 2 66383 #### [facility],[address] [place] [address] 30250 ALT [Catalytic activity/Vol] 209 U/L High 14 - 59 [facility] Comment on above: Performed By: #### 2 22611 #### [facility],[address] [place] [address] 26284 Anion gap [Moles/Vol] 13 mmol/L Normal 10 - 20 [facility] Comment on above: Performed By: #### 2 01662 #### [facility],[address] [place] [address] 98870 AST [Catalytic activity/Vol] 141 U/L High 13 - 39 [facility] Comment on above: Performed By: #### 2 09368 #### [facility],[address] [place] [address] 14806 B/C RATIO 14 ratio Normal 0 - 30 [facility] Comment on above: Performed By: #### 2 93728 #### [facility],[address] [place] [address] 20625 Bilirubin [Mass/Vol] 0.2 mg/dL Normal 0.2 - 1.0 [facility] Comment on above: Performed By: #### 2 14666 #### [facility],[address] [place] [address] 47718 Calcium [Mass/Vol] 9.1 mg/dL Normal 8.5 - 10.1 [facility] Comment on above: Performed By: #### 2 89246 #### [facility],[address] [place], [place] [address] Chloride [Moles/Vol] 108 mmol/L High 98 - 107 [facility] Comment on above: Performed By: #### 2 02958 #### [facility],[address] [place] [address] CMP with eGFR Normal [facility] Comment on above: Result Comment: COMP REHENSIVE METABOLIC PANEL Performed By: #### 2 56866 #### [facility],[address] [place] [address] CO2 [Moles/Vol] 27.2 mmol/L Normal 21.0 - 32.0 [facility] Comment on above: Performed By: #### 2 51557 #### [facility],[address] [place], [place] [address] Creatinine [Mass/Vol] 2.57 mg/dL High 0.55 - 1.02 [facility] Comment on above: Performed By: #### 2 71514 #### [facility],[address] [place], [place] [address] eGFR 18 ML/MINUTE Low 60 - 999 [facility] Comment on above: Performed By: #### 2 73110 #### [facility],[address] [place], [place] [address] eGFR(AA) 22 ML/MINUTE Low 60 - 999 [facility] Comment on above: Result Comment: ACCO RDING TO THE NATIONAL KIDNEY DISEASE EDUCATION PROGRAM(NKDE), A NORMAL eGFR IS A VALUE GREATER THAN OR EQUAL TO 60 ML/MIN/1.73 SQ METERS. CHRONIC KIDNEY DISEASE: <60mL/MIN/1.73 SQ METERS KIDNEY FAILURE: <15mL/MIN/1.73 SQ METERS THIS TEST SHOULD ONLY BE USED FOR PATIENTS 18 YEARS OF AGE AND OLDER. Performed By: #### 2 08986 #### [facility],[address] [place] [address] 16121 Globulin (S) [Mass/Vol] 3.1 g/dL Normal 1.5 - 3.8 [facility] Comment on above: Performed By: #### 2 74752 #### [facility],[address] [place] [address] 38281 Glucose [Mass/Vol] 72 mg/dL Low 74 - 106 [facility] Comment on above: Performed By: #### 2 35560 #### [facility],[address] [place] [address] 28580 Potassium [Moles/Vol] 4.9 mmol/L Normal 3.5 - 5.1 [facility] Comment on above: Performed By: #### 2 59918 #### [facility],[address] [place] [address] 33312 Protein [Mass/Vol] 5.9 g/dL Low 6.4 - 8.2 [facility] Comment on above: Performed By: #### 2 51210 #### [facility],[address] [place] [address] 75467 Sodium [Moles/Vol] 143 mmol/L Normal 136 - 145 [facility] Comment on above: Performed By: #### 2 44029 #### [facility],[address] [place] [address] 48316 Urea nitrogen [Mass/Vol] 36 mg/dL High 7 - 18 [facility] Comment on above: Performed By: #### 2 98614 #### [facility],[address] [place] [address] 63864 LIPID PROFILEon 12-14-2022 Cholesterol [Mass/Vol] 122 mg/dL Normal 0 - 240 [facility] Comment on above: Performed By: #### 2 36034 #### [facility],[address] [place] [address] 49084 Cholesterol in HDL [Mass/Vol] 73 mg/dL High 40 - 60 [facility] Comment on above: Performed By: #### 2 40435 #### [facility],[address] [place] [address] 00600 Cholesterol in LDL [Mass/Vol] 40 mg/dL Normal 0 - 129 [facility] Comment on above: Performed By: #### 2 87113 #### [facility],[address] [place] [address] 07790 Cholesterol.total/Cho lesterol in HDL [Mass ratio] 1.7 {ratio} Normal 0.0 - 5.0 [facility] Comment on above: Performed By: #### 2 52706 #### [facility],[address] [place] [address] 99687 Lipid 1996 panel Normal [facility] Comment on above: Result Comment: LIPI D PROFILE Performed By: #### 2 88985 #### [facility],[address] [place] [address] 91939 Triglyceride [Mass/Vol] 44 mg/dL Normal 0 - 150 [facility] Comment on above: Performed By: #### 2 72993 #### [facility],[address] [place] [address] 84453 T4-FREE (FREE THYROXINE)on Free T4 [Mass/Vol] 0.61 ng/dL Low 0.76 - 1.46 [facility] Comment on above: Result Comment: P otential of falsely elevated results when biotin concentrations are > 10 ng/mL. Performed By: #### 2 74893 #### [facility],[address] [place] [address] 33123 TSHon 12-14-2022 TSH Qn 6.65 m[IU]/L High 0.35 - 3.74 [facility] Comment on above: Performed By: #### 2 62537 #### [facility],[address] [place] [address] 42652 VITAMIN D, 25 HYDROXYon 12-02 VitD 26.30 ng/mL Low 30.00 - 100 [facility] Comment on above: Result Comment: 25-O HD3 indicates both endogenous production and supplementation. 25-OHD2 is an indicator of exogenous sources, such as diet or supplementation. Therapy is based on measurement of Total 25-OHD, with levels <20 ng/mL indicative of Vitamin D deficiency, while levels between 20 ng/mL and 30 ng/mL suggest insufficiency. Optimal levels are >=30ng/mL. Vitamin D, 25-OH D3 Not Established Vitamin D, 25-OH D2 Not Established Performed By: #### 2 27048 #### [facility],[address] [facility] [address] Absolute lymphocyte countOrd ered By: Dr. Amado on 08-17-2022 Lymphocytes Auto (Unsp spec) [#/Vol] 1.96 10*3/uL 0.83-4.51 [facility] Amorphous sediment detection in urine sediment by light microscopyOrdered By: Dr. Amado on 08-17-2022 Amorphous sediment LM Ql (Urine sed) 2+ PHOS [facility] Basophil percentageOrdered B y: Dr. Amado on 08-17-2022 Basophil percentage 0-5 SEEN /hpf 0-5 [facility] Basophils/100 WBC (Bld) 0.3 % 0-1 [facility] Bilirubin [Mass/Vol] 0.30 mg/dL 0.20-1.00 [facility] Comment on above: For patients on eltr ombopag therapy, use of Dimension Datto TBIL is not recommended. Chloride [Moles/Vol] 107 mmol/L 98-107 [facility] Eosinophils/100 WBC (Bld) 1.0 % 0-5 [facility] Glucose [Mass/Vol] 99 mg/dL 74-106 [facility] Lactate [Moles/Vol] 0.7 mmol/L 0.4-2.0 [facility] Neutrophils (Bld) [#/Vol] 4.4 10*3/uL 2.0-7.7 [facility] Neutrophils/100 WBC (Bld) 64.3 % 47-70 [facility] Potassium [Moles/Vol] 4.5 mmol/L 3.5-5.1 [facility] Protein [Mass/Vol] 6.7 g/dL 6.4-8.2 [facility] Sodium [Moles/Vol] 140 mmol/L 136-145 [facility] WBC (Bld) [#/Vol] 6.8 10*3/uL 4.4-11.0 [facility] Bilirubin Test strip Ql (U)O rdered By: Dr. Amado on 08-17-2022 Bilirubin Ql (U) Negative Negative [facility] Blood erythrocytes count (nu mber/volume)Ordered By: Dr. Amado on 08-17-2022 RBC (Bld) [#/Vol] 3.75 10*6/uL 4.2-5.4 [facility] Blood hemoglobin measurement (mass/volume)Ordered By: Dr. Amado on 08-17-2022 Hemoglobin (Bld) [Mass/Vol] 11.8 g/dL 12.0-15.0 [facility] Blood lymphocytes/100 leukoc ytesOrdered By: Dr. Amado on 08-17-2022 Lymphocytes/100 WBC (Bld) 29.0 % 19-41 [facility] Blood monocytes/100 leukocyt esOrdered By: Dr. Amado on 08-17-2022 Monocytes/100 WBC (Bld) 5.3 % 0-10 [facility] Blood platelet mean volumeOr dered By: Dr. Amado on 08-17-2022 Platelet mean volume (Bld) [Entitic vol] 11.2 fL 6.2-12.0 [facility] Determination of erythrocyte mean corpuscular volume (MCV)Ordered By: Dr. Amado on 08-17-2022 MCV (RBC) [Entitic vol] 97.9 fL 81-99 [facility] Glucose Glucometer (dC) [M ass/Vol]Ordered By: Dr. Amado on 08-17-2022 Glucose [Mass/Vol] 100 mg/dL 74-106 [facility] Comment on above: MANAGEMENT OF PATIEN T CARE PER NURSING PROTOCOL Hematocrit Auto (Bld) [Volum e fraction]Ordered By: Dr. Amado on 08-17-2022 Hematocrit (Bld) [Volume fraction] 36.7 % 37-47 [facility] INR in Blood by Coagulation assayOrdered By: Dr. Amado on 08-17-2022 INR Coag (Bld) [Relative time] 0.9 {INR} [facility] Ketones Test strip Ql (U)Ord ered By: Dr. Amado on 08-17-2022 Ketones Ql (U) Negative Negative [facility] Laboratory - Chemistry and C hemistry - challengeOrdered By: Dr. Amado on 08-17-2022 ALP [Catalytic activity/Vol] 66 U/L 45-117 [facility] ALT [Catalytic activity/Vol] 36 U/L 13-56 [facility] CO2 [Moles/Vol] 26.0 mmol/L 21.0-32.0 [facility] Globulin (S) [Mass/Vol] 3.5 g/dL 2.2-4.2 [facility] Urea nitrogen/Creatinine [Mass ratio] 11.5 mg/mg 10-20 [facility] Laboratory - CoagulationOrde red By: Dr. Amado on 08-17-2022 PT Coag (PPP) [Time] 12.4 s 11.7-14.9 [facility] - Hematology and Cell countsOrdered By: Dr. Amado on 08-17-2022 Erythrocyte distribution width (RBC) [Entitic vol] 44.8 fL 35.1-43.9 [facility] [place] Erythrocyte distribution width (RBC) [Ratio] 12.4 % 11.6-14.6 [facility] Immature granulocytes/100 WBC (Bld) 0.100 % 0.0-0.9 [facility] [place] Comment on above: IG% - Immature Granu locytes (promyelocytes, myelocytes and metamyelocytes) > 1% indicates that a LEFT SHIFT is Present. MCH (RBC) [Entitic mass] 31.5 pg 27.0-32.0 [facility] [place] Nucleated RBC/100 WBC (Bld) [Ratio] 0 % 0-5 [facility] [place] MCHC Auto (RBC) [Mass/Vol]Or dered By: Dr. Amado on 08-17-2022 MCHC (RBC) [Mass/Vol] 32.2 g/dL 32-36 [facility] Mucus LM Ql (Urine sed)Order ed By: Dr. Amado on 06-16-2023 Mucus Ql (Urine sed) 0 SEEN /hpf [facility] Nitrite Test strip Ql (U)Ord ered By: Dr. Amado on 08-17-2022 Nitrite Ql (U) Negative Negative [facility] [place] No Panel InformationOrdered By: Dr. Amado on 08-17-2022 Estimated Creatinine Clearance Calc 18.08 ml/min [facility] [place] Estimated GFR (MDRD) Amer 26 mL/min >60 [facility] [place] Comment on above: GFR Calc Estimated GFR (MDRD) Non-Af Amer 22 mL/min >60 [facility] [place] Comment on above: Non- GFR Calc Thyroid Stimulating Hormone (TSH) 3.51 uIU/mL 0.358-3.74 [facility] [place] Troponin I High Sensitivity 12 pg/mL 3.0-54.0 [facility] [place] Comment on above: Please Note: New Dee t Units and Gender Specific Reference Ranges. For more information see Policy Stat Procedure Datto High Sensitivity Troponin (TNIH) and attachments. Platelets bldOrdered By: Dr. Amado on 08-17-2022 Platelets (Bld) [#/Vol] 159 10*3/uL 150-450 [facility] Protein Test strip Ql (U)Ord ered By: Dr. Amado on 08-17-2022 Protein Ql (U) 500 mg/dl Negative [facility] [place] Serum or plasma albumin km urement (mass/volume)Ordered By: Dr. Amado on 08-17-2022 Albumin [Mass/Vol] 3.2 g/dL 3.2-5.0 [facility] Serum or plasma albumin/glob ulin mass ratioOrdered By: Dr. Amado on 08-17-2022 Albumin/Globulin [Mass ratio] 0.9 {ratio} 0.9-2.4 [facility] Serum or plasma calcium km urement (mass/volume)Ordered By: Dr. Amado on 08-17-2022 Calcium [Mass/Vol] 9.8 mg/dL 8.5-10.1 [facility] Serum or plasma creatinine m easurement (mass/volume)Ordered By: Dr. Amado on 08-17-2022 Creatinine [Mass/Vol] 2.34 mg/dL 0.55-1.02 [facility] Comment on above: The validity of the calculated GFR & GFRAA in patients over 70 years has not been determined. Clinical correlation is essential. Serum or plasma urea nitroge n measurement (mass/volume)Ordered By: Dr. Amado on 08-17-2022 Urea nitrogen [Mass/Vol] 27 mg/dL 7-18 [facility] Squamous epithelial cells de tection in urine sediment by light microscopyOrdered By: Dr. Amado on 08-17-2022 Epithelial cells.squamous LM Ql (Urine sed) 0-5 SEEN /hpf 5-10 [facility] Thin prep Papanicolaou smear with manual screeningOrdered By: Dr. Amado on 08-17-2022 Thin prep Papanicolaou smear with manual screening 25 U/L 15-37 [facility] Thin prep Papanicolaou smear with manual screening 7 5-15 [facility] Urine blood detectionOrdered By: Dr. Amado on 08-17-2022 RBC Ql (U) 25 /ul Negative [facility] RBC Ql (U) 0-5 SEEN /hpf 0-5 [facility] Urine clarityOrdered By: Dr. Amado on 08-17-2022 Clarity (U) Sl. Cloudy Clear [facility] Urine color determinationOrd ered By: Dr. Amado on 08-17-2022 Color (U) Yellow Yellow [facility] Urine glucose detectionOrder ed By: Dr. Amado on 08-17-2022 Glucose Ql (U) Normal mg/dl Normal [facility] Urine leukocyte esterase det ection by dipstickOrdered By: Dr. Amado on 08-17-2022 Leukocyte esterase Test strip Ql (U) 25 /ul Negative [facility] Urine pHOrdered By: Dr. Rolly jackman on 08-17-2022 pH (U) 7.0 [pH] 5.0 - 8.0 [facility] Urine sediment bacteria coun t by microscopy (number/high power field)Ordered By: Dr. Amado on 08-17-2022 Bacteria LM.HPF (Urine sed) [#/Area] 2 /[HPF] None Seen [facility] Urine specific gravity measu rementOrdered By: Dr. Amado on 08-17-2022 Specific gravity (U) [Rel density] 1.010 1.002-1.03 0 [facility] Urobilinogen Auto test strip Ql (U)Ordered By: Dr. mAado on 08-17-2022 Urobilinogen Ql (U) Normal mg/dl Normal [facility] PTH, [place] 03-25-2021 PTH, Intact 84 pg/mL High 15-65 [facility] Comment on above: Performed By: #### P THI #### [facility] Routine Lab [address] [phone] Hemoglobin A1con 02-02-2021 Glucose [Mass/Vol] 117 mg/dL Normal [facility] Comment on above: Performed By: #### H BA1C #### [facility] Routine Lab [address] [phone] HbA1c (Bld) [Mass fraction] 5.7 % High 4.3-5.6 [facility] Comment on above: Performed By: #### H BA1C #### [facility] Routine Lab [address] [phone] Hemoglobin A1con 08-05-2020 Glucose [Mass/Vol] 117 mg/dL Normal [facility] Comment on above: Performed By: #### H BA1C #### [facility] Routine Lab [address] [phone] HbA1c (Bld) [Mass fraction] 5.7 % High 4.3-5.6 [facility] Comment on above: Performed By: #### H BA1C #### [facility] Routine Lab [facility] [phone] Ultrasound ankle / brachial indices extremity completeon 12-19-2018 Non-Invasive Vascula r Patient: ROLYONEIDA ILIANA Bahena [facility] Rec#: [id number] (Age): 1950(68y) Study Date: 12/19/2018 Room#: Type: Sex: F Reading: Dr. Marcell Pichardo MD, RPVI Reading: YANIRA Referring: MARCELL PICHARDO MD Eeler: MARQUITA RAMOS RVT Procedure Info: [id number] Study Quality: Lower Arterial Doppler: adequate Diagnosis: I73.9 Peripheral vascular disease, unspecified Lower Arterial Doppler Conclusions Right ankle brachial index indicates moderate peripheral artery disease. Toe pressure is 70 mmHg. Left ankle brachial index is normal. Toe pressure is 117 mmHg. Moderate small vessel disease noted at the transmetatarsal level in the right foot. Toe brachial index is abnormal. No evidence of small vessel disease noted at the transmetatarsal level in the left foot. Toe brachial index is normal. The procedure was explained to the patient. The patient voiced understanding. Finding Grids Lower PVR Waveforms Right Left Ankle B N Transmet B N Dietz --------- B = Abnormal N = Normal Toe PPG Waveforms Right Left 1st Digit B N Dietz --------- B = Abnormal N = Normal Doppler Waveforms Right Left Posterior Tibial M M Dorsalis Pedis M T Dietz --------- M = Monophasic T = Triphasic Measurements Right Pressures/Ratios Name Value Units Brachial 157 mmHg Ankle (Posterior Tibial) 98 mmHg Ankle (Dorsalis Pedis) 96 mmHg Toe 70 mmHg JEN 0.62 ratio TBI 0.45 ratio Left Pressures/Ratios Name Value Units Brachial 142 mmHg Ankle (Posterior Tibial) 172 mmHg Ankle (Dorsalis Pedis) 178 mmHg Toe 117 mmHg JEN 1.13 ratio TBI 0.75 ratio History CAD. Hyperlipidemia. Hypertension. PAD. Tobacco Use-Previous. Vascular Surgery. History Comments:Left fem to mehdi bypass Electronically signed at 12/19/2018 11:01:49 by: Dr. Marcell Pichardo MD, FER [facility] Interface, Rad In artlab Xper Echopacs - 12/19/2018 11:11 AM EDT Non-Invasive Vascular Patient: JEANETTE Bahena [facility] Rec#: [id number] (Age): 1950(68y) Study Date: 12/19/2018 Room#: Type: Sex: F Reading: Dr. Marcell Pichardo MD, MARYBELVI Reading: YANIRA Referring: MARCELL PICHARDO MD Eeler: MARQUITA RAMOS RVT Procedure Info: [id number] Study Quality: Lower Arterial Doppler: adequate Diagnosis: I73.9 Peripheral vascular disease, unspecified Lower Arterial Doppler Conclusions Right ankle brachial index indicates moderate peripheral artery disease. Toe pressure is 70 mmHg. Left ankle brachial index is normal. Toe pressure is 117 mmHg. Moderate small vessel disease noted at the transmetatarsal level in the right foot. Toe brachial index is abnormal. No evidence of small vessel disease noted at the transmetatarsal level in the left foot. Toe brachial index is normal. The procedure was explained to the patient. The patient voiced understanding. Finding Grids Lower PVR Waveforms Right Left Ankle B N Transmet B N Dietz --------- B = Abnormal N = Normal Toe PPG Waveforms Right Left 1st Digit B N Dietz --------- B = Abnormal N = Normal Doppler Waveforms Right Left Posterior Tibial M M Dorsalis Pedis M T Dietz --------- M = Monophasic T = Triphasic Measurements Right Pressures/Ratios Name Value Units Brachial 157 mmHg Ankle (Posterior Tibial) 98 mmHg Ankle (Dorsalis Pedis) 96 mmHg Toe 70 mmHg JEN 0.62 ratio TBI 0.45 ratio Left Pressures/Ratios Name Value Units Brachial 142 mmHg Ankle (Posterior Tibial) 172 mmHg Ankle (Dorsalis Pedis) 178 mmHg Toe 117 mmHg JEN 1.13 ratio TBI 0.75 ratio History CAD. Hyperlipidemia. Hypertension. PAD. Tobacco Use-Previous. Vascular Surgery. History Comments:Left fem to mehdi bypass Electronically signed at 12/19/2018 11:01:49 by: Dr. Marcell Pichardo MD, [facility] Ultrasound duplex arterial l eg lefton 12-19-2018 Non-Invasive Vascula r Patient: JEANETTE Bahena [facility] Rec#: [id number] (Age): 1950(68y) Study Date: 12/19/2018 Room#: Type: Sex: F Reading: Dr. Marcell Pichardo MD, RPVI Reading: YANIRA Referring: MARY Eeler: MARQUITA RAMOS E Procedure Info: [id number] Study Quality: Lower Arterial Duplex: adequate Diagnosis: I73.9 Peripheral vascular disease, unspecified Lower Arterial Duplex Graft Duplex Findings Left anterior tibial artery: calcific plaque present. Left Graft #1 was an in-situ saphenous vein graft, with proximal anastomosis at the DOMESTIC TECHNICIAN and distal anastomosis at the MEHDI. There was normal flow in Left Graft #1. The procedure was explained to the patient. The patient voiced understanding. Measurements Left PSV Name Value Units EIA 143 cm/sec DOMESTIC TECHNICIAN 150 cm/sec Profunda 200 cm/sec MEHDI - prox 88 cm/sec MEHDI - mid 85 cm/sec MEHDI - dist 77 cm/sec History CAD. Hyperlipidemia. Hypertension. PAD. Tobacco Use-Previous. Vascular Surgery. History Comments:left supervisor kennel to mehdi bypass Electronically signed at 12/19/2018 11:01:19 by: Dr. Marcell Pichardo MD, FER [facility] Interface, Rad In artlab Xper Echopacs - 12/19/2018 11:11 AM EDT Non-Invasive Vascular Patient: JEANETTE Bahena [facility] Rec#: [id number] (Age): 1950(68y) Study Date: 12/19/2018 Room#: Type: Sex: F Reading: Dr. Marcell Pichardo MD, MARYBELVI Reading: YANIRA Referring: MARY Eeler: MARQUITA RAMOS E Procedure Info: [id number] Study Quality: Lower Arterial Duplex: adequate Diagnosis: I73.9 Peripheral vascular disease, unspecified Lower Arterial Duplex Graft Duplex Findings Left anterior tibial artery: calcific plaque present. Left Graft #1 was an in-situ saphenous vein graft, with proximal anastomosis at the DOMESTIC TECHNICIAN and distal anastomosis at the MEHDI. There was normal flow in Left Graft #1. The procedure was explained to the patient. The patient voiced understanding. Measurements Left PSV Name Value Units EIA 143 cm/sec DOMESTIC TECHNICIAN 150 cm/sec Profunda 200 cm/sec MEHDI - prox 88 cm/sec MEHDI - mid 85 cm/sec MEHDI - dist 77 cm/sec History CAD. Hyperlipidemia. Hypertension. PAD. Tobacco Use-Previous. Vascular Surgery. History Comments:left supervisor kennel to mehdi bypass Electronically signed at 12/19/2018 11:01:19 by: Dr. Marcell Pichardo MD, RPVI [facility] RENAL DUPLEX COMPLETEon 0 07-07-2018 Non-Invasive Vascula r Patient: JEANETTE Bahena [facility] Rec#: [id number] (Age): 1950(68y) Study Date: 07/07/2018 Room#: Type: Sex: F Reading: YANIRA Reading: Dr. Marcell Pichardo MD, RPVI Referring: WOLFGANG MATIAS Eeler: Nadege Vargas RVT,GLADYS Procedure Info: [id number] Study Quality: Renal Duplex: limited Diagnosis: I10 Essential (primary) hypertension N18.3 Chronic kidney disease, stage 3 (moderate) Renal Duplex (bowel gas ) Conclusions Diminished size of the right kidney was noted. 60-99% stenosis noted in the right renal artery. Stenosis noted in the origin and proximal section of the right renal artery. The left kidney was normal in size. 0-59% stenosis noted in the left renal artery. Stenosis noted in the origin and proximal section of the left renal artery. Eeler's Comments:incidental finding : celiac velocity 317 cm/sec suggestive of a 70-99% stenosis Findings The right kidney was imaged. The right kidney was small in size. There were no cysts present in the right kidney. The left kidney was imaged. The left kidney was small in size. There were no cysts present in the left kidney. Measurements Right Kidney Name Value Units Kidney length 8.72 cm Renal - Aorta ratio 2.5 ratio Juxta-renal aortic velocity 85 cm/sec UP RI 0.75 MP RI 0.7 LP RI 0.64 Accleration Time 16 msec Left Kidney Name Value Units Kidney length 10.04 cm Renal - Aorta ratio 248 ratio Juxta-renal aortic velocity 85 cm/sec UP RI 0.71 MP RI 0.69 LP RI 0.71 Accleration Time 24 msec Right Velocities Name Value Units RA - orig PSV 213 cm/sec RA - orig EDV 38 cm/sec RA - prox PSV 166 cm/sec RA - prox EDV 30.7 cm/sec RA - mid PSV 136 cm/sec RA - mid EDV 26.5 cm/sec RA - dist PSV 83 cm/sec RA - dist EDV 17.3 cm/sec Left Velocities Name Value Units RA - orig PSV 199 cm/sec RA - orig EDV 43 cm/sec RA - prox PSV 211 cm/sec RA - prox EDV 47.1 cm/sec RA - mid PSV 182 cm/sec RA - mid EDV 31 cm/sec RA - dist PSV 114 cm/sec RA - dist EDV 32.1 cm/sec History CAD. Hyperlipidemia. Hypertension. Tobacco Use-Previous. Electronically signed at 07/07/2018 18:15:47 by: Dr. Marcell Pichardo MD, RPTISHA [facility] Interface, Rad In artlab Xper Echopacs - 07/07/2018 6:19 PM EDT Non-Invasive Vascular Patient: JEANETTE Bahena [facility] Rec#: [id number] (Age): 1950(68y) Study Date: 07/07/2018 Room#: Type: Sex: F Reading: YANIRA Reading: Dr. Marcell Pichardo MD, MARYBELVI Referring: WOLFGANG MATIAS Eeler: Nadege Vargas RVT,GLADYS Procedure Info: [id number] Study Quality: Renal Duplex: limited Diagnosis: I10 Essential (primary) hypertension N18.3 Chronic kidney disease, stage 3 (moderate) Renal Duplex (bowel gas ) Conclusions Diminished size of the right kidney was noted. 60-99% stenosis noted in the right renal artery. Stenosis noted in the origin and proximal section of the right renal artery. The left kidney was normal in size. 0-59% stenosis noted in the left renal artery. Stenosis noted in the origin and proximal section of the left renal artery. Eeler's Comments:incidental finding : celiac velocity 317 cm/sec suggestive of a 70-99% stenosis Findings The right kidney was imaged. The right kidney was small in size. There were no cysts present in the right kidney. The left kidney was imaged. The left kidney was small in size. There were no cysts present in the left kidney. Measurements Right Kidney Name Value Units Kidney length 8.72 cm Renal - Aorta ratio 2.5 ratio Juxta-renal aortic velocity 85 cm/sec UP RI 0.75 MP RI 0.7 LP RI 0.64 Accleration Time 16 msec Left Kidney Name Value Units Kidney length 10.04 cm Renal - Aorta ratio 248 ratio Juxta-renal aortic velocity 85 cm/sec UP RI 0.71 MP RI 0.69 LP RI 0.71 Accleration Time 24 msec Right Velocities Name Value Units RA - orig PSV 213 cm/sec RA - orig EDV 38 cm/sec RA - prox PSV 166 cm/sec RA - prox EDV 30.7 cm/sec RA - mid PSV 136 cm/sec RA - mid EDV 26.5 cm/sec RA - dist PSV 83 cm/sec RA - dist EDV 17.3 cm/sec Left Velocities Name Value Units RA - orig PSV 199 cm/sec RA - orig EDV 43 cm/sec RA - prox PSV 211 cm/sec RA - prox EDV 47.1 cm/sec RA - mid PSV 182 cm/sec RA - mid EDV 31 cm/sec RA - dist PSV 114 cm/sec RA - dist EDV 32.1 cm/sec History CAD. Hyperlipidemia. Hypertension. Tobacco Use-Previous. Electronically signed at 07/07/2018 18:15:47 by: Dr. Marcell Pichardo MD, VI [facility] CT CHEST WITHOUT CONTRASTon 06-16-2018 Resolution of pleura l effusions otherwise no significant change. LJB/mll Workstation ID: [id number] [facility] EXAMINATION: CT CHES T WITHOUT CONTRAST HISTORY: ORDERING SYSTEM PROVIDED HISTORY: pulmonary nodule, TECHNOLOGIST PROVIDED HISTORY: Reason for exam: pt complains of difficulty breathing, history of lung nodule Illness/Other Encounter Type: Ongoing Additional signs and symptoms: pt complains of difficulty breathing, history of lung nodule ORDERING SYSTEM PROVIDED DIAGNOSIS CODES: R91.1 Solitary pulmonary nodule COMPARISON: 2017 and 2016. TECHNIQUE: CT examination of the chest without IV contrast. Coronal and sagittal reformations were performed. Dose reduction techniques were achieved by using automated exposure control and/or adjustment of mA and/or kV according to patient size and/or use of iterative reconstruction technique. FINDINGS: Adjacent too small to characterize right upper lobe nodules (less than 5 mm) are stable and follow-up is not required in a low risk patient. Remaining lungs are clear. There is no pleural effusion but there is a small pericardial effusion. There is coronary artery calcification but there is no cardiomegaly. Lymph nodes in upper abdomen are grossly stable. Bones are stable. [facility] Interface, Rad In Fu ji Speechq - 06/16/2018 12:59 PM EDT EXAMINATION: CT CHEST WITHOUT CONTRAST HISTORY: ORDERING SYSTEM PROVIDED HISTORY: pulmonary nodule, TECHNOLOGIST PROVIDED HISTORY: Reason for exam: pt complains of difficulty breathing, history of lung nodule Illness/Other Encounter Type: Ongoing Additional signs and symptoms: pt complains of difficulty breathing, history of lung nodule ORDERING SYSTEM PROVIDED DIAGNOSIS CODES: R91.1 Solitary pulmonary nodule COMPARISON: 2017 and 2016. TECHNIQUE: CT examination of the chest without IV contrast. Coronal and sagittal reformations were performed. Dose reduction techniques were achieved by using automated exposure control and/or adjustment of mA and/or kV according to patient size and/or use of iterative reconstruction technique. FINDINGS: Adjacent too small to characterize right upper lobe nodules (less than 5 mm) are stable and follow-up is not required in a low risk patient. Remaining lungs are clear. There is no pleural effusion but there is a small pericardial effusion. There is coronary artery calcification but there is no cardiomegaly. Lymph nodes in upper abdomen are grossly stable. Bones are stable. IMPRESSION: Resolution of pleural effusions otherwise no significant change. ALVA/monika Workstation ID: [id number] [facility] US duplex bypass kanchan duplex bypass graft Non-Invasive Vascular Patient: JEANETTE Bahena [facility] Rec#: [id number] (Age): 1950(67y) Study Date: 10/11/2017 Room#: Type: Sex: F Reading: Ángel Garrett MD, RPVI Reading: YANIRA Referring: MARCELL PICHARDO ALAN Eeler: NADEGE VARGAS Procedure Info: [id number] Study Quality: Graft Duplex: adequate Diagnosis: I73.9 Peripheral vascular disease, unspecified Graft Duplex Conclusions Bypass graft surveillance revealed no evidence of significant stenosis throughout the left graft. Findings Left Graft #1 was an in-situ saphenous vein graft, with proximal anastomosis at the DOMESTIC TECHNICIAN and distal anastomosis at the MEHDI. There was normal flow in Left Graft #1. The procedure was explained to the patient. The patient voiced understanding. Measurements Left Graft #1 PSV Name Value Units Inflow Artery 159 cm/sec Prox Anastomosis 196 cm/sec Prox Graft 72 cm/sec Mid Graft 79 cm/sec Dist Graft 64 cm/sec Dist Anastomosis 125 cm/sec Outflow Artery 126 cm/sec History CAD. Hyperlipidemia. Hypertension. PAD. History Comments:left femoral to MEHDI bypass Electronically signed at 10/11/2017 11:07:12 by: Ángel Garrett MD, FER Invalid Interpretation Code [facility] RAD US duplex bypass graft Interface, Rad In Heartlab Xper [facility] - 10/11/2017 11:17 AM EDT Non-Invasive Vascular Patient: JEANETTE Bahena [facility] Rec#: [id number] (Age): 1950(67y) Study Date: 10/11/2017 Room#: Type: Sex: F Reading: Ángel Garrett MD, MARYBELVI Reading: YANIRA Referring: MARCELL PICHARDO ALAN Eeler: NADEGE VARGAS Procedure Info: [id number] Study Quality: Graft Duplex: adequate Diagnosis: I73.9 Peripheral vascular disease, unspecified Graft Duplex Conclusions Bypass graft surveillance revealed no evidence of significant stenosis throughout the left graft. Findings Left Graft #1 was an in-situ saphenous vein graft, with proximal anastomosis at the DOMESTIC TECHNICIAN and distal anastomosis at the MEHDI. There was normal flow in Left Graft #1. The procedure was explained to the patient. The patient voiced understanding. Measurements Left Graft #1 PSV Name Value Units Inflow Artery 159 cm/sec Prox Anastomosis 196 cm/sec Prox Graft 72 cm/sec Mid Graft 79 cm/sec Dist Graft 64 cm/sec Dist Anastomosis 125 cm/sec Outflow Artery 126 cm/sec History CAD. Hyperlipidemia. Hypertension. PAD. History Comments:left femoral to MEHDI bypass Electronically signed at 10/11/2017 11:07:12 by: Ángel Garrett MD, RPVI Invalid Interpretation Code [facility] RAD CBC with Diffon 09-23-2017 Basophils Auto #/vol (Bld) 0.1 K/mcL Normal 0-0.2 [facility] Comment on above: Performed By: #### F ERR, CBCDIF, TFERR, IRON ####Unless otherwise noted, all testing performed by [facility] [address] [address] [address] [place], [place] [id number]: [id number] Director: Mina Yates M.D. Basophils/100 WBC Auto (Bld) 0.6 % Normal [facility] Comment on above: Performed By: #### F ERR, CBCDIF, TFERR, IRON ####Unless otherwise noted, all testing performed by [address] [id number]: [id number] Director: Mina Yates M.D. Eosinophils Auto #/vol (Bld) 0.2 K/mcL Normal 0-0.5 [facility] Comment on above: Performed By: #### F ERR, CBCDIF, TFERR, IRON ####Unless otherwise noted, all testing performed by [address] [phone]: [id number] Director: Mina Yates M.D. Eosinophils/100 WBC Auto (Bld) 1.9 % Normal [facility] Comment on above: Performed By: #### F ERR, CBCDIF, TFERR, IRON ####Unless otherwise noted, all testing performed by [address] [place] [id number]: [id number] Director: Mina Yates M.D. Erythrocyte distribution width Auto Ratio (RBC) 14.3 % Normal 10.0-14.4 [facility] Comment on above: Performed By: #### F ERR, CBCDIF, TFERR, IRON ####Unless otherwise noted, all testing performed by [address] [phone]: [id number] Director: Mina Yates M.D. Hematocrit Auto Volume Fraction (Bld) 35.4 % Normal 34.4-44.8 [facility] Comment on above: Performed By: #### F ERR, CBCDIF, TFERR, IRON ####Unless otherwise noted, all testing performed by [address] [id number]: [id number] Director: Mina Yates M.D. Hemoglobin mass conc (Bld) 11.8 g/dL Normal 11.6-15.4 [facility] Comment on above: Performed By: #### F ERR, CBCDIF, TFERR, IRON ####Unless otherwise noted, all testing performed by [address] [phone]: [id number] Director: Mina Yates M.D. Lymphocytes Auto #/vol (Bld) 2.9 K/mcL Normal 1.0-3.7 [facility] Comment on above: Performed By: #### F ERR, CBCDIF, TFERR, IRON ####Unless otherwise noted, all testing performed by [address] [phone]: [id number] Director: Mina Yates M.D. Lymphocytes/100 WBC Auto (Bld) 34.1 % Normal [facility] Comment on above: Performed By: #### F ERR, CBCDIF, TFERR, IRON ####Unless otherwise noted, all testing performed by [address] [phone]: [id number] Director: Mina Yates M.D. MCH Auto Entitic mass (RBC) 31.4 pg Normal 27.9-33.9 [facility] Comment on above: Performed By: #### F ERR, CBCDIF, TFERR, IRON ####Unless otherwise noted, all testing performed by [address] [phone]: [id number] Director: Mina Yates M.D. MCHC Auto mass conc (RBC) 33.3 g/dL Normal 33.1-35.1 [facility] Comment on above: Performed By: #### F ERR, CBCDIF, TFERR, IRON ####Unless otherwise noted, all testing performed by [address] [phone]: [id number] Director: Mina Yates M.D. MCV Auto Entitic volume (RBC) 94.3 fL Normal 82.6-98.9 [facility] Comment on above: Performed By: #### F ERR, CBCDIF, TFERR, IRON ####Unless otherwise noted, all testing performed by [address] [phone]: [id number] Director: Mina Yates M.D. Monocytes Auto #/vol (Bld) 0.5 K/mcL Normal 0.1-0.6 [facility] Comment on above: Performed By: #### F ERR, CBCDIF, TFERR, IRON ####Unless otherwise noted, all testing performed by [address] [phone]: [id number] Director: Mina Yates M.D. Monocytes/100 WBC Auto (Bld) 6.4 % Normal [facility] Comment on above: Performed By: #### F ERR, CBCDIF, TFERR, IRON ####Unless otherwise noted, all testing performed by [address] [phone]: [id number] Director: Mina Yates M.D. Neutrophils Auto #/vol (Bld) 4.8 K/mcL Normal 1.2-6.9 [facility] Comment on above: Performed By: #### F ERR, CBCDIF, TFERR, IRON ####Unless otherwise noted, all testing performed by [address] [phone]: [id number] Director: Mina Yates M.D. Platelet mean volume Auto Entitic volume (Bld) 9.7 fL Normal 7.0-10.6 [facility] Comment on above: Performed By: #### F ERR, CBCDIF, TFERR, IRON ####Unless otherwise noted, all testing performed by [address] [phone]: [id number] Director: Mina Yates M.D. Platelets Auto #/vol (Bld) 207 K/mcL Normal 162-402 [facility] Comment on above: Performed By: #### F ERR, CBCDIF, TFERR, IRON ####Unless otherwise noted, all testing performed by [address] [phone]: [id number] Director: Mina Yates M.D. RBC Auto #/vol (Bld) 3.76 M/mcL Normal 3.7-5.0 [facility] Comment on above: Performed By: #### F ERR, CBCDIF, TFERR, IRON ####Unless otherwise noted, all testing performed by [address] [phone]: [id number] Director: Mina Yates M.D. Segmented Neut % 57.0 % Normal [facility] Comment on above: Performed By: #### F ERR, CBCDIF, TFERR, IRON ####Unless otherwise noted, all testing performed by [address] [phone]: [id number] Director: Mina Yates M.D. WBC Auto #/vol (Bld) 8.5 K/mcL Normal 3.4-10.6 [facility] Comment on above: Performed By: #### F ERR, CBCDIF, TFERR, IRON ####Unless otherwise noted, all testing performed by [place] [phone]: [id number] Director: Mina Yates M.D. Ferritinon 09-23-2017 Ferritin [Mass/volume] in Serum or Plasma 124 ng/mL Normal 13-150 [facility] Comment on above: Result Comment: Samp les from patients routinely receiving high dose biotin therapy(100-300 mg/day) may show falsely decreased results. Please correlateclinically. Performed By: #### F ERR, CBCDIF, TFERR, IRON ####Unless otherwise noted, all testing performed by [address] [phone]: [id number] Director: Mian Yates M.D. Iron, Totalon 09-23-2017 Iron, Total 59 mcg/dL Normal 50-170 [facility] Comment on above: Performed By: #### F ERR, CBCDIF, TFERR, IRON ####Unless otherwise noted, all testing performed by [place] [phone]: [id number] Director: Mina Yates M.D. Transferrinon 09-23-2017 Transferrin mass conc 240.0 mg/dL Normal 212.0- 360. 0 [facility] Comment on above: Performed By: #### F ERR, CBCDIF, TFERR, IRON ####Unless otherwise noted, all testing performed by [place] [address], [place] [phone]: [id number] Director: Mina Yates M.D. CT CHEST W/O CONTRASTon CT CHEST W/O CONTRAST Final ReportAccession No: [id number] Performed: Apr 11 2017 11:17AMExamination: CT CHEST W/O CONTRASTEXAM: CT CHEST W/O CONTRASTCLINICAL STATEMENT: Follow-up pulmonary nodule on previous CT chest.COMPARISON: CT chest August 24, 2016.TECHNIQUE: ?CT examination of the chest?without IV contrast. Coronal andsagittal reformations were performed. ?Dose reduction techniques were achieved by using automated exposurecontroland/or adjustment of mA and/or kV according to patient size and/or use ofiterative reconstruction technique.FINDINGS: The noncalcified 4 mm nodule in the right upper lobe on [id number] image 17 shows no significant change in size or morphology from priorstudy. The additional satellite 2 mm nodule just caudal to the abovenodule wasnot visualized on the current study. There are no new pulmonary nodules.Thereare persistent small bilateral pleural effusions with mild basilaratelectasis.Similar linear atelectasis or scarring again noted in the middle lobe andthelingula. No development of airspace consolidation. Central airways areclear.There are again at least moderate atherosclerotic calcifications of thethoracic aorta with dense heavy calcifications at the left subclavianarteryorigin and is suggestive of an underlying severe stenosis. Multivesselcoronaryartery calcifications are redemonstrated with extensive densecalcificationsnoted in the LAD artery. There is a similar small, partiallycircumferentialperi cardial effusion. Esophagus is nondistended. There are nopathologicallyenlarged mediastinal, appreciable hilar or axillary lymph nodes. Includedportions of the upper abdomen show no acute or significant intervalfindings.There is a chronic mild wedge-shaped compression fracture of the W9vzmionlkd,predominantly along the inferior endplate. No acute osseous abnormality.IMPRESSION:1. No change in size or morphology of the noncalcified 4 mm right upperlobepulmonary nodule. The additional 2 mm satellite nodule noted previouslyis notvisualized on the current study. Depending upon risk factors, may considerfollow-up chest CT in one year.2. No new pulmonary nodules.3. Persistent trace bilateral pleural effusions and a small pericardialeffusion.4. No CT evidence of lymphadenopathy.5. Mild chronic compression fracture of the T7 vertebra.6. Heavy atherosclerotic vascular disease. Significant plaquing at theoriginof the left subclavian artery suggests underlying high grade stenosis.Interpreting Physician: SHERLY DUARTE D.O.Trans: dbullo : cc: Normal [facility] US Doppler ankle/brachial in dexon 10-05-2016 US Doppler ankle/brachial index Non-Invasive Vascular Patient: JEANETTE Bahena [facility] Rec#: [id number] (Age): 1950(66y) Study Date: 10/05/2016 Room#: Type: Sex: F Reading: Dr. Marcell Pichardo MD Reading: YANIRA Referring: MARCELL PICHARDO MD Eeler: Dawson Kendall Procedure Info: [id number] Study Quality: Lower Arterial Doppler: adequate Diagnosis: I73.9 Peripheral vascular disease, unspecified Lower Arterial Doppler (Follow up exam, post unspecified surgery V67.00 ... ) (Peripheral vascular disease NOS 443.9 ) Conclusions The ankle brachial index on the right indicated moderate arterial occlusive disease. Mild digital ischemia noted in the right foot. The ankle brachial index on the left was normal at rest. No evidence of digital ischemia noted in left foot. Mild small vessel disease noted in the right foot. No evidence of small vessel disease noted in the left foot. Findings There was a right to left brachial pressure gradient suggesting left subclavian disease. The procedure was explained to the patient. The patient voiced understanding. Finding Grids Lower PVR Waveforms Right Left Ankle B N Transmet B N Dietz --------- B = Abnormal N = Normal Toe PPG Waveforms Right Left 1st Digit D N Dietz --------- D = Diminished N = Normal Doppler Waveforms Right Left Posterior Tibial B T Dorsalis Pedis B T Dietz --------- B = Biphasic T = Triphasic Measurements Right Pressures/Ratios Name Value Units Brachial 171 mmHg Ankle (Dorsalis Pedis) 102 mmHg Ankle (Posterior Tibial) 93 mmHg Toe 74 mmHg JEN 0.53 ratio Left Pressures/Ratios Name Value Units Brachial 1192 mmHg Ankle (Dorsalis Pedis) 173 mmHg Ankle (Posterior Tibial) 161 mmHg Toe 120 mmHg JEN 0.9 ratio History CAD. Hyperlipidemia. Hypertension. PAD. Tobacco Use-Previous. 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 Marcell Pichardo MD Invalid Interpretation Code [facility] [place] [facility] US Doppler ankle/brachial index Interface, Rad In Heartlab [facility]per [facility] - 10/05/2016 3:41 PM EDT Non-Invasive Vascular Patient: JEANETTE Bahena [facility] Rec#: [id number] (Age): 1950(66y) Study Date: 10/05/2016 Room#: Type: Sex: F Reading: Dr. Marcell Pichardo MD Reading: YANIRA Referring: MARCELL PICHARDO MD Eeler: Dawson Kendall Procedure Info: [id number] Study Quality: Lower Arterial Doppler: adequate Diagnosis: I73.9 Peripheral vascular disease, unspecified Lower Arterial Doppler (Follow up exam, post unspecified surgery V67.00 ... ) (Peripheral vascular disease NOS 443.9 ) Conclusions The ankle brachial index on the right indicated moderate arterial occlusive disease. Mild digital ischemia noted in the right foot. The ankle brachial index on the left was normal at rest. No evidence of digital ischemia noted in left foot. Mild small vessel disease noted in the right foot. No evidence of small vessel disease noted in the left foot. Findings There was a right to left brachial pressure gradient suggesting left subclavian disease. The procedure was explained to the patient. The patient voiced understanding. Finding Grids Lower PVR Waveforms Right Left Ankle B N Transmet B N Dietz --------- B = Abnormal N = Normal Toe PPG Waveforms Right Left 1st Digit D N Dietz --------- D = Diminished N = Normal Doppler Waveforms Right Left Posterior Tibial B T Dorsalis Pedis B T Dietz --------- B = Biphasic T = Triphasic Measurements Right Pressures/Ratios Name Value Units Brachial 171 mmHg Ankle (Dorsalis Pedis) 102 mmHg Ankle (Posterior Tibial) 93 mmHg Toe 74 mmHg JEN 0.53 ratio Left Pressures/Ratios Name Value Units Brachial 1192 mmHg Ankle (Dorsalis Pedis) 173 mmHg Ankle (Posterior Tibial) 161 mmHg Toe 120 mmHg JEN 0.9 ratio History CAD. Hyperlipidemia. Hypertension. PAD. Tobacco Use-Previous. 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 Marcell Pichardo MD Invalid Interpretation Code [facility] US duplex bypass kanchan US duplex bypass graft Non-Invasive Vascular Patient: JEANETTE Bahena [facility] Rec#: [id number] (Age): 1950(66y) Study Date: 10/05/2016 Room#: Type: Sex: F Reading: Dr. Marcell Pichardo MD Reading: YANIRA Referring: MARCELL PICHARDO ALAN Eeler: DAWSON KENDALL Procedure Info: [id number] Study Quality: Graft Duplex: adequate Diagnosis: I73.9 Peripheral vascular disease, unspecified Graft Duplex (Follow-up examination, post surgery (unspecified) V67.00 ) Conclusions Bypass graft surveillance revealed no evidence of significant stenosis throughout the left graft. Findings Left Graft #1 was graft, with proximal anastomosis at the DOMESTIC TECHNICIAN and distal anastomosis at the MEHDI. There was normal flow in Left Graft #1. The procedure was explained to the patient. The patient voiced understanding. Measurements History CAD. Hyperlipidemia. Hypertension. PAD. Tobacco Use-Previous. History Comments:left DOMESTIC TECHNICIAN to MEHDI Electronically signed at 10/05/2016 16:09:23 by: Dr. Marcell Pichardo MD [facility] US duplex bypass graft Interface, [facility] 10/05/2016 4:11 PM EDT Non-Invasive Vascular Patient: JEANETTE Vences Rec#: [id number] (Age): 1950(66y) Study Date: 10/05/2016 Room#: Type: Sex: F Reading: Dr. Marcell Pichardo MD Reading: YANIRA Referring: MARCELL PICHARDO ALAN Eeler: DAWSON KENDALL Procedure Info: [id number] Study Quality: Graft Duplex: adequate Diagnosis: I73.9 Peripheral vascular disease, unspecified Graft Duplex (Follow-up examination, post surgery (unspecified) V67.00 ) Conclusions Bypass graft surveillance revealed no evidence of significant stenosis throughout the left graft. Findings Left Graft #1 was graft, with proximal anastomosis at the DOMESTIC TECHNICIAN and distal anastomosis at the MEHDI. There was normal flow in Left Graft #1. The procedure was explained to the patient. The patient voiced understanding. Measurements History CAD. Hyperlipidemia. Hypertension. PAD. Tobacco Use-Previous. History Comments:left DOMESTIC TECHNICIAN to MEHDI Electronically signed at 10/05/2016 16:09:23 by: Dr. Marcell Pichardo MD [facility] [place] [facility] Vital Signs Date Time Vital Sign Value Performing Clinician Facility 07-20-2024 13:17-0400 Body height 162.[address] Sujey Fonseca MD Work Phone: [facility] [place] 07-20-2024 13:17-0400 Body mass index (BMI) [Ratio] 21.1 kg/m2 Dr. Sujey Fonseca MD Work Phone: [facility] 07-20-2024 13:17-0400 Body temperature 98.4 [degF] Dr. Sujey Fonseca MD Work Phone: 1(744)[phone] [place] [address] 07-20-2024 13:17-0400 Body weight 55.[address] Sujey Fonseca MD Work Phone: [facility] 07-20-2024 13:17-0400 Diastolic blood pressure 99 mm[Hg] Dr. Sujey Fonseca MD Work Phone: [facility] 07-20-2024 13:17-0400 Heart rate 81 /min Dr. Sujey Fonseca MD Work Phone: [facility] 07-20-2024 13:17-0400 Respiratory rate 16 /min Dr. Sujey Fonseca MD Work Phone: [facility] 07-20-2024 13:17-0400 SaO2% (BldA) [Mass fraction] 98 % Dr. Sujey Fonseca MD Work Phone: [facility] [place] 07-20-2024 13:17-0400 Systolic blood pressure 183 mm[Hg] Dr. Sujey Fonseca MD Work Phone: [facility] [place] 04-08-2024 13:57-0500 Body temperature 97.8 [degF] Dr. Sujey Fonseca MD Work Phone: [facility] [place] 04-08-2024 13:57-0500 Body weight 58.[address] Sujey Fonseca MD Work Phone: [facility] [place] 04-08-2024 13:57-0500 Diastolic blood pressure 100 mm[Hg] Dr. Sujey Fonseca MD Work Phone: [facility] [place] 04-08-2024 13:57-0500 Heart rate 92 /min Dr. Sujey Fonseca MD Work Phone: [facility] [place] 04-08-2024 13:57-0500 Respiratory rate 16 /min Dr. Sujey Fonseca MD Work Phone: [facility] 04-08-2024 13:57-0500 SaO2% (BldA) [Mass fraction] 98 % Dr. Sujey Fonseca MD Work Phone: [facility] 04-08-2024 13:57-0500 Systolic blood pressure 190 mm[Hg] Dr. Sujey Fonseca MD Work Phone: [facility] 03-26-2024 15:54-0500 Body temperature 97 [degF] Dr. Sujey Fonseca MD Work Phone: [facility] 03-26-2024 15:54-0500 Diastolic blood pressure 96 mm[Hg] Dr. Sujey Fonseca MD Work Phone: [facility] 03-26-2024 15:54-0500 Heart rate 81 /min Dr. Sujye Fonseca MD Work Phone: [facility] 03-26-2024 15:54-0500 Respiratory rate 18 /min Dr. Sujey Fonseca MD Work Phone: [facility] 03-26-2024 15:54-0500 SaO2% (BldA) [Mass fraction] 95 % Dr. Sujey Fonseca MD Work Phone: [facility] 03-26-2024 15:54-0500 Systolic blood pressure 215 mm[Hg] Dr. Sujey Fonseca MD Work Phone: [facility] 03-26-2024 12:08-0500 Body height 162.[address] Sujey Fonseca MD Work Phone: [facility] [place] 03-26-2024 12:08-0500 Body mass index (BMI) [Ratio] 21.5 kg/m2 Dr. Sujey Fonseca MD Work Phone: [facility] 03-26-2024 12:08-0500 Body weight [address] Sujey Fonseca MD Work Phone: [facility] 03-24-2024 15:45-0500 Body temperature 98.1 [degF] Dr. Sujey Fonseca MD Work Phone: [facility] 03-24-2024 15:45-0500 Diastolic blood pressure 93 mm[Hg] Dr. Sujey Fonseca MD Work Phone: [facility] 03-24-2024 15:45-0500 Heart rate 90 /min Dr. Sujey Fonseca MD Work Phone: [facility] 03-24-2024 15:45-0500 Respiratory rate 16 /min Dr. Sujey Fonseca MD Work Phone: [facility] 03-24-2024 15:45-0500 SaO2% (BldA) [Mass fraction] 97 % Dr. Sujey Fonseca MD Work Phone: [facility] 03-24-2024 15:45-0500 Systolic blood pressure 161 mm[Hg] Dr. Sujey Fonseca MD Work Phone: [facility] [place] 03-18-2024 09:31-0500 Body mass index (BMI) [Ratio] 22.3 kg/m2 Dr. Sujey Fonseca MD Work Phone: [facility] 03-18-2024 09:31-0500 Body temperature 97.8 [degF] Dr. Sujey Fonseca MD Work Phone: [facility] 03-18-2024 09:31-0500 Body weight 58.[address] Sujey Fonseca MD Work Phone: 0(594)791-929799 [address] 03-18-2024 09:31-0500 Diastolic blood pressure 88 mm[Hg] Dr. Sujey Fonseca MD Work Phone: 5(418)442-518371 [place] [address] 03-18-2024 09:31-0500 Heart rate 71 /min Dr. Sujey Fonseca MD Work Phone: 0(565)579-259099 [address] 03-18-2024 09:31-0500 Respiratory rate 16 /min Dr. Sujey Fonseca MD Work Phone: 5(340)961-625399 [address] 03-18-2024 09:31-0500 SaO2% (BldA) [Mass fraction] 98 % Dr. Sujey Fonseca MD Work Phone: 8(094)801-469371 [place] [address] 03-18-2024 09:31-0500 Systolic blood pressure 188 mm[Hg] Dr. Sujey Fonseca MD Work Phone: 5(662)491-929071 [place] [address] 03-16-2024 12:14-0500 Body temperature 98.2 [degF] Dr. Sujey Fonseca MD Work Phone: 0(460)213-477871 [place] [address] 03-16-2024 12:14-0500 Diastolic blood pressure 86 mm[Hg] Dr. Sujey Fonseca MD Work Phone: 9(774)734-677571 [place] [address] 03-16-2024 12:14-0500 Heart rate 91 /min Dr. Sujey Fonseca MD Work Phone: [facility] 03-16-2024 12:14-0500 Respiratory rate 16 /min Dr. Sujey Fonseca MD Work Phone: [facility] 03-16-2024 12:14-0500 SaO2% (BldA) [Mass fraction] 97 % Dr. Sujey Fonseca MD Work Phone: [facility] 03-16-2024 12:14-0500 Systolic blood pressure 176 mm[Hg] Dr. Sujey Fonseca MD Work Phone: [facility] 03-16-2024 06:31-0500 Body mass index (BMI) [Ratio] 22.3 kg/m2 Dr. Sujey Fonseca MD Work Phone: [facility] 03-16-2024 06:31-0500 Body weight [address] Sujey Fonseca MD Work Phone: 2(732)631-766271 [place] [address] 03-09-2024 12:57-0500 Body temperature 97.7 [degF] Dr. Sujey Fonseca MD Work Phone: 3(548)986-887499 [address] 03-09-2024 12:57-0500 Body weight 59.[address] Sujey Fonseca MD Work Phone: [facility] 03-09-2024 12:57-0500 Diastolic blood pressure 100 mm[Hg] Dr. Sujey Fonseca MD Work Phone: 3(064)780-157571 [place] [address] 03-09-2024 12:57-0500 Heart rate 82 /min Dr. Sujey Fonseca MD Work Phone: [facility] 03-09-2024 12:57-0500 Respiratory rate 16 /min Dr. Sujey Fonseca MD Work Phone: [facility] 03-09-2024 12:57-0500 SaO2% (BldA) [Mass fraction] 95 % Dr. Sujey Fonseca MD Work Phone: [facility] 03-09-2024 12:57-0500 Systolic blood pressure 188 mm[Hg] Dr. Sujey Fonseca MD Work Phone: [facility] 02-03-2024 16:02-0500 Body temperature 97.8 [degF] Dr. Sujey Fonseca MD Work Phone: [facility] 02-03-2024 16:02-0500 Body weight 60.[address] Sujey Fonseca MD Work Phone: [facility] 02-03-2024 16:02-0500 Diastolic blood pressure 98 mm[Hg] Dr. Sujey Fonseca MD Work Phone: [facility] 02-03-2024 16:02-0500 Heart rate 93 /min Dr. Sujey Fonseca MD Work Phone: [facility] 02-03-2024 16:02-0500 Respiratory rate 16 /min Dr. Sujey Fonseca MD Work Phone: [facility] 02-03-2024 16:02-0500 SaO2% (BldA) [Mass fraction] 96 % Dr. Sujey Fonseca MD Work Phone: [facility] 02-03-2024 16:02-0500 Systolic blood pressure 146 mm[Hg] Dr. Sujey Fonseca MD Work Phone: [facility] 08-17-2022 18:28-0400 Body temperature 98 [degF] [facility] 08-17-2022 18:28-0400 Diastolic blood pressure 107 mm[Hg] [facility] 08-17-2022 18:28-0400 Heart rate 75 /min [facility] 08-17-2022 18:28-0400 Respiratory rate 14 /min [facility] 08-17-2022 18:28-0400 SaO2% (BldA) [Mass fraction] 98 % [facility] 08-17-2022 18:28-0400 Systolic blood pressure 190 mm[Hg] [facility] 08-17-2022 15:56-0400 Body height 162.56 cm [facility] 08-17-2022 15:56-0400 Body mass index (BMI) [Ratio] 19.3 kg/m2 [facility] 08-17-2022 15:56-0400 Body weight 51.2 kg [facility] 12-23-2018 14:18-0400 BMI (Body Mass Index) 25.25 kg/m2 [facility] 12-23-2018 14:18-0400 Body weight 66.72 kg [facility] 12-23-2018 14:18-0400 BP Diastolic 94 mm[Hg] [facility] 12-23-2018 14:18-0400 BP Systolic 179 mm[Hg] [facility] 12-23-2018 14:18-0400 Pulse (Heart Rate) 74 /min [facility] 12-19-2018 10:52-0400 BP Diastolic 91 mm[Hg] Marcell Pichardo [facility] 12-19-2018 10:52-0400 BP Systolic 168 mm[Hg] [facility]cell Pichardo [facility] 12-19-2018 10:45-0400 BMI (Body Mass Index) 24.55 kg/m2 Marcell Pichardo [facility] 12-19-2018 10:45-0400 Body weight 64.86 kg Marcell Pichardo [facility] 12-19-2018 10:45-0400 Height 162.6 cm Marcell Pichardo [facility] 12-19-2018 10:45-0400 Pulse (Heart Rate) 66 /min Marcell Pichardo [facility] 12-16-2018 12:45-0400 BMI (Body Mass Index) 24.37 kg/m2 [facility] 12-16-2018 12:45-0400 Body weight 64.41 kg [facility] 12-16-2018 12:45-0400 BP Diastolic 111 mm[Hg] [facility] 12-16-2018 12:45-0400 BP Systolic 183 mm[Hg] [facility] 12-16-2018 12:45-0400 Height 162.6 cm [facility] 12-16-2018 12:45-0400 Pulse (Heart Rate) 74 /min [facility] 12-16-2018 12:45-0400 Pulse Oximetry 98 % [facility] 11-05-2018 14:41-0400 BMI (Body Mass Index) 24.55 kg/m2 Marcell Pichardo [facility] 11-05-2018 14:41-0400 Body weight 64.86 kg Marcell Pichardo [facility] 11-05-2018 14:41-0400 BP Diastolic 74 mm[Hg] Marcell Pichardo [facility] 11-05-2018 14:41-0400 BP Systolic 159 mm[Hg] Marcell Pichardo [facility] 11-05-2018 14:41-0400 Height 162.6 cm Marcell Pichardo [facility] 11-05-2018 14:41-0400 Pulse (Heart Rate) 81 /min Marcell Pichardo [facility] 11-05-2018 14:41-0400 Pulse Oximetry 96 % Marcell Pichardo [facility] 08-25-2018 14:09-0400 BP Diastolic 93 mm[Hg] Reinaldo [facility] 08-25-2018 14:09-0400 BP Systolic 197 mm[Hg] [facility] 08-25-2018 14:09-0400 Pulse (Heart Rate) 67 /min [facility] 08-25-2018 14:09-0400 Pulse Oximetry 99 % [facility] 08-25-2018 14:09-0400 Respiratory Rate 16 /min [facility] 06-23-2018 09:57-0400 BMI (Body Mass Index) 22.98 kg/m2 [facility] 06-23-2018 09:57-0400 Body Temperature 98.01 [degF] [facility] 06-23-2018 09:57-0400 BP Diastolic 94 mm[Hg] [facility] 06-23-2018 09:57-0400 BP Systolic 183 mm[Hg] [facility] 06-23-2018 09:57-0400 Height 162.6 cm [facility] 06-23-2018 09:57-0400 Pulse (Heart Rate) 80 /min [facility] 06-23-2018 09:57-0400 Pulse Oximetry 97 % [facility] 06-23-2018 09:57-0400 Weight 60.74 kg [facility] 04-22-2018 13:16-0500 BMI (Body Mass Index) 24.37 kg/m2 [facility] 04-22-2018 13:16-0500 Body Temperature 98.29 [degF] [facility] 04-22-2018 13:16-0500 BP Diastolic 91 mm[Hg] [facility] 04-22-2018 13:16-0500 BP Systolic 167 mm[Hg] [facility] 04-22-2018 13:16-0500 Height 162.6 cm Adryan Alonzo [facility] 04-22-2018 13:16-0500 Pulse (Heart Rate) 101 /min Adryan Alonzo [facility] 04-22-2018 13:16-0500 Respiratory Rate 14 /min Adryan Alonzo [facility] 04-22-2018 13:16-0500 Weight 64.41 kg Adryan Alonzo [facility] 01-21-2018 13:33-0500 BMI (Body Mass Index) 24.55 kg/m2 Matt De León [facility] 01-21-2018 13:33-0500 BP Diastolic 64 mm[Hg] Mtat De León [facility] 01-21-2018 13:33-0500 BP Systolic 89 mm[Hg] Matt De León [facility] 01-21-2018 13:33-0500 Height 162.6 cm Matt Genet [facility] 01-21-2018 13:33-0500 Pulse (Heart Rate) 77 /min Matt Genet [facility] 01-21-2018 13:33-0500 Pulse Oximetry 89 % Matt Genet [facility] 01-21-2018 13:33-0500 Weight 64.86 kg Matt De León [facility] 10-11-2017 11:18-0400 BMI (Body Mass Index) 24.89 kg/m2 Marcell Pichardo [facility] 10-11-2017 11:18-0400 BP Diastolic 95 mm[Hg] Marcell Pichardo [facility] 10-11-2017 11:18-0400 BP Systolic 154 mm[Hg] Marcell Pichardo [facility] 10-11-2017 11:18-0400 Height 162.6 cm Marcell Pichardo [facility] 10-11-2017 11:18-0400 Pulse (Heart Rate) 76 /min Marcell Pichardo [facility] 10-11-2017 11:18-0400 Pulse Oximetry 96 % Marcell Pichardo [facility] 10-11-2017 11:18-0400 Weight 65.77 kg Marcell Pichardo [facility] 09-23-2017 10:23-0400 BMI (Body Mass Index) 25.04 kg/m2 [facility] 09-23-2017 10:23-0400 Body Temperature 97.7 [degF] [facility] 09-23-2017 10:23-0400 BP Diastolic 66 mm[Hg] [facility] 09-23-2017 10:23-0400 BP Systolic 102 mm[Hg] [facility] 09-23-2017 10:23-0400 Height 162.6 cm [facility] 09-23-2017 10:23-0400 Pulse (Heart Rate) 75 /min [facility] 09-23-2017 10:23-0400 Pulse Oximetry 95 % [facility] 09-23-2017 10:23-0400 Weight 66.18 kg [facility] 06-27-2017 16:28-0400 BMI (Body Mass Index) 25.18 kg/m2 Matt [facility] 06-27-2017 16:28-0400 BP Diastolic 61 mm[Hg] [facility] 06-27-2017 16:28-0400 BP Systolic 98 mm[Hg] [facility] 06-27-2017 16:28-0400 Height 162.6 cm [facility] 06-27-2017 16:28-0400 Pulse (Heart Rate) 87 /min [facility] 06-27-2017 16:28-0400 Pulse Oximetry 95 % Matt [facility] 06-27-2017 16:28-0400 Weight 66.54 kg Matt [facility] 05-20-2017 13:37-0400 BMI (Body Mass Index) 23.63 kg/m2 [facility] 05-20-2017 13:37-0400 BP Diastolic 90 mm[Hg] [facility] 05-20-2017 13:37-0400 BP Systolic 165 mm[Hg] [facility] 05-20-2017 13:37-0400 Height 167.6 cm [facility] 05-20-2017 13:37-0400 Pulse (Heart Rate) 73 /min [facility] 05-20-2017 13:37-0400 Pulse Oximetry 98 % [facility] 05-20-2017 13:37-0400 Weight 66.41 kg [facility] 03-21-2017 13:49-0500 BMI (Body Mass Index) 24.58 kg/m2 [facility] Work Phone: 03-21-2017 13:49-0500 BP Diastolic 89 mm[Hg] [facility] Work Phone: 03-21-2017 13:49-0500 BP Systolic 143 mm[Hg] Dionne Baron [facility] Work Phone: 03-21-2017 13:49-0500 Height 162.6 cm Dionne Baron [facility] Work Phone: 03-21-2017 13:49-0500 Pulse (Heart Rate) 68 /min Dionne Baron [facility] Work Phone: 03-21-2017 13:49-0500 Pulse Oximetry 97 % Dionne Baron [facility] Work Phone: 03-21-2017 13:49-0500 Weight 64.95 kg Dionne Baron [facility] Work Phone: 10-08-2016 13:40-0400 BMI (Body Mass Index) 22.49 kg/m2 Matt De León [facility] Work Phone: 10-08-2016 13:40-0400 BP Diastolic 79 mm[Hg] Matt De León [facility] Work Phone: 10-08-2016 13:40-0400 BP Systolic 207 mm[Hg] Matt De León [facility] Work Phone: 10-08-2016 13:40-0400 Height 162.6 cm Matt De León [facility] Work Phone: 10-08-2016 13:40-0400 Pulse (Heart Rate) 79 /min Matt De León [facility] Work Phone: 10-08-2016 13:40-0400 Pulse Oximetry 98 % Matt De León [facility] Work Phone: 10-08-2016 13:40-0400 Weight 59.42 kg Matt De León [facility] Work Phone: 10-05-2016 15:29-0400 BP Diastolic 84 mm[Hg] Marcell Pichardo [facility] Work Phone: 10-05-2016 15:29-0400 BP Systolic 165 mm[Hg] Marcell Pichardo [facility] Work Phone: 10-05-2016 15:28-0400 BMI (Body Mass Index) 22.31 kg/m2 Marcell Pichardo [facility] Work Phone: 10-05-2016 15:28-0400 Pulse (Heart Rate) 85 /min Marcell Pichardo [facility] Work Phone: 10-05-2016 15:28-0400 Pulse Oximetry 96 % Marcell Pichardo [facility] Work Phone: 10-05-2016 15:28-0400 Respiratory Rate 16 /min Marcell Pichardo [facility] Work Phone: 10-05-2016 15:28-0400 Weight 58.97 kg Marcell Pichardo [facility] Work Phone: Encounters Encounter Date Encounter Type Care Provider Facility Start: 12-31-2024 ambulatory [facility] Facility:[facility] Start: 07-29-2024 Non-patient / Non-visit Dr. Ernie tadeo MD -[facility] Start: 07-29-2024 End: 07-29-[address] Sujey Fonseca MD Work Phone: [facility] Work Phone: Start: 07-29-2024 End: 07-29-[address] Ernie De Jesus MD -Cardiovascular Services Work Phone: Start: 07-29-2024 End: 07-29-2024 ambulatory Ernie De Jesus Facility:[facility] Start: 07-20-2024 End: 07-20-[address] Ernie De Jesus MD -[facility] Work Phone: Start: 07-20-2024 End: 07-20-[address] Sujey Fonseca MD Work Phone: [facility] Work Phone: Start: 06-05-2024 End: 06-05-2024 Telephone encounter Zachary Monroe RN [facility] Comment on above: Referral - Kidney Tx p (Pt choice to close referral) Start: 05-13-2024 End: 05-13-[address] Sujey Fonseca MD Work Phone: [facility] Work Phone: Start: 05-13-2024 End: 05-13-[address] Sujey Fonseca MD -Radiology, [facility] Work Phone: Start: 05-13-2024 End: 05-13-2024 ambulatory Sujey Lozakarlene Facility:[facility] Start: 04-08-2024 Encounter for other preprocedural examination Ernie De Jesus [facility] Start: 04-08-2024 End: 04-08-2024 Patient encounter procedure Bárbara STRAUSS -[facility] Work Phone: Start: 04-08-2024 End: 04-08-[address] [facility] Facility:[facility] Start: 04-01-2024 End: 04-01-2024 Telephone encounter Zachary Monroe RN [facility] Comment on above: Referral - Kidney Tx p; Advice Only Start: 03-26-2024 End: 03-26-2024 Chart abstracting Karmen Toribio RN [facility] Comment on above: Pre-transplant evalu ation for kidney transplant (Primary Dx) Pre-transplant evalu ation for kidney transplant (Primary Dx); Chronic renal failure, unspecified CKD stage Start: 03-26-2024 End: 03-26-2024 Patient encounter status Jefferson Chapman MD Work Phone: [facility] Start: 03-26-2024 ambulatory Ernie De Jesus [facility] Start: 03-26-2024 Non-patient / Non-visit Dr. Ernie tadeo MD -[facility] Start: 03-26-2024 End: 03-26-2024 Admission to same day surgery center Dr. Ernie De Jesus MD -[facility] Start: 03-26-2024 End: 03-26-2024 ambulatory Ernie De Jesus Facility:[facility] Start: 03-24-2024 End: 03-24-2024 Patient encounter procedure Bárbara STRAUSS -[facility] Work Phone: Start: 03-24-2024 End: 03-24-2024 ambulatory Butros Latouf Facility:[facility] Start: 03-18-2024 End: 03-18-2024 Telephone encounter [facility] Comment on above: Referral - Kidney Tx p Start: 03-18-2024 End: 03-18-2024 Patient encounter procedure Bárbara STRAUSS -[facility] Work Phone: Start: 03-18-2024 End: 03-18-2024 ambulatory Butros Latouf Facility:[facility] Start: 03-18-2024 ambulatory [facility] Start: 03-16-[facility] Start: 03-16-2024 Non-patient / Non-visit Dr. Ernie tadeo MD -[facility] Start: 03-16-2024 End: 03-16-2024 Admission to same day surgery center Dr. Ernie De Jesus MD -[facility] Start: 03-16-2024 End: 03-16-2024 ambulatory [facility] Facility:[facility] Start: 03-13-2024 Encounter for other preprocedural examination [facility] Start: 03-09-2024 End: 03-09-[address] Ernie De Jesus MD -[facility] Work Phone: Start: 03-09-2024 End: 03-09-2024 [facility] Start: 02-10-2024 [facility] Start: 02-10-2024 Non-patient / Non-visit Dr. Ernie tadeo MD -[facility] Start: 02-10-2024 End: 02-10-[address] Ernie De Jesus MD -Cardiovascular Services Work Phone: Start: 02-10-2024 End: 02-10-2024 ambulatory [facility] Facility:[facility] Start: 02-03-[address] Sujey Fonseca MD Work Phone: [facility] Start: 02-03-2024 End: 02-03-[address] Ernie De Jesus MD -[facility] Work Phone: Start: 02-03-2024 End: 02-03-2024 ambulatory Sujey Fonseca Facility:[facility] Start: 01-28-2024 End: 01-28-2024 Telephone encounter H Feng Still MD Work Phone: [facility] Start: 01-21-2024 End: 01-21-2024 Telephone encounter Marylou Still MD Work Phone: [facility] Start: 11-26-2023 ambulatory [facility] Start: 10-07-2023 End: 10-07-2023 Orders Only Pema Ram RN [facility] Comment on above: Pericardial effusion (Primary Dx) Start: 10-04-2023 End: 10-09-2023 Evaluation and management of inpatient [facility] Start: 09-27-2023 End: 09-27-2023 ambulatory SUJEY WYNN [facility] Start: 09-04-2023 End: 09-04-2023 ambulatory SUJEY WYNN [facility] Start: 01-15-2023 End: 01-15-2023 ambulatory SUJEY WYNN [facility] Start: 12-14-2022 End: 12-14-2022 ambulatory SUJEY WYNN [facility] Start: 08-17-2022 End: 08-17-2022 Emergency department patient visit [facility] Start: 04-11-2020 End: 04-11-2020 Orders Only Kellen Padron Work Phone: [facility] Start: 03-24-2019 End: 03-24-2019 Refill Karon Jara [facility] Comment on above: Vomiting without ileana sea, intractability of vomiting not specified, unspecified vomiting type Start: 03-19-2019 Refill Adryan noble DO Work Phone: [facility] Comment on above: Vomiting without ileana sea, intractability of vomiting not specified, unspecified vomiting type Start: 12-23-2018 End: 12-23-2018 Office outpatient visit 25 minutes Adryanmarylou Arriola Clinton Work Phone: [facility] Comment on above: Vomiting without ileana sea, intractability of vomiting not specified, unspecified vomiting type (Primary Dx) Start: 12-19-2018 End: 12-19-2018 Office outpatient visit 15 minutes Marcell Pichardo Work Phone: [facility] Comment on above: PVD (peripheral vasc ular disease) (HCC) (Primary Dx) Start: 12-19-2018 End: 12-19-2018 Subsequent hospital visit by physician Marcell Pichardo Work Phone: [facility] Comment on above: PVD (peripheral vasc ular disease) (HCC) Start: 12-16-2018 End: 12-16-2018 Office outpatient visit 25 minutes Reinaldo Lerma Work Phone: [facility] Comment on above: Coronary artery dise 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 (Primary Dx); Essential hypertension Start: 11-05-2018 End: 11-05-2018 Office outpatient visit 15 minutes Marcell Pichardo Work Phone: [facility] Comment on above: Asymptomatic bilater al carotid artery stenosis (Primary Dx); PVD (peripheral vascular disease) (HCC); Carotid stenosis, asymptomatic, bilateral Start: 08-25-2018 End: 08-25-2018 Patient encounter procedure Reinaldo Pena Work Phone: [facility] Comment on above: Syncope and collapse Start: 07-07-2018 End: 07-07-2018 Patient encounter procedure Wolfgang Matias Work Phone: [facility] Comment on above: Essential (primary) hypertension; Chronic kidney disease, stage III (moderate) (HCC) Start: 06-23-2018 End: 06-23-2018 Office outpatient visit 15 minutes Dionne Baron Work Phone: [facility] Comment on above: Solitary pulmonary n odule (Primary Dx); Monoclonal gammopathy; Anemia, unspecified type Start: 06-16-2018 End: 06-16-2018 Patient encounter Dionne L [place] Facility:[facility] Comment on above: Solitary pulmonary n odule Start: 04-24-2018 End: 04-24-2018 Documentation procedure Cecilia Scottie [facility] Start: 04-22-2018 End: 04-22-2018 Office outpatient new 45 minutes Ely Juarez Work Phone: [facility] Comment on above: Vomiting without ileana sea, intractability of vomiting not specified, unspecified vomiting type (Primary Dx); Nausea and vomiting, intractability of vomiting not specified, unspecified vomiting type Start: 01-21-2018 End: 01-21-2018 Office outpatient visit 25 minutes Matt De León Work Phone: [facility] Comment on above: Coronary artery dise 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 (Primary Dx); Essential hypertension; Hyperlipidemia, unspecified hyperlipidemia type; Cyclical vomiting with nausea, intractability of vomiting not specified Start: 12-30-2017 End: 12-30-2017 Patient encounter Maggie Proctor [facility] Comment on above: Medication Refill Start: 12-04-2017 Patient encounter Hien Sprague Facility:[facility] Start: 10-11-2017 Patient encounter Marcell Pichardo Facility:[facility] Start: 10-11-2017 End: 10-11-2017 Office outpatient visit 15 minutes Marcell Pichardo Work Phone: [facility] Start: 10-11-2017 End: 10-11-2017 Patient encounter Marcell Pichardo Work Phone: [facility] Start: 09-23-2017 Patient encounter Dionne Soler acility:[facility] Start: 09-23-2017 End: 09-23-2017 Office outpatient visit 25 minutes Dionne Baron Work Phone: [facility] Start: 08-28-2017 End: 08-28-2017 Patient encounter Wolfgangclement Pablotra Facility:[facility] Start: 06-27-2017 End: 06-27-2017 Office/outpatient visit, est, level 4 Matt De León Work Phone: [facility] Start: 05-20-2017 Office/outpatient visit, est, level 4 Dionne Baron Work Phone: [facility] Start: 04-11-2017 Patient encounter Dionne Soler acility:[place] Start: 04-11-2017 End: 04-11-2017 Ambulatory Dionne Baron Work Phone: [facility] Start: 04-04-2017 Patient encounter Dionne Soler acility:[place] Start: 04-04-2017 End: 04-04-2017 Ambulatory Dionnealee Baron Work Phone: [facility] Start: 03-21-2017 Office/outpatient visit, est, level 4 Dionne Baron Work Phone: [facility] Start: 03-18-2017 Patient encounter Dionne Soler acility:[place] Start: 10-08-2016 End: 10-08-2016 Office outpatient visit 25 minutes Matt De León Work Phone: [facility] Comment on above: Coronary artery dise 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 (Primary Dx);Essential hypertension;Hyperlipidemia, unspecified hyperlipidemia type;PVD (peripheral vascular disease) ([facility]) Start: 10-05-2016 Office/outpatient visit, est, level 4 Marcell Pichardo Work Phone: [facility] Start: 10-05-2016 End: 10-05-2016 Ambulatory Marcell Pichardo Work Phone: [facility] Comment on above: PAD (peripheral cecil ry disease) ([facility]) Start: 08-29-2016 End: 08-29-2016 Ambulatory MARCELL MARCH [facility] Start: 05-05-2015 End: 10-07-2016 Patient encounter status Adryan Alonzo DO Work Phone: [facility] Start: 05-05-2015 Preoperative state [facility]cell [facility] Work Phone: Preoperative state Matt De León [facility] Work Phone: Procedures Date Procedure Procedure Detail Performing Clinician Start: 05-13-2024 X-ray of chest, PA a nd lateral views Dr. Sujey Fonseca MD Work Phone: Start: 10-04-2023 Microalbumin [Mass/v olume] in Urine by Test strip Pema Ram RN Start: 08-17-2022 Plain chest X-ray Start: 08-17-2022 CT of head without contrast Start: 12-19-2018 Dup-scan lxtr art/ar tl bpgs uni/lmtd study Marcell Pichardo Work Phone: Start: 12-19-2018 Non-invas physiologi c std extremity art 2 level Marcell Pichardo Work Phone: Start: 07-07-2018 US angiography of re nal artery Wolfgang Polly Work Phone: Start: 06-16-2018 CT of chest without contrast Dionnealee Galeas [place] Work Phone: Start: 04-25-2018 Lipid 1996 panel - S rosi or Plasma NA Cheko WYNN Work Phone: Start: 04-22-2018 AMB REFERRAL TO GASTROENTEROLOGY External Transcribed Plan of Treatment Date Care Activity Detail Author Start: 05-04-2027 RSV Vaccine (1 - 1-dose 75+ series) RSV Vaccine (1 - 1-dose 75+ series) [facility] Start: 10-03-2026 Diabetes Screening Diabetes Screening [facility] Start: 11-20-2024 Diabetes Screening Diabetes Screening [facility] Start: 10-03-2024 Urine screening for protein Urine Microalbumin [facility] Start: 06-03-2024 End: 06-03-2024 ambulatory 06/03/2024 3:45 PM EDT Results Only [place] [id number] [address] [place] [address] KTP Pre-transplant evaluation for kidney transplant [Z01.818] [place] [address] [facility] Comment on above: KTP Pre-transplant evaluation for kidney transplant [Z01.818] Start: 06-03-2024 End: 06-03-2024 Nutrition therapy 06/03/2024 9:45 AM EDT Education Nutrition Therapy [address] [address] [address], [address] [place] [address] KTP Pre-transplant evaluation for kidney transplant [Z01.818] Nutrition Therapy Comment on above: KTP Pre-transplant evaluation for kidney transplant [Z01.818] Start: 06-03-2024 End: 06-03-2024 Patient encounter procedure Transplant Center Comment on above: KTP Pre-transplant evaluation for kidney transplant [Z01.818] Start: 03-26-2024 Patient discharge [facility] Start: 03-26-2024 Anesthesia arteries forearm wrist & hand nos ANESTH LWR ARM ARTERY SURG [facility] Start: 03-26-2024 Lig/banding angioaccess arteriovenous fistula LIG/BANDING ANGIOACS AV FSTL [facility] Start: 03-16-2024 Anesthesia vascular shunt/shunt revision ANESTH VASCULAR SHUNT SURG [facility] Start: 03-16-2024 Arven anast opn upr arm basilic vein trpos AV FUSE UPPR ARM BASILIC [facility] Start: 03-16-2024 Patient discharge [facility] Start: 03-04-2024 Advance Directive Discussion Advance Directive Discussion [facility] Start: 11-05-2023 End: 11-05-2023 Patient encounter procedure 11/05/2023 3:30 PM EDT Appointment [facility] [address] [place] [address] Collette Cardona MD [address] [place] [address] [facility] Start: 11-04-2023 End: 12-06-2024 Echocardiography Echocardiogram complete Echocardiography Routine Pericardial effusion Expected: 11/04/2023 (Approximate), Expires: 12/06/2024 [facility] Work Phone: Comment on above: Expected: 11/04/2023 (Approximate), Expi res: 12/06/2024 Start: 11-03-2023 Covid-19 Vaccine ( season) Covid-19 Vaccine ( season) [facility] Start: 11-03-2023 Influenza vaccination Influenza Vaccine (#1) [facility] Start: 04-25-2023 Lipid panel Lipid Screening [facility] Start: 03-04-2023 Advance Directive Discussion Advance Directive Discussion [facility] Start: 11-02-2022 COVID-19 Vaccine ( season) COVID-19 Vaccine () [facility] Start: 08-17-2022 [facility] Start: 08-17-2022 End: 08-17-2022 Blood culture [facility] Start: 11-02-2021 Influenza vaccination Sequential Influenza Vaccine (#1) [facility] Start: 01-03-2021 End: 01-03-2021 Appointment [facility] Start: 12-28-2019 End: 12-28-2019 Appointment [facility] Start: 11-03-2019 Influenza vaccination given Sequential Influenza Vaccine (#1) [facility] Start: 07-01-2019 End: 07-01-2019 Office Visit 07/01/2019 Office Visit Cardiology Reinaldo Lerma MD [address] [place] [address] [phone] [facility] Start: 06-23-2019 End: 06-23-2019 Office Visit 06/23/2019 Office Visit Gastroenterology Adryan Alonzo DO [address] [facility] [address] [place] [address] [phone] [facility] Start: 01-01-2019 End: 01-01-2019 Office Visit 01/01/2019 Office Visit Oncology Dionne Baron CNP [address] [place] [address] [facility] Start: 12-23-2018 End: 06-24-2019 Basic metabolic 2000 panel Basic Metabolic Panel Routine Monoclonal gammopathy Expected: 12/23/2018, Expires: 06/24/2019 [facility] Comment on above: Expected: 12/23/2018, Expires: 0 Start: 12-23-2018 End: 06-24-2019 Complete blood count with white cell differential, manual CBC and Differential Routine Monoclonal gammopathy Expected: 12/23/2018, Expires: 06/24/2019 [facility] Comment on above: Expected: 12/23/2018, Expires: 0 Start: 12-23-2018 End: 06-24-2019 External Lab Free K+L Light Chains External Lab Free K+L Light Chains Routine Monoclonal gammopathy Expected: 12/23/2018, Expires: 06/24/2019 [facility] Comment on above: Expected: 12/23/2018, Expires: 0 Start: 12-23-2018 End: 06-24-2019 Ferritin mass conc Ferritin Routine Anemia, unspecified type Expected: 12/23/2018, Expires: 06/24/2019 [facility] Comment on above: Expected: 12/23/2018, Expires: 0 Start: 12-23-2018 End: 06-24-2019 Immunoglobulin measurement IgG, IgA, IgM Immunoglobulins Routine Monoclonal gammopathy Expected: 12/23/2018, Expires: 06/24/2019 [facility] Comment on above: Expected: 12/23/2018, Expires: 0 Start: 12-23-2018 End: 06-24-2019 Iron and Iron binding capacity panel - Serum or Plasma Iron and TIBC Routine Anemia, unspecified type Expected: 12/23/2018, Expires: 06/24/2019 [facility] Comment on above: Expected: 12/23/2018, Expires: 0 Start: 12-23-2018 End: 12-23-2018 Office Visit 12/23/2018 Office Visit Gastroenterology Adryan Alonzo, [address] [facility] [address] [place] [address] [phone] [facility] Start: 12-23-2018 End: 06-24-2019 Serum immunofixation Immunofixation, Serum Routine Monoclonal gammopathy Expected: 12/23/2018, Expires: 06/24/2019 [facility] Comment on above: Expected: 12/23/2018, Expires: 0 Start: 12-22-2018 End: 12-22-2018 Office Visit [facility] Start: 12-19-2018 End: 12-19-2018 Appointment [facility] Start: 12-16-2018 End: 12-16-2018 Office Visit 12/16/2018 Office Visit Cardiology Reinaldo Lerma MD [address] [place] [address] [phone] [facility] Start: 11-02-2018 Influenza vaccination given [facility] Start: 10-21-2018 End: 10-21-2018 Office Visit 10/21/2018 Office Visit Gastroenterology Adryan Alonzo DO [address] [facility] [address] [place], [place] [phone] [facility] Start: 07-07-2018 End: 07-07-2018 Appointment 07/07/2018 Appointment Cardiology Wolfgang Matias MD [address] [place] [address] [phone] [facility] Start: 06-23-2018 End: 06-23-2018 Ambulatory [facility] Start: 06-16-2018 Ambulatory 06/16/2018 Hospital Encounter Dionne Baron, KAREL [address] [place] [address] [facility] Start: 04-22-2018 End: 04-22-2018 Ambulatory 04/22/2018 Office Visit Gastroenterology Ely Juarez MD [address] [place] [id number] Adryan Alonzo DO [address] [facility] [address] [place] [address] [phone] [facility] Start: 01-21-2018 End: 01-21-2018 Ambulatory 01/21/2018 Office Visit Cardiology Matt De León, DO [address] [place] [address] [phone] [facility] Start: 12-24-2017 End: 09-23-2018 CBC and Differential CBC and Differential Routine Anemia, unspecified type Expected: 12/24/2017, Expires: 09/23/2018 [facility] Start: 12-24-2017 End: 09-23-2018 External Lab Free K+L Light Chains External Lab Free K+L Light Chains Routine Monoclonal gammopathy Expected: 12/24/2017, Expires: 09/23/2018 [facility] Start: 12-24-2017 End: 09-23-2018 Ferritin Ferritin Routine Anemia, unspecified type Expected: 12/24/2017, Expires: 09/23/2018 [facility] Start: 12-24-2017 End: 09-23-2018 IgG, IgA, IgM Immunoglobulins IgG, IgA, IgM Immunoglobulins Routine Monoclonal gammopathy Expected: 12/24/2017, Expires: 09/23/2018 [facility] Start: 12-24-2017 End: 09-23-2018 Immunofixation, Serum Immunofixation, Serum Routine Monoclonal gammopathy Expected: 12/24/2017, Expires: 09/23/2018 [facility] Start: 12-24-2017 End: 09-23-2018 Immunofixation, Urine Immunofixation, Urine Routine Monoclonal gammopathy Expected: 12/24/2017, Expires: 09/23/2018 [facility] Start: 12-24-2017 End: 09-23-2018 Iron Iron Routine Anemia, unspecified type Expected: 12/24/2017, Expires: 09/23/2018 [facility] Start: 12-24-2017 End: 09-23-2018 Transferrin Transferrin Routine Anemia, unspecified type Expected: 12/24/2017, Expires: 09/23/2018 [facility] Start: 12-23-2017 End: 12-23-2017 Ambulatory 12/23/2017 Office Visit Oncology Dionne Baron, [employer] [address] [place] [address] [facility] Start: 11-02-2017 Influenza vaccination SEQUENTIAL INFLUENZA VACCINE (#1) [facility] Start: 11-02-2017 Influenza vaccination given SEQUENTIAL INFLUENZA VACCINE (#1) [facility] Start: 10-11-2017 End: 10-11-2017 Ambulatory [facility] Start: 09-23-2017 End: 09-23-2018 CBC and Differential CBC and Differential Routine Anemia, unspecified type Expected: 09/23/2017, Expires: 09/23/2018 [facility] Start: 09-23-2017 End: 09-23-2018 Ferritin Ferritin Routine Anemia, unspecified type Expected: 09/23/2017, Expires: 09/23/2018 [facility] Start: 09-23-2017 End: 09-23-2018 Iron Iron Routine Anemia, unspecified type Expected: 09/23/2017, Expires: 09/23/2018 [facility] Start: 09-23-2017 End: 09-23-2018 Transferrin Transferrin Routine Anemia, unspecified type Expected: 09/23/2017, Expires: 09/23/2018 [facility] Start: 09-23-2017 End: 09-23-2017 Ambulatory 09/23/2017 Office Visit Oncology Dionne Baron, [address] [address] [phone] [facility] Start: 09-18-2017 End: 03-21-2018 B12/Folate B12/Folate Routine Anemia, unspecified type Expected: 09/18/2017, Expires: 03/21/2018 [facility] Work Phone: Start: 09-18-2017 End: 03-21-2018 CBC and Differential CBC and Differential Routine Anemia, unspecified type Expected: 09/18/2017, Expires: 03/21/2018 [facility] Work Phone: Start: 09-18-2017 End: 03-21-2018 External Lab Free K+L Light Chains External Lab Free K+L Light Chains Routine Monoclonal gammopathy Expected: 09/18/2017, Expires: 03/21/2018 [facility] Work Phone: Start: 09-18-2017 End: 03-21-2018 Ferritin Ferritin Routine Anemia, unspecified type Expected: 09/18/2017, Expires: 03/21/2018 [facility] Work Phone: Start: 09-18-2017 End: 03-21-2018 IgG, IgA, IgM Immunoglobulins IgG, IgA, IgM Immunoglobulins Routine Monoclonal gammopathy Expected: 09/18/2017, Expires: 03/21/2018 [employer] [facility] Work Phone: Start: 09-18-2017 End: 03-21-2018 Immunofixation, Serum Immunofixation, Serum Routine Monoclonal gammopathy Expected: 09/18/2017, Expires: 03/21/2018 [facility] Work Phone: Start: 09-18-2017 End: 03-21-2018 Immunofixation, Urine Immunofixation, Urine Routine Monoclonal gammopathy Expected: 09/18/2017, Expires: 03/21/2018 [employer] [facility] Work Phone: Start: 09-18-2017 End: 03-21-2018 Iron Iron Routine Anemia, unspecified type Expected: 09/18/2017, Expires: 03/21/2018 [facility] Work Phone: Start: 09-18-2017 End: 03-21-2018 Reticulocytes panel - Blood Reticulocyte Routine Anemia, unspecified type Expected: 09/18/2017, Expires: 03/21/2018 [facility] Work Phone: Start: 09-18-2017 End: 03-21-2018 Transferrin Transferrin Routine Anemia, unspecified type Expected: 09/18/2017, Expires: 03/21/2018 [facility] Work Phone: Start: 06-27-2017 Ambulatory 06/27/2017 Office Visit Cardiology Matt De León, DO Breanne Ferreira [address] [address] [phone] [facility] Start: 05-20-2017 Ambulatory 05/20/2017 Office Visit Oncology Dionne Baron, [employer] [address] [place] [address] [phone] [facility] Start: 05-19-2017 End: 03-21-2018 CBC and Differential CBC and Differential Routine Anemia, unspecified type Expected: 05/19/2017, Expires: 03/21/2018 [employer] Work Phone: Start: 05-19-2017 End: 03-21-2018 Ferritin Ferritin Routine Anemia, unspecified type Expected: 05/19/2017, Expires: 03/21/2018 [employer] Work Phone: Start: 05-19-2017 End: 03-21-2018 Iron Iron Routine Anemia, unspecified type Expected: 05/19/2017, Expires: 03/21/2018 [employer] Work Phone: Start: 05-19-2017 End: 03-21-2018 Transferrin Transferrin Routine Anemia, unspecified type Expected: 05/19/2017, Expires: 03/21/2018 [employer] Work Phone: Start: 2017 Fall risk assessment [facility] Start: 2017 Pneumococcal vaccination PNEUMOCOCCAL VACCINE AGE 65+ (1 of 2 - PCV13) [facility] Start: 2017 Pneumococcal Vaccine: 65+ (1 of 1 - PCV) Pneumococcal Vaccine: 65+ (1 of 1 - PCV) [facility] Start: 2017 Screening for osteoporosis Bone Density Screening [facility] Start: 04-11-2017 Ambulatory 04/11/2017 Hospital Encounter Dionne Baron, [employer] [address] [place] [address] [phone] [facility] Start: 03-28-2017 End: 03-21-2018 CT Chest Without Contrast CT Chest Without Contrast Routine Solitary pulmonary nodule Expected: 03/28/2017, Expires: 03/21/2018 [facility] Work Phone: Start: 03-18-2017 Ambulatory [facility] Start: 12-10-2016 Ambulatory 12/10/2016 Hospital Encounter Dionne Baron, [employer] [address] [place] [address] [phone] [facility] Start: 11-02-2016 Influenza vaccination SEQUENTIAL INFLUENZA VACCINE (#1) [facility] Work Phone: Start: 11-02-2016 SEQUENTIAL INFLUENZA VACCINE (#1) SEQUENTIAL INFLUENZA VACCINE (#1) [facility] Work Phone: Start: 10-08-2016 Ambulatory 10/08/2016 Office Visit Cardiology Matt De León, [place] [address] [phone] [facility] Start: 06-26-2016 Pneumococcal Vaccine: Age 65+ (2 - PCV) Pneumococcal Vaccine: Age 65+ (2 - PCV) [facility] Start: 06-26-2016 Pneumococcal Vaccine: Age 65+ (2 of 2 - PCV) Pneumococcal Vaccine: Age 65+ (2 of 2 - PCV) [facility] Start: 2012 Zoster vacc, sc ZOSTER VACCINE [facility] Work Phone: Start: 2002 Administration of herpes zoster vaccine ZOSTER VACCINES (1 of 2) [facility] Start: 2002 Pneumococcal Vaccine: 50+ (1 of 1 - PCV) Pneumococcal Vaccine: 50+ (1 of 1 - PCV) [facility] Start: 2002 Screening for malignant neoplasm of colon [facility] Start: 2002 Shingrix Vaccine (1 of 2) Shingrix Vaccine (1 of 2) [facility] Start: 2002 ZOSTER VACCINES (1 of 2) ZOSTER VACCINES (1 of 2) [facility] Start: 1997 Screening for malignant neoplasm of colon [facility] Start: 1992 Screening for malignant neoplasm of breast [facility] Start: 05-04-1971 Urine microalbumin profile DTaP,Tdap,Td Vaccine (1 - Tdap) [facility] Start: 1970 Anxiety Screening Anxiety Screening [facility] Start: 1970 Depression Screening Depression Screening [facility] Start: 1970 Hepatitis C antibody, confirmatory test Hepatitis C Screening [facility] Start: 1970 Hepatitis C screening Hepatitis C Screening [facility] Start: 1968 COVID-19 Vaccine (1 of 2) COVID-19 Vaccine (1 of 2) [facility] Start: 1964 Adolescent depression screening assessment Depression Screening (PHQ9) [facility] Start: 1964 Depression screening using PHQ-9 (Patient Health Questionnaire 9) score [facility] Start: 1957 Covid-19 Vaccine (#1) Covid-19 Vaccine (#1) [facility] Start: 05-04-1955 History and physical examination, annual for health maintenance Wellness Visit [facility] Start: 05-04-1955 Medicare Wellness Visit Medicare Wellness Visit [facility] Start: 1952 COVID-19 Vaccine (#1) COVID-19 Vaccine (#1) [facility] Start: 1952 Colonoscopy COLONOSCOPY [facility] Work Phone: Start: 1952 Colonoscopy COLONOSCOPY [facility] Work Phone: Start: 1952 Cytopathology procedure, preparation of smear, genital source PAP SMEAR [facility] Work Phone: Start: 1952 Fall risk assessment Falls Risk Assessment [facility] Start: 1952 Hepatitis C antibody, confirmatory test HEPATITIS C SCREENING [facility] Start: 1952 HEPATITIS C SCREENING HEPATITIS C SCREENING [facility] Work Phone: Start: 1952 Microscopic observation Cyto stain Nom (Cvx) PAP SMEAR [facility] Work Phone: Start: 1952 Protein mass conc [facility] Start: 1952 Screening colonoscopy COLONOSCOPY [facility] Work Phone: Start: 1952 Screening for malignant neoplasm of cervix PAP SMEAR [facility] Work Phone: Start: 1952 Screening for malignant neoplasm of colon [facility] Start: 1952 Screening for osteoporosis DEXA SCAN [facility] Start: 1952 Screening mammography Mammogram [facility] Start: 1952 TETANUS EVERY 10 YR TETANUS EVERY 10 YR [facility] Work Phone: Start: 1952 Tetanus vaccination [facility] End: 12-17-2019 12 lead ECG ECG 12 lead ECG Routine Coronary artery dise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 1 Occurrences starting 12/16/2018 until 12/17/2019 [facility] Comment on above: 1 Occurrences starting 12/16/2018 until 12/17/2019 Bacteria identified in Blood by Culture Blood Culture [facility] Bacteria identified in Urine by Culture Urine Culture [facility] End: 01-06-2020 Carotid artery doppler assessment Carotid Duplex Vascular Ultrasound Routine Asymptomatic bilateral carotid artery stenosis 1 Occurrences starting 11/05/2018 until 01/06/2020 [facility] Comment on above: 1 Occurrences starting 11/05/2018 until 01/06/2020 End: 04-25-2025 CT Abdomen and Pelvis WO contrast CT ABD/PEL WO IVCON Radiology Routine Chronic renal failure, unspecified CKD stage Pre-transplant evaluation for kidney transplant 1 Occurrences starting 03/26/2024 until 04/25/2025 [facility] Work Phone: Comment on above: 1 Occurrences starting 03/26/2024 until 04/25/2025 Measurement of segme ntal blood pressure of artery of limb using doppler ultrasonography [facility] Patient Education ED Confusion [facility] Work Phone: Patient referral [facility] Work Phone: End: 08-25-2018 Tilt table Tilt table Cardiac Services Routine Syncope and collapse Once for 1 Occurrences starting 08/25/2018 until 08/25/2018 [facility] Comment on above: Once for 1 Occurrences starting 08/26/19 19 until 08/25/2018 Tilt table Tilt table Cardi ac Services Routine Syncope and collapse 08/25/2018 1:24 PM EDT [facility] End: 12-05-2017 Ultrasound ankle / brachial indices extremity complete Ultrasound ankle / brachial indices extremity complete Routine PVD (peripheral vascular disease) ([facility]) 1 Occurrences starting 10/05/2016 until 12/05/2017 [facility] Work Phone: End: 12-11-2018 Ultrasound ankle / brachial indices extremity complete Ultrasound ankle / brachial indices extremity complete Routine PVD (peripheral vascular disease) ([facility]) 1 Occurrences starting 10/11/2017 until 12/11/2018 [facility] End: 01-06-2020 Ultrasound ankle / brachial indices extremity complete Ultrasound ankle / brachial indices extremity complete Vascular Ultrasound Routine PVD (peripheral vascular disease) ([facility]) 1 Occurrences starting 11/05/2018 until 01/06/2020 [facility] Comment on above: 1 Occurrences starting 11/05/2018 until 01/06/2020 End: 02-19-2020 Ultrasound ankle / brachial indices extremity complete Ultrasound ankle / brachial indices extremity complete Vascular Ultrasound Routine PVD (peripheral vascular disease) ([facility]) 1 Occurrences starting 12/19/2018 until 02/19/2020 [facility] Comment on above: 1 Occurrences starting 12/19/2018 until 02/19/2020 End: 01-06-2020 Ultrasound duplex arterial leg left Ultrasound duplex arterial leg left Vascular Ultrasound Routine PVD (peripheral vascular disease) (HCC) 1 Occurrences starting 11/05/2018 until 01/06/2020 [facility] Comment on above: 1 Occurrences starting 11/05/2018 until 01/06/2020 End: 12-11-2018 Ultrasound duplex arterial leg right Ultrasound duplex arterial leg right Routine PVD (peripheral vascular disease) (HCC) 1 Occurrences starting 10/11/2017 until 12/11/2018 [facility] End: 12-05-2017 US duplex bypass graft US duplex bypass graft Routine PVD (peripheral vascular disease) (HCC) 1 Occurrences starting 10/05/2016 until 12/05/2017 [facility] Work Phone: Immunizations Immunization Date Immunization Notes Care Provider [facility] 12-06-2017 FLUZONE QUAD 19, PF, syringe Adryan Alonzo [facility] 12-11-2016 influenza virus vacc ine, unspecified formulation Pema Ram RN [facility] Payers Date Payer Category Payer Self-pay 2017 Medicare MEDICARE MEDICAR E PART A & B xxxxxxxxxxx 2017-Present [place] xxxxxxxxxxx [id number] 2017 Medicare MEDICARE MEDICAR E PART A & B [id number] 2017-Present [place] [id number] 2017 Medicare [id number] 2017 Unknown [id number] 2017 Unknown [employer] [employer] [place] [employer] [id number] 2017-Present [id number] 2017 Unknown [employer] [place] [employer] [id number] 2017-Present [phone] [address] [place] [address] [id number] 2017 Medicare [id number] 2015 Unknown [id number] 1952 Unknown [id number] 2.16.840.1.570284.3.579.2.651 1952 Unknown [id number] 2.16.840.1.513986.3.579.2.651 1952 Unknown [id number] 2.16.840.1.715143.3.579.2.651 1952 Unknown [id number] 2.16.840.1.594825.3.579.2.651 1952 Unknown [id number] 2.16.840.1.577412.3.579.2.903 1952 Unknown [id number] 2.16.840.1.558663.3.579.2.903 Medicare xxxxxxxxxx [id number] Medicare [id number] Unknown MEDICAL [facility] [id number] 2.16.840.1.068118.3.579.2.462 Unknown [id number] 2.16.840.1.693574.3.579.2.462 Unknown [id number] 2.16.840.1.021938.3.579.2.462 Unknown [id number] 2.16.840.1.716104.3.579.2.462 Unknown [id number] 2.16.840.1.319344.3.579.2.462 Unknown [id number] 2.16.840.1.571858.3.579.2.462 Unknown [id number] 2.16.840.1.982962.3.579.2.462 Unknown [id number] 2.16.840.1.706340.3.579.2.462 Unknown [id number] 2.16.840.1.235087.3.579.2.462 Unknown [id number] 2.16.840.1.599592.3.579.2.462 Unknown [id number] 2.16.840.1.661091.3.579.2.462 Unknown [id number] 2.16.840.1.998606.3.579.2.462 Unknown [id number] 2.16.840.1.415132.3.579.2.462 Unknown [id number] 2.16.840.1.383224.3.579.2.462 Unknown [id number] 2.16.840.1.740483.3.579.2.462 Unknown [id number] 2.16.840.1.821697.3.579.2.462 Social History Date Type Detail Facility Start: 06-27-2017 End: 03-25-2024 Tobacco smoking status [facility]IS Former smoker [facility] Start: 03-04-1990 End: 03-04-2015 History of tobacco use Current smoker [facility] Work Phone: Start: 03-04-1990 End: 03-04-2015 History of tobacco use Cigarette Smoker [facility] Work Phone: Start: 06-27-2017 End: 06-03-2024 Cigarettes smoked current (pack per day) - Reported [facility] Start: 1950 Sex Assigned At Not on file O [facility] Work Phone: Start: 03-27-2016 End: 11-05-2018 Alcohol intake Current non-drinker of alcohol (finding) [facility] Start: 08-05-2015 End: 12-23-2018 Tobacco use and exposure Never used [facility] Start: 11-28-2019 End: 12-28-2019 Exposure to SARS-CoV-2 (event) Not sure [facility] Start: 08-17-2022 Tobacco smoking stat us KSIS Unknown if ever smoked [facility] Start: 1950 Sex Assigned At Female W [facility] Start: 10-04-2023 End: 06-03-2024 [facility] Utilities [facility] Has the electric, [employer] s, oil, or water company threatened to shut off services in your home in past 12Mo No [facility] ([facility]We[facility] worried kanchan er (my/our) food would run out before (I/we) got money to buy more. Never true [facility] In the past 12 month s, has lack of transportation kept you from medical appointments or from getting medications? No [facility] Start: 07-03-2019 Gender identity Identifies as female gender (finding) [facility] Start: 05-06-2018 Sexual orientation Heterosexua l (finding) [facility] Start: 03-27-2016 Tobacco smoking stat us KSIS Never smoked tobacco [facility] Start: 05-22-2024 Sex Female (finding) [facility] NEGATED: Highlighted row Not [facility] Medical Equipment Procedure Code Equipment Code Equipment Origin al Text Equipment Identifier Dates Creation, AV fistula Ligation clip, metallic [id number] FDA Start: 03-16-2024 Creation, AV fistula Ligation clip, metallic [id number] FDA Start: 03-16-2024 Creation, AV fistula Ligation clip, metallic [id number] FDA Start: 03-16-2024 Kit 14.5fr 24cm Cath Std Hemodialysis [facility] - [id number] Start: 10-07-2023 Goals Date Patient Goal Desired Activity /State Mental Status Date Assessment Result Facility 03-26-2024 Cognitive function Voice/Name [facility] Work Phone: 03-16-2024 Cognitive function Level Of Consciousness Drowsy [facility] Work Phone: 03-16-2024 Cognitive function Voice/Name Janessa Lucila [facility] Work Phone: 08-17-2022 Cognitive function Inappropriate;Disorien shay [facility] Work Phone: Clinical Notes 08-17-2022 to 05-13-2024 Note Date & Type Note Facility 05-13-2024 Radiology Diagnostic study note [facility] Imaging Services [address] [place], [place] [address] Chest PA and Lateral MR#: [id number] Acct: [id number] Name: ILIANA REID Rep #: [id number] : 1950 F 74 From: Anaid Stern MD PCP: Dr. Sujey Fonseca MD Status: REG CLI Study:Chest PA and Lateral Date of Exam: 05/13/24 Exam# [id number] Ordering Dr: Say Fonseca MD EXAM: XR Chest, 2 Views CLINICAL INDICATION: COUGH WITH EXPECTORATION TECHNIQUE: Frontal and lateral views of the chest. COMPARISON: No relevant prior studies available. FINDINGS: LUNGS AND PLEURAL SPACES: Unremarkable. No consolidation. No pneumothorax. HEART: Cardiomegaly without overt failure. MEDIASTINUM: Unremarkable. Normal mediastinal contour. BONES/JOINTS: Unremarkable. No acute fracture. TUBES, LINES AND DEVICES: Right internal jugular central venous catheter tip inthe superior vena cava. RAD/Chest PA and Lateral IMPRESSION: Cardiomegaly without overt failure. Reading [facility] CC: Dr. Sujey Fonseca MD ~ Family Coach: Signed [facility] 04-08-2024 Evaluation note Diagnosis Onset Date Resolution S/P arteriovenous (AV) fistula creation acute April 08 1:50pm Steal syndrome as complication of dialysis access acute April 08 1:50pm ESRD (end stage renal disease) on dialysis chronic July 20 025 1:15pm [facility] Work Phone: 1(195) 808-786301-23-2025 [facility] Medical Records Department [address] [place] [address] History Physical Exam 03/26/24 1255 MR#: [id number] Acct: [id number] Name: ILIANA REID Rep #: [id number] : 1950 73 From: Ernie De Jesus MD PCP: Dr. Sujey Fonseca MD Status:[facility] Location: [place] [address] History and Physical Allergies fentanyl Allergy (Severe, Verified 03/18/24 13:08) Otheramlodipine (From Norvasc) Allergy (Verified 03/18/24 13:08) Otherhydromorphone (From Dilaudid) Allergy (Verified 03/18/24 13:08) Other Medications ???Medication ???Instructions ???Recorded ???Confirmed ???Type acetaminophen 500 mg capsule 500 mg PO Q6H PRN pain 02/03/24 03/24/24 History alendronate 70 mg tablet 70 mg PO QWEEK 02/03/24 03/24/24 History ascorbic acid 125 mg-collagen, 1 cap PO DAILY 02/03/24 03/24/24 History hydrolyzed 740 mg capsule (Collagen Plus Vitamin C) aspirin 81 mg tablet,delayed 81 mg PO QDAY 02/03/24 03/24/24 History release bupropion HCl 300 mg 24 hr tablet, 300 mg PO QAM 02/03/24 03/24/24 History extended release calcium 600 mg (as 1 tab PO BID 02/03/24 03/24/24 History carbonate)-vitamin D3 10 mcg (400 unit) tablet (Calcium 600 + D(3)) carvedilol 3.125 mg tablet 3.125 mg PO BID 02/03/24 03/24/24 History cholecalciferol (vitamin D3) 125 125 mcg PO QDAY 02/03/24 03/24/24 History mcg (5,000 unit) capsule cilostazol 50 mg tablet 100 mg PO BID 02/03/24 03/24/24 History evolocumab 140 mg/mL subcutaneous 140 mg subcut Q2W 02/03/24 03/24/24 History syringe ezetimibe 10 mg tablet 10 mg PO QDAY 02/03/24 03/24/24 History gabapentin 300 mg capsule 300 mg PO QHS PRN PRN restless 02/03/24 03/24/24 History leg(s) isosorbide mononitrate 30 mg 30 mg PO QDAY 02/03/24 03/24/24 History tablet,extended release 24 hr levetiracetam 500 mg tablet 500 mg PO BID 02/03/24 03/24/24 History levothyroxine 75 mcg capsule 75 mcg PO QDAY 02/03/24 03/24/24 History lisinopril 5 mg tablet 5 mg PO QDAY 02/03/24 03/24/24 History magnesium oxide 400 mg PO TID 02/03/24 03/24/24 History multivitamin (Daily Multi-Vitamin 1 tab PO QDAY 02/03/24 03/24/24 History tablet) omeprazole 20 mg capsule,delayed 20 mg PO QDAY 02/03/24 03/24/24 History release ondansetron HCl 4 mg tablet 4 mg PO Q8H PRN PRN nausea and 02/03/24 03/24/24 History vomiting rosuvastatin 40 mg tablet 40 mg PO QHS 02/03/24 03/24/24 History oxycodone 5 mg tablet 5 mg PO Q8H PRN pain 1 day #3 tabs 03/16/24 03/24/24 Rx nitroglycerin 2 % transdermal 1 inch transdermal BID #30 grams 03/18/24 03/24/24 Rx ointment (Nitro-Bid) Is last menstrual period known: No Post menopausal: Yes Patient : No Have you fallen in the past year?: No Subjective Details: Iliana Reid is a 73 y/o female who returns today for re-evaluation s/p L stage I basilic fistula creation on 03/16/24 with progressively worsening L forearm/hand pain, particularly worse with dialysis today to the point of barely being able to tolerate to completion and she does not think she could tolerate again. She reports increasing numbness and now noticing some weakness in her L hand as well. She does not have any wounds or areas of skin breakdown/necrosis. Objective Details: Left fingers are noticeable cool compared to R hand, more cyanotic discoloration, sluggish cap refill; reporting numbness, some weakness in box toe stitcher strength compared to the R hand. No wounds, skin integrity intact throughout. L radial pulse able to be auscultated, but nonpalpable (stable from prior). Coding Level of Care Code Global Post Op Diagnoses Steal syndrome as complication of dialysis access T82.898A S/P arteriovenous (AV) fistula creation Z98.890 COUNTS INCLUDE 234 BEDS AT THE [facility] Medical History Loss of hearing Wears glasses Hx of sepsis MRSA infection Depression Anxiety Thyroid disease History of renal dialysis Hemodialysis catheter malfunction History of renal disease Anemia High cholesterol Easy bruising Restless legs Injury of head and neck Syncope Dietary restriction Gastric reflux Former smoker Leg cramps History of pain when walking PVD (peripheral vascular disease) History of edema Typhoid fever History of rheumatic fever History of echocardiogram History of stress test Cardiology follow-up encounter History of cardiac murmur Seizures HTN (hypertension) Surgical History Hx of tonsillectomy Hx of arterial bypass of lower limb Hx of foot surgery Family History Other CVA (cerebral vascular accident) Diabetes Heart disease Hypertension Thyroid disorder Social History Smoking Status: Former smoke (more content not included)...[facility]01-23-2025 NoteHNO ID: [id number] Author: KARMEN TORIBIO RN Service: ? 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 Different from intake: [facility] Evaluation note* Diagnosis Onset Date Resolution Status Admit Date S/P arteriovenous (AV) fistu la creation acute March 24 3:25pm Steal syndrome as complicati on of dialysis access acute March 24, 2024 3:25pm S/P arteriovenous (AV) fistu la creation acute April 08 1:50pm Steal syndrome as complicati on of dialysis access acute April 08, 2024 1:50pm [employer] Work Phone: 1(384) 421-619801-15-2025 Telephone encounter Note* Telephone Encounter - Mari Adrian - 03/18/2024 9:21 AM EST First call regarding kidney transplant evaluation. Patient is unable to speak at this time, pt willcall to start kidney intake process. [facility]01-15-2025 Miscellaneous Notes* Telephone Encounter - Mari Adrian - 03/18/2024 9:21 AM EST First call regarding kidney transplant evaluation. Patient is unable to speak at this time, pt willcall to start kidney intake process. [facility] Medical Records Department [address] [place] [address] History Physical Exam 03/16/24 0741 MR#: [id number] Acct: [id number] Name: ILIANA REID Rep #: [id number] : 1950 73 From: Ernie De Jesus MD PCP: Dr. Sujey Fonseca MD Status:REG [facility] Location: [place] [address] History and Physical Allergies fentanyl Allergy (Severe, Verified 03/09/24 13:02) Otheramlodipine (From Norvasc) Allergy (Verified 03/09/24 13:02) Otherhydromorphone (From Dilaudid) Allergy (Verified 03/09/24 13:02) Other Medications ???Medication ???Instructions ???Recorded ???Confirmed ???Type acetaminophen 500 mg capsule 500 mg PO Q6H PRN 02/03/24 03/09/24 History alendronate 70 mg tablet 70 mg PO QWEEK 02/03/24 03/09/24 History ascorbic acid 125 mg-collagen, cap PO 02/03/24 03/09/24 History hydrolyzed 740 mg capsule (Collagen Plus Vitamin C) aspirin 81 mg tablet,delayed 81 mg PO QDAY 02/03/24 03/09/24 History release bupropion HCl 300 mg 24 hr tablet, 300 mg PO QAM 02/03/24 03/09/24 History extended release calcium 600 mg (as 1 tab PO BID 02/03/24 03/09/24 History carbonate)-vitamin D3 10 mcg (400 unit) tablet (Calcium 600 + D(3)) carvedilol 3.125 mg tablet 3.125 mg PO BID 02/03/24 03/09/24 History cholecalciferol (vitamin D3) 125 125 mcg PO QDAY 02/03/24 03/09/24 History mcg (5,000 unit) capsule cilostazol 50 mg tablet 100 mg PO BID 02/03/24 03/09/24 History evolocumab 140 mg/mL subcutaneous 140 mg subcut Q2W 02/03/24 03/09/24 History syringe ezetimibe 10 mg tablet 10 mg PO QDAY 02/03/24 03/09/24 History gabapentin 300 mg capsule 300 mg PO QHS 02/03/24 03/09/24 History isosorbide mononitrate 30 mg 30 mg PO QDAY 02/03/24 03/09/24 History tablet,extended release 24 hr levetiracetam 500 mg tablet 500 mg PO BID 02/03/24 03/09/24 History levothyroxine 75 mcg capsule 75 mcg PO QDAY 02/03/24 03/09/24 History lisinopril 5 mg tablet 5 mg PO QDAY 02/03/24 03/09/24 History magnesium oxide 400 mg PO TID 02/03/24 03/09/24 History multivitamin (Daily Multi-Vitamin 1 tab PO QDAY 02/03/24 03/09/24 History tablet) omeprazole 20 mg capsule,delayed 20 mg PO QDAY 02/03/24 03/09/24 History release ondansetron HCl 4 mg tablet 4 mg PO Q8H 02/03/24 03/09/24 History rosuvastatin 40 mg tablet 40 mg PO QDAY 02/03/24 03/09/24 History Is last menstrual period known: No Post menopausal: Yes Patient : No Have you fallen in the past year?: No PFSH Medical History HTN (hypertension) Family History Other CVA (cerebral vascular accident) Diabetes Heart disease Hypertension Thyroid disorder Social History Smoking Status: Former smoker Tobacco: How many years used: 20 how long ago did patient quit smokin yrs ago HPI HPI HPI: ILIANA REID, is a 73 F who presents to the office today for further discussion of dialysis access. She had completed upper extremity mapping. Currently using right IJ catheter without issues. ROS General General: Yes weight change, appetite and weakness; No fatigue, colon cancer or breast cancer HEENT HEENT: No difficulty swallowing, eye injury, eye surgery, swollen glands or hoarseness Endo Endocrine: Yes thyroid disease; No diabetes mellitus, thyroid cancer, Hair loss, heat intolerance or cold intolerance Skin Skin: No rash or changing moles Musc Musculoskeletal: No back problems, arthritis, rheumatoid arthritis, gout or joint pain Cardio Cardiovascular: Yes murmur, heart disease, high blood pressure, heart attack and heart stent; No pacemaker, atrial fibrillation, palpitations, shortness of breat with exertion or chest pain Psych Psychiatric: Yes anxiety; No depression or hearing voices Resp Respiratory: No shortness of breath, Yes sleep apnea, No cough, No COPD, No asthma, No emphysema and No wheezing Gastro Gastrointestinal: No abdominal pain, Yes nausea or vomiting, No diarrhea, No constipation, No blood in stool, Yes acid reflux, No hemorrhoids, No ulcers, No gallbladder problem and No black,tarry stools Everardo Hematologic: Yes blood thinners, No blood disorders, No bleeding, Yes anemia and No blood clots Neuro Neurologic: No system reviewed and no additional complaints, except as documented, No as per HPI, No abnormal gait, Yes abnormal hearing, No abnormal movements, No abnormal speech, No behavioral changes, No burning sensations, No confusion, No convulsions, No disequilibrium, No dizziness, No localized weakness, No frequent falls, Yes headache(s), No lack of coordination, No loss of vision, No memory loss, No numbness, No other visual disturbances, No radicular pain, Yes restless legs, No sensory deficit, No syncop (more content not included)...[facility]12-02-2024 Evaluation note* Diagnosis Onset Date Resolution Status Admit Date ESRD (end stage renal diseas e) on dialysis chronic February 02 3:29pm ESRD (end stage renal diseas e) on dialysis chronic March 09 12:49pm S/P arteriovenous (AV) fistu la creation acute March 18 12:55pm S/P arteriovenous (AV) fistu la creation acute March 24 3:25pm Steal syndrome as complicati on of dialysis access acute March 24, 2024 3:25pm S/P arteriovenous (AV) fistu la creation acute April 08 1:50pm Steal syndrome as complicati on of dialysis access acute April 08, 2024 1:50pm [facility] Work Phone: 1(287) 643-186011-26-2024 Telephone encounter Note* Telephone Encounter - Crystal Whitaker - 01/28/2024 8:42 AM EST Unable to lm toschedule pd cath consult with Dr. Still, mailbox is full. Crystal Whitaker January 28, 2024 8:43 AM [facility]11-26-2024 Miscellaneous Notes* Telephone Encounter - Crystal Whitaker - 01/28/2024 8:42 AM EST Unable to lm toschedule pd cath consult with Dr. Still, mailbox is full. Crystal Whitaker January 28, 2024 8:43 AM documented in [facility] encounterMar[facility]11-19-2024 Telephone encounter Note * Telephone Encounter - Cyrstal Whitaker - 01/21/2024 9:36 AM EST Called to schedule pd cath consult with Dr. Still. No answer and unable to leave message. Crystal Whitaker January 21, 2024 9:36 AM [facility]11-19-2024 Miscellaneous Notes* Telephone Encounter - Crystal Whitaker - 01/21/2024 9:36 AM EST Called to schedule pd cath consult with Dr. Still. No answer and unable to leave message. Crystal Whitaker January 21, 2024 9:36 AM documented in this encounterMar[facility]08-07-2024 NoteHMS DISCHARGE SUMMARY -- [facility] Iliana Reid Admitted: 10/04/2023 Discharge Date: 10/09/23 PCP Handoff Recommended Outpatient Testing Echo Results Pending At Discharge none Clinical Summary Iliana Reid is a 73 y.o. female history of chronic kidney disease stage IIIb, MGUS, hypertension, peripheral vascular disease who presented to the emergency room per our request for evaluation of acute kidney injury. Acute kidney injury on CKD stage IV She is sent to our facility for nephrology consultation workup. Renal ultrasound ordered in the emergency room did not show obstructive uropathy Nephrology input appreciated. It seems Patient had a significant rise in her baseline creatinine from 2.62 in 02/23 to 4.56. Urinalysis for protein and creatinine Held IRLANDA and ARB Avoid NSAIDs CK normal in the context of statin use for rhabdo. Initially gentle hydration given but did not improve the renal function. Nephrology consulted, s/p tunneled hemodialysis catheter placement by IR started first hemodialysis treatment 10/06. Next HD on 10/08 per nephrology consulting services project manager following to setup [facility] HD schedule Hypertension H/o left subclavian steal syndrome Continue carvedilol, Cardura, Imdur and losartan Avoid blood pressure readings in left arm Hyperlipidemia On statin and Repatha. Peripheral arterial disease On Pletal Hypothyroidism On levothyroxine 75 mics daily Osteoporosis On Fosamax History of MGUS Anemia of chronic disease Unknown baseline H&H, today it is 9.6 and 30 Elevated Troponin No sx Cardiology saw patient and attributing this to renal insufficiency Echo to be done as outpatient Discharge Medications Discharge Medications Modified Medications Details carvediloL 3.125 MG tablet Commonly known as: COREG What changed: Another medication with the same name was removed. Continue taking this medication, and follow the directions you see here. Take 1 (one) tablet (3.125 mg total) by mouth 2 (two) times a day . Medications To Continue Details acetaminophen 325 MG tablet Commonly known as: TYLENOL Take 2 (two) tablets (650 mg total) by mouth every 6 (six) hours as needed for pain . alendronate 70 MG tablet Commonly known as: FOSAMAX Take 1 (one) tablet (70 mg total) by mouth once a week . aspirin 81 MG EC tablet Take 1 (one) tablet (81 mg total) by mouth daily . * buPROPion 150 MG 12 hr tablet Commonly known as: WELLBUTRIN SR Take 1 (one) tablet (150 mg total) by mouth daily . * buPROPion 300 MG 24 hr tablet Commonly known as: WELLBUTRIN XL Take 1 (one) tablet (300 mg total) by mouth daily . cilostazoL 100 MG tablet Commonly known as: PLETAL Take 1 (one) tablet (100 mg total) by mouth 2 (two) times a day . cloNIDine 0.1 mg/24 hr Commonly known as: CATAPRES-TTS Place 1 (one) patch on the skin once a week . Crestor 20 MG tablet Generic drug: rosuvastatin Take 1 (one) tablet (20 mg total) by mouth nightly . diphenhydrAMINE-acetaminophen 25-500 mg Tab Commonly known as: TYLENOL PM Take 1 (one) tablet by mouth nightly as needed . doxazosin 4 MG tablet Commonly known as: CARDURA Take 1 (one) tablet (4 mg total) by mouth daily . * gabapentin 100 MG capsule Commonly known as: NEURONTIN Take 3 (three) capsules (300 mg total) by mouth nightly . * gabapentin 300 MG capsule Commonly known as: NEURONTIN Take 1 (one) capsule (300 mg total) by mouth nightly . hydrALAZINE 50 MG tablet Commonly known as: APRESOLINE Take 1 (one) tablet (50 mg total) by mouth 3 (three) times a day . isosorbide mononitrate 30 MG 24 hr tablet Commonly known as: Imdur Take 1 (one) tablet (30 mg total) by mouth daily. Quantity: 30 tablet * levothyroxine 25 MCG tablet Commonly known as: SYNTHROID, LEVOTHROID Take 1 (one) tablet (25 mcg total) by mouth once daily . * levothyroxine 75 MCG tablet Commonly known as: SYNTHROID, LEVOTHROID Take 1 (one) tablet (75 mcg total) by mouth daily . losartan 100 MG tablet Commonly known as: COZAAR Take 1 (one) tablet (100 mg total) by mouth daily . magnesium oxide 400 mg (241.3 mg magnesium) tablet Commonly known as: MAG-OX Take 1 (one) tablet (400 mg total) by mouth 2 (two) times a day . omeprazole 20 MG capsule Commonly known as: PRILOSEC Take 1 (one) capsule (20 mg total) by mouth daily . * ondansetron 4 MG tablet Commonly known as: ZOFRAN TAKE 1 TABLET BY MOUTH EVERY 6 HOURS NEEDED FOR NAUSEA Quantity: 30 tablet * ondansetron 4 MG tablet Commonly known as: Zofran Take 1 (one) tablet (4 mg total) by mouth every 6 (six) hours as needed for nausea . Quantity: 30 tablet promethazine 12.5 MG tablet Commonly known as: PHENERGAN take 1 (one) Tablet, Oral, three times daily, as needed before meals vitamin B-12 1000 MCG tablet Generic drug: cyanocobalamin Take 1 (one) tablet (1,000 mcg total) by mouth daily . * The (more content not included)...[facility]08-07-2024 NoteNEPHROLOGY PROGRESS NOTE [facility] Patient Name: Iliana Reid Admit Date: [id number] MR #: [id number] : 1950 Perpetual Assessment: Iliana Reid is a 73 y.o. 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 Lab trends as below: February 10, 2020 creatinine 1.8 November 08, 2020 creatinine 1.9 December 14, 2022 creatinine 4.56 January 16, 2023 creatinine 2.62 September 04, 2023 creatinine 4.54 September 27, 2023 creatinine 4.56 -No improvement in renal function likely due to progression of chronic kidney disease due to known past renal biopsy findings. Initial biopsy showed acute crescentic glomerulonephritis. Subsequent biopsy showed scarring of the kidney no active inflammation. 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 -serum and urine immunofixation unremarkable. -Hepatitis B surface Ag negative (10/04/23) Normal K/L ratio. -UA showed small amount of blood, moderate amount of leukocytes, WBC 58 without symptoms of urinary tract infection (10/04/23) -Heavy proteinuria noted on urine protein creatinine ratio at 9.9 (10/04/23) -CPK 29 -Renal ultrasound without obstruction After long discussion, patient is agreeable to start HD. She is interested in dialysis at home. She understand that she will need to first start on in center HD Upon discharge, she can have home therapies education She is also interested in transplant evaluation -Permacath placed on 10/05 -Hemodialysis 10/06 with a postweight of 55.3 kg -Seen and examined on HD today. Predialysis weight 54.8 kg. Run even. -Next hemodialysis treatment on Saturday. -Outpatient dialysis arrangements were made at [facility]. 2. Hypertension -Continue current antihypertensive regimen. -Given history of left subclavian steal syndrome please only obtain blood pressure readings in the right arm. Nursing communication placed for this. Awaiting 2D echo 3. Hyperkalemia due to renal insufficiency and concurrent exposure to losartan: Resolved -Since potassium is controlled on HD will resume losartan on 10/07 4. Anemia due to CKD -Does have a history of MGUS. Serum and urine immunofixation unremarkable -LALO on HD 5. Metabolic acidosis from advanced CKD -Resolved with HD Subjective: No events overnight. Seen exam on HD. Patient has no complaints. Review of Systems: ROS otherwise reviewed and negative Physical Examination: Vitals: Vitals: 10/08/23 1858 10/08/23 2057 10/09/23 0545 10/09/23 0730 BP: 119/69 (!) 148/66 113/65 Pulse: 90 92 89 Resp: 16 16 18 16 Temp: 97.7 degrees F (36.5 degrees C) 98.1 degrees F (36.7 degrees C) 98 degrees F (36.7 degrees C) TempSrc: Oral Oral Oral SpO2: 99% 95% 95% Weight: Height: Intake/Output last 3 shifts:No intake or output data in the 24 hours ending 10/09/23 1049 No intake/output data recorded. General: No acute distress HEENT: Anicteric Neck: Supple CV: Regular rate, no murmurs or rubs. No lower extremity edema Lungs: CTA B Abd: Soft, nontender, bowel sounds present Extr: good LE perfusion, no cyanosis Neuro: No myoclonus, alert and oriented x 3 Skin : No new rashes Dialysis access: Permacath CDI : No hoyt Results/Medications Reviewed 10/09/23 10:49 AM: Laboratory, Microbiology, Pathology, Radiology, Cardiology, Medications and Transcriptions reviewed Scheduled Meds: aspirin 81 mg Oral Daily atorvastatin 40 mg Oral Nightly buPROPion 300 mg Oral Daily carvediloL 3.125 mg Oral BID cilostazoL 100 mg Oral BID cyanocobalamin 1,000 mcg Oral Daily docusate sodium 100 mg Oral Daily doxazosin 4 mg Oral Daily epoetin jason-epbx 10,000 Units Intravenous Once per day on Saturday gabapentin 300 mg Oral Nightly heparin (porcine) 5,000 Units Subcutaneous Q8H [facility] isosorbide mononitrate 30 mg Oral Daily levothyroxine 75 mcg Oral Daily losartan 50 mg Oral Daily with lunch pantoprazole 40 mg Oral Daily sodium chloride (PF) 10-20 mL Intravenous Once in dialysis sodium chloride (PF) 5 mL Intravenous Q8H [facility] Continuous Infusions: sodium chloride 0.9 % sodium chloride 0.9 % sodium chloride 0.9 % Results from last 7 days Lab Units 10/09/23 0501 10/08/23 0450 10/07/23 0452 WBC K/mcL 5.34 5.32 4.91 HGB g/dL 7.6* 7.6* 7.4* HCT % 24.1* 23.3* 23.8* PLT K/mcL 148* 131* 138* Results from last 7 days Lab Units 10/09/23 0501 10/08/23 0450 10/07/23 0452 10/05/23 0558 10/04/23 1019 SODIUM mmol/L 141 139 142 < > 143 POTASSIUM mmol/L 3.9 4.0 4.6 < > 5.2* CHLORIDE mmol/L 107 105 114* < > 110* BICARB mmol/L 23 23 16* < > 21 BUN mg/dL 38* 34* 70* < > 71* CREATININE mg/dL 4.23* 3.76* 5.56* < > 5.01* EGFR mL/min/1.73 m2 11* 12* 8* < > 9* GLUCOSE mg/dL 76 74 82 < > 75 CALCIUM (more content not included)...[facility]08-06-2024 NoteHMS PROGRESS NOTE Assessment and Plan Iliana Reid is a 73 y.o. female history of chronic kidney disease stage IIIb, MGUS, hypertension, peripheral vascular disease who presented to the emergency room per our request for evaluation of acute kidney injury. Acute kidney injury on CKD stage IV She is sent to our facility for nephrology consultation workup. Renal ultrasound ordered in the emergency room did not show obstructive uropathy Nephrology input appreciated. It seems Patient had a significant rise in her baseline creatinine from 2.62 in 02/23 to 4.56. Urinalysis for protein and creatinine Held IRLANDA and ARB Avoid NSAIDs CK normal in the context of statin use for rhabdo. Initially gentle hydration given but did not improve the renal function. Nephrology consulted, s/p tunneled hemodialysis catheter placement by IR started first hemodialysis treatment 10/06. Next HD on 10/08 per nephrology consulting services project manager [facility] Hypertension H/o left subclavian steal syndrome Continue carvedilol, Cardura, Imdur and losartan Avoid blood pressure readings in left arm Hyperlipidemia On statin and Repatha. Peripheral arterial disease On Pletal Hypothyroidism On levothyroxine 75 mics daily Osteoporosis On Fosamax History of MGUS Anemia of chronic disease Unknown baseline H&H, today it is 9.6 and 30 Will monitor Elevated Troponin No sx Cardiology saw patient and attributing this to renal insufficiency Pending echo Residence prior to admission: house or apartment Was patient transferred from outlying hospital or ED no Quality Measures DVT Prophylaxis: heparin subcutaneous Hoyt Catheter: absent Medication Reconciliation: Verified Admitted with these risk variables:Acute Kidney Injury, Chronic Kidney Disease, and Electrolyte Disturbance: Hyperkalemia. Please see assessment and plan for further details. Code Status DNRCCA, no intubation. Ok with cpr Discharge Planning Medically Stable for Discharge Date: In 1 to 2 days Patient requires continued hospitalization due to initiation of hemodialysis. Discharge Location: Home Subjective Patient denies any chest pain or sob. No acute events over night Objective BP (!) 146/72 Pulse 87 Temp 97.7 degrees F (36.5 degrees C) (Oral) Resp 18 Ht 5' 4 Wt 54.8 kg (120 lb 13 oz) SpO2 98% BMI 20.74 kg/m Physical Examination General Appearance: alert; chronically ill appearing; in no acute distress HEENT: Head- normocephalic; Eyes- EOMI, sclera anicteric; Throat- mucous membranes moist Cardiovascular: regular rate and rhythm; normal S1, S2; no murmurs, rubs, clicks or gallops; peripheral edema absent Respiratory: lungs clear to auscultation; without wheezes, rales or rhonchi; on room air Abdomen: soft, non-tender, non-distended Neurological: oriented x 3; normal speech; no focal findings or movement disorder noted Musculoskeletal: no significant deformity or tenderness to palpation Skin: normal coloration Psych: normal mood and affect AUTHENTICATED BY VIANEY BERMUDEZ ON 10/08/2023 12:15:[address] [place] [address] 10-08-2023 NoteNEPHROLOGY PROGRESS NOTE [facility] Patient Name: Iliana Reid Admit Date: [id number] MR #: [id number] : 1950 Perpetual Assessment: Iliana Reid is a 73 y.o. 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 Lab trends as below: February 10, 2020 creatinine 1.8 November 08, 2020 creatinine 1.9 December 14, 2022 creatinine 4.56 January 16, 2023 creatinine 2.62 September 04, 2023 creatinine 4.54 September 27, 2023 creatinine 4.56 -No improvement in renal function likely due to progression of chronic kidney disease due to known past renal biopsy findings. Initial biopsy showed acute crescentic glomerulonephritis. Subsequent biopsy showed scarring of the kidney no active inflammation. 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 Renal ultrasound without obstruction -serum and urine immunofixation unremarkable. -Hepatitis B surface Ag negative (10/04/23) Normal K/L ratio. -UA showed small amount of blood, moderate amount of leukocytes, WBC 58 without symptoms of urinary tract infection (10/04/23) -Heavy proteinuria noted on urine protein creatinine ratio at 9.9 (10/04/23) -CPK 29 After long discussion, patient is agreeable to start HD. She is interested in dialysis at home. She understand that she will need to first start on in center HD Upon discharge, will arrange for home therapies education She is also interested in transplant evaluation -Permacath placed on 10/05 -Hemodialysis 10/06 with a postweight of 55.3 kg -Next dialysis treatment on Saturday -Social work making arrangements for outpatient dialysis for ESRD at at [facility] with Dr. Matias. Patient was previously following with Dr. Matias and would like to resume care under his direction. 2. Hypertension -Continue current antihypertensive regimen. -Given history of left subclavian steal syndrome please only obtain blood pressure readings in the right arm. Nursing communication placed for this. Awaiting 2D echo 3. Hyperkalemia due to renal insufficiency and concurrent exposure to losartan: Resolved -Since potassium is controlled on HD will resume losartan on 10/07 4. Anemia due to CKD -Does have a history of MGUS. Serum and urine immunofixation unremarkable -LALO on HD 5. Metabolic acidosis from advanced CKD -Resolved with HD Subjective: No events overnight. Reviewed the plan of inpatient outpatient nephrology care. Ample opportunity given to express concerns or ask questions. Nursing at bedside Review of Systems: ROS otherwise reviewed and negative Physical Examination: Vitals: Vitals: 10/07/23 1530 10/07/23 1939 10/08/23 0153 10/08/23 0718 BP: (!) 170/94 131/71 109/66 (!) 146/72 Pulse: 80 92 86 87 Resp: 16 16 18 Temp: 98 degrees F (36.7 degrees C) 97.7 degrees F (36.5 degrees C) 97.6 degrees F (36.4 degrees C)97.7 degrees F (36.5 degrees C) TempSrc: Oral Oral Oral SpO2: 98% 96% 95% 98% Weight: Height: Intake/Output last 3 shifts: Intake/Output Summary (Last 24 hours) at 10/08/2023 1032 Last data filed at 10/07/2023 1300 Gross per 24 hour Intake 100 ml Output -- Net 100 ml I/O last 3 completed shifts: In: 100 [P.O.:100] Out: - General: No acute distress HEENT: Anicteric Neck: Supple CV: Regular rate, no murmurs or rubs. No lower extremity edema Lungs: CTA B Abd: Soft, nontender, bowel sounds present Extr: good LE perfusion, no cyanosis Neuro: No myoclonus, alert and oriented x 3 Skin : No new rashes Dialysis access: Permacath CDI : No hoyt Results/Medications Reviewed 10/08/23 10:32 AM: Laboratory, Microbiology, Pathology, Radiology, Cardiology, Medications and Transcriptions reviewed Scheduled Meds: aspirin 81 mg Oral Daily atorvastatin 40 mg Oral Nightly buPROPion 300 mg Oral Daily carvediloL 3.125 mg Oral BID cilostazoL 100 mg Oral BID cyanocobalamin 1,000 mcg Oral Daily docusate sodium 100 mg Oral Daily doxazosin 4 mg Oral Daily epoetin jason-epbx 10,000 Units Intravenous Once per day on Saturday gabapentin 300 mg Oral Nightly heparin (porcine) 5,000 Units Subcutaneous Q8H [facility] isosorbide mononitrate 30 mg Oral Daily levothyroxine 75 mcg Oral Daily pantoprazole 40 mg Oral Daily sodium chloride (PF) 5 mL Intravenous Q8H [facility] Continuous Infusions: sodium chloride 0.9 % sodium chloride 0.9 % Results from last 7 days Lab Units 10/08/23 04510/07/23 0452 10/06/23 0534 WBC K/mcL 5.32 4.91 4.69 HGB g/dL 7.6* 7.4* 7.4* HCT % 23.3* 23.8* 23.7* PLT K/mcL 131* 138* 135* Results from last 7 days Lab Units 10/08/23 0450 10/07/23 0452 10/06/23 0534 10/05/23 0558 10/04/23 1019 SODIUM mmol/L 139 142 139 < > 143 POTASSIUM mmol/L 4.0 4.6 4.5 < > 5.2* CHLORIDE mmol/L 105 114* 112* < > (more content not included)...[facility]08-05-2024 NoteNEPHROLOGY PROGRESS NOTE [facility] Patient Name: Iliana Reid Admit Date: [id number] MR #: [id number] : 1950 Perpetual Assessment: Iliana Reid is a 73 y.o. female on hospital day 3 admitted for WICHO We are asked to evaluate and manage WICHO Impression and Plan: New end stage kidney disease -From CKD progression. 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 -Hepatitis B surface Ag negative (10/04/23) Normal K/L ratio. -UA showed small amount of blood, moderate amount of leukocytes, WBC 58 without symptoms of urinary tract infection (10/04/23) -Heavy proteinuria noted on urine protein creatinine ratio at 9.9 (10/04/23) -CPK 29 After long discussion, patient is agreeable to start HD. She is interested in dialysis at home. She understand that she will need to first start on in center HD Upon discharge, will arrange for home therapies education She is also interested in transplant evaluation -Permacath placed on 10/05 -Seen and examined on first HD treatment predialysis weight 55.3 kg. Will plan up to 1 L positive on treatment given her volume status. -Next dialysis treatment on Saturday Will consult case management for outpatient dialysis placement at [facility] or [facility] with Dr. Matias. 2. Hypertension -BP high this AM due to not receiving meds. Otherwise, it has been controlled. -Given history of left subclavian steal syndrome please only obtain blood pressure readings in the right arm. Nursing communication placed for this. Awaiting 2D echo 3. Hyperkalemia due to renal sufficiency and concurrent exposure to losartan -Holding losartan -plan for HD on Saturday 4. Anemia -Given MGUS checking above labs -Iron studies - Iron 83 mcg/dL. TIBC 270 mcg/dL, Iron Saturation 31 %, Ferritin 134 ng/mL 5. Metabolic acidosis from advanced CKD -Expect this to improve once on HD Subjective: No events overnight. Extensive education about PROFILING MACHINE SETUP OPERATOR provided. Seen examined on HD today. Patient overwhelmed by starting dialysis. 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 Review of Systems: ROS otherwise reviewed and negative Physical Examination: Vitals: Vitals: 10/07/23 1044 10/07/23 1049 10/07/23 1051 10/07/23 1052 BP: (!) 167/83 (!) 140/81 (!) 147/78 (!) 163/68 Pulse: 79 80 78 78 Resp: 16 16 16 16 Temp: TempSrc: SpO2: 99% 99% 98% 99% Weight: Height: Intake/Output last 3 shifts:No intake or output data in the 24 hours ending 10/07/23 1432No intake/output data recorded. General: No acute distress HEENT: Anicteric Neck: Supple CV: Regular rate, no murmurs or rubs. No lower extremity edema Lungs: CTA B Abd: Soft, nontender, bowel sounds present Extr: good LE perfusion, no cyanosis Neuro: No myoclonus, alert and oriented x 3 Skin : No new rashes Dialysis access: Permacath CDI : No hoyt Results/Medications Reviewed 10/07/23 2:32 PM: Laboratory, Microbiology, Pathology, Radiology, Cardiology, Medications and Transcriptions reviewed Scheduled Meds: aspirin 81 mg Oral Daily atorvastatin 40 mg Oral Nightly buPROPion 300 mg Oral Daily carvediloL 3.125 mg Oral BID cilostazoL 100 mg Oral BID cyanocobalamin 1,000 mcg Oral Daily docusate sodium 100 mg Oral Daily doxazosin 4 mg Oral Daily epoetin jason-epbx epoetin jason-epbx 10,000 Units Intravenous Once per day on Saturday gabapentin 300 mg Oral Nightly heparin (porcine) 5,000 Units Subcutaneous Q8H [facility] isosorbide mononitrate 30 mg Oral Daily levothyroxine 75 mcg Oral Daily pantoprazole 40 mg Oral Daily sodium chloride (PF) 10-20 mL Intravenous Once in dialysis sodium chloride (PF) 5 mL Intravenous Q8H [facility] Continuous Infusions: sodium chloride 0.9 % sodium chloride 0.9 % sodium chloride 0.9 % Results from last 7 days Lab Units 10/07/23 0452 10/06/23 0534 10/05/23 0558 WBC K/mcL 4.91 4.69 6.34 HGB g/dL 7.4* 7.4* 8.3* HCT % 23.8* 23.7* 25.6* PLT K/mcL 138* 135* 149* Results from last 7 days Lab Units 10/07/2345110/06/23 0534 10/05/23 0558 10/04/23 1019 SODIUM mmol/L 142 139 137 143 POTASSIUM mmol/L 4.6 4.5 5.4* 5.2* CHLORIDE mmol/L 114* 112* 111* 110* BICARB mmol/L 16* 18* 16* 21 BUN mg/dL 70* 76* 71* 71* CREATININE mg/dL 5.56* 5.76* 5.13* 5.01* EGFR mL/min/1.73 m2 8* 7* 8* 9* GLUCOSE mg/dL 82 81 72 75 CALCIUM mg/dL 8.7 8.6 8.5 9.3 MAGNESIUM mg/dL -- -- -- 1.8 PH (more content not included)...[facility]08-05-2024 NoteNEPHROLOGY PROGRESS NOTE [facility] Patient Name: Iliana Reid Admit Date: [id number] MR #: [id number] : 1950 Perpetual Assessment: Iliana Reid is a 73 y.o. female on hospital day 3 admitted for WICHO We are asked to evaluate and manage WICHO Impression and Plan: New end stage kidney disease -From CKD progression. 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 -Hepatitis B surface Ag negative (10/04/23) Normal K/L ratio. -UA showed small amount of blood, moderate amount of leukocytes, WBC 58 without symptoms of urinary tract infection (10/04/23) -Heavy proteinuria noted on urine protein creatinine ratio at 9.9 (10/04/23) -CPK 29 After long discussion, patient is agreeable to start HD. She is interested in dialysis at home. She understand that she will need to first start on in center HD Upon discharge, will arrange for home therapies education She is also interested in transplant evaluation Will consult IR for tunneled dialysis catheter placement today. Will have first treatment HD today and second HD treatment on Saturday. Will consult case management for outpatient dialysis placement at [facility] or [facility] with Dr. Matias. 2. Hypertension -BP high due to not receiving meds. Otherwise, it has been controlled. -Suspect medication noncompliance prior to admission -Given history of left subclavian steal syndrome please only obtain blood pressure readings in the right arm. Nursing communication placed for this. Awaiting 2D echo 3. Hyperkalemia due to renal sufficiency and concurrent exposure to losartan -Hold losartan -plan for HD on Saturday 4. Anemia -Given MGUS checking above labs -Iron studies - Iron 83 mcg/dL. TIBC 270 mcg/dL, Iron Saturation 31 %, Ferritin 134 ng/mL 5. Metabolic acidosis From advanced CKD Expect this to improve once on HD Subjective: No events overnight. Extensive education about PROFILING MACHINE SETUP OPERATOR provided. Review of Systems: ROS otherwise reviewed and negative Physical Examination: Vitals: Vitals: 10/07/23 1044 10/07/23 1049 10/07/23 1051 10/07/23 1052 BP: (!) 167/83 (!) 140/81 (!) 147/78 (!) 163/68 Pulse: 79 80 78 78 Resp: 16 16 16 16 Temp: TempSrc: SpO2: 99% 99% 98% 99% Weight: Height: Intake/Output last 3 shifts:No intake or output data in the 24 hours ending 10/07/23 1153No intake/output data recorded. General: No acute distress HEENT: Anicteric Neck: Supple CV: Regular rate, no murmurs or rubs. No lower extremity edema Lungs: CTA B Abd: Soft, nontender, bowel sounds present Extr: good LE perfusion, no cyanosis Neuro: No myoclonus, alert and oriented x 3 Skin : No new rashes Dialysis access: Permacath CDI : No hoyt Results/Medications Reviewed 10/07/23 11:53 AM: Laboratory, Microbiology, Pathology, Radiology, Cardiology, Medications and Transcriptions reviewed Scheduled Meds: aspirin 81 mg Oral Daily atorvastatin 40 mg Oral Nightly buPROPion 300 mg Oral Daily carvediloL 3.125 mg Oral BID cilostazoL 100 mg Oral BID cyanocobalamin 1,000 mcg Oral Daily docusate sodium 100 mg Oral Daily doxazosin 4 mg Oral Daily epoetin jason-epbx 10,000 Units Intravenous Once per day on Saturday gabapentin 300 mg Oral Nightly heparin (porcine) 5,000 Units Subcutaneous Q8H [facility] isosorbide mononitrate 30 mg Oral Daily levothyroxine 75 mcg Oral Daily pantoprazole 40 mg Oral Daily sodium chloride (PF) 5 mL Intravenous Q8H [facility] Continuous Infusions: sodium chloride 0.9 % sodium chloride 0.9 % Results from last 7 days Lab Units 10/07/23 0452 10/06/23 0534 10/05/23 0558 WBC K/mcL 4.91 4.69 6.34 HGB g/dL 7.4* 7.4* 8.3* HCT % 23.8* 23.7* 25.6* PLT K/mcL 138* 135* 149* Results from last 7 days Lab Units 10/07/23 0452 10/06/23 0534 10/05/23 0558 10/04/23 1019 SODIUM mmol/L 142 139 137 143 POTASSIUM mmol/L 4.6 4.5 5.4* 5.2* CHLORIDE mmol/L 114* 112* 111* 110* BICARB mmol/L 16* 18* 16* 21 BUN mg/dL 70* 76* 71* 71* CREATININE mg/dL 5.56* 5.76* 5.13* 5.01* EGFR mL/min/1.73 m2 8* 7* 8* 9* GLUCOSE mg/dL 82 81 72 75 CALCIUM mg/dL 8.7 8.6 8.5 9.3 MAGNESIUM mg/dL -- -- -- 1.8 PHOSPHORUS mg/dL 4.8* 4.2* 3.9 4.5* Urinalysis Results from last 7 days Lab Units 10/04/23 1604 COLOR, UR Yellow CLARITY, UR Clear SPEC GRAV 1.008 PH, UR 6.5 GLUCOSE, UR mg/dL Negative KETONES, UR mg/dL Negative BILIRUBIN, UR Negative UROBILINOGEN, UR mg/dL <2.0 BLOOD, UR Small* NITRITE, UR Negative LEUK NIK (more content not included)...[facility]08-05-2024 Note Vascular & Interventional Radiology Provided By [facility] (Diagnostic Radiology, Interventional and Neurointerventional Radiology and Vascular Medicine) Interventional Radiology Department @ : [phone] 24/09 VIR physician contact: [phone]) Weekday VIR DRE contact @ : [phone] [facility]: [phone] [email or web address] General Procedure: Procedure: Tunneled catheter placement Indication: renal disease Practitioner: Landen Herrera PA-C Supervising Physician: Mishel Jorge M.D. Sedation: Moderate The procedure, its risks and benefits were discussed in detail with the patient and/or family. Informed consent was obtained. Description: A right sided, tunneled HD catheter was placed with its tip terminating at the SVC/RA junction without evidence of complications. Patient tolerated the procedure well and was sent to the post procedure recovery area in stable condition. The catheter is ready for immediate use. Estimated Blood Loss: Trace Complications: None 19 cm [facility] Full report to follow AUTHENTICATED BY LANDEN HERRERA, ON 10/07/2023 11:04:[address] [place] [address] 10-07-2023 NoteHMS PROGRESS NOTE Assessment and Plan Iliana Reid is a 73 y.o. female history of chronic kidney disease stage IIIb, MGUS, hypertension, peripheral vascular disease who presented to the emergency room per our request for evaluation of acute kidney injury. Acute kidney injury on CKD stage IV She is sent to our facility for nephrology consultation workup. Renal ultrasound ordered in the emergency room did not show obstructive uropathy Nephrology input appreciated. It seems Patient had a significant rise in her baseline creatinine from 2.62 in 02/23 to 4.56. Urinalysis for protein and creatinine Held IRLANDA and ARB Avoid NSAIDs CK normal in the context of statin use for rhabdo. Initially gentle hydration given but did not improve the renal function. Nephrology consulted, Plan for hemodialysis today after tunneled hemodialysis catheter placement by IR Hypertension Continue carvedilol, Cardura, Imdur and hold losartan Hyperlipidemia On statin and Repatha. Peripheral arterial disease On Pletal Hypothyroidism On levothyroxine 75 mics daily Check TSH Osteoporosis On Fosamax History of MGUS Anemia of chronic disease Unknown baseline H&H, today it is 9.6 and 30 Will monitor Elevated Troponin No sx Cardiology saw patient and attributing this to renal insufficiency. Residence prior to admission: house or apartment Was patient transferred from outlying hospital or ED no Quality Measures DVT Prophylaxis: heparin subcutaneous Hoyt Catheter: absent Medication Reconciliation: Verified Admitted with these risk variables:Acute Kidney Injury, Chronic Kidney Disease, and Electrolyte Disturbance: Hyperkalemia. Please see assessment and plan for further details. Code Status DNRCCA, no intubation. Ok with cpr Discharge Planning Medically Stable for Discharge Date: In 1 to 2 days Patient requires continued hospitalization due to initiation of hemodialysis. Discharge Location: Home Subjective Patient denies any chest pain or sob. No acute events overnight. Objective BP 131/71 Pulse 92 Temp 97.7 degrees F (36.5 degrees C) (Oral) Resp 16 Ht 5' 4 Wt 54.8 kg (120 lb 13 oz) SpO2 96% BMI 20.74 kg/m Physical Examination General Appearance: alert; chronically ill appearing; in no acute distress HEENT: Head- normocephalic; Eyes- EOMI, sclera anicteric; Throat- mucous membranes moist Cardiovascular: regular rate and rhythm; normal S1, S2; no murmurs, rubs, clicks or gallops; peripheral edema absent Respiratory: lungs clear to auscultation; without wheezes, rales or rhonchi; on room air Abdomen: soft, non-tender, non-distended Neurological: oriented x 3; normal speech; no focal findings or movement disorder noted Musculoskeletal: no significant deformity or tenderness to palpation Skin: normal coloration Psych: normal mood and affect AUTHENTICATED BY VIANEY BERMUDEZ ON 10/07/2023 23:47:04[facility] 10-07-2023 NotePROCEDURE: 1. ULTRASOUND-GUIDED VENOUS ACCESS. 2. PLACEMENT OF A TUNNELED HEMODIALYSIS CATHETER VIA THE RIGHT INTERNAL JUGULAR VEIN. 3. FLUOROSCOPIC GUIDANCE. GYROSCOPIC INSTRUMENT MECHANIC(S): HELADIO Jean M.D. (Supervising) HISTORY: Renal disease MEDICATIONS: Intravenous moderate sedation with continuous cardiorespiratory monitoring for 19 minutes utilizing 1.5 mg of Versed IV and 0 mcg of Fentanyl IV was provided with general supervision by the interventional radiologist. RADIATION DOSE: Fluoro time = 1.2 minutes. Total dose = 7 mGy. Total DAP = 1.39 Gycm2. TECHNICAL REPORT: The procedure with its recognized benefits and risks were explained to the patient and written informed consent was obtained. The patient was brought to the interventional radiology suite and placed in a supine position on the table. A time-out and pause/confirm was performed. The right neck and chest were prepped and draped in the usual sterile fashion. The right internal jugular vein was accessed using a micropuncture set and under real time ultrasound and fluoroscopic guidance. A 0.035 inch J-wire was then advanced into the inferior vena cava under fluoroscopic guidance. A site on the right chest wall was selected for tunnel site which was then infiltrated with 1% lidocaine. A subcutaneous tunnel was created from the skin incision to the venotomy site. Using a tunneling device, the tunneled hemodialysis catheter was pulled through to the venotomy site. Over a J-wire, a 16-Romanian peel-away sheath was advanced under fluoroscopic guidance to the SVC and dilator and guidewire were removed. Through the peel-away sheath, the 19 cm GlidePath catheter was advanced to the right atrium. The peel-away sheath was removed. The catheter was checked for function and sutured to the skin with 2-0 Ethilon suture. The venotomy site was also sutured with 4-0 Vicryl. The patient left the interventional suite in stable condition. Hand hygiene was performed and all elements of maximal sterile barrier techniques were followed, including a sterile ultrasound probe cover and sterile ultrasound gel. FINDINGS: 1. Patent right internal jugular vein by ultrasound. Spot images were obtained and saved to the PACS record documenting needle placement within the vein. 2. Successful placement of a tunneled hemodialysis catheter via the right internal jugular vein with tip in the proximal right atrium. No post procedure pneumothorax. IMPRESSION: Successful placement of a tunneled hemodialysis catheter via right internal jugular vein with ultrasound and fluoroscopic guidance. I have reviewed the images and findings and agree with the above interpretation. PLAN: The catheter may be used immediately. Workstation ID: [id number] Dictated by: LANDEN HERRERA on SatOct 07, 2023 2:51:20 PM EDT Transcribed by: LANDEN HERRERA on SatOct 07, 2023 2:51:20 PM EDT Finalized by: MISHEL JORGE on SatOct 07, 2023 3:17:04 PM [facility]08-04-2024 NoteNEPHROLOGY PROGRESS NOTE [facility] Patient Name: Iliana Reid Admit Date: [id number] MR #: [id number] : 1950 Perpetual Assessment: Iliana Reid is a 73 y.o. female on hospital day 2 admitted for WICHO We are asked to evaluate and manage WICHO Impression and Plan: New end stage kidney disease -From CKD progression. 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 -UA showed small amount of blood, moderate amount of leukocytes, WBC 58 without symptoms of urinary tract infection (10/04/23) -Heavy proteinuria noted on urine protein creatinine ratio at 9.9 (10/04/23) -CPK 29 After long discussion, patient is agreeable to start HD. She is interested in dialysis at home. She understand that she will need to first start on in center HD Upon discharge, will arrange for home therapies education She is also interested in transplant evaluation Will consult IR for tunneled dialysis catheter placement Will consult case management for outpatient dialysis placement at [facility] with Dr. Matias Plan for HD tomorrow 2. Hypertension -BP now low; high on admission -Suspect medication noncompliance prior to admission -Given history of left subclavian steal syndrome please only obtain blood pressure readings in the right arm. Nursing communication placed for this. Awaiting 2D echo 3. Hyperkalemia due to renal sufficiency and concurrent exposure to losartan -Hold losartan -plan for HD on Saturday 4. Anemia -Given MGUS checking above labs -Iron studies - Iron 83 mcg/dL. TIBC 270 mcg/dL, Iron Saturation 31 %, Ferritin 134 ng/mL 5. Metabolic acidosis From advanced CKD Expect this to improve once on HD Subjective: No events overnight. Extensive education about PROFILING MACHINE SETUP OPERATOR provided Review of Systems: ROS otherwise reviewed and negative Physical Examination: Vitals: Vitals: 10/06/23 0418 10/06/23 0634 10/06/23 0738 10/06/23 0831 BP: 93/60 118/63 BP Location: Patient Position: Pulse: 77 83 Resp: 16 16 17 18 Temp: 98.1 degrees F (36.7 degrees C) 97.5 degrees F (36.4 degrees C) TempSrc: Oral Oral SpO2: 94% 96% Weight: Height: Intake/Output last 3 shifts:No intake or output data in the 24 hours ending 10/06/23 1320No intake/output data recorded. General: No acute distress HEENT: Anicteric Neck: Supple CV: Regular rate, no murmurs or rubs. No lower extremity edema Lungs: CTA B Abd: Soft, nontender, bowel sounds present Extr: good LE perfusion, no cyanosis Neuro: No myoclonus, alert and oriented x 3 Skin : No new rashes Dialysis access: : Results/Medications Reviewed 10/06/23 1:20 PM: Laboratory, Microbiology, Pathology, Radiology, Cardiology, Medications and Transcriptions reviewed Scheduled Meds: aspirin 81 mg Oral Daily atorvastatin 40 mg Oral Nightly buPROPion 300 mg Oral Daily carvediloL 3.125 mg Oral BID cilostazoL 100 mg Oral BID cyanocobalamin 1,000 mcg Oral Daily docusate sodium 100 mg Oral Daily doxazosin 4 mg Oral Daily gabapentin 300 mg Oral Nightly heparin (porcine) 5,000 Units Subcutaneous Q8H [facility] isosorbide mononitrate 30 mg Oral Daily levothyroxine 75 mcg Oral Daily pantoprazole 40 mg Oral Daily sodium chloride (PF) 5 mL Intravenous Q8H [facility] Continuous Infusions: sodium chloride 0.9 % sodium chloride 0.9 % sodium chloride 0.9 % Results from last 7 days Lab Units 10/06/23 0534 10/05/23 0558 10/04/23 1019 WBC K/mcL 4.69 6.34 6.74 HGB g/dL 7.4* 8.3* 9.6* HCT % 23.7* 25.6* 30.0* PLT K/mcL 135* 149* 182 Results from last 7 days Lab Units 10/06/23 0534 10/05/23 0558 10/04/23 1019 SODIUM mmol/L 139 137 143 POTASSIUM mmol/L 4.5 5.4* 5.2* CHLORIDE mmol/L 112* 111* 110* BICARB mmol/L 18* 16* 21 BUN mg/dL 76* 71* 71* CREATININE mg/dL 5.76* 5.13* 5.01* EGFR mL/min/1.73 m2 7* 8* 9* GLUCOSE mg/dL 81 72 75 CALCIUM mg/dL 8.6 8.5 9.3 MAGNESIUM mg/dL -- -- 1.8 PHOSPHORUS mg/dL 4.2* 3.9 4.5* Urinalysis Results from last 7 days Lab Units 10/04/23 1604 COLOR, UR Yellow CLARITY, UR Clear SPEC GRAV 1.008 PH, UR 6.5 GLUCOSE, UR mg/dL Negative KETONES, UR mg/dL Negative BILIRUBIN, UR Negative UROBILINOGEN, UR mg/dL <2.0 BLOOD, UR Small* NITRITE, UR Negative LEUK NIK, UR Moderate* MUCUS, UR /lpf Rare WBC, UR /hpf 58* BACTERIA, UR /hpf Rare* CREATININE UR mg/dL 20.4 Potential limitations of the note: Parts of this note were created by dictation vi (more content not included)...[facility]08-04-2024 NoteNEPHROLOGY PROGRESS NOTE [facility] Patient Name: Iliana Reid Admit Date: [id number] MR #: [id number] : 1950 Perpetual Assessment: Iliana Reid is a 73 y.o. female on hospital day 2 admitted for We are asked to evaluate and manage acute kidney injury on chronic kidney disease unknown stage Impression and Plan: Acute kidney injury versus progression chronic kidney disease -No seen nephrology care since 2019. She was last seen at that time by my colleague Dr. Matias for CKD stage IIIb. Per his note: She apparently had a kidney biopsy done once in the remote past and the other in 2014 in [place]. Initial biopsy showed acute crescentic glomerulonephritis. Subsequent biopsy showed scarring of the kidney no active inflammation. 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 Lab trend: February 10, 2020 creatinine 1.8 November 08, 2020 creatinine 1.9 December 14, 2022 creatinine 4.56 January 16, 2023 creatinine 2.62 September 04, 2023 creatinine 4.54 September 27, 2023 creatinine 4.56 -serum and urine immunofixation awaiting -Hepatitis B surface Ag negative (10/04/23) -[place] free light chains elevated at 84.82 mg/dL -Renal ultrasound showed no hydronephrosis (10/04/23) -UA showed small amount of blood, moderate amount of leukocytes, WBC 58 without symptoms of urinary tract infection (10/04/23) -Heavy proteinuria noted on urine protein creatinine ratio at 9.9 (10/04/23) -CPK 29 -No improvement in renal function likely due to progression of chronic kidney disease due to known past renal biopsy findings. -Current serum creatinine worsened over night 5.13 mg/dL --> 5.76 mg/dL -Potassium improved to 4.5 mmol/L today, -Plan for tunneled dialysis cathter placement tomorrow -First hemodialysis tomorrow after insertion of the catheter -patient showed interests in Home hemodialysis after being discharged from hospital as well as renal transplant 2. Hypertension -current blood pressure at 118/63, ranges from 81/55 - 137/70, will continue her current antihypertensive medications for now, may need adjustment if her hypotension remains persistent -Will hold ARB due to WICHO -Given history of left subclavian steal syndrome please only obtain blood pressure readings in the right arm. Nursing communication placed for this. 3. Hyperkalemia due to renal sufficiency and concurrent exposure to losartan -Hold losartan -current potassium at 4.5 mmol/L (10/06/23) improved from 5.4 (10/05/23) -plan for HD on Saturday 4. Anemia -Given MGUS checking above labs -Iron studies - Iron 83 mcg/dL. TIBC 270 mcg/dL, Iron Saturation 31 %, Ferritin 134 ng/mL Subjective: Review of Systems: ROS otherwise reviewed and negative Physical Examination: Vitals: Vitals: 10/06/23 0418 10/06/23 0634 10/06/23 0738 10/06/23 0831 BP: 93/60 118/63 BP Location: Patient Position: Pulse: 77 83 Resp: 16 16 17 18 Temp: 98.1 degrees F (36.7 degrees C) 97.5 degrees F (36.4 degrees C) TempSrc: Oral Oral SpO2: 94% 96% Weight: Height: Intake/Output last 3 shifts:No intake or output data in the 24 hours ending 10/06/23 1245No intake/output data recorded. General: No acute distress HEENT: Anicteric Neck: Supple CV: Regular rate, no murmurs or rubs. No lower extremity edema Lungs: CTA B Abd: Soft, nontender, bowel sounds present Extr: good LE perfusion, no cyanosis Neuro: No myoclonus, alert and oriented x 3 Skin : No new rashes Dialysis access: : Results/Medications Reviewed 10/06/23 12:45 PM: Laboratory, Microbiology, Pathology, Radiology, Cardiology, Medications and Transcriptions reviewed Scheduled Meds: aspirin 81 mg Oral Daily atorvastatin 40 mg Oral Nightly buPROPion 300 mg Oral Daily carvediloL 3.125 mg Oral BID cilostazoL 100 mg Oral BID cyanocobalamin 1,000 mcg Oral Daily docusate sodium 100 mg Oral Daily doxazosin 4 mg Oral Daily gabapentin 300 mg Oral Nightly heparin (porcine) 5,000 Units Subcutaneous Q8H [facility] isosorbide mononitrate 30 mg Oral Daily levothyroxine 75 mcg Oral Daily pantoprazole 40 mg Oral Daily sodium chloride (PF) 5 mL Intravenous Q8H [facility] Continuous Infusions: sodium chloride 0.9 % sodium chloride 0.9 % sodium chloride 0.9 % Results from last 7 days Lab Units 10/06/23 0534 10/05/23 0558 10/04/23 1019 WBC K/mcL 4.69 6.34 6.74 HGB g/dL 7.4* 8.3* 9.6* HCT % 23.7* 25.6* 30.0* PLT K/mcL 135* 149* 182 Results from last 7 days Lab Units 10/06/23 0534 10/05/23 0558 10/04/23 1019 SODIUM mmol/L 139 137 143 POTASSIUM mmol/L 4.5 5.4* 5.2* CHLORIDE mmol/L 112* 111* 110* BICARB mmol/L 18* 16* 21 BUN mg/dL 76* 71* 71* CREATININE mg/dL 5.76* 5.13* 5.01* EGFR mL/min/1.73 m2 7* 8* 9* GLUCOSE mg/dL 81 72 75 CALCIUM mg/dL 8.6 8.5 9.3 MAGNESIUM mg/dL -- -- 1.8 PHOSPHORUS mg/dL 4.2* 3.9 4.5* Urinalysis Results from last 7 (more content not included)...[facility]08-04-2024 NoteS PROGRESS NOTE Assessment and Plan Iliana Reid is a 73 y.o. female history of chronic kidney disease stage IIIb, MGUS, hypertension, peripheral vascular disease who presented to the emergency room per our request for evaluation of acute kidney injury. Acute kidney injury on CKD stage IV She is sent to our facility for nephrology consultation workup. Renal ultrasound ordered in the emergency room did not show obstructive uropathy Nephrology input appreciated. It seems Patient had a significant rise in her baseline creatinine from 2.62 in 02/23 to 4.56. Urinalysis for protein and creatinine Held IRLANDA and ARB Avoid NSAIDs CK normal in the context of statin use for rhabdo. Initially gentle hydration given but did not improve the renal function. Nephrology consulted and advised patient hemodialysis after tunneled hemodialysis catheter placement on 10/07/23. Hypertension Continue carvedilol, Cardura, Imdur and hold losartan Hyperlipidemia On statin and Repatha. Peripheral arterial disease On Pletal Hypothyroidism On levothyroxine 75 mics daily Check TSH Osteoporosis On Fosamax History of MGUS Anemia of chronic disease Unknown baseline H&H, today it is 9.6 and 30 Will monitor Elevated Troponin No sx Cardiology saw patient and attributing this to renal insufficiency. Residence prior to admission: house or apartment Was patient transferred from outlying hospital or ED no Quality Measures DVT Prophylaxis: heparin subcutaneous Hoyt Catheter: absent Medication Reconciliation: Verified Admitted with these risk variables:Acute Kidney Injury, Chronic Kidney Disease, and Electrolyte Disturbance: Hyperkalemia. Please see assessment and plan for further details. Code Status Full Code; code status verified on 10/04/2023 with patient (capacity intact) Discharge Planning Medically Stable for Discharge Date: In 1 to 2 days Patient requires continued hospitalization due to tunneled dialysis catheter placement by IR and initiation of hemodialysis. Discharge Location: Home Subjective Patient seen and examined today. No complaints of dyspnea. No chest pain. Cardiology saw patient and felt mild troponin elevation was due to renal insufficiency. Objective BP 118/63 Pulse 83 Temp 97.5 degrees F (36.4 degrees C) (Oral) Resp 18 Ht 5' 4 Wt 54.8 kg (120 lb 13 oz) SpO2 96% BMI 20.74 kg/m Physical Examination General Appearance: alert; chronically ill appearing; in no acute distress HEENT: Head- normocephalic; Eyes- EOMI, sclera anicteric; Throat- mucous membranes moist Cardiovascular: regular rate and rhythm; normal S1, S2; no murmurs, rubs, clicks or gallops; peripheral edema absent Respiratory: lungs clear to auscultation; without wheezes, rales or rhonchi; on room air Abdomen: soft, non-tender, non-distended Neurological: oriented x 3; normal speech; no focal findings or movement disorder noted Musculoskeletal: no significant deformity or tenderness to palpation Skin: normal coloration Psych: normal mood and affect AUTHENTICATED BY FLAVIO WYATT, ON 10/06/2023 13:54:[address] [place] [address] 10-05-2023 NoteNEPHROLOGY PROGRESS NOTE [facility] Patient Name: Iliana Reid Admit Date: [id number] MR #: [id number] : 1950 Perpetual Assessment: Iliana Reid is a 73 y.o. female on hospital day 1 admitted for WICHO We are asked to evaluate and manage WICHO Impression and Plan: New end stage kidney disease -From CKD progression. 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 -UA showed small amount of blood, moderate amount of leukocytes, WBC 58 without symptoms of urinary tract infection (10/04/23) -Heavy proteinuria noted on urine protein creatinine ratio at 9.9 (10/04/23) -CPK 29 After long discussion, patient is agreeable to start HD. She is interested in dialysis at home. She understand that she will need to first start on in center HD Upon discharge, will arrange for home therapies education She is also interested in transplant evaluation Will consult IR for tunneled dialysis catheter placement Will consult case management for outpatient dialysis placement at [facility] with Dr. Matias 2. Hypertension -BP now low; high on admission -Suspect medication noncompliance prior to admission -Given history of left subclavian steal syndrome please only obtain blood pressure readings in the right arm. Nursing communication placed for this. Awaiting 2D echo 3. Hyperkalemia due to renal sufficiency and concurrent exposure to losartan -Hold losartan -current potassium at 5.4 mmol/L (10/05/23) -plan for HD on Saturday 4. Anemia -Given MGUS checking above labs -Iron studies - Iron 83 mcg/dL. TIBC 270 mcg/dL, Iron Saturation 31 %, Ferritin 134 ng/mL 5. Metabolic acidosis From advanced CKD Expect this to improve once on HD Subjective: No events overnight. 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 General: No acute distress HEENT: Anicteric Neck: Supple CV: Regular rate, no murmurs or rubs. No lower extremity edema Lungs: CTA B Abd: Soft, nontender, bowel sounds present Extr: good LE perfusion, no cyanosis Neuro: No myoclonus, alert and oriented x 3 Skin : No new rashes Dialysis access: : Results/Medications Reviewed 10/05/23 5:55 PM: Laboratory, Microbiology, Pathology, Radiology, Cardiology, Medications and Transcriptions reviewed Scheduled Meds: aspirin 81 mg Oral Daily atorvastatin 40 mg Oral Nightly buPROPion 300 mg Oral Daily carvediloL 3.125 mg Oral BID cilostazoL 100 mg Oral BID cyanocobalamin 1,000 mcg Oral Daily docusate sodium 100 mg Oral Daily doxazosin 4 mg Oral Daily gabapentin 300 mg Oral Nightly heparin (porcine) 5,000 Units Subcutaneous Q8H [facility] isosorbide mononitrate 30 mg Oral Daily levothyroxine 75 mcg Oral Daily pantoprazole 40 mg Oral Daily sodium chloride (PF) 5 mL Intravenous Q8H [facility] Continuous Infusions: sodium chloride 0.9 % sodium chloride 0.9 % Results from last 7 days Lab Units 10/05/23 0558 10/04/23 1019 WBC K/mcL 6.34 6.74 HGB g/dL 8.3* 9.6* HCT % 25.6* 30.0* PLT K/mcL 149* 182 Results from last 7 days Lab Units 10/05/23 0558 10/04/23 1019 SODIUM mmol/L 137 143 POTASSIUM mmol/L 5.4* 5.2* CHLORIDE mmol/L 111* 110* BICARB mmol/L 16* 21 BUN mg/dL 71* 71* CREATININE mg/dL 5.13* 5.01* EGFR mL/min/1.73 m2 8* 9* GLUCOSE mg/dL 72 75 CALCIUM mg/dL 8.5 9.3 MAGNESIUM mg/dL -- 1.8 PHOSPHORUS mg/dL 3.9 4.5* Urinalysis Results from last 7 days Lab Units 10/04/23 1604 COLOR, UR Yellow CLARITY, UR Clear SPEC GRAV 1.008 PH, UR 6.5 GLUCOSE, UR mg/dL Negative KETONES, UR mg/dL Negative BILIRUBIN, UR Negative UROBILINOGEN, UR mg/dL <2.0 BLOOD, UR Small* NITRITE, UR Negative LEUK NIK, UR Moderate* MUCUS, UR /lpf Rare WBC, UR /hpf 58* BACTERIA, UR /hpf Rare* CREATININE UR mg/dL 20.4 Potential limitations of the note: Parts of this note were created by dictation via voice recogniti (more content not included)...[facility]08-03-2024 NoteNEPHROLOGY PROGRESS NOTE [facility] Patient Name: Iliana Reid Admit Date: [id number] MR #: [id number] : 1950 Perpetual Assessment: Iliana Reid is a 73 y.o. female on hospital day 1 admitted for We are asked to evaluate and manage acute kidney injury on chronic kidney disease unknown stage Impression and Plan: Acute kidney injury versus progression chronic kidney disease -Has not had nephrology care since 2019. She was last seen at that time by my colleague Dr. Matias for CKD stage IIIb. Per his note: She apparently had a kidney biopsy done once in the remote past and the other in 2014 in [place]. Initial biopsy showed acute crescentic glomerulonephritis. Subsequent biopsy showed scarring of the kidney no active inflammation. 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 Lab trend: February 10, 2020 creatinine 1.8 November 08, 2020 creatinine 1.9 December 14, 2022 creatinine 4.56 January 16, 2023 creatinine 2.62 September 04, 2023 creatinine 4.54 September 27, 2023 creatinine 4.56 -Hold losartan, Fosamax and decrease Crestor dosing due to renal insufficiency -Given history of MGUS, checked the following -serum and urine immunofixation awaiting -Hepatitis B surface Ag negative (10/04/23) -[place] free light chains elevated at 84.82 mg/dL -Renal ultrasound showed no hydronephrosis (10/04/23) -UA showed small amount of blood, moderate amount of leukocytes, WBC 58 without symptoms of urinary tract infection (10/04/23) -Heavy proteinuria noted on urine protein creatinine ratio at 9.9 (10/04/23) -CPK 29 -No improvement in renal function likely due to progression of chronic kidney disease due to known past renal biopsy findings. -Current serum creatinine at 5.13 mg/dL with continuously increasing in K at 5.4 mmol/L today, will start her on HD on Saturday after insertion of tunneled hemodialysis catheter on Saturday -Will consult IR for the catheter placement -patient showed interests in Home hemodialysis after being discharged from hospital as well as renal transplant 2. Hypertension -On multiple blood pressure meds. Will hold ARB due to WICHO -Given history of left subclavian steal syndrome please only obtain blood pressure readings in the right arm. Nursing communication placed for this. 3. Hyperkalemia due to renal sufficiency and concurrent exposure to losartan -Hold losartan -current potassium at 5.4 mmol/L (10/05/23) -plan for HD on Saturday 4. Anemia -Given MGUS checking above labs -Iron studies - Iron 83 mcg/dL. TIBC 270 mcg/dL, Iron Saturation 31 %, Ferritin 134 ng/mL Subjective: Review of Systems: ROS otherwise reviewed and negative Physical Examination: Vitals: Vitals: 10/05/23 0545 10/05/23 0845 10/05/23 1000 10/05/23 1100 BP: 120/74 134/70 104/64 BP Location: Right arm Right arm Right arm Patient Position: Lying Lying Lying Pulse: 83 92 83 Resp: 18 18 18 18 Temp: 97.9 degrees F (36.6 degrees C) 98.2 degrees F (36.8 degrees C) TempSrc: Oral Oral SpO2: 95% 93% 96% Weight: Height: Intake/Output last 3 shifts:No intake or output data in the 24 hours ending 10/05/23 1433No intake/output data recorded. General: No acute distress HEENT: Anicteric Neck: Supple CV: Regular rate, no murmurs or rubs. No lower extremity edema Lungs: CTA B Abd: Soft, nontender, bowel sounds present Extr: good LE perfusion, no cyanosis Neuro: No myoclonus, alert and oriented x 3 Skin : No new rashes Dialysis access: : Results/Medications Reviewed 10/05/23 2:33 PM: Laboratory, Microbiology, Pathology, Radiology, Cardiology, Medications and Transcriptions reviewed Scheduled Meds: aspirin 81 mg Oral Daily atorvastatin 40 mg Oral Nightly buPROPion 300 mg Oral Daily carvediloL 3.125 mg Oral BID cilostazoL 100 mg Oral BID cyanocobalamin 1,000 mcg Oral Daily docusate sodium 100 mg Oral Daily doxazosin 4 mg Oral Daily gabapentin 300 mg Oral Nightly heparin (porcine) 5,000 Units Subcutaneous Q8H ABBIE isosorbide mononitrate 30 mg Oral Daily levothyroxine 75 mcg Oral Daily pantoprazole 40 mg Oral Daily sodium chloride (PF) 5 mL Intravenous Q8H ABBIE Continuous Infusions: sodium chloride 0.9 % sodium chloride 0.9 % Results from last 7 days Lab Units 10/05/23 0558 10/04/23 1019 WBC K/mcL 6.34 6.74 HGB g/dL 8.3* 9.6* HCT % 25.6* 30.0* PLT K/mcL 149* 182 Results from last 7 days Lab Units 10/05/23 0558 10/04/23 1019 SODIUM mmol/L 137 143 POTASSIUM mmol/L 5.4* 5.2* CHLORIDE mmol/L 111* 110* BICARB mmol/L 16* 21 BUN mg/dL 71* 71* CREATININE mg/dL 5.13* 5.01* EGFR mL/min/1.73 m2 8* 9* GLUCOSE mg/dL 72 75 CALCIUM mg/dL 8.5 9.3 MAGNESIUM mg/dL -- 1.8 PHOSPHORUS mg/dL 3.9 4.5* Urinalysis Results from last 7 days Lab Units 10/04/23 1604 COLOR, UR Yellow CLARITY, UR Clear SPEC GRAV 1.008 PH, UR 6.5 GLUCOS (more content not included)...[facility]08-03-2024 NoteS PROGRESS NOTE Assessment and Plan Iliana Reid is a 73 y.o. female history of chronic kidney disease stage IIIb, MGUS, hypertension, peripheral vascular disease who presented to the emergency room per our request for evaluation of acute kidney injury. Acute kidney injury on CKD stage IV She is sent to our facility for nephrology consultation workup. Renal ultrasound ordered in the emergency room did not show obstructive uropathy Nephrology input appreciated. It seems Patient had a significant rise in her baseline creatinine from 2.62 in 02/23 to 4.56. Urinalysis for protein and creatinine Hold IRLANDA and ARB Avoid NSAIDs Plan for gentle hydration to see if this will improve her renal function Discussion for long-term hemodialysis per nephrology team CK normal in the context of statin use for rhabdo. Hypertension Continue carvedilol, Cardura, Imdur and hold losartan Hyperlipidemia On statin and Repatha. Peripheral arterial disease On Pletal Hypothyroidism On levothyroxine 75 mics daily Check TSH Osteoporosis On Fosamax History of MGUS Anemia of chronic disease Unknown baseline H&H, today it is 9.6 and 30 Will monitor Elevated Troponin No sx Cardiology consult given previous CAD Residence prior to admission: house or apartment Was patient transferred from outlying hospital or ED no Quality Measures DVT Prophylaxis: heparin subcutaneous Hoyt Catheter: absent Medication Reconciliation: Verified Admitted with these risk variables:Acute Kidney Injury, Chronic Kidney Disease, and Electrolyte Disturbance: Hyperkalemia. Please see assessment and plan for further details. Code Status Full Code; code status verified on 10/04/2023 with patient (capacity intact) Discharge Planning Medically Stable for Discharge Date: In 1 to 2 days Patient requires continued hospitalization due to elevated troponin and need for cardiology consultation. Discharge Location: Home Subjective Patient seen and examined today. Denies any chest pain. Had 2 elevated troponins. Has a history of CAD. Objective BP 120/74 (BP Location: Right arm, Patient Position: Lying) Pulse 83 Temp 98.6 degrees F (37 degrees C) (Oral) Resp 18 Ht 5' 4 Wt 54.8 kg (120 lb 13 oz) SpO2 95% BMI 20.74 kg/m Physical Examination General Appearance: alert; chronically ill appearing; in no acute distress HEENT: Head- normocephalic; Eyes- EOMI, sclera anicteric; Throat- mucous membranes moist Cardiovascular: regular rate and rhythm; normal S1, S2; no murmurs, rubs, clicks or gallops; peripheral edema absent Respiratory: lungs clear to auscultation; without wheezes, rales or rhonchi; on room air Abdomen: soft, non-tender, non-distended Neurological: oriented x 3; normal speech; no focal findings or movement disorder noted Musculoskeletal: no significant deformity or tenderness to palpation Skin: normal coloration Psych: normal mood and affect AUTHENTICATED BY FLAVIO WYATT, ON 10/05/2023 16:25:40[facility] 10-04-2023 NoteHMS HISTORY AND PHYSICAL -- [facility] Patient Name: Iliana Reid : 1950 MR #: [id number] Admit Date: 10/04/2023 Physicians: Sujey Fonseca MD (Family); Cyril Smith MD (Referring) Iliana Reid is a 73 y.o. female history of chronic kidney disease stage IIIb, MGUS, hypertension, peripheral vascular disease who presented to the emergency room per our request for evaluation of acute kidney injury. Acute kidney injury on CKD stage IV Is unclear at this point what her baseline serum creatinine or how fast the decline in GFR is. She is sent to our facility for nephrology consultation workup. Renal ultrasound ordered in the emergency room did not show obstructive uropathy Will consult nephrology Urinalysis for protein and creatinine Hold IRLANDA and ARB Avoid NSAIDs Plan for gentle hydration to see if this will improve her renal function Discussion for long-term hemodialysis per nephrology team Hypertension Continue carvedilol, Cardura, Imdur and hold losartan Hyperlipidemia On statin Peripheral arterial disease On Pletal Hypothyroidism On levothyroxine 75 mics daily Check TSH Osteoporosis On Fosamax History of MGUS Anemia of chronic disease Unknown baseline H&H, today it is 9.6 and 30 Will monitor Residence prior to admission: house or apartment Was patient transferred from outlying hospital or ED no Quality Measures DVT Prophylaxis: heparin subcutaneous Hoyt Catheter: absent Medication Reconciliation: Verified Admitted with these risk variables:Acute Kidney Injury, Chronic Kidney Disease, and Electrolyte Disturbance: Hyperkalemia. Please see assessment and plan for further details. Estimated Date of Discharge greater than 2 midnights Code Status Full Code; code status verified on 10/04/2023 with patient (capacity intact) Chief Complaint abn lab History of Present Illness Iliana Reid is a 73 y.o. female history of chronic kidney disease stage IIIb, MGUS, hypertension, peripheral vascular disease who presented to the emergency room per our request for evaluation of acute kidney injury. Patient was sent emergency room by her PCP for concern of worsening renal function and might need to start hemodialysis. She does have history of acute crescentic, nephritis from renal biopsy in 2014 since then her kidney function has been declining another biopsy in 2019 showed renal scarring her baseline creatinine is not clear from the medical record at this point today her serum creatinine is 4.5. Patient herself denies any complaints she has no shortness of breath no headache or blurry vision she has no tingling numbness cramps she denies any recent illness no fever no chills no hematuria no urinary frequency still making urine she denies NSAID use as she was instructed years ago given her chronic kidney disease. Past Medical History Past Medical History: Diagnosis Date Anemia Anxiety Back pain Coronary artery disease GERD (gastroesophageal reflux disease) Gout Hyperlipidemia Hypertension Iron deficiency Leg weakness, bilateral Myocardial infarction (HCC) 01/2016 Nephrotic syndrome PVD (peripheral vascular disease) ([facility]) L>R consistant, worse with walking Thrombocytopenia ([facility]) Past Surgical History Past Surgical History: Procedure Laterality Date BYPASS FEMOROTIBIAL REPAIR/GRAFT Left 05/09/2015 in situ fem anterior tibial CARDIAC CATHETERIZATION COLONOSCOPY CORONARY STENT PLACEMENT [facility] TONSILLECTOMY UPPER GASTROINTESTINAL ENDOSCOPY Family History Family History Problem Relation Age of Onset Heart disease Mother Hypertension Mother Hyperlipidemia Mother Varicose veins Mother Diabetes Mother Heart disease Father Hypertension Father Hyperlipidemia Father Diabetes Father Aneurysm Father brain Social History Social History Tobacco Use Smoking Status Former Current packs/day: 0.00 Average packs/day: 0.5 packs/day for 25.0 years (12.5 ttl pk-yrs) Types: Cigarettes Start date: 03/04/1990 Quit date: 03/04/2015 Years since quittin.5 Smokeless Tobacco Never Social History Substance and Sexual Activity Alcohol Use No Social History Substance and Sexual Activity Drug Use No Allergy Information I have reviewed the patient's allergies. Amlodipine besylate, Dilaudid [hydromorphone], and Fentanyl Home Medications Home medications were reviewed. Review Of Systems All relevant systems have been reviewed and are negative except as noted in HPI or below Physical Examination BP (!) 216/95 Pulse 70 Temp 98.2 degrees F (36.8 degrees C) Resp (!) 24 SpO2 98% General Appearance: alert; chronically ill appearing; in no acute distress HEENT: Head- normocephalic; Eyes- EOMI, sclera anicteric; Throat- mucous membranes moist Cardiovascular: regular rate and rhythm; normal S1, S2; no murmurs, rubs, clicks or gallops; peripheral e (more content not included)...[facility] 10-04-2023 NoteNEPHROLOGY CONSULTATION NOTE [facility] Patient Name: Iliana Reid MR #: [id number] : 1950 Requesting physician: hospitalist Reason for consult: Acute kidney injury on chronic kidney disease stage unknown Impression/Plan: Acute kidney injury versus progression chronic kidney disease -Has not had nephrology care since 2019. She was last seen at that time by my colleague Dr. Matias for CKD stage IIIb. Per his note: She apparently had a kidney biopsy done once in the remote past and the other in 2014 in [place]. Initial biopsy showed acute crescentic glomerulonephritis. Subsequent biopsy showed scarring of the kidney no active inflammation. 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 Lab trend: February 10, 2020 creatinine 1.8 November 08, 2020 creatinine 1.9 December 14, 2022 creatinine 4.56 January 16, 2023 creatinine 2.62 September 04, 2023 creatinine 4.54 September 27, 2023 creatinine 4.56 -Hold losartan, Fosamax and decrease Crestor dosing due to renal insufficiency -Given history of MGUS will check serum and urine immunofixation and kappa free light chains -Will check renal ultrasound, UA and urine protein creatinine ratio -If there is no improvement in renal function she likely has progression progression of chronic kidney disease due to known past renal biopsy findings. She may need dialysis in the near future if consistent with goals of care. 2. Hypertension -On multiple blood pressure meds. Will hold ARB due to WICHO -Given history of left subclavian steal syndrome please only obtain blood pressure readings in the right arm. Nursing communication placed for this. 3. Hyperkalemia due to renal sufficiency and concurrent exposure to losartan -Hold losartan 4. Anemia -Given MGUS checking above labs -Check iron studies History of Presenting Illness: Iliana Reid is a 73 y.o. female on hospital day 0 with a remote history of chronic kidney disease stage IIIb, MGUS, hypertension, peripheral vascular disease, autonomic nervous system disorder who presented to the emergency room per our request for evaluation of acute kidney injury. Patient was previously seen by my colleague for CKD stage IIIb. Sshe was last seen in 2019. Per his note: She apparently had a kidney biopsy done once in the remote past and the other in 2014 in [place]. Initial biopsy showed acute crescentic glomerulonephritis. Subsequent biopsy showed scarring of the kidney no active inflammation Patient reports has been on current medications for some time with no addition, discontinuation of medications in the last year. Denies chronic NSAID therapy, PPI usage or recent antibiotic usage. Has chronically decreased oral intake but and cannot provide a specific reason why. She denies nausea, poor appetite, vomiting, diarrhea. She denies chest pain, shortness of breath, rashes, gross hematuria, edema,, or weight changes. Patient reports to me that another provider has told her that she had blockages in her kidney. History: Past Medical History: Diagnosis Date Anemia Anxiety Back pain Coronary artery disease GERD (gastroesophageal reflux disease) Gout Hyperlipidemia Hypertension Iron deficiency Leg weakness, bilateral Myocardial infarction ([facility]) 01/2016 Nephrotic syndrome PVD (peripheral vascular disease) ([facility]) L>R consistant, worse with walking Thrombocytopenia ([facility]) Past Surgical History: Procedure Laterality Date BYPASS FEMOROTIBIAL REPAIR/GRAFT Left 05/09/2015 in situ fem anterior tibial CARDIAC CATHETERIZATION COLONOSCOPY CORONARY STENT PLACEMENT [facility] TONSILLECTOMY UPPER GASTROINTESTINAL ENDOSCOPY Family History: Family History Problem Relation Age of Onset Heart disease Mother Hypertension Mother Hyperlipidemia Mother Varicose veins Mother Diabetes Mother Heart disease Father Hypertension Father Hyperlipidemia Father Diabetes Father Aneurysm Father brain [] Unable to obtain due to ventilated and/or neurologic status Social History Socioeconomic History Marital status: Tobacco Use Smoking status: Former Current packs/day: 0.00 Average packs/day: 0.5 packs/day for 25.0 years (12.5 ttl pk-yrs) Types: Cigarettes Start date: 03/04/1990 Quit date: 03/04/2015 Years since quittin.5 Smokeless tobacco: Never Vaping Use Vaping status: Never Used Substance and Sexual Activity Alcohol use: No Drug use: No [] Unable to obtain due to ventilated and/or neurologic status Living Arrangements: Alone Support Systems: Friends/neighbors Home Medications: Outpatient Medications as of 10/04/2023 Medication Sig aspirin 81 MG EC tablet Take 1 (one) tablet (81 mg total) by mouth daily . cilostazol (PLETAL) 100 MG tablet Take 1 (one) tablet (100 mg total) by mouth 2 (two) times a day . cyanocobalami (more content not included)...[facility]06[facility]16-[address] [facility] August 17, 2022 9:07pm Note Date/Time August 17, 2022 4:14 pm [facility] Medical Records Department [address] [place] [address] Emergency Department Summary 08/17/22 MR#: [id number] Acct: [id number] Name: ILIANA REID Rep #:[id number] : 1950 72 From: Geraldo Amado MD PCP: Dr. Sujey Fonseca MD Status:REG ER Location: ED HPI History of Present Illness Chief Complaint: Confusion Informant: patient and family Narrative Narrative: Patient's brought in by family because of concern for sepsis. History is really through daughter. Patient states she has no complaints but really cannot answer any questions for me. She tells me she is in the hospital but I cannot get any other details of her past medical history medications or anything from her. The daughter states that this patient is has sepsis several times before and every time she acts exactly like this. She will get confused quickly. She willget a little bit aggressive. She thinks she has had sepsis from urine infections but may be other items have caused this. Evidently the patient was pretty normal this morning about 930. She is now confused. We do not have a list of medications but the daughter is trying to get somebody to get that list from home. We know she has a history of high blood pressure and is on a list of medicines. Because of the patient unable to give a history and no medicationhistory we are at somewhat of a limited at this time but are trying to gain moreinformation. We have almost no information available in our system here. [facility] Medical History HTN (hypertension) Allergy/AdvReac Type Severity Reaction Status Date / Time No Known Allergies Allergy Verified 08/17/22 15:56 Social History Smoking Status: Never smoker ROS ROS ED ROS Narrative Extremely limited for the reasons stated in the history of present illness. Neurologic Neurologic: Reports other Details: Confusion EXAM Physical Exam Narrative Exam Narrative: Patient is awake and alert. She is coordinated. She does answer that she is int hospital. She speaks clearly but does not give me any information. She looks comfortable. She is not having any dyspnea. I do note that her blood pressure is up a bit here bringing into question if she has been taking her meds. HEENT shows no trauma. Mucous membranes are minimally dry. Eyes show normal range of motion. Pupils are about 3 mm and reactive bilaterally and equal. Neck is supple without any meningismus. No JVD. Lungs are clear bilaterally and saturations are normal at 98% on room air showing no hypoxia. Her breathing is easy and unlabored. There is no coughing. Heart is regular with a rate about 80. It appears to be a normal sinus rhythm at 80 on the monitor in the room. I hear no murmur. Abdomen is thin soft and nontender No tenderness or pain with motion of her spine. Extremities show no edema cords or tenderness. Skin shows no rashes. She does not feel febrile or warm. Const Vital Signs: 08/17/22 15:56 08/17/22 16:04 08/17/22 18:28 Temperature 98 F 98 F Temperature Source Temporal Temporal Pulse Rate 81 75 Respiratory Rate 12 14 Blood Pressure 220/115 H 190/107 H Blood Pressure Mean 150 134 Pulse Ox 98 98 Oxygen Delivery Method Room Air Room Air MDM MDM MDM Narrative Medical decision making narrative: Patient CBC shows minimal anemia but normal white count. Platelets are normal. INR is normal. Electrolytes showed elevated creatinine but the BUN has not markedly abnormal for this level. I do not have any information that this is acute or not. She has been eating or drinking. We did give her some fluids also. Lactic acid is normal Liver function test are normal TSH is normal. My independent interpretation of the patient's chest x-ray shows no acute process or sign of infiltrate final is similar. Final reading by CT shows chronic changes but no acute. I talked with the patient and her daughter. Patient is back to normal now. They are thinking that this is due to lack of sleep and stress. Evidently thereis a huge amount of family stress recently. They lost her grandmother. [place] room in town. She has not been sleeping well. She states she might have messed up some of her depression meds this morning but is not sure. This does not fit the picture of a temporary or transient global amnesia. This was not any expressive or receptive aphasia. Noindication of strokes. They want to go home. Patient will be with her daughterand family continuously and if there is any further issues they will come back. Lab Data Attestation: I reviewed the patient's lab results. Labs: Laboratory Results - last 24 hr 08/17/22 08/17/22 08/17/22 16:08 16:15 16:15 WBC 6.8 RBC 3.75 L Hgb 11.8 L Hct 36.7 L MCV 97.9 MCH 31.5 MCHC 32.2 RDW Std Deviation 44.8 H RDW Coeff of Katy 12.4 Plt Count 159 MPV 11.2 Immature Gran % (Auto) 0.100 Neut % (Auto) 64.3 Lymph % (Auto) 29.0 Atkinson % (Auto) 5.3 Eos % (Auto) 1.0 Baso % (Auto) 0.3 Absolute Neuts (auto) 4.4 Absolute Lymphs (auto) 1.96 Nucleated RBC % 0 PT 12.4 INR 0.9 Sodium Potassium Chloride Carbon Dioxide Anion Gap BUN Creatinine Estim Creat Clear Calc Est GFR (MDRD) Af Amer Est GFR (MDRD) Non-Af BUN/Creatinine Ratio Glucose Lactic Acid Calcium Total Bilirubin AST ALT Alkaline Phosphatase Troponin I High Sens Total Protein Albumin Globulin Albumin/Globulin Ratio TSH Urine Color Urine Clarity Urine pH Ur Specific [place] Urine Protein Urine Glucose (UA) Urine Ketones Urine Occult Blood Urine Nitrite Urine Bilirubin Urine Urobilinogen Ur Leukocyte Esterase Urine RBC Urine WBC Ur Squamous Epith Cells Amorphous Sediment Urine Bacteria Urine Mucus POC Glucose 100 08/17/22 08/17/22 08/17/22 16:15 16:15 16:15 WBC RBC Hgb Hct MCV MCH MCHC RDW Std Deviation RDW Coeff of [place] Plt Count MPV Immature Gran % (Auto) Neut % (Auto) Lymph % (Auto) Atkinson % (Auto) Eos % (Auto) Baso % (Auto) Absolute Neuts (auto) Absolute Lymphs (auto) Nucleated RBC % PT INR Sodium 140 Potassium 4.5 Chloride 107 Carbon Dioxide 26.0 Anion Gap 7 BUN 27 H Creatinine 2.34 H Estim Creat Clear Calc 18.08 Est GFR (MDRD) Af Amer 26 L Est GFR (MDRD) Non-Af 22 L BUN/Creatinine Ratio 11.5 Glucose 99 Lactic Acid 0.7 Calcium 9.8 Total Bilirubin 0.30 AST 25 ALT 36 Alkaline Phosphatase 66 Troponin I High Sens 12 Total Protein 6.7 Albumin 3.2 Globulin 3.5 Albumin/Globulin Ratio 0.9 TSH 3.51 Urine Color Urine Clarity Urine pH Ur Specific [place] Urine Protein Urine Glucose (UA) Urine Ketones Urine Occult Blood Urine Nitrite Urine Bilirubin Urine Urobilinogen Ur Leukocyte Esterase Urine RBC Urine WBC Ur Squamous Epith Cells Amorphous Sediment Urine Bacteria Urine Mucus POC Glucose 08/17/22 20:00 WBC RBC Hgb Hct MCV MCH MCHC RDW Std Deviation RDW Coeff of [place] Plt Count MPV Immature Gran % (Auto) Neut % (Auto) Lymph % (Auto) Atkinson % (Auto) Eos % (Auto) Baso % (Auto) Absolute Neuts (auto) Absolute Lymphs (auto) Nucleated RBC % PT INR Sodium Potassium Chloride Carbon Dioxide Anion Gap BUN Creatinine Estim Creat Clear Calc Est GFR (MDRD) Af Amer Est GFR (MDRD) Non-Af BUN/Creatinine Ratio Glucose Lactic Acid Calcium Total Bilirubin AST ALT Alkaline Phosphatase Troponin I High Sens Total Protein Albumin Globulin Albumin/Globulin Ratio TSH Urine Color Yellow Urine Clarity Sl. Cloudy Urine pH 7.0 Ur Specific [place] 1.010 Urine Protein 500 H Urine Glucose (UA) Normal Urine Ketones Negative Urine Occult Blood 25 H Urine Nitrite Negative Urine Bilirubin Negative Urine Urobilinogen Normal Ur Leukocyte Esterase 25 H Urine RBC 0-5 SEEN Urine WBC 0-5 SEEN Ur Squamous Epith Cells 0-5 SEEN Amorphous Sediment 2+ PHOS Urine Bacteria 2+ Urine Mucus 0 SEEN POC Glucose Radiography Diagnostic Testing: Clinical Impression(s) from Imaging Studies Brain CT 08/17/22 16:10 IMPRESSION: Mild microvascular white matter disease without acute intracranial or calvarial abnormality. [facility] was utilized to assist in identifying pertinent positive findings in this case. Electronically Signed: Barrera Moe DO at 17:09 EDT Reading Location ID and State: [place] / [place] Tel [phone], Service support , Chest X-Ray 08/17/22 16:42 IMPRESSION: No acute cardiopulmonary disease. Electronically Signed: Barrera Moe DO at 17:10 EDT Reading Location ID and State: [place] / [place] Tel [phone], Service support , Discharge Plan Triage Chief Complaint: Confusion ED Provider: Geraldo Amado Dx/Rx/DC Orders Clinical Impression: Transient confusion, Creatinine elevation Instructions: ED Confusion Primary Care Provider: Sujey Fonseca Referrals: Sujey Fonseca MD [Primary Care Provider] - 3-5 Days Disposition Disposition: Home, Self Care What to do if you have Problems For any increased pain, shortness of breath, bleeding, nausea or vomiting, chestpain, or any unexpected problems, contact your Primary Care Provider. Call [facility] ([phone]) or report to the closest Emergency Room. Call 911 if necessary. 08/17/222106 <Electronically signed by Geraldo Amado MD> Cosigner Signature (if applicable): CC: Dr. Sujey Fonseca MD ~ Signed [facility] Work Phone: Evaluation note* Diagnosis Vomiting without nausea, intractability of vomiting not specified, unspecified vomiting type documented in this encounter [facility]No assessment [facility] Work Phone: Evaluation note* Diagnosis Pericardial effusion- Primary Unspecified disease of pericardium documented in this encounter [facility] note* Diagnosis Pre-transplant evaluation for kidney transplant- Primary Other specified pre-operative examination documented in this encounter [facility] note* Diagnosis Pre-transplant evaluation for kidney transplant- Primary Other specified pre-operative examination Chronic renal failure, unspecified CKD stage documented in this encounter [facility] for referral (narrative)No reason for referral information availableWMercy Health [facility] Work Phone: Assessments Diagnosis Coronary artery disease invo lving [place] coronary artery of [place] heart without angina pectoris - Primary Essential hypertension Unspecified essential hypertension Hyperlipidemia, unspecified hyperlipidemia type Diagnosis Anemia, unspecified type - P rimary Solitary pulmonary nodule Monoclonal gammopathy Monoclonal paraproteinemia Diagnosis PVD (peripheral vascular dis ease) (FORM[facility]LY [facility]) - Primary Unspecified peripheral vascular disease ST elevation myocardial infa rction (STEMI), unspecified artery ([facility]) Diagnosis PAD (peripheral artery disea se) ([facility]) Unspecified peripheral vascular disease Diagnosis Anemia, unspecified type - P rimary Solitary pulmonary nodule Monoclonal gammopathy Monoclonal paraproteinemia Iron deficiency anemia, unsp ecified iron deficiency anemia type Intestinal malabsorption, un specified type Diagnosis Anemia, unspecified type - P rimary Solitary pulmonary nodule Monoclonal gammopathy Monoclonal paraproteinemia Diagnosis PVD (peripheral vascular dis ease) ([facility]) - Primary Unspecified peripheral vascular disease Diagnosis PVD (peripheral vascular dis ease) ([facility]) Unspecified peripheral vascular disease Diagnosis Coronary artery disease invo lving [place] coronary artery of [place] heart without angina pectoris - Primary Essential hypertension Unspecified essential hypertension Hyperlipidemia, unspecified hyperlipidemia type Cyclical vomiting with nause a, intractability of vomiting not specified Diagnosis Vomiting without nausea, intractability of vomiting not specified, unspecified vomiting type- Primary Nausea and vomiting, intractability of vomiting not specified, unspecified vomiting type Diagnosis Solitary pulmonary nodule Diagnosis Solitary pulmonary nodule- Primary Monoclonal gammopathy Monoclonal paraproteinemia Anemia, unspecified type Diagnosis PAD (peripheral artery disea se) ([facility]) Unspecified peripheral vascular disease Diagnosis Coronary artery disease invo lving [place] coronary artery of [place] heart without angina pectoris - Primary Essential hypertension Unspecified essential hypertension Hyperlipidemia, unspecified hyperlipidemia type PVD (peripheral vascular dis ease) ([facility]) Unspecified peripheral vascular disease Diagnosis Essential (primary) hypertension Unspecified essential hypertension Chronic kidney disease, stage III (moderate) ([facility]) Chronic kidney disease, Stage III (moderate) Diagnosis Syncope and collapse Diagnosis Asymptomatic bilateral carotid artery stenosis- Primary PVD (peripheral vascular disease) ([facility]) Unspecified peripheral vascular disease Carotid stenosis, asymptomatic, bilateral Diagnosis PVD (peripheral vascular disease) ([facility])- Primary Unspecified peripheral vascular disease Diagnosis Vomiting without nausea, intractability of vomiting not specified, unspecified vomiting type Diagnosis Coronary artery dise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- Primary Essential hypertension Unspecified essential hypertension Diagnosis Vomiting without nausea, intractability of vomiting not specified, unspecified vomiting type- Primary Diagnosis PVD (peripheral vascular disease) ([facility]) Unspecified peripheral vascular disease Diagnosis PVD (peripheral vascular disease) ([facility]) Unspecified peripheral vascular disease Instructions * Patient Instructions - Dionne Baron CNP - 05/20/2017 2:08 PM EDT Follow up in 4 months with iron and protein studies (patient has lab slip) Follow up appointment in [address] Bernal or Dionne cabral 5 minutes four times a day week one 10 minutes three times a day week two 15 minutes twice daily week three 20 minutes once daily week four 25 minutes once daily week five 30 minutes once daily week six in this encounter* Patient Instructions - Dionne Baron CNP - 03/21/2017 2:35 PM EST Schedule for IV Iron Sucrose x 3 doses - please contact patient's mother Follow up appointment in [address] of chest for pulmonary nodule in 1-2 weeks Will discuss results at 2 month appointment in this encounter* Patient Instructions - Dionne Baron CNP - 09/23/2017 10:53 AM EDT Please obtain laboratory studies today (Iron studies) - if abnormal, will call patient Follow up in 3 months with Iron and Protein Studies - obtain lab studies one week before appointment in this encounter* Patient Instructions* Dionne Baron CNP - 06/23/2018 10:29 AM EDT Follow up in 6 months with CBC, BMP, serum immunofixation, serum free light chains, serum quantitative immunoglobulins, ferritin, iron and TIBC No need for further evaluation of pulmonary nodule Follow up in 6 months with Dionne documented in this encounter* Patient Instructions* Aisha Hennessy MA - 12/19/2018 10:45 AM EDT How to contact your Care Team: Provider: MD Levon Real [facility] Nurse: Catherine Galaviz RN In case of an emergency please call 911. When in need of refills please call the phone number listed above. Please include medication name, pharmacy name and specify 30 or 90 day supply Please check with your pharmacy within 24 hours of your request for refill. You must follow up as directed to continue current refills. Thank you! documented in this encounter* Patient Instructions* Jenny Street RN - 12/16/2018 12:41 PM EDT Your nurse today was Jenny DE LEÓN who can be contacted at [phone]. You may also contact Alina Mcqueen other nurse at [phone]. REFILLS: When in need of refills please call Jenny at the above number or the office at [phone]. Please include medication name and dose, pharmacy name and location, and specify 30-day or 90-day supply. Please check with your pharmacy within 24-48 hours of request for your refill. You must follow up as directed to continue current refills. Thank you! 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 Advance Directives and Livin g Will 08/25/2018 11:54 AM Latest Code Status on File Code Status Date Activated Date Inactivated Comments Full Code - Unverified 08/25/2018 2:20 PM Documents on File Type Date Recorded 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 Advance Directives and Livin g Will 12/19/2018 8:38 AM Documents on File Type Date Recorded 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 Advance Directives and Livin g Will 12/28/2019 9:04 AM Latest Code Status on File Code Status Date Activated Date Inactivated Comments Full Code - Unverified 08/25/2018 2:20 PM Documents on File Type Date Recorded 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 Advance Directives and Livin g Will 12/19/2018 8:38 AM Latest Code Status on File Code Status Date Activated Date Inactivated Comments Full Code - Unverified 08/25/2018 2:20 PM Advance Directive Response Recorded Date/ Time Living Will No August 17, 2022 4:01pm Power of City Distribution Clerk No August 17 4:01pm Documents on File Type Date Recorded 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 Yes March 25, 2024 12:32pm Name of Medical Power of City Distribution Clerk CYN BOWIE March 25, 2024 12:32pm Living Will Yes March 09 2:55pm Do you have a Healthcare Power of City Distribution Clerk? Yes March 09, 2024 2:55pm Name of Medical Power of City Distribution Clerk ZEINAB CHRISTENSEN March 09, 2024 2:55pm Advance Directive Response Recorded Date/ Time Living Will Yes March 25 12:32pm Do you have a Healthcare Power of City Distribution Clerk? Yes March 25, 2024 12:32pm Name of Medical Power of City Distribution Clerk CYN BOWIE March 25, 2024 12:32pm History of Present Illness * HiteshMaggieinda - 12/30/2017 3:55 PM EDT Rx for Carvedilol 25 mg BID called into the [facility] pharmacy in [place] for 30 days with 11 refills. in this encounter* Matt De León DO - 01/21/2018 2:01 PM EST Formatting of this note may be different from the original. [facility] [address] [place] [address] Subjective Dear Sujey Fonseca MD, I had the pleasure of meeting Iliana Reid at [facility] in [place] today. As you are aware she is a pleasant 67 y.o. female. The patient returns for follow-up due to a history of coronary artery disease status post remote stenting of her left anterior descending. She has additional history of hypertension, hyperlipidemia and diabetes mellitus. Her last several months she has had intermittent nausea and vomiting with no reason found. In that period time we did have nuclear stress testing which demonstrated distal anterior wall ischemia which was small in size. She has been placed on optimal medical therapy and remainsasymptomatic in that regard. She denies chest discomfort, dyspnea, orthopnea, paroxysmal nocturnal dyspnea, palpitations, near-syncope or syncope. Plan: The patient remained stable without apparent symptoms of suggest angina or cardiac decompensation. Heart rate and blood pressure appear stable. Most recent cholesterol profile was apparently favorable. Dietary and lifestyle modification were reemphasized to facilitate risk factor reduction. The patient is due to have follow-up and evaluation in April or May due to her intermittent intractable nausea and vomiting. We will look forward to reevaluate the patient around that time. Dietary and lifestyle modification education was given. Thank you for the pleasure/privilege of visiting with your patient today. Please do not hesitate tocontact me directly if you have any questions. Matt De León, DO Allergies Allergen Reactions Amlodipine Besylate Other (See Comments) Dilaudid [Hydromorphone] Fentanyl Current Outpatient Prescriptions: acetaminophen (TYLENOL) 325 MG tablet, Take 650 mg by mouth every 6 (six) hours as needed for pain., Disp: , Rfl: amitriptyline (ELAVIL) 75 MG tablet, Take 75 mg by mouth nightly ., Disp: , Rfl: aspirin 81 MG EC tablet, Take 81 mg by mouth daily., Disp: , Rfl: atorvastatin (LIPITOR) 40 MG tablet, Take 40 mg by mouth daily., Disp: , Rfl: buPROPion (WELLBUTRIN SR) 150 MG 12 hr tablet, Take 150 mg by mouth 2 (two) times a day ., Disp: , Rfl: carvedilol (COREG) 25 MG tablet, Take 1 (one) tablet (25 mg total) by mouth 2 (two) times a day with meals., Disp: 60 tablet, Rfl: 11 cilostazol (PLETAL) 100 MG tablet, Take 100 mg by mouth 2 (two) times a day., Disp: , Rfl: cloNIDine (CATAPRES-TTS) 0.3 mg/24 hr, , Disp: , Rfl: cloNIDine HCl (CATAPRES) 0.2 MG tablet, Take 0.2 mg by mouth 2 (two) times a day ., Disp: , Rfl: doxazosin (CARDURA) 4 MG tablet, Take 4 mg by mouth daily ., Disp: , Rfl: FLUZONE QUAD [id number], PF, syringe, To be injected by Pharmacist, Disp: , Rfl: 0 hydrALAZINE (APRESOLINE) 50 MG tablet, Take 50 mg by mouth 3 (three) times a day ., Disp: , Rfl: isosorbide mononitrate (IMDUR) 30 MG 24 hr tablet, Take 1 (one) tablet (30 mg total) by mouth daily., Disp: 30 tablet, Rfl: 11 losartan (COZAAR) 100 MG tablet, Take 100 mg by mouth daily ., Disp: , Rfl: omeprazole (PRILOSEC) 20 MG capsule, Take 20 mg by mouth daily., Disp: , Rfl: promethazine (PHENERGAN) 12.5 MG tablet, take 1 (one) Tablet, Oral, three times daily, as needed before meals, Disp: , Rfl: 0 Past Medical History: Diagnosis Date Anemia Anxiety Coronary artery disease GERD (gastroesophageal reflux disease) Gout Hyperlipidemia Hypertension Iron deficiency Myocardial infarction (HCC) 01/2016 Nephrotic syndrome PVD (peripheral vascular disease) ([facility]) L>R consistant, worse with walking Thrombocytopenia (HCC) Past Surgical History: Procedure Laterality Date BYPASS FEMOROTIBIAL REPAIR/GRAFT Left 05/09/2015 in situ fem anterior tibial CARDIAC CATHETERIZATION CORONARY STENT PLACEMENT [facility] TONSILLECTOMY Social History Social History Marital status: Spouse name: N/A Number of children: N/A Years of education: N/A Social History Main Topics Smoking status: Former Smoker Packs/day: 0.50 Years: 25.00 Types: Cigarettes Quit date: 03/04/2015 Smokeless tobacco: Never Used Alcohol use No Drug use: No Sexual activity: Not Asked Other Topics Concern None Social History Narrative None Family History Problem Relation Age of Onset Heart disease Mother Hypertension Mother Hyperlipidemia Mother Varicose veins Mother Diabetes Mother Heart disease Father Hypertension Father Hyperlipidemia Father Diabetes Father Aneurysm Father brain Review of Systems Constitution: Negative for diaphoresis, malaise/fatigue, weight gain and weight loss. HENT: Negative for hearing loss, nosebleeds and tinnitus. Eyes: Negative for blurred vision, vision loss in left eye, vision loss in right eye and visual disturbance. Cardiovascular: Positive for dyspnea on exertion. Negative for chest pain, claudication, cyanosis, irregular heartbeat, leg swelling, near-syncope, orthopnea, palpitations, paroxysmal nocturnal dyspnea and syncope. Respiratory: Negative for hemoptysis, shortness of breath and snoring. Endocrine: Negative for cold intolerance and heat intolerance. Hematologic/Lymphatic: Does not bruise/bleed easily. Skin: Negative for color change, flushing, poor wound healing, rash and skin cancer. Musculoskeletal: Positive for arthritis and joint pain. Negative for back pain, muscle weakness andmyalgias. Gastrointestinal: Positive for nausea and vomiting. Negative for abdominal pain, change in bowel habit and melena. Genitourinary: Negative for decreased libido and hematuria. Neurological: Negative for aphonia, focal weakness, loss of balance, numbness and seizures. Psychiatric/Behavioral: Negative for memory loss. The patient is not nervous/anxious. PACU Vitals 01/21/18 1333 BP: (!) 89/64 Pulse: 77 SpO2: (!) 89% Height: 5' 4 Weight: 64.9 kg (143 lb) Physical Exam Constitutional: She is oriented to person, place, and time. She appears well- developed and well-nourished. HENT: Head: Normocephalic and atraumatic. Nose: Nose normal. Eyes: Right eye exhibits no discharge. Left eye exhibits no discharge. No scleral icterus. Neck: Neck supple. No JVD present. No thyromegaly present. Cardiovascular: Normal rate, regular rhythm, S1 normal, S2 normal and intact distal pulses. Exam reveals no gallop and no friction rub. Murmur heard. Crescendo decrescendo systolic murmur is present with a grade of 1/6 Pulmonary/Chest: Breath sounds normal. She has no wheezes. She has no rales. Abdominal: Soft. She exhibits no distension. There is no tenderness. Musculoskeletal: She exhibits no edema or tenderness. No clubbing or cyanosis. Lymphadenopathy: She has no cervical adenopathy. Neurological: She is alert and oriented to person, place, and time. Skin: Skin is warm and dry. Psychiatric: She has a normal mood and affect. Her behavior is normal. Nursing note and vitals reviewed. in this encounter* Adryan Alonzo DO - 04/22/2018 2:05 PM EST [facility] MEDICAL OFFICE [facility] [address] [facility] [id number] Iliana Reid is a 67 y.o. female here today for evaluation of Emesis HPI: Iliana Reid is a 67 y.o. female being evaluated for vomiting. Iliana gives a history of illness that occurred 2 years ago that required hospitalization. Her sister is with her and helps with the history. Based off of what they have described Iliana was septic and was in and out of a coma during her h ospitalization at that time. Subsequently, Iliana reports that she has been having trouble with vomiting ever since. She states that she does not have nausea associated with her vomiting. When asked specifically if foods cause her to become nauseated she says not particularly but that she could havevomiting after eating but it is not preceded by nausea. She reports more of her vomiting episodes to occur when she is active or she has been bending over. She describes having walked up and down stairs as a trigger or bending over or getting up from a seated position can trigger her to have vomiting. Again, she states that there is no nausea associated with this. She also describes episodes of pr esyncopal symptoms that she describes mostly when she gets up from a seated or down position. She does report that she takes a PPI for indigestion and that this controls those symptoms. She denies nausea to be associated with her dyspepsia. Otherwise, she is denying to me any change in bowel pattern or overt bleeding. She does report she has had an endoscopy that was performed because of the vomiting and that this was normal. I do not have records of this however. Past Medical History: Diagnosis Date Anemia Anxiety Coronary artery disease GERD (gastroesophageal reflux disease) Gout Hyperlipidemia Hypertension Iron deficiency Myocardial infarction ([facility]) 01/2016 Nephrotic syndrome PVD (peripheral vascular disease) ([facility]) L>R consistant, worse with walking Thrombocytopenia ([facility]) Past Surgical History: Procedure Laterality Date BYPASS FEMOROTIBIAL REPAIR/GRAFT Left 05/09/2015 in situ fem anterior tibial CARDIAC CATHETERIZATION CORONARY STENT PLACEMENT [facility] TONSILLECTOMY UPPER GASTROINTESTINAL ENDOSCOPY Allergies Allergen Reactions Amlodipine Besylate Other (See Comments) Dilaudid [Hydromorphone] Fentanyl Prior to Admission medications Medication Sig Start Date End Date Taking? Authorizing Provider acetaminophen (TYLENOL) 325 MG tablet Take 650 mg by mouth every 6 (six) hours as needed for pain. Yes Historical Provider, amitriptyline (ELAVIL) 75 MG tablet Take 75 mg by mouth nightly . 03/14/17 Yes Historical Provider, aspirin 81 MG EC tablet Take 81 mg by mouth daily. Yes Historical Provider, atorvastatin (LIPITOR) 40 MG tablet Take 40 mg by mouth daily. Yes Historical Provider, buPROPion (WELLBUTRIN SR) 150 MG 12 hr tablet Take 150 mg by mouth 2 (two) times a day . 03/19/17 Yes Historical Provider, carvedilol (COREG) 25 MG tablet Take 1 (one) tablet (25 mg total) by mouth 2 (two) times a day withmeals. 01/01/18 Yes Marilyn Ornelas MD cilostazol (PLETAL) 100 MG tablet Take 100 mg by mouth 2 (two) times a day. Yes Historical Provider, cloNIDine (CATAPRES-TTS) 0.3 mg/24 hr 02/21/17 Yes Historical Provider, cloNIDine HCl (CATAPRES) 0.2 MG tablet Take 0.2 mg by mouth 2 (two) times a day . 12/31/16 Yes Historical Provider, doxazosin (CARDURA) 4 MG tablet Take 4 mg by mouth daily . 03/08/17 Yes Historical Provider, hydrALAZINE (APRESOLINE) 50 MG tablet Take 50 mg by mouth 3 (three) times a day . Yes Historical Provider, isosorbide mononitrate (IMDUR) 30 MG 24 hr tablet Take 1 (one) tablet (30 mg total) by mouth daily.01/03/18 Yes Hien Sprague CNP losartan (COZAAR) 100 MG tablet Take 100 mg by mouth daily . 02/14/17 Yes Historical Provider, omeprazole (PRILOSEC) 20 MG capsule Take 20 mg by mouth daily. Yes Historical Provider, promethazine (PHENERGAN) 12.5 MG tablet take 1 (one) Tablet, Oral, three times daily, as needed before meals 09/14/16 Yes Historical Provider, FLUZOARUTR HUITRON [id number], PF, syringe To be injected by Pharmacist 12/06/17 Historical Provider, scopolamine (TRANSDERM-SCOP) 1 mg over [address] 1 (one) patch on the skin every 72 hours . 04/22/18 04/22/19 Adryan Alonzo, DO Social History Socioeconomic History Marital status: Spouse name: Not on file Number of children: Not on file Years of education: Not on file Highest education level: Not on file Social Needs Financial resource strain: Not on file Food insecurity - worry: Not on file Food insecurity - inability: Not on file Transportation needs - medical: Not on file Transportation needs - non-medical: Not on file Occupational History Not on file Tobacco Use Smoking status: Former Smoker Packs/day: 0.50 Years: 25.00 Pack years: 12.50 Types: Cigarettes Last attempt to quit: 03/04/2015 Years since quittin.1 Smokeless tobacco: Never Used Substance and Sexual Activity Alcohol use: No Alcohol/week: 0.0 oz Drug use: No Sexual activity: Not on file Other Topics Concern Not on file Social History Narrative Not on file Family History Problem Relation Age of Onset Heart disease Mother Hypertension Mother Hyperlipidemia Mother Varicose veins Mother Diabetes Mother Heart disease Father Hypertension Father Hyperlipidemia Father Diabetes Father Aneurysm Father brain Review of Systems Constitutional: Negative HENT: Negative Eyes: Negative Respiratory: Negative Cardiovascular: Negative Gastrointestinal: Per HPI. All other systems reviewed and are negative. Physical Exam BP (!) 167/91 Pulse (!) 101 Temp 98.3 F (36.8 C) (Oral) Resp 14 Ht 5' 4 Wt 64.4 kg (142 lb) BMI 24.37 kg/m 64.4 kg (142 lb) 5' 4 Body mass index is 24.37 kg/m . General Appearance: Alert, cooperative, no distress Head: Normocephalic, without obvious abnormality, atraumatic Eyes: PERRL, conjunctiva/corneas clear, EOM's intact Throat: Lips, mucosa, and tongue normal; teeth and gums normal Neck: Supple, symmetrical, trachea midline, no adenopathy; thyroid: no enlargement/tenderness/nodules; no carotid bruit or JVD Lungs: Clear to auscultation bilaterally, respirations unlabored Cardiovascular: Regular rate and rhythm, S1 and S2 normal, no murmur, rub or gallop; pulses 2+ and symmetric all extremities Abdomen: Soft, non-tender, bowel sounds active all four quadrants, no masses, no organomegaly Extremities: No clubbing, cyanosis, or edema Skin: Skin color, texture, turgor normal, no rashes or lesions Neurologic: CNII-XII intact; normal strength. No focal deficits Labs: No results for input(s): WBC, HGB, HCT, PLT in the last 72 hours. No results for input(s): NA, K, CL, BICARB, BUN, CREATININE, GLUCOSE, MG, PHOS, CALCIUM in the last72 hours. No results for input(s): ALT, AST, ALKPHOS, BILITOT, LIPASE in the last 72 hours. No results for input(s): INR, PROTIME in the last 72 hours. No results for input(s): AFP in the last 72 hours. Imaging: No results found. 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 Therefore, I would recommend neurologic evaluation There will be no indication for repeat endoscopy at this point given the above I have asked Iliana to please call and let me know how she is doing with regards to whether she has any relief at all from the scopolamine A total of 35 minutes were spent [id number] with the patient during this encounter and over half of that time was spent on counseling and coordination of care. We discussed in depth the importance of primary prevention of above diagnosis. I also educated the patient about lifestyle modifications. Thank you very much for allowing me to participate in your patient's care and if you have any further questions please do not hesitate to call. Sincerely; Adryan Alonzo DO CC: Ely Juarez MD This dictation has been transcribed via [email or web address] and has not been reviewed and may very well have errors secondary to the dictation system. in this encounter* Cecilia Rubin LPN - 04/24/2018 8:31 AM EST Approval for scopolamine patch has been received from patients insurance. Approved 03/24/18-. Message has been left for patient to contact her pharmacy to fill. in this encounter* Dionne Baron CNP - 06/23/2018 10:22 AM EDT Hematology/Oncology Clinic Follow Up Note Diagnosis: Anemia, monoclonal gammopathy, solitary pulmonary nodule Date of Diagnosis: August 28 PCP: Dr. Ely Juarez in [place] Nehrologist: Dr. Matias Interval History: Patient returns in follow-up for her anemia, monoclonal gammopathy, and solitary pulmonary nodule. She continues to complain of debilitating fatigue. She also complains of frequent vomiting for an extended period of time. Her primary care physician is aware of this vomiting. She was hospitalized last month after vomiting, falling and losing consciousness. She has a significant history of coronary artery disease/congestive heart failure; as well as renal insufficiency. We have discussed at length that her anemia is likely not the only cause of her fatigue. She presents with a myriad of other concerns including her frequent vomiting and ongoing fatigue. Laboratory studies 05/17/2018 Hemoglobin 11.2, hematocrit 35, iron 52, TIBC 24%, iron saturation 21%, ferritin 173.1 IgG 575 IgA 332 IgM 332 [place] free light chains elevated at 35.3 Lambda free light chains elevated at 29.6 Free light chain ratio normal at 1.19 No M protein detected Oncology History: Patient was originally seen as an inpatient on 08/24/2016 for evaluation of anemia at that time patient reported that she had been anemic for most of her life she had endoscopy in June 2015 that demonstrated a normal EGD, and EGD in August 2016. She has multiple comorbidities. Patient was found to have chronic anemia with normocytic hypochromic features that raise differential diagnosis for blood loss, rule out anemia of chronic disease or inflammation; rule out evolving myelodysplastic syndrome. CT chest without contrast 06/16/2018 FINDINGS: Adjacent too small to characterize right upper lobe nodules (less than 5 mm) are stable and follow-up is not required in a low risk patient. Remaining lungs are clear. There is no pleural effusion but there is a small pericardial effusion. There is coronary artery calcification but there is no cardiomegaly. Lymph nodes in upper abdomen are grossly stable. Bones are stable. IMPRESSION: Resolution of pleural effusions otherwise no significant change. Apr 11 2017 11:17AMExamination: CT CHEST W/O CONTRAST EXAM: CT CHEST W/O CONTRAST/ /CLINICAL STATEMENT: Follow-up pulmonary nodule on previous CT chest.COMPARISON: CT chest August 24, 2016. FINDINGS: The noncalcified 4 mm nodule in the right upper lobe on series 301 and image 17 shows no significant change in size or morphology from prior study. The additional satellite 2 mm nodule justcaudal to the above nodule was not visualized on the current study. There are no new pulmonary nodules. There are persistent small bilateral pleural effusions with mild basilar atelectasis. Similar linear atelectasis or scarring again noted in the middle lobe and the lingula. No development of airspace consolidation. Central airways are clear. There are again at least moderate atherosclerotic calcifications of the thoracic aorta with dense heavy calcifications at the left subclavian artery origin and is suggestive of an underlying severe stenosis. Multivessel coronary artery calcifications are redemonstrated with extensive dense Calcifications noted in the LAD artery. There is a similar small, partially circumferential pericardial effusion. Esophagus is nondistended. There are no pathologically enlarged mediastinal, appreciable hilar or axillary lymph nodes. Included portions of the upper abdomen show no acute or significant interval findings. There is a chronic mild wedge-shaped compression fracture of the T7 vertebrae,predominantly along the inferior endplate. No acute osseous abnormality. IMPRESSION: 1. No change in size or morphology of the noncalcified 4 mm right upper lobe pulmonary nodule. The additional 2 mm satellite nodule noted previously is not visualized on the current study. Depending upon risk factors, may consider follow-up chest CT in one year. 2. No new pulmonary nodules. 3. Persistent trace bilateral pleural effusions and a small pericardial effusion. 4. No CT evidence of lymphadenopathy. 5. Mild chronic compression fracture of the T7 vertebra. 6. Heavy atherosclerotic vascular disease. Significant plaquing at the origin of the left subclavian artery suggests underlying high grade stenosis. Bone Marrow Biopsy August, A. Bone marrow core biopsy B. Bone marrow aspirate smears and clot section C. Peripheral Blood Clinical History 285.9 Anemia Diagnosis A. Normocellular-appearing marrow without specific diagnostic abnormality. B. 1. Bone marrow without specific diagnostic abnormality. Flow cytometric immunophenotyping studies show no diagnostic immunophenotypic abnormalities. 2. Chromosome analysis shows a normal female karyotype. C. Peripheral blood showing normocytic anemia. RENETTA/neo FLOW CYTOMETRY ANALYSIS: Diagnosis: No diagnostic immunophenotypic abnormalities detected (see comments). Comments: No immunophenotypic evidence of a lymphoproliferative disorder, acute leukemia, increase in blasts, or plasma cell neoplasm is identified. Myeloproliferative neoplasms and myelodysplastic syndromes may not show antigenic abnormalities on myeloid cells and cannot be ruled out by flow cytometry. Please correlate the result with morphological findings, other pertinent laboratory data and clinical information. Flow Differential (%) and Population Analysis: Lymphocytes: 13.2% T-cells (76% of lymphoid cells) show a CD4/CD8 ratio of about 1.4 without overt phenotypic abnormality. NK-cells (3% of lymphoid cells) are unremarkable. Mature B-cells (17% of lymphoid cells) are polyclonal (kappa:lambda 1.3). Monocytes: 1.5% Monocytes show phenotypic evidence of maturation without dysmaturation. Granulocytes: 82.7% Granulocytes show phenotypic evidence of maturation without dysmaturation. CD45 Dim: 1.3% CD34+ events (0.8% of total cells) are not increased. Precursor B-cells (0.1% of total cells) are unremarkable. CD45 Ne.5% Erythroids and cell debris, unremarkable. Plasma Cells: 0.2% Plasma cells are not increased and show unremarkable surface marker expression. CD34+: 0.8% Past Medical History: Diagnosis Date Anemia Anxiety Coronary artery disease GERD (gastroesophageal reflux disease) Gout Hyperlipidemia Hypertension Iron deficiency Myocardial infarction (HCC) 01/2016 Nephrotic syndrome PVD (peripheral vascular disease) ([facility]) L>R consistant, worse with walking Thrombocytopenia ([facility]) Past Surgical History: Procedure Laterality Date BYPASS FEMOROTIBIAL REPAIR/GRAFT Left 05/09/2015 in situ fem anterior tibial CARDIAC CATHETERIZATION CORONARY STENT PLACEMENT [facility] TONSILLECTOMY UPPER GASTROINTESTINAL ENDOSCOPY Review of Systems: Review of Systems Constitutional: Positive for fatigue. Negative for chills, fever and unexpected weight change. Debilitating fatigue HENT: Negative for ear pain and trouble swallowing. Eyes: Positive for visual disturbance. Negative for pain and discharge. Glasses Respiratory: Negative for cough, shortness of breath and wheezing. Cardiovascular: Negative for chest pain and palpitations. Gastrointestinal: Positive for nausea and vomiting. Negative for abdominal pain, constipation and diarrhea. Approximately 2 days a week experiences nausea/vomiting. Occurs when there is a change in routine, vomits when she returns home. Endocrine: Negative for cold intolerance and heat intolerance. Genitourinary: Negative for difficulty urinating and dysuria. Musculoskeletal: Positive for gait problem. Negative for arthralgias and back pain. Skin: Negative for rash. Allergic/Immunologic: Negative for environmental allergies and food allergies. Neurological: Positive for weakness and headaches. Negative for dizziness. Headaches with increase in blood pressure Hematological: Negative for adenopathy. Does not bruise/bleed easily. Psychiatric/Behavioral: Negative for confusion and sleep disturbance. Depression Physical Exam: PACU Vitals 06/23/18 0957 BP: (!) 183/94 Pulse: 80 Temp: 98 F (36.7 C) SpO2: 97% Physical Exam Constitutional: She is oriented to person, place, and time. She appears well- developed and well-nourished. No distress. Chronically ill-appearing HENT: Head: Normocephalic and atraumatic. Eyes: Pupils are equal, round, and reactive to light. Neck: Normal range of motion. Neck supple. Cardiovascular: Normal rate, regular rhythm and normal heart sounds. No murmur heard. Pulmonary/Chest: Effort normal and breath sounds normal. She has no wheezes. She has no rales. Abdominal: Soft. Bowel sounds are normal. She exhibits no mass. There is no splenomegaly or hepatomegaly. There is no tenderness. There is no guarding. Lymphadenopathy: She has no cervical adenopathy. Neurological: She is alert and oriented to person, place, and time. Skin: Skin is warm and dry. No rash noted. No erythema. Psychiatric: She has a normal mood and affect. Her behavior is normal. Judgment and thought contentnormal. Nursing note and vitals reviewed. Assessment/Plan:Patient returns in follow-up for her anemia, monoclonal gammopathy, and solitary pulmonary nodule. She continues to complain of debilitating fatigue. She also complains of frequent vomiting for an extended period of time. Her primary care physician is aware of this vomiting. She was hospitalized last month after vomiting, falling and losing consciousness. She has a significant history of coronary artery disease/congestive heart failure; as well as renal insufficiency. We have discussed at length that her anemia is likely not the only cause of her fatigue. She presents with a myriad of other concerns including her frequent vomiting and ongoing fatigue. Laboratory studies 05/17/2018 Hemoglobin 11.2, hematocrit 35, iron 52, TIBC 24%, iron saturation 21%, ferritin 173.1 IgG 575 IgA 332 IgM 332 [place] free light chains elevated at 35.3 Lambda free light chains elevated at 29.6 Free light chain ratio normal at 1.19 No M protein detected 1. Solitary pulmonary nodule 2. Monoclonal gammopathy - CBC and Differential; Future - External Lab Free K+L Light Chains; Future - IgG, IgA, IgM Immunoglobulins; Future - Immunofixation, Serum; Future - Basic Metabolic Panel; Future 3. Anemia, unspecified type - Ferritin; Future - Iron and TIBC; Future Follow up in 6 months with CBC, BMP, serum immunofixation, serum free light chains, serum quantitative immunoglobulins, ferritin, iron and TIBC No need for further evaluation of pulmonary nodule Follow up in 6 months with Dionne Education Provided Education/Instructions given to: (x) Patient (_) Spouse (_) Parent (_) Other Barriers to Learning: (x) None (_) Yes (identify):_ Content: (x) Refer to note above (_)Other (identify):_ Evaluation/Outcome: (x) Verbalized understanding (_) Demonstrated understanding (_) Other:_ LING Hutchison documented in this encounter* Matt De León DO - 10/08/2016 2:05 PM EDT Formatting of this note may be different from the original. [facility] [address] [place] [address] Subjective Dear Ely Juarez MD, I had the pleasure of meeting Iliana Reid at [facility] in [place] today. As you are aware she is a pleasant 66 y.o. female. The patient is a follow-up for recent hospitalization for which she was nauseous and vomiting. She does have a recent history of coronary disease status post stenting of her left anterior descending in the setting of acute coronary syndrome in the fall. She additionally has hypertension and hyperlipidemia. During her hospitalization she ruled out for myocardial infarction. She had significant weight loss which was found to be due to her nausea and vomiting. Currently she denies chest discomfort, dyspnea, orthopnea, paroxysmal nocturnal dyspnea, palpitations, near-syncope or syncope. Her nausea and vomiting have abated. She has gained some healthy weight back. Plan: The patient's heart rate and blood pressure appear at goal. She has no symptoms to suggest angina or cardiac decompensation. We have therefore made no additions or changes. We will look forward to following up with her in 6 months time. Dietary and lifestyle modification were reemphasized to facilitate risk factor reduction. Dietary and lifestyle modification education was given. Thank you for the pleasure/privilege of visiting with your patient today. Please do not hesitate tocontact me directly if you have any questions. Matt De León DO Allergies Allergen Reactions Amlodipine Besylate Other (See Comments) Dilaudid [Hydromorphone] Current Outpatient Prescriptions: amitriptyline (ELAVIL) 50 MG tablet, Take 50 mg by mouth nightly., Disp: , Rfl: aspirin 81 MG EC tablet, Take 81 mg by mouth daily., Disp: , Rfl: atorvastatin (LIPITOR) 40 MG tablet, Take 40 mg by mouth daily., Disp: , Rfl: carvedilol (COREG) 25 MG tablet, Take 12.5 mg by mouth 2 (two) times a day with meals ., Disp: , Rfl: cilostazol (PLETAL) 100 MG tablet, Take 100 mg by mouth 2 (two) times a day., Disp: , Rfl: cloNIDine (CATAPRES-TTS) 0.2 mg/24 hr, USE ONE PATCH TRANSDERMALLY every SEVEN DAYS, Disp: , Rfl: 0 hydrALAZINE (APRESOLINE) 50 MG tablet, , Disp: , Rfl: isosorbide mononitrate (IMDUR) 30 MG 24 hr tablet, Take 1 tablet (30 mg total) by mouth daily., Disp: 30 tablet, Rfl: 11 lisinopril (PRINIVIL,ZESTRIL) 10 MG tablet, Take 5 mg by mouth daily ., Disp: , Rfl: 3 magnesium hydroxide (PEDIA-LAX) 400 mg (170 mg) Chew, , Disp: , Rfl: promethazine (PHENERGAN) 12.5 MG tablet, take 1 (one) Tablet, Oral, three times daily, as needed before meals, Disp: , Rfl: 0 Past Medical History: Diagnosis Date Anemia Anxiety Coronary artery disease GERD (gastroesophageal reflux disease) Gout Hyperlipidemia Hypertension Iron deficiency Myocardial infarction (HCC) 01/2016 Nephrotic syndrome PVD (peripheral vascular disease) ([facility]) L>R consistant, worse with walking Thrombocytopenia (HCC) Past Surgical History: Procedure Laterality Date BYPASS FEMORAL TIBIAL Left 05/09/2015 in situ fem anterior tibial CORONARY STENT PLACEMENT [facility] TONSILLECTOMY Social History Social History Marital status: Spouse name: N/A Number of children: N/A Years of education: N/A Social History Main Topics Smoking status: Former Smoker Packs/day: 0.50 Years: 25.00 Types: Cigarettes Quit date: 03/04/2015 Smokeless tobacco: Never Used Alcohol use No Drug use: No Sexual activity: Not Asked Other Topics Concern None Social History Narrative Family History Problem Relation Age of Onset Heart disease Mother Hypertension Mother Hyperlipidemia Mother Varicose veins Mother Diabetes Mother Heart disease Father Hypertension Father Hyperlipidemia Father Diabetes Father Aneurysm Father brain Review of Systems Constitution: Negative for diaphoresis, malaise/fatigue, weight gain and weight loss. HENT: Negative for hearing loss, nosebleeds and tinnitus. Eyes: Negative for blurred vision and visual disturbance. Cardiovascular: Negative for chest pain, claudication, cyanosis, dyspnea on exertion, irregular heartbeat, leg swelling, near-syncope, orthopnea, palpitations, paroxysmal nocturnal dyspnea and syncope. Respiratory: Negative for hemoptysis, shortness of breath and snoring. Endocrine: Negative for cold intolerance and heat intolerance. Hematologic/Lymphatic: Does not bruise/bleed easily. Skin: Negative for flushing, poor wound healing and rash. Musculoskeletal: Negative for back pain, muscle weakness and myalgias. Gastrointestinal: Negative for abdominal pain, change in bowel habit, melena, nausea and vomiting. Genitourinary: Negative for decreased libido and hematuria. Neurological: Negative for loss of balance and numbness. Psychiatric/Behavioral: Negative for memory loss. The patient is not nervous/anxious. PACU Vitals 10/08/16 1340 BP: (!) 207/79 Pulse: 79 SpO2: 98% Height: 5' 4 Weight: 59.4 kg (131 lb) Physical Exam Constitutional: She is oriented to person, place, and time. She appears well- developed and well-nourished. HENT: Head: Normocephalic and atraumatic. Nose: Nose normal. Eyes: Right eye exhibits no discharge. Left eye exhibits no discharge. No scleral icterus. Neck: Neck supple. No JVD present. No thyromegaly present. Cardiovascular: Normal rate, regular rhythm, S1 normal, S2 normal and intact distal pulses. Exam reveals no gallop and no friction rub. Murmur heard. Crescendo decrescendo systolic murmur is present with a grade of 1/6 Pulmonary/Chest: Breath sounds normal. She has no wheezes. She has no rales. Abdominal: Soft. She exhibits no distension. There is no tenderness. Musculoskeletal: She exhibits no edema or tenderness. No clubbing or cyanosis. Lymphadenopathy: She has no cervical adenopathy. Neurological: She is alert and oriented to person, place, and time. Skin: Skin is warm and dry. Psychiatric: She has a normal mood and affect. Her behavior is normal. Nursing note and vitals reviewed. EKG: No results found for this or any previous visit. in this encounter* Marcell Pichardo MD - 11/07/2018 6:53 AM EDT Assessment 1. The patient has high-grade stenosis of the external carotid arteries. The patient does not have amaurosis fugax. The external carotid artery stenosis is asymptomatic. There is no indication for carotid endarterectomy for external carotid artery stenosis. 2. The patient has intermediate carotid occlusive disease of both internal carotid arteries. Based on multiple clinical trials there is no indication for carotid endarterectomy or carotid artery stenting. 3. The patient's femoral anterior tibial artery limb salvage bypass for critical limb ischemia remains patent and the patient has not had any recurrent rest pain or ulceration. 4. The patient's risk factor modification includes aspirin as an antiplatelet agent and rosuvastatin to help with inflammatory atherosclerosis and hyperlipidemia. Plan 1. We will follow the patient up in 1 year for her carotid occlusive disease with a clinical visit and duplex sonography 2. I reminded the patient the signs and symptoms of transient ischemic attacks and asked her to call immediately if any of the signs or symptoms occur. We have given her a handout with the signs and symptoms clearly and elucidated on her after visit summary. 3. We have asked the patient to keep her routine surveillance appointment next month for her in situ femoral anterior tibial bypass which was done for critical limb ischemia. Iliana Reid 1950 68 y.o. female who presents to the office in consultation for her carotid occlusive disease. Her primary care provider obtain duplex sonography which demonstrated a high-grade stenosis of the external carotid artery. The patient has moderate disease of her internal carotid arteries. The patient is asymptomatic and denied amaurosis fugax, hemiparesis, hemiparesthesias and aphasia. She has had no posterior circulation symptoms and denied vertigo, tinnitus, diplopia and syncope. The patient has had no recurrence of her critical limb ischemia. She does not have any ulceration in either lower extremity. She does not have rest pain. She has Hyde class II-III claudication.Despite her atherosclerotic burden the patient does not have symptoms of cardiac disease. She denied angina, palpitations, orthopnea nonexertional shortness of breath. Past Medical History: Diagnosis Date Anemia Anxiety Coronary artery disease GERD (gastroesophageal reflux disease) Gout Hyperlipidemia Hypertension Iron deficiency Myocardial infarction (HCC) 01/2016 Nephrotic syndrome PVD (peripheral vascular disease) ([facility]) L>R consistant, worse with walking Thrombocytopenia (HCC) Past Surgical History: Procedure Laterality Date BYPASS FEMOROTIBIAL REPAIR/GRAFT Left 05/09/2015 in situ fem anterior tibial CARDIAC CATHETERIZATION CORONARY STENT PLACEMENT [facility] TONSILLECTOMY UPPER GASTROINTESTINAL ENDOSCOPY Current Outpatient Medications Medication Sig Dispense Refill acetaminophen (TYLENOL) 325 MG tablet Take 650 mg by mouth every 6 (six) hours as needed for pain. amitriptyline (ELAVIL) 75 MG tablet Take 75 mg by mouth nightly . aspirin 81 MG EC tablet Take 81 mg by mouth daily. buPROPion (WELLBUTRIN SR) 150 MG 12 hr tablet Take 300 mg by mouth daily . carvedilol (COREG) 25 MG tablet Take 1 (one) tablet (25 mg total) by mouth 2 (two) times a day withmeals. (Patient taking differently: Take 12.5 mg by mouth 2 (two) times a day with meals .) 60 tablet 11 cilostazol (PLETAL) 100 MG tablet Take 100 mg by mouth 2 (two) times a day. cloNIDine (CATAPRES-TTS) 0.1 mg/[address] 1 patch on the skin once a week . doxazosin (CARDURA) 4 MG tablet Take 4 mg by mouth daily . gabapentin (NEURONTIN) 100 MG capsule Take 100 mg by mouth nightly . hydrALAZINE (APRESOLINE) 50 MG tablet Take 50 mg by mouth 3 (three) times a day . isosorbide mononitrate (IMDUR) 30 MG 24 hr tablet Take 1 (one) tablet (30 mg total) by mouth daily.30 tablet 11 losartan (COZAAR) 100 MG tablet Take 50 mg by mouth daily . omeprazole (PRILOSEC) 20 MG capsule Take 20 mg by mouth daily. promethazine (PHENERGAN) 12.5 MG tablet take 1 (one) Tablet, Oral, three times daily, as needed before meals 0 rosuvastatin (CRESTOR) 20 MG tablet Take 40 mg by mouth nightly . No current facility-administered medications for this visit. Family History Problem Relation Age of Onset Heart disease Mother Hypertension Mother Hyperlipidemia Mother Varicose veins Mother Diabetes Mother Heart disease Father Hypertension Father Hyperlipidemia Father Diabetes Father Aneurysm Father brain Social History Tobacco Use Smoking status: Former Smoker Packs/day: 0.50 Years: 25.00 Pack years: 12.50 Types: Cigarettes Last attempt to quit: 03/04/2015 Years since quittin.6 Smokeless tobacco: Never Used Substance Use Topics Alcohol use: No Alcohol/week: 0.0 standard drinks Drug use: No Review of Systems Constitution: Negative for decreased appetite, diaphoresis, malaise/fatigue and weight loss. HENT: Negative for hearing loss, hoarse voice and nosebleeds. Eyes: Negative for blurred vision, vision loss in left eye and vision loss in right eye. Cardiovascular: Positive for claudication and dyspnea on exertion. Negative for chest pain, orthopnea and palpitations. Respiratory: Negative for cough, hemoptysis, shortness of breath and snoring. Endocrine: Negative for cold intolerance and heat intolerance. Hematologic/Lymphatic: Does not bruise/bleed easily. Skin: Negative for poor wound healing, rash and skin cancer. Musculoskeletal: Positive for arthritis and joint pain. Negative for back pain. Gastrointestinal: Positive for nausea and vomiting. Negative for abdominal pain, change in bowel habit and melena. Genitourinary: Negative for dysuria, frequency and hematuria. Neurological: Negative for aphonia, brief paralysis and seizures. Psychiatric/Behavioral: Negative for depression and memory loss. The patient is not nervous/anxious. BP (!) 159/74 (BP Location: Right arm) Pulse 81 Ht 5' 4 Wt 64.9 kg (143 lb) SpO2 96% BMI24.55 kg/m Physical Exam Constitutional: She appears well-developed and well-nourished. HENT: Head: Normocephalic and atraumatic. Eyes: Conjunctivae and EOM are normal. No scleral icterus. Pupils are equal. Neck: Normal range of motion. Neck supple. Normal carotid pulses and no JVD present. Carotid bruit is present. Cardiovascular: Regular rhythm and normal heart sounds. No murmur heard. Pulses: Carotid pulses are 2+ on the right side and 2+ on the left side. Radial pulses are 2+ on the right side and 2+ on the left side. Femoral pulses are 2+ on the right side and 2+ on the left side. Popliteal pulses are 0 on the right side and 0 on the left side. Dorsalis pedis pulses are 0 on the right side and 1+ on the left side. Posterior tibial pulses are 0 on the right side and 0 on the left side. Pulmonary/Chest: Effort normal and breath sounds normal. Prolonged expiration Abdominal: Soft. Normal appearance and bowel sounds are normal. There is no tenderness. Musculoskeletal: Normal range of motion. Lymphadenopathy: She has no cervical adenopathy. Right: No supraclavicular adenopathy present. Neurological: She is alert. She has normal strength. No cranial nerve deficit. Coordination normal. Psychiatric: She has a normal mood and affect. Her speech is normal and behavior is normal. Cognition and memory are normal. The note was dictated using [email or web address] dictation system. The voice recognition software is inherently subject to errors including those of syntax and sound- alike substitutions which may escape proofreading. In such instances, original meaning may be extrapolated by contextual derivation. documented in this encounter* Marcell Pichardo MD - 12/26/2018 1:27 PM EDT Assessment 1. The patient's femoral anterior tibial bypass graft remains patent without any evidence of intimal hyperplasia or atherosclerosis. There is no evidence of impending failure. 2. The patient continues to have a 60 and 99% stenosis of the right renal artery and a widely patent left renal artery. This is been managed conservatively based on the data from 2 NIH trials the [facility] ASTRIL. 3. The patient had moderate carotid occlusive disease in the past. She is currently asymptomatic. We will do surveillance follow-up during her next visit. Plan Follow-up in 1 year with appropriate vascular lab testing to include carotid ultrasonography, ankle-brachial indices and a duplex scan of her bypass graft. Iliana Reid 1950 68 y.o. female who presents to the office in followup of diffuse atherosclerosis. 1. The patient had limb salvage bypass in 2016. Her foot is healed and she is not experiencing any symptoms of ulceration or rest pain. 2. The patient has known mild to moderate carotid occlusive disease. She is asymptomatic and deniedamaurosis fugax, hemiparesis, hemiparesthesias and aphasia. She has not had any posterior circulation symptoms. 3. The patient has known renal artery stenosis unilaterally. She has controlled hypertension with medication. 4. The patient has known coronary artery disease. Currently she does not have any angina, palpitations, orthopnea nonexertional shortness of breath. Past Medical History: Diagnosis Date Anemia Anxiety Coronary artery disease GERD (gastroesophageal reflux disease) Gout Hyperlipidemia Hypertension Iron deficiency Myocardial infarction (HCC) 01/2016 Nephrotic syndrome PVD (peripheral vascular disease) (HCC) L>R consistant, worse with walking Thrombocytopenia (HCC) Past Surgical History: Procedure Laterality Date BYPASS FEMOROTIBIAL REPAIR/GRAFT Left 05/09/2015 in situ fem anterior tibial CARDIAC CATHETERIZATION COLONOSCOPY CORONARY STENT PLACEMENT [facility] TONSILLECTOMY UPPER GASTROINTESTINAL ENDOSCOPY Current Outpatient Medications Medication Sig Dispense Refill acetaminophen (TYLENOL) 325 MG tablet Take 650 mg by mouth every 6 (six) hours as needed for pain. amitriptyline (ELAVIL) 75 MG tablet Take 75 mg by mouth nightly . aspirin 81 MG EC tablet Take 81 mg by mouth daily. buPROPion (WELLBUTRIN SR) 150 MG 12 hr tablet Take 300 mg by mouth daily . carvedilol (COREG) 25 MG tablet Take 1 (one) tablet (25 mg total) by mouth 2 (two) times a day withmeals . 60 tablet 11 cilostazol (PLETAL) 100 MG tablet Take 100 mg by mouth 2 (two) times a day. cloNIDine (CATAPRES-TTS) 0.1 mg/[address] 1 patch on the skin once a week . doxazosin (CARDURA) 4 MG tablet Take 4 mg by mouth daily . gabapentin (NEURONTIN) 100 MG capsule Take 100 mg by mouth nightly . hydrALAZINE (APRESOLINE) 50 MG tablet Take 50 mg by mouth 3 (three) times a day . isosorbide mononitrate (IMDUR) 30 MG 24 hr tablet Take 1 (one) tablet (30 mg total) by mouth daily.30 tablet 11 losartan (COZAAR) 100 MG tablet Take 50 mg by mouth daily . omeprazole (PRILOSEC) 20 MG capsule Take 20 mg by mouth daily. promethazine (PHENERGAN) 12.5 MG tablet take 1 (one) Tablet, Oral, three times daily, as needed before meals 0 rosuvastatin (CRESTOR) 20 MG tablet Take 40 mg by mouth nightly . atorvastatin (LIPITOR) 40 MG tablet Take 40 mg by mouth daily . ondansetron (Zofran) 4 MG tablet Take 1 (one) tablet (4 mg total) by mouth every 6 (six) hours as needed for nausea . 30 tablet 1 No current facility-administered medications for this visit. Family History Problem Relation Age of Onset Heart disease Mother Hypertension Mother Hyperlipidemia Mother Varicose veins Mother Diabetes Mother Heart disease Father Hypertension Father Hyperlipidemia Father Diabetes Father Aneurysm Father brain Social History Tobacco Use Smoking status: Former Smoker Packs/day: 0.50 Years: 25.00 Pack years: 12.50 Types: Cigarettes Last attempt to quit: 03/04/2015 Years since quittin.8 Smokeless tobacco: Never Used Substance Use Topics Alcohol use: No Alcohol/week: 0.0 standard drinks Drug use: No Review of Systems Constitution: Negative for decreased appetite, diaphoresis, malaise/fatigue and weight loss. HENT: Negative for hearing loss, hoarse voice and nosebleeds. Eyes: Negative for blurred vision, vision loss in left eye and vision loss in right eye. Cardiovascular: Positive for claudication and dyspnea on exertion. Negative for chest pain, orthopnea and palpitations. Respiratory: Negative for cough, hemoptysis, shortness of breath and snoring. Endocrine: Negative for cold intolerance and heat intolerance. Hematologic/Lymphatic: Does not bruise/bleed easily. Skin: Negative for poor wound healing, rash and skin cancer. Musculoskeletal: Positive for arthritis and joint pain. Negative for back pain. Gastrointestinal: Negative for abdominal pain, change in bowel habit and melena. Genitourinary: Negative for dysuria, frequency and hematuria. Neurological: Negative for aphonia, brief paralysis and seizures. Psychiatric/Behavioral: Negative for depression and memory loss. The patient is not nervous/anxious. BP (!) 168/91 Pulse 66 Ht 5' 4 Wt 64.9 kg (143 lb) BMI 24.55 kg/m Physical Exam Constitutional: She appears well-developed and well-nourished. HENT: Head: Normocephalic and atraumatic. Eyes: Conjunctivae and EOM are normal. No scleral icterus. Pupils are equal. Neck: Normal range of motion. Neck supple. Normal carotid pulses and no JVD present. Carotid bruit is present. Cardiovascular: Regular rhythm and normal heart sounds. No murmur heard. Pulses: Carotid pulses are 2+ on the right side and 2+ on the left side. Radial pulses are 2+ on the right side and 2+ on the left side. Femoral pulses are 2+ on the right side and 2+ on the left side. Popliteal pulses are 0 on the right side and 0 on the left side. Dorsalis pedis pulses are 0 on the right side and 1+ on the left side. Posterior tibial pulses are 0 on the right side and 0 on the left side. Pulmonary/Chest: Effort normal and breath sounds normal. Prolonged expiration Abdominal: Soft. Normal appearance and bowel sounds are normal. There is no tenderness. Musculoskeletal: Normal range of motion. Lymphadenopathy: She has no cervical adenopathy. Right: No supraclavicular adenopathy present. Neurological: She is alert. She has normal strength. No cranial nerve deficit. Coordination normal. Psychiatric: She has a normal mood and affect. Her speech is normal and behavior is normal. Cognition and memory are normal. The note was dictated using [email or web address] dictation system. The voice recognition software is inherently subject to errors including those of syntax and sound- alike substitutions which may escape proofreading. In such instances, original meaning may be extrapolated by contextual derivation. documented in this encounter* Reinaldo Lerma MD - 12/16/2018 1:20 PM EDT General Cardiology Clinic Follow-up Heart & Vascular [facility] 12/16/2018 Reinaldo Lerma MD [address] [place] [address] Medical Office [facility] [id number] Patient: Iliana Reid Date of : 1950 (68 y.o.) PCP: Sujey Fonseca MD Assessment & Plan Coronary artery disease From an anginal standpoint the patient appears stable. She is having no chest pain or pressure symptoms. She does note fatigue in her legs when she is walking, is not reporting PND, orthopnea, or lower extremity edema. She has not had palpitations or cardiac awareness. She brought in diaries of blood pressures from home they remain moderately elevated. I advanced her carvedilol to 25 twice a day,consideration to advancing that to 37.5 or even 50 twice a day may be reviewed. Cholesterol in April total was 184 LDL is 128. She remains on rouvastatin, I would consider advancing this to 40 mg.She remains on high-dose rouvastatin, 40 mg. We could review potentially treatment with a PC SK 9 in [facility]. Her medications were reviewed otherwise, I do not believe she needs any additional changes. We will continue to follow her periodically here in the clinic. Follow-up: Return in about 6 months (around 06/17/2019). Chief Complaint: No chief complaint on file. Subjective History of Present Illness: Iliana Reid is a 68 y.o. female seen today for follow up. This is a 68-year-old comes in for follow-up appointment. I saw her last in June 2018. This is a 68-year-old with known coronary disease, history of LAD stent intervention. I saw the patient originally in 2012. We had outside records to review. She been hospitalized, she apparently had cellulitis,got more acutely ill. Ejection fraction was 25 to 30%. She ultimately had drug-eluting stent placement in the proximal through mid LAD in December 2015 in [facility]. Echoes have shown recovery in her ejection fraction.She has a history of hypertension, hyperlipidemia and diabetes. Previous SPECT study in December 2017 showed a mild reversible defect, ejection fraction is preserved, she is been carmela ated medically. She has history of peripheral vascular disease having had left lower extremity revascularization. I saw her in June noted that she had difficult to control hypertension. Was having some issues with a clonidine patch and was placed back on oral clonidine. She has history of anemia, monoclonal gammopathy, and a solitary pulmonary nodule. I felt her anginal symptoms overall were stable at that time. The patient was seen recently in a vascular follow-up noted to have high-grade stenosis of the external carotid arteries. She has intermediate occlusive disease of both internal carotids. Her femoral or anterior tibial artery bypass remained patent. The patient underwent a recent ti lt table assessment which was negative. CT scan of the chest done recently showed stability in her pulmonary nodules without evidence of any new pulmonary nodules. Objective ECG 12 lead Final Result by Reinaldo Lerma MD (06/04/2018 1416) Echocardiogram complete Final Result by Nadine Swan MD (05/06/2015 5640) Review of Systems: Review of Systems Constitution: Negative for fever. Cardiovascular: Positive for claudication. Negative for chest pain, cyanosis, dyspnea on exertion, irregular heartbeat, leg swelling, near-syncope, orthopnea, palpitations, paroxysmal nocturnal dyspnea and syncope. Respiratory: Positive for shortness of breath. Musculoskeletal: Positive for muscle weakness. Gastrointestinal: Negative for hematemesis and hematochezia. Neurological: Negative for focal weakness, paresthesias and weakness. Psychiatric/Behavioral: Negative for altered mental status. All other systems reviewed and are negative. HOME Medications: Current Outpatient Medications on File Prior to Visit Medication Sig acetaminophen (TYLENOL) 325 MG tablet Take 650 mg by mouth every 6 (six) hours as needed for pain. amitriptyline (ELAVIL) 75 MG tablet Take 75 mg by mouth nightly . aspirin 81 MG EC tablet Take 81 mg by mouth daily. buPROPion (WELLBUTRIN SR) 150 MG 12 hr tablet Take 300 mg by mouth daily . cilostazol (PLETAL) 100 MG tablet Take 100 mg by mouth 2 (two) times a day. cloNIDine (CATAPRES-TTS) 0.1 mg/[address] 1 patch on the skin once a week . doxazosin (CARDURA) 4 MG tablet Take 4 mg by mouth daily . gabapentin (NEURONTIN) 100 MG capsule Take 100 mg by mouth nightly . hydrALAZINE (APRESOLINE) 50 MG tablet Take 50 mg by mouth 3 (three) times a day . isosorbide mononitrate (IMDUR) 30 MG 24 hr tablet Take 1 (one) tablet (30 mg total) by mouth daily. losartan (COZAAR) 100 MG tablet Take 50 mg by mouth daily . omeprazole (PRILOSEC) 20 MG capsule Take 20 mg by mouth daily. promethazine (PHENERGAN) 12.5 MG tablet take 1 (one) Tablet, Oral, three times daily, as needed before meals rosuvastatin (CRESTOR) 20 MG tablet Take 40 mg by mouth nightly . [DISCONTINUED] carvedilol (COREG) 25 MG tablet Take 1 (one) tablet (25 mg total) by mouth 2 (two) times a day with meals. (Patient taking differently: Take 12.5 mg by mouth 2 (two) times a day with meals .) No current facility-administered medications on file prior to visit. Vital Signs: BP (!) 183/111 Pulse 74 Ht 5' 4 Wt 64.4 kg (142 lb) SpO2 98% BMI 24.37 kg/m Physical Exam Constitutional: She is oriented to person, place, and time. She appears well- developed and well-nourished. HENT: Head: Normocephalic. Eyes: No scleral icterus. Neck: Neck supple. No thyromegaly present. Cardiovascular: Normal rate, regular rhythm and normal heart sounds. Exam reveals no gallop and no friction rub. No murmur heard. Pulses: Carotid pulses are on the right side with bruit. Diminished lower extremity pulses Pulmonary/Chest: Effort normal and breath sounds normal. She has no wheezes. She has no rales. Abdominal: Soft. There is no tenderness. There is no rebound and no guarding. Musculoskeletal: General: No edema. Neurological: She is alert and oriented to person, place, and time. Skin: Skin is warm and dry. Psychiatric: She has a normal mood and affect. documented in this encounter* Adryan Alonzo, - 12/23/2018 3:21 PM EDT [facility] [address] [facility] [id number] Iliana Reid is here today for follow-up. The encounter diagnosis was Vomiting without nausea, intractability of vomiting not specified, unspecified vomiting type. HPI: Iliana is being seen today in follow-up for her vomiting. She reports that the scopolamine patch sheis on has helped by about 50% on cutting down the episodes. She reports that her onset is typicallywhen she is around her family or other stressful situations. She reports that she is having some heaviness in the lower chest and this usually seems to start all of the vomiting. Again, there is no nausea. She also again reports there is no association with any type of food or other p.o. intake. Unfortunately, she is also having a rash in the areas where she is placing the patch. BP (!) 179/94 Pulse 74 Wt 66.7 kg (147 lb 1.6 oz) BMI 25.25 kg/m 66.7 kg (147 lb 1.6 oz) Body mass index is 25.25 kg/m . Physical Exam Constitutional: Patient is oriented to person, place, and time. Head: Normocephalic and atraumatic. Eyes: Pupils are equal, round, and reactive to light. Neck: No thyromegaly present. Cardiovascular: Normal rate, rhythm, and normal heart sounds. Exam reveals no friction rub. No murmur heard. Pulmonary/Chest: No respiratory distress. Clear bilaterally without wheeze or rhonchi. Abdominal: Soft. Normal appearance and bowel sounds are normal. No distension and no mass, or hepatosplenomegaly. There is no tenderness or rebound. Extremeties: No clubbing, cyanosis, or edema. Musculoskeletal: Normal range of motion. Patient exhibits no edema. Neurological: No focal deficits. Skin: No rash noted. No erythema. Labs: Total Protein Date Value Ref Range Status 06/28/2015 5.3 (L) 6.0 - 8.0 g/dL Final WBC Date Value Ref Range Status 09/23/2017 8.5 3.4 - 10.6 K/mcL Final Hemoglobin Date Value Ref Range Status 09/23/2017 11.8 11.6 - 15.4 g/dL Final Hematocrit Date Value Ref Range Status 09/23/2017 35.4 34.4 - 44.8 % Final Platelets Date Value Ref Range Status 09/23/2017 207 162 - 402 K/mcL Final Imaging: Assessment and Plan: Problem List Items Addressed This Visit Digestive Vomiting without nausea Relevant Medications At this point I have discussed with Iliana about removing the patch and replacing it at least once every day to see if this cuts down on the irritation that she is getting from the. If we can avoid stopping this since she has had improvement in her symptoms we would like to do so. I am going to prescribe Zofran 4 mg that she can take every 4-6 hours when she has a flare. If she is unable to tolerate the scopolamine patch then she can take the Zofran on a scheduled basis every 6 hours [place] I have asked that she call into my office and let Zeinab know if she is having ongoing side effects from the patch so that we will know what is going on Thank you very much for allowing me to participate in your patient's care and if you have any further questions please do not hesitate to call. Sincerely; Adryan Alonzo DO CC: No ref. provider found documented in this encounter Reason for Referral Status Reason Specialty Diagnoses / Procedures Re ferred By Contact Referred To Contact Closed Gastroenterology Diagnoses Nausea and vomiting, intractability of vomiting not specified, unspecified vomiting type Omran, Yasser, MD [address] [facility] [address] [place] [address] [facility] [address] [facility] [address] [place] [address] Status Reason Specialty Diagnoses / Procedures Referred By Contact Referred To Contact Pending Review Radiology Diagnoses Solitary pulmonary nodule Procedures CT Chest Without Contrast Dionne Baron, KAREL [address] [place] [id number] Status Reason Specialty Diagnoses / Procedures Referred By Contact Referred To Contact Pending Review Cardiology Diagnoses Essential (primary) hypertension Chronic kidney disease, stage III (moderate) (HCC) Procedures Ultrasound renal artery duplex, complete Wolfgang Matias MD [address] [place] [address] Status Reason Specialty Diagnoses / Procedures Referred By Contact Referred To Contact Pending Review Cardiology Diagnoses Syncope and collapse Procedures Tilt table Reinaldo Pena MD [address] [place] [address] Status Reason Specialty Diagnoses / Procedures Referred By Contact Referred To Contact Pending Review Cardiology Diagnoses PVD (peripheral vascular disease) (HCC) Procedures Ultrasound duplex arterial leg left Marcell Pichardo MD [address] [place] [address] Status Reason Specialty Diagnoses / Procedures Referred By Contact Referred To Contact Pending Review Cardiology Diagnoses PVD (peripheral vascular disease) (HCC) Procedures Ultrasound ankle / brachial indices extremity complete Marcell Pichardo MD [address] [place] [address] Status Reason Specialty Diagnoses / Procedures Referred By Contact Referred To Contact Pending Review Cardiology Diagnoses Asymptomatic bilateral carotid artery stenosis Procedures Carotid Duplex Marcell Pichardo MD [address] [place] [address] Status Reason Specialty Diagnoses / Procedures Referre d By Contact Referred To Contact Closed Cardiology Diagnoses Coronary artery dise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 Procedures ECG 12 lead Reinaldo Lerma MD [address] [place] [address] Status Reason Specialty Diagnoses / Procedures Referre d By Contact Referred To Contact Closed Cardiology Diagnoses PVD (peripheral vascular disease) ([facility]) Procedures Ultrasound ankle / brachial indices extremity complete Marcell Pichardo MD [address] [id number] Specialty Diagnoses / Procedures Referred By Contac t Referred To Contact Cardiology Diagnoses Pericardial effusion Procedures Echocardiogram complete Collette Cardona MD [address] [place] [address] Referral ID Status Reason Start Date Expiration Date V isits Requested Visits Authorized [id number] New Request 11/04/2023 11/03/2024 1 1 Specialty Diagnoses / Procedures Referred By Contac t Referred To Contact CT IMAGING Diagnoses Chronic renal failure, unspecified CKD stage Pre-transplant evaluation for kidney transplant Procedures CT ABD/PEL WO IVCON CT ABD & PELVIS W/O CONTRAST Diana Church, YAMEL.PLUGGER MAN [id number] [facility] [place] [address] Referral ID Status Reason Start Date Expiration Date Visits Requested Visits Authorized [id number] New Request Auto-Generat ed Referral 03/26/2024 04/25/2025 1 1 Chief Complaint and Reason for Visit Chief Complaint confusion Chief Complaint Admit Date Dialysis Access Consult from [facility] 2023 3:29pm PRE OP February 10, 2024 1 :46pm Discuss procedure prior to surgery Valerie torres 2024 12:49pm left upper extremity Arteriovenous Fistu la,Creati March 16, 2024 5:41am left upper extremity Arteriovenous Fistu la,Creati March 16, 2024 7:41am FU fistula having pain March 18 12:55pm Pain in arm where fistula is March 3:25pm Post Fistula Ligation 2-3 WK FU April 08, 2024 1:50pm Cough May 13, 2024 9:0 2am Reason for Visit Admit Date ESRD (end stage renal disease) on dialys is February 03, 2024 3:29pm ESRD (end stage renal disease) on dialys is March 09, 2024 12:49pm S/P arteriovenous (AV) fistula creation March 18, 2024 12:55pm S/P arteriovenous (AV) fistula creation March 24, 2024 3:25pm 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 March 24, 2024 3:25pm S/P arteriovenous (AV) fistula creation April 08, 2024 1:50pm 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 April 08, 2024 1:50pm Chief Complaint Admit Date Pain in arm where fistula is March 3:25pm Post Fistula Ligation 2-3 WK FU April 08, 2024 1:50pm Cough May 13, 2024 9:0 2am Discuss AVF Creation Options July 20 1:15pm Reason for Visit Admit Date S/P arteriovenous (AV) fistula creation March 24, 2024 3:25pm 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 March 24, 2024 3:25pm S/P arteriovenous (AV) fistula creation April 08, 2024 1:50pm 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 April 08, 2024 1:50pm Chief Complaint Admit Date Post Fistula Ligation 2-3 WK FU April 08, 2024 1:50pm Cough May 13, 2024 9:0 2am Discuss AVF Creation Options July 20, 025 1:15pm Other transient cerebral ischemic attack s and rela July 29, 2024 9:46am Reason for Visit Admit Date S/P arteriovenous (AV) fistula creation April 08, 2024 1:50pm 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 April 08, 2024 1:50pm ESRD (end stage renal disease) on dialys is July 20, 2024 1:15pm Additional Source Comments INFORMATION SOURCE (unrecogn ized section and content) DATE CREATED AUTHOR 08/28/2017 [facility] DATE CREATED AUTHOR AUTHOR'S ORGANIZ ATION 01/23/2018 [facility] DATE CREATED AUTHOR AUTHOR'S ORGANIZ ATION 03/26/2021 [facility] DATE CREATED AUTHOR AUTHOR'S ORGANIZ ATION 01/17/2023 [facility] ([place]) DATE CREATED AUTHOR AUTHOR'S ORGANIZ ATION 09/30/2023 [facility] DATE CREATED AUTHOR AUTHOR'S ORGANIZ ATION 10/30/2023 [facility] DATE CREATED AUTHOR AUTHOR'S ORGANIZ ATION 11/28/2023 [facility] DATE CREATED AUTHOR AUTHOR'S ORGANIZ ATION 01/30/2024 [facility] DATE CREATED AUTHOR AUTHOR'S ORGANIZ ATION 03/21/2024 [facility] DATE CREATED AUTHOR AUTHOR'S ORGANIZ ATION 06/09/2024 [facility] DATE CREATED AUTHOR AUTHOR'S ORGANIZ ATION 01/01/2025 [facility] Reason for Visit (unrecogniz ed section and content) Reason Comments Medication Refill Reason Comments Follow-up 1 month follow up Reason Comments Emesis Status Reason Specialty Diagnoses / Procedures Re ferred By Contact Referred To Contact Closed Gastroenterology Diagnoses Nausea and vomiting, intractability of vomiting not specified, unspecified vomiting type Ely Juarez MD [address] [facility] [address] [place] [address] [facility] [address] [place] [address] [address] [place] [address] Reason Comments MONOCLONAL GAMMOPATHY Reason Comments Follow-up S/P D/C EKG changes - patient was in ER d/t nausea and vomiting Status Reason Specialty Diagnoses / Procedures Referred By Contact Referred To Contact Pending Review Cardiology Diagnoses Essential (primary) hypertension Chronic kidney disease, stage III (moderate) (HCC) Procedures Ultrasound renal artery duplex, complete Wolfgang Matias MD [address] [place] [address] Status Reason Specialty Diagnoses / Procedures Referred By Contact Referred To Contact Pending Review Cardiology Diagnoses Syncope and collapse Procedures Tilt table Reinaldo Pena MD [address] [place] [address] Reason Comments Follow-up Abnormal carotid sti ll vomitting Reason Comments Follow-up jen, dup Reason Comments Nausea Emesis Reason Comments Referral - Kidney Txp Reason Comments Referral - Kidney Txp Advice Only Reason Comments Referral - Kidney Txp Pt choice to close referral Anjel Abraham MD - 08/25/2018 2:37 PM EDT Procedure Notes (unrecognize d section and content) Procedures Indications/Pre-Op Diagnosis:: Dizziness. Conclusions / Diagnosis: Negative Tilt Study. . Recommendations: Continued medical therapy Comments: Technique: Following informed consent, the patient was brought to the procedural room in a fasting state. The patient willfully agreed to undergo the procedure and signed the appropriate consent form. The patient was connected to continuous cardiac rhythm and vital sign monitoring. Baseline recordings in basal supine state were obtained. After an appropriate period of supine observation, the patient was placed in a head upright tilt position. Continuous observation and hemodynamic monitoring was performed. After observing the patient for a period of 20 minutes in the upright position the patient was then placed in supine position. The patient was further observed and recovered before leaving the procedural area in stable condition. Complications: No immediate complications. ----- Procedure Data @CVTILTFLT@ See nursing notes for further details documented in this encounter Telephone Encounter - Karon Jara CMA - 03/24/2019 9:31 AM ESTAssessment & Plan Note - Reinaldo Lerma MD - 12/16/2018 12:58 PM EDT Miscellaneous Notes (unrecog nized section and content) Verbally called in. documented in this encounter Associated Problem(s): Coronary artery disease From an anginal standpoint the patient appears stable. She is having no chest pain or pressure symptoms. She does note fatigue in her legs when she is walking, is not reporting PND, orthopnea, or lower extremity edema. She has not had palpitations or cardiac awareness. She brought in diaries of blood pressures from home they remain moderately elevated. I advanced her carvedilol to 25 twice a day, consideration to advancing that to 37.5 or even 50 twice a day may be reviewed. Cholesterol in April total was 184 LDL is 128. She remains on rouvastatin, I would consider advancing this to 40 mg. She remains on high-dose rouvastatin, 40 mg. We could review potentially treatment with a PC SK 9 inhibitor. Her medications were reviewed otherwise, I do not believe she needs any additional changes. We will continue to follow her periodically here in the clinic. documented in this encounter Care Teams (unrecognized sec tion and content) Legal Manager Relationship Specialty Start Date End Date Sujey Fonseca MD [address] [place] [id number] PCP - General Internal Medicine 01/21/18 Marcell Pichardo MD Vascular Surgery 08/22/16 Wolfgang Matias MD [address] [place] [address] Consulting Physician Nephrology 10/05/16 Matt De León DO [address] [place] [address] Consulting Physician Cardiology 10/05/16 0 Reinaldo Lerma MD [address] [place] [address] [id number] Consulting Physician Cardiology 12/14/19 Darlyn Meredith CNP [address] [place] [address] [phone] Nurse Practitioner Nurse Practitioner 12/28/19 Team Status: Active Member Role Status Dates Family Provider Active Dr. Sujey Fonseca MD Primary Care Provider Active Team Status: Inactive Member Role Status Dates Dr. Sujey Fonseca MD Primary Care Provider Active Dr. Geraldo Amado MD Emergency Provider Active Legal Manager Relationship Specialty Start Date End Date Sujey Fonseca MD [address] [place] [address] [address] [place], [place] [id number] PCP - General Internal Medicine 01/21/18 Marcell Pichardo MD Vascular Surgery 08/22/16 Wolfgang Matias MD [address] [place] [address] Consulting Physician Nephrology 10/05/16 Reinaldo Lerma MD [address] [place] [address] [phone] Consulting Physician Cardiology 12/14/19 Darlyn Meredith CNP [address] [place] [address] [place] [address] [id number] Nurse Practitioner Nurse Practitioner 12/28/19 Legal Manager Relationship Specialty Start Date End Date Ely Juarez MD PCP - General Infectious Diseases 02/09/16 Legal Manager Relationship Specialty Start Date End Date Ely Juarez MD PCP - General Infectious Diseases 02/09/16 Legal Manager Relationship Specialty Start Date End Date Ely Juarez MD PCP - General Infectious Diseases 02/09/16 Legal Manager Relationship Specialty Start Date End Date Ely Juarez MD PCP - General Infectious Diseases 02/09/16 Team Status: Active Member Role Status Dates Dr. Sujey Fonseca MD Primary Care Provider Active Team Status: Inactive Member Role Status Dates Dr. Sujey Fonseca MD Primary Care Provider Active Start: February 03, 2024 End: February 03, 2024 Dr. Sujey Fonseca MD Referring Provider Active Start: February 03, 2024 End: February 03, 2024 Dr. Ernie De Jesus MD Attending Provider Active S tart: February 03, 2024 End: February 03, 2024 Team Status: Inactive Member Role Status Dates Dr. Sujey Fonseca MD Primary Care Provider Active Start: February 10, 2024 End: February 10, 2024 Dr. Ernie De Jesus MD Attending Provider Active S tart: February 10, 2024 End: February 10, 2024 Dr. Ernie De Jesus MD Referring Provider Active S tart: February 10, 2024 End: February 10, 2024 Team Status: Active Member Role Status Dates Dr. Sujey Fonseca MD Primary Care Provider Active Start: February 10, 2024 Dr. Ernie De Jesus MD Attending Provider Active S tart: February 10, 2024 Dr. Ernie De Jesus MD Referring Provider Active S tart: February 10, 2024 Team Status: Inactive Member Role Status Dates Dr. Sujey Fonseca MD Primary Care Provider Active Start: March 09, 2024 End: March 09, 2024 Dr. Sujey Fonseca MD Referring Provider Active Start: March 09, 2024 End: March 09, 2024 Dr. Ernie De Jesus MD Attending Provider Active S tart: March 09, 2024 End: March 09, 2024 Team Status: Inactive Member Role Status Dates Dr. Sujey Fonseca MD Primary Care Provider Active Start: March 16, 2024 End: March 16, 2024 Dr. Ernie De Jesus MD Attending Provider Active S tart: March 16, 2024 End: March 16, 2024 Dr. Ernie De Jesus MD Referring Provider Active S tart: March 16, 2024 End: March 16, 2024 Team Status: Active Member Role Status Dates Dr. Sujey Fonseca MD Primary Care Provider Active Start: March 16, 2024 Dr. Ernie De Jesus MD Attending Provider Active S tart: March 16, 2024 Dr. Ernie De Jesus MD Referring Provider Active S tart: March 16, 2024 Dr. Ernie De Jesus MD Other Provider Active Start : March 16, 2024 Team Status: Inactive Member Role Status Dates Dr. Sujey Fonseca MD Primary Care Provider Active Start: March 18, 2024 End: March 18, 2024 Dr. Sujey Fonseca MD Referring Provider Active Start: March 18, 2024 End: March 18, 2024 RICA Peralta Attending Provider Active Star t: March 18, 2024 End: March 18, 2024 Team Status: Inactive Member Role Status Dates Dr. Sujey Fonseca MD Primary Care Provider Active Start: March 24, 2024 End: March 24, 2024 Dr. Sujey Fonseca MD Referring Provider Active Start: March 24, 2024 End: March 24, 2024 RICA Peralta Attending Provider Active Star t: March 24, 2024 End: March 24, 2024 Team Status: Inactive Member Role Status Dates Dr. Sujey Fonseca MD Primary Care Provider Active Start: March 26, 2024 End: March 26, 2024 Dr. Ernie De Jesus MD Attending Provider Active S tart: March 26, 2024 End: March 26, 2024 Dr. Ernie De Jesus MD Referring Provider Active S tart: March 26, 2024 End: March 26, 2024 Team Status: Active Member Role Status Dates Dr. Sujey Fonseca MD Primary Care Provider Active Start: March 26, 2024 Dr. Ernie De Jesus MD Attending Provider Active S tart: March 26, 2024 Dr. Ernie De Jesus MD Referring Provider Active S tart: March 26, 2024 Dr. Ernie De Jesus MD Other Provider Active Start : March 26, 2024 Team Status: Inactive Member Role Status Dates Dr. Sujey Fonseca MD Primary Care Provider Active Start: April 08, 2024 End: April 08, 2024 Dr. Sujey Fonseca MD Referring Provider Active Start: April 08, 2024 End: April 08, 2024 RICA Peralta Attending Provider Active Star t: April 08, 2024 End: April 08, 2024 Team Status: Inactive Member Role Status Dates Dr. Sujey Fonseca MD Primary Care Provider Active Start: May 13, 2024 End: May 13, 2024 Dr. Sujey Fonseca MD Attending Provider Active Start: May 13, 2024 End: May 13, 2024 Dr. Sujey Fonseca MD Referring Provider Active Start: May 13, 2024 End: May 13, 2024 Legal Manager Relationship Specialty Start Date End Date Ely Juarez MD PCP - General Infectious Diseases 02/09/16 Team Status: Inactive Member Role Status Dates Dr. Sujey Fonseca MD Primary Care Provider Active Start: July 20, 2024 End: July 20, 2024 Dr. Sujey Fonseca MD Referring Provider Active Start: July 20, 2024 End: July 20, 2024 Dr. Ernie De Jesus MD Attending Provider Active S tart: July 20, 2024 End: July 20, 2024 Team Status: Inactive Member Role Status Dates Dr. Sujey Fonseca MD Primary Care Provider Active Start: July 29, 2024 End: July 29, 2024 Dr. Ernie De Jesus MD Attending Provider Active S tart: July 29, 2024 End: July 29, 2024 Dr. Ernie De Jesus MD Referring Provider Active S tart: July 29, 2024 End: July 29, 2024 Team Status: Active Member Role Status Dates Dr. Sujey Fonseca MD Primary Care Provider Active Start: July 29, 2024 Dr. Ernie De Jesus MD Attending Provider Active S tart: July 29, 2024 Goals (unrecognized section and content) Goals may be documented in a n alternate sectionGoals may be documented in an alternate section Source Comments (unrecognize d section and content) In the event this informatio n is protected by the Federal Confidentiality of Alcohol and Drug Abuse Patient Records regulations: The Federal rules restrict any use of the information to criminally investigate or prosecute any alcohol or drug abuse patient.[facility] the event this information is protected by the Federal Confidentiality of Alcohol and Drug Abuse Patient Records regulations: The Federal rules restrict any use of the information to criminally investigate or prosecute any alcohol or drug abuse patient.[facility] the event this information is protected by the Federal Confidentiality of Alcohol and Drug Abuse Patient Records regulations: The Federal rules restrict any use of the information to criminally investigate or prosecute any alcohol or drug abuse patient.[facility] the event this information is protected by the Federal Confidentiality of Alcohol and Drug Abuse Patient Records regulations: The Federal rules restrict any use of the information to criminally investigate or prosecute any alcohol or drug abuse patient.[facility] the event this information is protected by the Federal Confidentiality of Alcohol and Drug Abuse Patient Records regulations: The Federal rules restrict any use of the information to criminally investigate or prosecute any alcohol or drug abuse patient.[facility] the event this information is protected by the Federal Confidentiality of Alcohol and Drug Abuse Patient Records regulations: The Federal rules restrict any use of the information to criminally investigate or prosecute any alcohol or drug abuse patient.[facility] the event this information is protected by the Federal Confidentiality of Alcohol and Drug Abuse Patient Records regulations: The Federal rules restrict any use of the information to criminally investigate or prosecute any alcohol or drug abuse patient.[facility] the event this information is protected by the Federal Confidentiality of Alcohol and Drug Abuse Patient Records regulations: The Federal rules restrict any use of the information to criminally investigate or prosecute any alcohol or drug abuse patient.[facility] FOR RECORDS PERTAINING TO PATIENTS WHO ARE OR HAVE BEEN ENROLLED IN A CHEMICAL DEPENDENCY/SUBSTANCEABUSE PROGRAM, SOME INFORMATION MAY BE OMITTED. This clinical summary was aggregated from multiple sources. Caution should be exercised in using it in the provision of clinical care. This summary normalizes information from multiple sources, and as a consequence, information in this document may materially change the coding, format and clinical context of patient data. In addition, data may be omitted in some cases. CLINICAL DECISIONS SHOULD BE BASED ON THE PRIMARY CLINICAL RECORDS. [facility] [employer] [facility] provides no warranty or guarantee of the accuracy or completeness of information in this document.
[2025-02-11 07:54] LABS: Anion Gap 18 (5-15); BUN 31 mg/dL (4-19); BUN/Creat Ratio 6.5 RATIO (10-20); Calcium,Total 9.8 mg/dL (7.6-11.0); Carbon Dioxide 23.9 mmol/L (21.0-32.0); Chloride 100 mmol/L (98-108); Estimated Creatinine Clearance 9.28 ml/min (50-250); Glucose 81 mg/dL (70-99); Magnesium 1.8 mg/dL (1.5-2.2); Potassium 4.7 mmol/L (3.3-5.1)
--- NOTE | 2025-02-11 09:14 | PCM.HP.STD ---
HPI - General General Date of Admission: 02/11/25 Date of Service: 02/11/25 Chief Complaint: Shortness of breath HPI Narrative ANGELA REID, is a 74 F who presents to the emergency room at [facility] with complaints of shortness of breath which started yesterday. Patient does not wear oxygen at home, she is a chronic dialysis patient and receives dialysis next today. Workup in the emergency room included labs which revealed a normal white blood cell count, hemoglobin was 12.1, chemistry profile showed an elevated creatinine of 4.73 and a BUN of 31. Chest x-ray showed evidence of pulmonary edema and interstitial pulmonary edema. Patient required 4 L of oxygen to maintain her pulse ox above 90%. Patient will be admitted to PCU for fluid overload, nephrology was contacted and will participate in her care, her blood pressure medications may have to be adjusted due to poor blood pressure control. [facility] Medical History Loss of hearing Wears glasses Hx of sepsis MRSA infection Depression Anxiety Thyroid disease History of renal dialysis Hemodialysis catheter malfunction History of renal disease Anemia High cholesterol Easy bruising Restless legs Injury of head and neck Syncope Dietary restriction Gastric reflux Former smoker Leg cramps History of pain when walking PVD (peripheral vascular disease) History of edema Typhoid fever History of rheumatic fever History of echocardiogram History of stress test Cardiology follow-up encounter History of cardiac murmur Seizures HTN (hypertension) Home Medications ?Medication ?Instructions ?Recorded ?Last Taken ?Type acetaminophen 500 mg capsule 500 mg PO Q6H PRN pain 02/03/24 03/15/24 History alendronate 70 mg tablet 70 mg PO QWEEK 02/03/24 Unknown History ascorbic acid 125 mg-collagen, 1 cap PO DAILY 02/03/24 03/15/24 History hydrolyzed 740 mg capsule (Collagen Plus Vitamin C) aspirin 81 mg tablet,delayed 81 mg PO QODAY 02/03/24 03/25/24 History release bupropion HCl 300 mg 24 hr tablet, 300 mg PO QAM 02/03/24 03/26/24 History extended release calcium 600 mg (as 1 tab PO BID 02/03/24 03/15/24 History carbonate)-vitamin D3 10 mcg (400 unit) tablet (Calcium 600 + D(3)) carvedilol 3.125 mg tablet 3.125 mg PO BID 02/03/24 03/26/24 History cholecalciferol (vitamin D3) 125 125 mcg PO QDAY 02/03/24 03/15/24 History mcg (5,000 unit) capsule cilostazol 50 mg tablet 100 mg PO BID 02/03/24 03/15/24 History evolocumab 140 mg/mL subcutaneous 140 mg subcut Q2W 02/03/24 Unknown History syringe ezetimibe 10 mg tablet 10 mg PO QDAY 02/03/24 Unknown History gabapentin 300 mg capsule 300 mg PO QHS PRN PRN restless 02/03/24 Unknown History leg(s) isosorbide mononitrate 30 mg 30 mg PO QDAY 02/03/24 03/26/24 History tablet,extended release 24 hr levetiracetam 500 mg tablet 500 mg PO BID 02/03/24 03/26/24 History levothyroxine 75 mcg capsule 75 mcg PO QDAY 02/03/24 03/26/24 History lisinopril 5 mg tablet 5 mg PO QDAY 02/03/24 03/16/24 History magnesium oxide 400 mg PO TID 02/03/24 Unknown History multivitamin (Daily Multi-Vitamin 1 tab PO QDAY 02/03/24 Unknown History tablet) omeprazole 20 mg capsule,delayed 20 mg PO QDAY 02/03/24 03/26/24 History release ondansetron HCl 4 mg tablet 4 mg PO Q8H PRN PRN nausea and 02/03/24 Unknown History vomiting rosuvastatin 40 mg tablet 40 mg PO QHS 02/03/24 Unknown History oxycodone 5 mg tablet 5 mg PO Q8H PRN pain 1 day #3 tabs 03/26/24 Unknown Rx Allergy/AdvReac Type Severity Reaction Status Date / Time fentanyl Allergy Severe Other Verified 02/11/25 04:50 amlodipine (From Norvasc) Allergy Other Verified 02/11/25 04:50 hydromorphone (From Dilaudid) Allergy Other Verified 02/11/25 04:50 Family History Other CVA (cerebral vascular accident) Diabetes Heart disease Hypertension Thyroid disorder Surgical History Hx of vascular surgery Hx of tonsillectomy Hx of arterial bypass of lower limb Hx of foot surgery Social History Smoking Status: Former smoker Tobacco: How many years used: 20 how long ago did patient quit smokin yrs ago ROS Constitutional Constitutional: Denies anorexia, change in weight, chills, fatigue, fever(s), night sweats or weakness Eyes Eyes: Denies blurry vision, change in vision, discharge from eye(s) or eye pain Cardiovascular Cardiovascular: Denies chest pain, claudication, edema or palpitations Respiratory/Chest Respiratory/Chest: Reports shortness of breath at rest and shortness of breath with exertion; Denies cough or hemoptysis Gastrointestinal Gastrointestinal: Denies abdominal pain, constipation, diarrhea, hematemesis, hematochezia, melena, nausea or vomiting Genitourinary Genitourinary: Denies dysuria, hematuria, urinary frequency, urinary hesitancy, urinary incontinence or urinary urgency Musculoskeletal Musculoskeletal: Denies back pain, joint pain, joint stiffness, joint swelling, myalgias or neck pain Neurologic Neurologic: Denies abnormal gait, abnormal speech, dizziness, focal weakness, headache(s), loss of vision, numbness, other visual disturbances, paresthesias, syncope or tingling Psychiatric Psychiatric: Denies anxiety, cognitive impairment, depression, irritability, mood swings or suicidal ideation Endocrine Endocrinology: Denies change in body appearance, cold intolerance, excessive sweating, heat intolerance, polydipsia or polyuria Hematologic/Lymphatic Hematologic/Lymphatic: Denies none, anemia, easy bleeding, easy bruising or lymphadenopathy Allergic/Immunologic Allergic/Immunologic: Denies rhinitis, urticaria, eczemia or asthma Vital Signs Vital Signs Vital Signs: 02/11/25 04:50 02/11/25 04:53 02/11/25 04:56 Temperature 97.7 F L 97.7 F L Temperature Source Oral Oral Pulse Rate 109 H 110 H Respiratory Rate 24 H 22 H Respiratory Effort Respiratory Depth Respiratory Pattern Blood Pressure 230/146 H 231/141 H Blood Pressure Mean 174 171 Pulse Ox 75 85 90 Oxygen Delivery Method Room Air Nasal Cannula Nasal Cannula Oxygen Flow Rate (L/min) 2 4 02/11/25 05:39 02/11/25 05:41 02/11/25 06:00 Temperature 98.8 F 98.4 F Temperature Source Oral Oral Pulse Rate 105 H 102 H Respiratory Rate 24 H 20 H Respiratory Effort Short of Breath Respiratory Depth Normal Respiratory Pattern Tachypnea Blood Pressure 216/146 H 217/132 H Blood Pressure Mean 169 160 Pulse Ox 91 95 Oxygen Delivery Method Nasal Cannula Nasal Cannula Nasal Cannula Oxygen Flow Rate (L/min) 4 4 02/11/25 07:38 02/11/25 07:54 02/11/25 09:07 Temperature 98 F Temperature Source Pulse Rate 101 H 91 Respiratory Rate 19 H 24 H Respiratory Effort Non-Labored Respiratory Depth Respiratory Pattern Blood Pressure 195/127 H 193/112 H Blood Pressure Mean 149 139 Pulse Ox 98 99 Oxygen Delivery Method Nasal Cannula Nasal Cannula Oxygen Flow Rate (L/min) 3 Weight Weight: 57.1 kg Body Mass Index (BMI) 21.6 Physical Exam Const alert, oriented x3, no apparent distress and average body habitus General Appearance: cooperative, well kempt and well developed Orientation / Consciousness: awake, oriented to person, oriented to place and oriented to time HEENT normocephalic, head/scalp atraumatic, hearing grossly normal bilaterally and moist oral mucous membranes Eyes PERRL, EOMs intact bilaterally and conjunctivae normal Neck supple, no JVD, thyroid normal and no carotid bruits General: trachea midline Resp normal respiratory effort, no retractions and no use of accessory muscles Resp Narrative: Diminished breath sounds bilaterally Auscultation: Negative for rales, rhonchi or wheezes Cardio regular rate, regular rhythm, S1 normal heart sound, S2 normal heart sound, no murmurs, no rub and no gallops Cardio Narrative: Heart rate and rhythm is tachycardic GI normal to inspection, nondistended, normoactive bowel sounds, soft to palpation, non-tender and non-distended Extremity no clubbing, cyanosis or edema Skin no rashes or lesions noted General Skin Exam: no breakdown Neuro oriented x3, CN's II-XII intact bilaterally, no focal motor deficits and no sensory deficits noted Sensorium / Orientation: awake and alert Speech: speech normal Psych affect normal Results Lab / Micro Data 02/11/25 05:30 02/11/25 07:20 Labs: Laboratory Results - last 24 hr 02/11/25 05:30: WBC 9.7, RBC 3.84 L, Hgb 12.1, Hct 38.2, MCV 99.5 H, MCH 31.5, MCHC 31.7 L, RDW Std Deviation 55.8 H, RDW Coeff of [place] 15.4 H, Plt Count 140 L, MPV 11.8, Immature Gran % (Auto) 0.400, Neut % (Auto) 78.5 H, Lymph % (Auto) 15.3 L, [place] % (Auto) 4.5, Eos % (Auto) 0.8, Baso % (Auto) 0.5, Absolute Neuts (auto) 7.6, Absolute Lymphs (auto) 1.48, Nucleated RBC % 0, Sodium Cancelled, Potassium Cancelled, Chloride Cancelled, Carbon Dioxide Cancelled, Anion Gap Cancelled, BUN Cancelled, Creatinine Cancelled, Estim Creat Clear Calc Cancelled, Est GFR (MDRD) Non-Af Cancelled, BUN/Creatinine Ratio Cancelled, Glucose Cancelled, Calcium Cancelled, Phosphorus Cancelled, Magnesium Cancelled 02/11/25 07:20: Sodium 141, Potassium 4.7, Chloride 100, Carbon Dioxide 23.9, Anion Gap 18 H, BUN 31 H, Creatinine 4.73 H, Estim Creat Clear Calc 9.28 L*, Est GFR (MDRD) Non-Af 9 L, BUN/Creatinine Ratio 6.5 L, Glucose 81, Calcium 9.8, Phosphorus 4.8 H, Magnesium 1.8 Micro: Microbiology 02/11/25 05:45 Mucosa - Nose SARS-CoV-2, Influenza & RSV (PCR) - Final Imaging Radiology Impression Chest X-Ray 02/11/25 05:50 IMPRESSION: Right internal jugular double-lumen central catheter is in good position with its tip in the superior vena cava. Interval appearance of alveolar pulmonary edema. Interval appearance of interstitial pulmonary edema. Reading [facility] [id number] Assessment & Plan Assessment/Plan (1) Acute respiratory failure with hypoxia: PLAN: Plan 1. Fluid overload with hypoxia secondary to end-stage renal disease-patient will be admitted to PCU, nephrology will participate in her care, she will receive dialysis today #2 uncontrolled hypertension-blood pressure will be monitored, and may be necessary to adjust her home blood pressure medications #3 hyperlipidemia-patient is on Zetia and Repatha, Zetia will be continued #4 hypothyroidism-patient is on Synthroid #5 seizure disorder-patient is on Keppra Total clinical time spent by myself addressing the patient's medical issues, reviewing all of her data, and collaborating with patient's care team: 55 minutes Charges/Coding Visit Charges Inpatient E&M: 19970 Init Hosp L2
[2025-02-11] MEDS: 0.9% Normal Saline 1,000 ML IV.SOLN. 1000 ML OPERA.SITE (10:40)
[2025-02-11] MEDS: PureFlow B 2K Dialysis Soln 1 BAG 6 BAG PF (10:40)
--- NOTE | 2025-02-11 14:00 | PCM.CONS.R ---
Assessment & Plan Assessment/Plan (1) ESRD (end stage renal disease) on dialysis: (2) Hypertension: PLAN: Plan This is a 74-year-old female with past medical history significant for ESRD on hemodialysis Saturday admitted after presenting to the emergency room with complaints of shortness of breath, chest x-ray showing pulmonary edema. Patient undergoing hemodialysis today and attempting fluid removal as patient/blood pressure tolerates. Goal fluid removal with HD today had to be back down due to hypotension, systolic going into the 80s therefore should be able to remove 1.5 L with dialysis today. Discussed with patient we will evaluate ultrafiltration/fluid removal needs tomorrow for dialysis. Likely EDW will be lowered. Patient has history of hypertension on multiple antihypertensives. Even if small amount of fluid is attempted to be removed during dialysis in outpatient setting blood pressure significantly drops with systolic going less than 100 and patient becoming asymptomatic therefore fluid removal during dialysis is limited. Hemoglobin at goal. Further orders forthcoming as hospitalization evolves, thank you for allowing us to participate in the care of chas Reid. Assessment and plan reviewed with Dr. Diggs. HPI Consult Data Date of Consult: 02/11/25 HPI Narrative HPI Narrative: ANGELA REID, is a 74 F who presented to the ER with difficulty breathing. Chest x-ray in the emergency room showed pulmonary edema and interstitial pulmonary edema, patient was requiring oxygen. She was also noted be hypertensive therefore admitted for further evaluation and treatment. Nephrology consulted as patient has history of ESRD on hemodialysis. Patient currently dialyzes at [facility] [place] followed by Dr. Diggs. Patient is compliant with her dialysis sessions, last dialyzed on February 09. Patient typically does not have any fluid gain and therefore typically during dialysis no fluid removal because of cramping and also significant hypotension once patient gets on dialysis machine. Her blood pressures are normally elevated predialysis. Patient currently denies any chest pain. States breathing has improved somewhat. Patient was seen and examined during dialysis session today. [facility] Medical History Loss of hearing Wears glasses Hx of sepsis MRSA infection Depression Anxiety Thyroid disease History of renal dialysis Hemodialysis catheter malfunction History of renal disease Anemia High cholesterol Easy bruising Restless legs Injury of head and neck Syncope Dietary restriction Gastric reflux Former smoker Leg cramps History of pain when walking PVD (peripheral vascular disease) History of edema Typhoid fever History of rheumatic fever History of echocardiogram History of stress test Cardiology follow-up encounter History of cardiac murmur Seizures HTN (hypertension) Home Medications ?Medication ?Instructions ?Recorded ?Last Taken ?Type acetaminophen 500 mg capsule 500 mg PO Q6H PRN pain 02/03/24 03/15/24 History alendronate 70 mg tablet 70 mg PO QWEEK 02/03/24 Unknown History ascorbic acid 125 mg-collagen, 1 cap PO DAILY 02/03/24 03/15/24 History hydrolyzed 740 mg capsule (Collagen Plus Vitamin C) aspirin 81 mg tablet,delayed 81 mg PO QODAY 02/03/24 03/25/24 History release bupropion HCl 300 mg 24 hr tablet, 300 mg PO QAM 02/03/24 03/26/24 History extended release calcium 600 mg (as 1 tab PO BID 02/03/24 03/15/24 History carbonate)-vitamin D3 10 mcg (400 unit) tablet (Calcium 600 + D(3)) carvedilol 3.125 mg tablet 3.125 mg PO BID 02/03/24 03/26/24 History cholecalciferol (vitamin D3) 125 125 mcg PO QDAY 02/03/24 03/15/24 History mcg (5,000 unit) capsule cilostazol 50 mg tablet 100 mg PO BID 02/03/24 03/15/24 History evolocumab 140 mg/mL subcutaneous 140 mg subcut Q2W 02/03/24 Unknown History syringe ezetimibe 10 mg tablet 10 mg PO QDAY 02/03/24 Unknown History gabapentin 300 mg capsule 300 mg PO QHS PRN PRN restless 02/03/24 Unknown History leg(s) isosorbide mononitrate 30 mg 30 mg PO QDAY 02/03/24 03/26/24 History tablet,extended release 24 hr levetiracetam 500 mg tablet 500 mg PO BID 02/03/24 03/26/24 History levothyroxine 75 mcg capsule 75 mcg PO QDAY 02/03/24 03/26/24 History lisinopril 5 mg tablet 5 mg PO QDAY 02/03/24 03/16/24 History magnesium oxide 400 mg PO TID 02/03/24 Unknown History multivitamin (Daily Multi-Vitamin 1 tab PO QDAY 02/03/24 Unknown History tablet) omeprazole 20 mg capsule,delayed 20 mg PO QDAY 02/03/24 03/26/24 History release ondansetron HCl 4 mg tablet 4 mg PO Q8H PRN PRN nausea and 02/03/24 Unknown History vomiting rosuvastatin 40 mg tablet 40 mg PO QHS 02/03/24 Unknown History oxycodone 5 mg tablet 5 mg PO Q8H PRN pain 1 day #3 tabs 03/26/24 Unknown Rx Allergy/AdvReac Type Severity Reaction Status Date / Time fentanyl Allergy Severe Other Verified 02/11/25 04:50 amlodipine (From Norvasc) Allergy Other Verified 02/11/25 04:50 hydromorphone (From Dilaudid) Allergy Other Verified 02/11/25 04:50 Family History Other CVA (cerebral vascular accident) Diabetes Heart disease Hypertension Thyroid disorder Surgical History Hx of vascular surgery Hx of tonsillectomy Hx of arterial bypass of lower limb Hx of foot surgery Social History Smoking Status: Former smoker Tobacco: How many years used: 20 how long ago did patient quit smokin yrs ago ROS ROS Narrative As in HPI otherwise negative Physical Exam Narrative Alert orient x 3, no apparent distress S1, S2, RRR Diminished breath sound, on O2 nasal cannula Abdomen soft, nontender No edema Lab / Micro Data 02/11/25 05:30 02/11/25 07:20 Labs: Laboratory Results - last 24 hr 02/11/25 05:30: WBC 9.7, RBC 3.84 L, Hgb 12.1, Hct 38.2, MCV 99.5 H, MCH 31.5, MCHC 31.7 L, RDW Std Deviation 55.8 H, RDW Coeff of [place] 15.4 H, Plt Count 140 L, MPV 11.8, Immature Gran % (Auto) 0.400, Neut % (Auto) 78.5 H, Lymph % (Auto) 15.3 L, Yates % (Auto) 4.5, Eos % (Auto) 0.8, Baso % (Auto) 0.5, Absolute Neuts (auto) 7.6, Absolute Lymphs (auto) 1.48, Nucleated RBC % 0, Sodium Cancelled, Potassium Cancelled, Chloride Cancelled, Carbon Dioxide Cancelled, Anion Gap Cancelled, BUN Cancelled, Creatinine Cancelled, Estim Creat Clear Calc Cancelled, Est GFR (MDRD) Non-Af Cancelled, BUN/Creatinine Ratio Cancelled, Glucose Cancelled, Calcium Cancelled, Phosphorus Cancelled, Magnesium Cancelled 02/11/25 07:20: Sodium 141, Potassium 4.7, Chloride 100, Carbon Dioxide 23.9, Anion Gap 18 H, BUN 31 H, Creatinine 4.73 H, Estim Creat Clear Calc 9.28 L*, Est GFR (MDRD) Non-Af 9 L, BUN/Creatinine Ratio 6.5 L, Glucose 81, Calcium 9.8, Phosphorus 4.8 H, Magnesium 1.8 Micro: Microbiology 02/11/25 05:45 Mucosa - Nose SARS-CoV-2, Influenza & RSV (PCR) - Final Imaging Radiology Impression Chest X-Ray 02/11/25 05:50 IMPRESSION: Right internal jugular double-lumen central catheter is in good position with its tip in the superior vena cava. Interval appearance of alveolar pulmonary edema. Interval appearance of interstitial pulmonary edema. [facility]
[2025-02-11] MEDS: Magnesium Chloride 64 MG Delay Rel.Tablet 128 MG PO ×2 (14:26→20:19)
[2025-02-11] MEDS: Cholecalciferol (Vit D3) 125 MCG CAPSULE (5,000 UNITS) PO (14:27)
[2025-02-11] MEDS: Calcium Carb/Vitamin D 1 TABLET Tablet PO ×2 (14:27→18:15)
[2025-02-11] MEDS: buPROPion (XL) 300 MG TABLET.XL PO (14:27)
[2025-02-11] MEDS: Heparin Injection (Vial) 5,000 UNIT/ML VIAL 5000 UNIT SC ×2 (14:28→20:20)
[2025-02-12] VITALS (17 sets, daily range): BP systolic 115–197; BP diastolic 79–137; PULSE 78–98; RESP 14–17; TEMP 35.9–36.9; O2SAT 86–100; BMI 20.8; BMI 20.5
[2025-02-12] MEDS: Magnesium Chloride 64 MG Delay Rel.Tablet 128 MG PO ×2 (05:07→21:20)
[2025-02-12 05:53] LABS: Anion Gap 11 (5-15); BUN 24 mg/dL (4-19); BUN/Creat Ratio 6.2 RATIO (10-20); Calcium,Total 9.5 mg/dL (7.6-11.0); Carbon Dioxide 25.4 mmol/L (21.0-32.0); Chloride 104 mmol/L (98-108); Estimated Creatinine Clearance 11.47 ml/min (50-250); Glucose 78 mg/dL (70-99); Potassium 4.2 mmol/L (3.3-5.1)
[2025-02-12] MEDS: Aspirin E.C. 81 MG Tablet PO (08:58)
[2025-02-12] MEDS: buPROPion (XL) 300 MG TABLET.XL PO (08:59)
[2025-02-12] MEDS: Heparin Injection (Vial) 5,000 UNIT/ML VIAL 5000 UNIT SC ×2 (08:59→21:21)
[2025-02-12] MEDS: Cholecalciferol (Vit D3) 125 MCG CAPSULE (5,000 UNITS) PO (08:59)
--- NOTE | 2025-02-12 09:50 | CASEMGMT ---
GENET LONG Assessment Face to Face with patient for initial transition planning/care coordination assessment. GENET LONG introduced self and role at [facility], pt voices understanding. Pt is A&Ox4 and is resting comfortably in bed and is calm. Care providers, pharmacy, and demographics verified. Admitting dx: Fluid Overload LACE Strata: 2 PCP: Pradeep Fajardo Specialists: Dontae (Nephro) Preferred Pharmacy: [facility] Insurance: MCR A/B, MMO Prescription Benefit: Yes LNOK: Lena (Daughter), Carolynn (Friend ) Living Arrangements: Pt lives with her daughter in a single story apartment with a basement and a FFSU and 2 steps to enter with handrails ADLs/IADLs: Indep, 6-Click score is 24 Transportation: Self, daughter DME: [employer]. Pt is currently requiring additional oxygen and may qualify for home oxygen use. A verbal list of local in-network DME companies were provided to the pt at this time. Pt prefers [facility]Pt denies further needs HHC/SNF: Denies HH Hx. Report SNF hx about 3-4 years ago but cannot recall the name of the agency. HD: Pt reports that she goes to [facility] in [place] q TTS @ 1215. TC to [facility] [place] and notified of pt's admission Pt?s goal: Home Plan: Home with [facility] HD, follow for potential new oxygen. Pt denies the need for HH or OP Tx. Pt states that she feels safe returning home with her daughter once medically ready and denies any further questions or concerns at this time. Say Garrett RN, CM
[2025-02-12] MEDS: 0.9% Normal Saline 1,000 ML IV.SOLN. 1000 ML OPERA.SITE (12:26)
[2025-02-12] MEDS: Calcium Carb/Vitamin D 1 TABLET Tablet PO (16:15)
--- NOTE | 2025-02-12 16:24 | PCM.PN.REN ---
Subjective Subjective did well with UF BP is better Objective Data Objective Data Vital Signs: Vital Signs Temp Pulse Resp BP Pulse Ox O2 Del Method O2 Flow Rate 98.4 F 86 14 186/129 H 100 Room Air 2 02/12/25 09:07 02/12/25 14:33 02/12/25 14:33 02/12/25 14:33 02/12/25 14:33 02/12/25 14:33 02/12/25 13:30 Oxygen Flow Rate (L/min) 2 Oxygen Delivery Method Room Air Weight: 54.4 kg Body Mass Index (BMI) 20.5 Intake & Output: Intake and Output for Last 24 Hours 02/10/25 02/11/25 02/12/25 23:59 23:59 23:59 Intake Total 540 / 540 410 / 410 Output Total 1680 / 1680 1210 / 1210 Balance -1140 / -1140 -800 / -800 Lab / Micro Data 02/11/25 05:30 02/12/25 04:31 Labs: Laboratory Results - last 24 hr 02/12/25 04:31: Sodium 140, Potassium 4.2, Chloride 104, Carbon Dioxide 25.4, Anion Gap 11, BUN 24 H, Creatinine 3.83 H, Estim Creat Clear Calc 11.47 L, Est GFR (MDRD) Non-Af 12 L, BUN/Creatinine Ratio 6.2 L, Glucose 78, Calcium 9.5 Micro: Microbiology 02/11/25 05:45 Mucosa - Nose SARS-CoV-2, Influenza & RSV (PCR) - Final Physical Exam Narrative Alert orient x 3, no apparent distress S1, S2, RRR Diminished breath sound, on O2 nasal cannula Abdomen soft, nontender No edema Assessment & Plan Assessment/Plan (1) ESRD (end stage renal disease) on dialysis: (2) Hypertension: PLAN: Plan This is a 74-year-old female with past medical history significant for ESRD on hemodialysis Saturday admitted after presenting to the emergency room with complaints of shortness of breath, chest x-ray showing pulmonary edema. Patient undergoing hemodialysis today and attempting fluid removal as patient/blood pressure tolerates. Goal fluid removal with HD today had to be back down due to hypotension, systolic going into the 80s therefore should be able to remove 1.5 L with dialysis today. Discussed with patient we will evaluate ultrafiltration/fluid removal needs tomorrow for dialysis. Likely EDW will be lowered. Patient has history of hypertension on multiple antihypertensives. Even if small amount of fluid is attempted to be removed during dialysis in outpatient setting blood pressure significantly drops with systolic going less than 100 and patient becoming asymptomatic therefore fluid removal during dialysis is limited. Hemoglobin at goal. Further orders forthcoming as hospitalization evolves, thank you for allowing us to participate in the care of this [place]. Assessment and plan reviewed with Dr. Diggs. 02/12. UF today. did well. BP is ok. adjusted EDW as outpatient
--- NOTE | 2025-02-12 16:33 | CHAPLAIN ---
Type of Pastoral Visit ___ Initial Visit ___ Follow-up Visit ___ On-call Visit ___ General Patient Visit ___ Spiritual Assessment ___ Family Conference ___ Bereavement ___ Rapid Response ___ Code Blue ___ Other (describe below) Pastoral Care Referral From ___ Patient ___ Family ___ Nurse ___ Physician ___ Manager Medicaid ___ [place] And M Supervisor ___ Other (describe below) Sacrament/Intervention ___ Active listening ___ Anointing ___ Holiness ___ Bereavement ___ Communion ___ Key exploration ___ ___ Life review ___ Prayer ___ Reconciliation ___ Sacrament of Sick ___ Supportive presence ___ Wedding ___ Other (describe below) Pastoral Comments
--- NOTE | 2025-02-12 19:32 | PCM.PN.HOSP ---
Reason for Visit Chief Complaint: Shortness of breath Subjective Subjective Patient was seen and examined today, she is still requiring low-flow nasal cannula oxygen. Nephrology is going to be taking off flow today rather than doing a full dialysis. Patient's dialysis day as an outpatient is tomorrow. Objective Data Objective Data Vital Signs: Vital Signs Temp Pulse Resp BP Pulse Ox O2 Del Method O2 Flow Rate 98.4 F 86 14 186/129 H 100 Room Air 2 02/12/25 09:07 02/12/25 14:33 02/12/25 14:33 02/12/25 14:33 02/12/25 14:33 02/12/25 14:33 02/12/25 13:30 Oxygen Flow Rate (L/min) 2 Oxygen Delivery Method Room Air Weight: 54.4 kg Body Mass Index (BMI) 20.5 Intake & Output: Intake and Output for Last 24 Hours 02/10/25 02/11/25 02/12/25 23:59 23:59 23:59 Intake Total 540 / 540 770 / 770 Output Total 1680 / 1680 1210 / 1210 Balance -1140 / -1140 -440 / -440 Lab / Micro Data 02/11/25 05:30 02/12/25 04:31 Labs: Laboratory Results - last 24 hr 02/12/25 04:31: Sodium 140, Potassium 4.2, Chloride 104, Carbon Dioxide 25.4, Anion Gap 11, BUN 24 H, Creatinine 3.83 H, Estim Creat Clear Calc 11.47 L, Est GFR (MDRD) Non-Af 12 L, BUN/Creatinine Ratio 6.2 L, Glucose 78, Calcium 9.5 Micro: Microbiology 02/11/25 05:45 Mucosa - Nose SARS-CoV-2, Influenza & RSV (PCR) - Final Physical Exam Narrative alert, oriented x3, no apparent distress and average body habitus General Appearance: cooperative, well kempt and well developed Orientation / Consciousness: awake, oriented to person, oriented to place and oriented to time HEENT normocephalic, head/scalp atraumatic, hearing grossly normal bilaterally and moist oral mucous membranes Eyes PERRL, EOMs intact bilaterally and conjunctivae normal Neck supple, no JVD, thyroid normal and no carotid bruits General: trachea midline Resp normal respiratory effort, no retractions and no use of accessory muscles Resp Narrative: Diminished breath sounds bilaterally Auscultation: Negative for rales, rhonchi or wheezes Cardio regular rate, regular rhythm, S1 normal heart sound, S2 normal heart sound, no murmurs, no rub and no gallops Cardio Narrative: Heart rate and rhythm is tachycardic GI normal to inspection, nondistended, normoactive bowel sounds, soft to palpation, non-tender and non-distended Extremity no clubbing, cyanosis or edema Skin no rashes or lesions noted General Skin Exam: no breakdown Neuro oriented x3, CN's II-XII intact bilaterally, no focal motor deficits and no sensory deficits noted Sensorium / Orientation: awake and alert Speech: speech normal Psych affect normal Assessment & Plan Assessment/Plan (1) Acute respiratory failure with hypoxia: PLAN: Plan 1. Fluid overload with hypoxia secondary to end-stage renal disease-patient will undergo fluid Feng movement today by nephrology #2 uncontrolled hypertension-blood pressure will be monitored, patient's blood pressure today is controlled #3 hyperlipidemia-patient is on Zetia and Repatha #4 hypothyroidism-patient is on Synthroid #5 seizure disorder-patient is on Keppra Total clinical time spent by myself addressing the patient's medical issues, reviewing all of her data, and collaborating with patient's care team: 35 minutes Charges/Coding Visit Charges Inpatient E&M: 39710 Subs Hosp L2
[2025-02-13 03:00] VITALS: BP 155/98; PULSE 86; RESP 16; TEMP 35.8; O2SAT 95
[2025-02-13] MEDS: Magnesium Chloride 64 MG Delay Rel.Tablet 128 MG PO (04:52)
[2025-02-13 09:00] VITALS: BP 124/94; PULSE 80; RESP 20; TEMP 36.8; O2SAT 90
[2025-02-13] MEDS: Heparin Injection (Vial) 5,000 UNIT/ML VIAL 5000 UNIT SC (09:05)
[2025-02-13] MEDS: buPROPion (XL) 300 MG TABLET.XL PO (09:10)
[2025-02-13] MEDS: Cholecalciferol (Vit D3) 125 MCG CAPSULE (5,000 UNITS) PO (09:11)
--- NOTE | 2025-02-13 10:25 | DCINST_ITS ---
Discharge Instructions DC O2, CPAP, BIPAP needs Home O2 Discharge instructions: No Dressing / Incision Discharge Activity: Return to Normal Activity Weight Bearing Status: Full weight bearing Follow Up Care Test Results: Test results from this visit will be discussed in further detail at your follow- up appointment, if applicable. Discharge Plan Admission Admit Date/Time: 02/11/25 07:49 Primary Reason for Your Visit: fluid overload Attending Provider: Jaden Kendall Primary Care Provider: Pradeep Fajardo Consulting Providers: Annette Diggs Discharge Orders/Prescriptions Prescriptions: Continued acetaminophen 500 mg capsule 500 mg PO Q6H PRN (Reason: pain) evolocumab 140 mg/mL syringe 140 mg subcut Q2W lisinopril 5 mg tablet 5 mg PO QDAY multivitamin [Daily Multi-Vitamin] Tablet 1 tab PO QDAY levothyroxine 75 mcg capsule 75 mcg PO QDAY aspirin 81 mg tablet,delayed release (DR/EC) 81 mg PO QODAY alendronate 70 mg tablet 70 mg PO QWEEK magnesium oxide 400 mg magnesium tablet 400 mg PO TID levetiracetam 500 mg tablet 500 mg PO BID calcium carbonate-vitamin D3 [Calcium 600 + D(3)] 600 mg-10 mcg (400 unit) tablet 1 tab PO BID isosorbide mononitrate 30 mg tablet extended release 24 hr 30 mg PO QDAY rosuvastatin 40 mg tablet 40 mg PO QHS omeprazole 20 mg capsule,delayed release(DR/EC) 20 mg PO QDAY gabapentin 300 mg capsule 300 mg PO QHS PRN PRN (Reason: restless leg(s)) ondansetron HCl 4 mg tablet 4 mg PO Q8H PRN PRN (Reason: nausea and vomiting) cilostazol 50 mg tablet 100 mg PO BID carvedilol 3.125 mg tablet 3.125 mg PO BID Rx Instructions: must administer with a meal/food bupropion HCl 300 mg tablet extended release 24 hr 300 mg PO QAM ezetimibe 10 mg tablet 10 mg PO QDAY cholecalciferol (vitamin D3) 125 mcg (5,000 unit) capsule 125 mcg PO QDAY Collagen Plus Vitamin C 125-740 mg capsule 1 cap PO DAILY oxycodone 5 mg tablet 5 mg PO Q8H PRN (Reason: pain) 1 Days Qty: 3 0RF Referrals / Follow Up: Pradeep Fajardo MD [Primary Care Provider, Family Practice] - Within 1 Month Disposition Disposition (needs filled in before D/C Order can be placed): Home, Self Care
== END 2025-02-13 10:39 | disposition home or self-care (01) | DRG 189 ==
LOC: ED 07:34 → PCU 08:23
PROVIDERS: Admitting Provider Internal Medicine; Emergency Provider Emergency Medicine; PCP Family Medicine; Visit Provider Internal Medicine
DX: J96.01 Acute respiratory failure with hypoxia (principal); N18.6 End stage renal disease; I12.0 Hypertensive chronic kidney disease with stage 5 chronic kidney disease or end stage renal disease; G40.909 Epilepsy, unspecified, not intractable, without status epilepticus; E03.9 Hypothyroidism, unspecified; E87.70 Fluid overload, unspecified; Z99.2 Dependence on renal dialysis; E87.5 Hyperkalemia; E78.5 Hyperlipidemia, unspecified; Z87.891 Personal history of nicotine dependence; Z79.82 Long term (current) use of aspirin; Z79.83 Long term (current) use of bisphosphonates; Z86.14 Personal history of Methicillin resistant Staphylococcus aureus infection
CPT/HCPCS: 36415; 71045; 80048; 83735; 84100; 85025; 87631; 90937; 93005; 99285; G0257; J2405